=== PATIENT | female | born 1955 | race Caucasian/White ===

== ENCOUNTER 2017-02-23 11:57 | Day surgery (SDC) | payer MEDICARE, OTHER ==
[2017-02-23 12:09] VITALS: BP 132/65; PULSE 71; RESP 20; TEMP 98.2
[2017-02-23] MEDS ORDERED: ALPRAZolam 0.5 MG TAB PO STA (12:14)
--- NOTE | 2017-02-23 14:13 | US ---
ULTRASOUND GUIDED FNA THYROID BIOPSY: CLINICAL HISTORY: Isthmus nodule and left thyroid nodule FINDINGS: The procedure was explained to the patient. The risks, complications, benefits and alternatives were discussed and any questions were answered. Informed consent was obtained. Patient was placed supin e on the ultrasound table and prepped and draped in the usual sterile fashion. Utilizing a 25 gauge needle, five passes were made into the isthmus nodule. Left thyroid nodule was not seen with certain ty on today's exam. Patient was stable throughout the procedure. Pathology is pending. All elements of maximal barrier technique were utilized. IMPRESSION: 1. Successful ultrasound guided FNA thyroid biopsy isthmus nodule. Left thyroid nodule not seen with certainty on today's exam and therefore FNA could not be performed. Follow-up as clinically e d.
== END 2017-02-23 13:20 | disposition home or self-care (01) ==
LOC: RADPROMAIN 11:57
PROVIDERS: ATTEND Family Medicine
DX: E07.89 Other specified disorders of thyroid (principal); E04.1 Nontoxic single thyroid nodule
CPT/HCPCS: 10022; 76942; 88173; 88305

== ENCOUNTER 2017-03-25 06:33 | Day surgery (SDC) | payer MEDICARE ==
[2017-03-17 10:54] VITALS: BMI 26.6
[~2017-03-25 06:33] MED LIST: DEXAMETHASONE SOD PHOSPHATE 10 MG/ML 1 ML VIAL IV ONE; HEPARIN SODIUM,PORCINE 5,000 UNIT/ML 1 ML VIAL SQ ONE; LACTATED RINGERS 1,000 ML IV SCH; MIDAZOLAM 2 MG/2 ML VIAL IV PRN; ONDANSETRON 4 MG/2 ML VIAL IVP ONE; Pre Op ABX Message 1 EACH MISC MISCELLANE ONE; SCOPOLAMINE 1.5MG/72HR PATCH TRANSDERM ONE
--- NOTE | 2017-03-25 07:55 | P.GSHP ---
History of Present Illness H&P Date: 03/25/17 Chief Complaint: Thyroid cancer This is a 62-year-old female who had an enlarging left thyroid nodule. 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 She presents today for total thyroidectomy. Patient is aware the risks of surgery including vocal cord hoarseness, recurrent laryngeal nerve injury, parathyroid gland injury. - Constitutional Constitutional: Reports as per HPI Past Medical History Past Medical History: Coronary Artery Disease (CAD), Cancer, Chest Pain / Angina , Hyperlipidemia, Hypertension, Memory Impairment, Myocardial Infarction ([place]), Thyroid Disorder Additional Past Medical History / Comment(s): TIA yrs. ago, Isthmus nodule. hx. of Prinzmetal angina. new dx. thyroid cancer, current resolving cold symptoms Last Myocardial Infarction Date:: 05/2010 History of Any Multi-Drug Resistant Organisms: None Reported Past Surgical History: Cholecystectomy, Heart Catheterization, Hysterectomy, Tonsillectomy Additional Past Surgical History / Comment(s): CYST REMOVED ON NECK CHILD. Isthmus nodule biopsy. Right thumb injury repair Past Anesthesia/Blood Transfusion Reactions: Previous Problems w/ Anesthesia Additional Past Anesthesia/Blood Transfusion Reaction / Comment(s): trouble urinating after general anesthesia Smoking Status: Former smoker - Past Family History Mother Family Medical History: Unable to Obtain Medications and Allergies Home Medications Medication Instructions Recorded Confirmed Type Carvedilol [Coreg] 6.25 mg PO BID 03/21/14 03/17/17 History amLODIPine BESYLATE [Norvasc] 2.5 mg PO BID 03/21/14 03/25/17 History Atorvastatin [Lipitor] 80 mg PO HS 09/10/15 03/25/17 History hydrOXYzine HCL [Atarax] 25 mg PO QID PRN 09/10/15 03/25/17 History Levothyroxine Sodium [Synthroid] 100 mcg PO DAILY 02/07/16 03/17/17 History Allergies Allergy/AdvReac Type Severity Reaction Status Date / Time adhesive AdvReac Itching Verified 03/25/17 06:55 codeine AdvReac Nausea & Verified 03/25/17 06:55 Vomiting Surgical - Exam Vital Signs Temp Pulse Resp BP Pulse Ox 98.4 F 63 16 133/80 97 03/25/17 06:54 03/25/17 06:54 03/25/17 06:54 03/25/17 06:54 03/25/17 06:54 - General well developed, no distress - Eyes PERRL - ENT normal pinna - Neck Prominent thyroid gland no masses - Respiratory normal expansion - Cardiovascular Rhythm: regular - Abdomen Abdomen: soft, non tender Assessment and Plan Plan: Left thyroid follicular neoplasm. Patient will undergo total thyroidectomy. The risks and benefits. Discussed the patient.
[2017-03-25] MEDS ORDERED: PROPOFOL 10 MG/ML 20 ML VIAL IV ONE (08:00)
[2017-03-25] MEDS ORDERED: ePHEDrine SULFATE/0.9% NACL/PF 50 MG/5 ML SYRINGE IV ONE (08:00)
[2017-03-25] MEDS ORDERED: SUCCINYLCHOLINE CHLORIDE 100 MG/5 ML SYR IV ONE (08:00)
[2017-03-25] MEDS ORDERED: MIDAZOLAM 2 MG/2 ML VIAL ONE (08:00)
[2017-03-25] MEDS ORDERED: fentaNYL (PF) 50 MCG/ML 2 ML AMP ONE (08:00)
[2017-03-25] MEDS ORDERED: LIDOCAINE 1% INJ 10MG/ML (20 ML MDV) ONE (08:00)
[2017-03-25] MEDS ORDERED: SODIUM CHLORIDE 0.9% 0 ML with ceFAZolin 2,000 MG IV ONE ×2 (08:18)
[2017-03-25] MEDS ORDERED: LACTATED RINGERS 1,000 ML IV ONE ×2 (09:26→09:43)
[2017-03-25] MEDS ORDERED: LIDOCAINE 2%-EPI 1:100,000 20 ML VIAL SQ ONE (09:28)
[2017-03-25] MEDS ORDERED: NALOXONE 0.4 MG/ML 1 ML VIAL IV PRN (09:43)
[2017-03-25] MEDS ORDERED: ACETAMINOPHEN TAB 325 MG TAB PO PRN (09:43)
[2017-03-25] MEDS: HYDROmorphone 1 MG/ML 1 ML SYRINGE IVP PRN ×7 (09:55→22:13)
[2017-03-25] MEDS: traMADol 50 MG TAB PO PRN (16:31)
[2017-03-25] MEDS: DOCUSATE 100 MG CAP PO SCH (22:15)
[2017-03-26] MEDS: HYDROmorphone 1 MG/ML 1 ML SYRINGE IVP PRN (02:09)
[2017-03-26] MEDS: traMADol 50 MG TAB PO PRN (05:54)
[2017-03-26] MEDS ORDERED: hydrOXYzine HCL 25 MG TAB PO PRN (07:47)
[2017-03-26] MEDS ORDERED: LEVOTHYROXINE 100 MCG TAB PO SCH (08:00)
[2017-03-26] MEDS ORDERED: CARVEDILOL 6.25 MG TAB PO SCH (08:00)
[2017-03-26 08:52] VITALS: RESP 20
[2017-03-26] MEDS ORDERED: amLODIPine 2.5 MG TAB PO SCH (09:00)
[2017-03-26] MEDS: DOCUSATE 100 MG CAP PO SCH (09:08)
[2017-03-26] MEDS: HYDROcodone/APAP 5-325MG 1 EACH TAB PO PRN ×2 (10:15→15:41)
[2017-03-26 11:59] VITALS: BP 129/69; PULSE 74; TEMP 98.2
--- NOTE | 2017-03-26 13:57 | P.DS ---
Providers Date of admission: 03/25/2017 Expected date of discharge: 03/26/17 Attending physician: Trever Nolan Consults: 03/25/17 09:43 Consult Physician Routine Consulting Provider: Liborio Colon Consult Reason/Comments: Medical management Do you want consulting provider notified?: Yes Primary care physician: [facility] Course: This is a 62-year-old female who underwent total thyroidectomy for left thyroid cancer. Patient did well postoperatively. Her calcium levels are normal. Her voice was normal as well. Procedures: Total thyroidectomy Patient Condition at Discharge: Good Plan - Discharge Summary New Discharge Prescriptions: No Action amLODIPine BESYLATE [Norvasc] 2.5 mg PO BID Carvedilol [Coreg] 6.25 mg PO BID hydrOXYzine HCL [Atarax] 25 mg PO QID PRN PRN Reason: Nausea Atorvastatin [Lipitor] 80 mg PO HS Levothyroxine Sodium [Synthroid] 100 mcg PO DAILY Discharge Medication List Carvedilol [Coreg] 6.25 mg PO BID 03/21/14 [History] amLODIPine BESYLATE [Norvasc] 2.5 mg PO BID 03/21/14 [History] Atorvastatin [Lipitor] 80 mg PO HS 09/10/15 [History] hydrOXYzine HCL [Atarax] 25 mg PO QID PRN 09/10/15 [History] Levothyroxine Sodium [Synthroid] 100 mcg PO DAILY 02/07/16 [History] Follow up Appointment(s)/Referral(s): Trever Nolan MD [STAFF PHYSICIAN] - 1 Week Liborio Colon MD [Primary Care Provider] - 2 Weeks Discharge Disposition: HOME SELF-CARE
[2017-03-26] MEDS ORDERED: ATORVASTATIN 80 MG TAB PO SCH (21:00)
--- NOTE | 2017-03-27 09:31 | PN ---
PROGRESS NOTE SUBJECTIVE: 62-year-old, white female admitted with hypertension and hypothyroidism, dyslipidemia with a follicular thyroid cancer. Calcium was 9.2 to 8.5. She is feeling better. Follicular cancer has been removed. Temp 98, respiratory 17 to 20. Pulse is 67. Blood pressure 120 to 130s over 60s to 70s. O2 is 96% on room air. CARDIOVASCULAR: S1, S2. LUNGS: Transmitted upper sounds. GI: Soft. HEMATOLOGY: Negative Homans. ASSESSMENT: 1. Follicular cancer. 2. Dyslipidemia. 3. Hypertension. 4. Hypothyroidism. Calcium has been rechecked and possible discharge home once patient is able to swallow despite severe throat pain. MMODL / IJN: [id number] /
--- NOTE | 2017-03-27 09:58 | CONS ---
CONSULTATION CHIEF COMPLAINT: 62-year-old, white female, who has follicular cancer. HISTORY OF PRESENT ILLNESS: This is a 62-year-old, white female with a follicular carcinoma status post thyroidectomy, hypertension, dyslipidemia, and chronic pain syndrome. The thyroid has been removed. Calcium has been re-evaluated. HOME MEDICATIONS: As mentioned above. PHYSICAL EXAM: Temp 97 to 98, pulse 60s to 70s, respirations 18 to 20, blood pressure 120s to 130s over 70s. O2 is 95-98% on room air. CARDIOVASCULAR: S1, S2. LUNGS: Clear. GI: Soft. HEMATOLOGIC: Negative Homans. VASCULAR: Normal dorsalis pedis, posterior tibial pulses. ENDOCRINE: Lateral incision over the lower anterior neck is clean, dry and intact. ASSESSMENT: 1. Status post thyroidectomy for follicular thyroid cancer. 2. Hypertension. 3. Dyslipidemia. We will follow for calcium levels. Follow in the next 24 to 48 hours. For possible discharge home. MMODL / IJN: [id number] /
--- NOTE | 2017-04-06 07:28 | P.OP ---
Date of Procedure: 03/25/17 Preoperative Diagnosis: follicular neoplasm of isthmus Postoperative Diagnosis: defer to pathology Procedure(s) Performed: total thyroidectomy Anesthesia: PATRICIA Surgeon: Trever Nolan Estimated Blood Loss (ml): 10 Pathology: other (thyroid) Condition: stable Disposition: PACU Description of Procedure: the patient was placed on the operative table in the supine position. She received general anesthesia. She was then placed in the beach chair position with her neck extended. Her neck was prepped and draped usual fashion. A standard incision was made approximately 2 cm above the sternal notch. The strap platysma was divided. The strap muscles were divided in the midline. The patient had a midline thyroid nodule. The left thyroid gland was mobilized first. Using retractors the strap muscle retracted laterally. And then the inferior thyroid vessels were ligated using 3-0 silk suture. The gland was rotated medially and then using the Harmonic scissors several small vessels were divided. Next the superior thyroid vessels were ligated using 2-0 silk ties. And then they were divided using the Harmonic scissors. The gland was rotated medially. Meticulous dissection was performed and the middle thyroid vein was dissected and divided. It was ligated with 3-0 silk suture. Care was taken to identify preserve the recurrent laryngeal nerve. The gland was then dissected off the trachea using cautery. Parathyroid glands were noted superiorly and inferiorly and these were preserved. Next the right thyroid gland was removed in identical fashion. The neck was inspected for hemostasis. There is no bleeding seen. The strap muscles were then reapproximated using 3-0 Vicryl suture. The platysma was closed with interrupted 3-0 Vicryl suture. The skin was closed interrupted 3-0 Monocryl suture. This skin was then closed with Dermabond. The patient was sent to recovery in stable condition.
== END 2017-03-26 17:30 | disposition home or self-care (01) ==
LOC: OR 06:33 → 6PED 09:36 → OR 03-26 17:30
PROVIDERS: ATTEND Surgery
DX: C73 Malignant neoplasm of thyroid gland (principal); E03.9 Hypothyroidism, unspecified; I25.10 Atherosclerotic heart disease of native coronary artery without angina pectoris; E78.5 Hyperlipidemia, unspecified; I10 Essential (primary) hypertension; R41.3 Other amnesia; G89.4 Chronic pain syndrome; I25.2 Old myocardial infarction; Z86.73 Personal history of transient ischemic attack (TIA), and cerebral infarction without residual deficits; Z87.891 Personal history of nicotine dependence; Z79.899 Other long term (current) drug therapy
CPT/HCPCS: 82310 ×2; 88307; 60240; J2250; J1644; J1100; J2405; J2001; J3010; J1170 ×2; J0690; J0330; J2704

== ENCOUNTER → 2017-07-06 | Outpatient (CLI) | payer MEDICARE ==
--- NOTE | 2017-07-06 13:51 | MR ---
EXAMINATION TYPE: MR brain wo/w con DATE OF EXAM: 07/06/2017 COMPARISON: Prior outside MRI brain December 25, 2010. HISTORY: Abnormal brain scan, memory loss TECHNIQUE: Exam is noted suboptimal due to prominent patient motion. Multiplanar, multisequence images of the brain and brainstem is performed without and with IV contras t, utilizing 7.5 mL intravenous Gadavist . FINDINGS: Diffusion weighted images demonstrate no evidence of a recent infarct or other diffusion ab normality. There is no worrisome extra-axial fluid collection. The ventricular system and cisternal spaces are normal in size and appearance. The brain volume is age appropriate. There is redemonstration of innumerable T2 hyperintense lesions scattered throughout the brain parenc hyma bilaterally there are estimated approximately 100 focal and confluent lesions involving superfic ial, deep, and periventricular white matter. For reference 16 x 8 x 15 mm lesion left frontal deep wh ite matter on axial image 19 is not significantly changed from prior. Midline structures demonstrate normal morphology. The craniocervical junction appears within normal limits. Post contrast images demonstrate no abnormal enhancement. The dural venous sinuses appear pa tent. The visualized sinuses are clear and the globes are intact. IMPRESSION: Severe nonspecific white matter changes redemonstrated without significant change from pr ior study. No enhancing lesions are clearly appreciated.
== END | disposition home or self-care (01) ==
LOC: RADMRIMAIN 10:52
PROVIDERS: ATTEND Family Medicine
DX: R90.82 White matter disease, unspecified (principal)
CPT/HCPCS: 70553; A9581

== ENCOUNTER → 2017-10-13 | Outpatient (CLI) | payer MEDICARE ==
--- NOTE | 2017-10-14 08:10 | MM ---
Reason for exam: screening (asymptomatic). Last mammogram was performed 10 years ago. Physical Findings: A clinical breast exam by your physician is recommended on an annual basis and results should be correlated with mammographic findings. MG 3D Screening Mammo W/Cad Bilateral CC and MLO view(s) were taken. Prior study comparison: October 16, 2007, mammogram, performed at [facility]. There are scattered fibroglandular densities. There is no discrete abnormality. No significant changes when compared with prior studies. ASSESSMENT: Negative, BI-RAD 1 RECOMMENDATION: Routine screening mammogram of both breasts in 1 year.
== END | disposition home or self-care (01) ==
LOC: RADMAMWWP 14:49
PROVIDERS: ATTEND Family Medicine
DX: Z12.31 Encounter for screening mammogram for malignant neoplasm of breast (principal)
CPT/HCPCS: 77063; 77067

== ENCOUNTER → 2017-10-25 | Outpatient (CLI) | payer MEDICARE ==
--- NOTE | 2017-10-25 16:27 | CTL ---
EXAMINATION TYPE: CT Low Dose Lung DATE OF EXAM ORDERED: 10/25/2017 COMPARISON: None HISTORY: . Low Dose CT Lung Screening CT DLP: 64.[address] CTDI: 2.0 mGy IV CONTRAST USED: None. SCREENING VISIT: First visit COMPARISON: None. TECHNIQUE: Low dose computed tomography scan was performed through the chest at 1 millimeter thick se ctions and reconstructed images in the coronal plane at [address] DIAGNOSTIC QUALITY: Satisfactory FINDINGS: LUNG NODULES: Not presentLeft lung: no nodules identified.Right lung: no nodules identified. LUNGS: COPD: Severity: None Fibrosis: Severity:None Lymph nodes: None Other findings: None RIGHT PLEURAL SPACE: Effusion: None Calcification: None Thickening: None Pneumothorax: None LEFT PLEURAL SPACE: Effusion: None Calcification: None Thickening: None Pneumothorax: None HEART: Heart Size: Mildly enlarged Coronary calcification: Mild Pericardial effusion: None OTHER FINDINGS: Upper abdomen: No significant abnormality Bony thorax: Degenerative changes Supraclavicular region: No significant abnormalityOther: No significant abnormalityI IMPRESSION: No significant abnormality seen. FOLLOW UP CT CHEST RECOMMENDATION: Follow-up screening in one year CT LUNG RAD: Negative LUNG RAD CATEGORY 1
== END | disposition home or self-care (01) ==
LOC: RADCTMAIN 15:40
PROVIDERS: ATTEND Family Medicine
DX: Z12.2 Encounter for screening for malignant neoplasm of respiratory organs (principal); I25.10 Atherosclerotic heart disease of native coronary artery without angina pectoris; Z87.891 Personal history of nicotine dependence
CPT/HCPCS: 93880; G0297

== ENCOUNTER → 2017-10-25 | Outpatient (CLI) | payer MEDICARE ==
--- NOTE | 2017-10-25 15:52 | US ---
EXAMINATION TYPE: US carotid duplex BILAT DATE OF EXAM: 10/25/2017 COMPARISON: NONE CLINICAL HISTORY: Coronary Artery Disease I25.10. CAD EXAM MEASUREMENTS: RIGHT: Peak Systolic Velocity (PSV) cm/sec ----- Right CCA: 77.6 ----- Right ICA: 113.4 ----- Right ECA: 91.0 ICA/CCA ratio: 1.5 RIGHT: End Diastole cm/sec ----- Right CCA: 27.0 ----- Right ICA: 47.4 ----- Right ECA: 17.1 LEFT: Peak Systolic Velocity (PSV) cm/sec ----- Left CCA: 70.9 ----- Left ICA: 110.9 ----- Left ECA: 71.2 ICA/CCA ratio: 1.6 LEFT: End Diastole cm/sec ----- Left CCA: 24.7 ----- Left ICA: 46.6 ----- Left ECA: 17.5 VERTEBRALS (direction of flow): Right Vertebral: Antegrade Left Vertebral: Antegrade Rhythm: Normal IMPRESSION: No elevated velocities, no significant stenosis. Criteria for Assigning % of Stenosis / Diameter reduction (Estimation based on the indirect measurements of the internal carotid artery velocities (ICA PSV). 1. Normal (no stenosis)=ICA PSV < 125 cm/s: ratio < 2.0: ICA EDV<40 cm/s. 2. Less than 50% stenosis=ICA PSV < 125 cm/s: ratio < 2.0: ICA EDV<40 cm/s. 3. 50 to 69% stenosis=ICA PSV of 125 to 230 cm/s: ration 2.0 ? 4.0: ICA EDV 40-100 cm/s. 4. Greater than 70% stenosis to near occlusion= ICA PSV > 230 cm/s: ratio > 4.0: ICA EDV > 100 cm/s. 5. Near occlusion= ICA PSV velocities may be low or undetectable: variable ratio and ICA EDV. 6. Total occlusion=unable to detect flow.
== END | disposition home or self-care (01) ==
LOC: RADUSWWP 15:15
PROVIDERS: ATTEND Family Medicine
DX: I25.10 Atherosclerotic heart disease of native coronary artery without angina pectoris (principal)
CPT/HCPCS: 93880

== ENCOUNTER 2018-03-28 06:26 | Inpatient (IN) | payer MEDICARE ==
[2018-03-28] MEDS ORDERED: SODIUM CHLORIDE 0.9% 1,000 ML IV STA ×2 (06:40)
[2018-03-28] MEDS ORDERED: ONDANSETRON 4 MG/2 ML VIAL IVP STA (06:40)
[2018-03-28] MEDS ORDERED: PANTOPRAZOLE 40 MG/10 ML VIAL IVP STA (06:40)
[2018-03-28] MEDS ORDERED: MORPHINE SULFATE 4 MG/ML SYRINGE IVP STA (06:40)
[2018-03-28] MEDS ORDERED: MORPHINE SULFATE 4 MG/ML SYRINGE IM STA (06:59)
[2018-03-28] MEDS ORDERED: ONDANSETRON 4 MG/2 ML VIAL IM STA (07:00)
--- NOTE | 2018-03-28 07:20 | ED ---
General Adult HPI - General Chief complaint: Chest Pain Stated complaint: Abdominal Pain, vomiting Source: patient, EMS Mode of arrival: EMS Limitations: no limitations - History of Present Illness Initial comments: Dictation was produced using [employer] dictation software. please excuse any grammatical, word or spelling errors. Chief Complaint: 63-year-old female past medical history of coronary artery disease, cancer, hypertension, thyroid disease presents with 4 hours of abdominal and chest pain. History of Present Illness: States that upon waking about approximately 4 AM patient began having chest pain and abdominal pain. When questioned what is more severe she reports that it is her abdominal pain. She woke up with severe left lower quadrant abdominal pain, nausea and vomiting. Patient is a poor historian. Chart review shows that patient has multiple medical problems namely cardiac disease. Patient does report being at baseline last night. Patient has history of diverticulitis per she feels as though his diverticulitis is acting up. The ROS documented in this emergency department record has been reviewed and confirmed by me. Those systems with pertinent positive or negative responses have been documented in the HPI. All other systems are other negative and/or noncontributory. - Related Data Home Medications Medication Instructions Recorded Confirmed Atorvastatin [Lipitor] 80 mg PO HS 09/10/15 03/28/18 Levothyroxine Sodium [Synthroid] 100 mcg PO DAILY 02/07/16 03/28/18 Carvedilol [Coreg] 12.5 mg PO BID 03/28/18 03/28/18 Spironolactone [Aldactone] 25 mg PO DAILY 03/28/18 03/28/18 Allergies Allergy/AdvReac Type Severity Reaction Status Date / Time adhesive AdvReac Itching Verified 03/28/18 09:02 codeine AdvReac Nausea & Verified 03/28/18 09:02 Vomiting Review of Systems ROS Statement: Those systems with pertinent positive or pertinent negative responses have been documented in the HPI. ROS Other: All systems not noted in ROS Statement are negative. Past Medical History Past Medical History: Coronary Artery Disease (CAD), Cancer, Chest Pain / Angina , Hyperlipidemia, Hypertension, Memory Impairment, Myocardial Infarction ([place]), Thyroid Disorder Additional Past Medical History / Comment(s): TIA yrs. ago, Isthmus nodule. hx. of Prinzmetal angina. new dx. thyroid cancer, current resolving cold symptoms Last Myocardial Infarction Date:: 05/2010 History of Any Multi-Drug Resistant Organisms: None Reported Past Surgical History: Cholecystectomy, Heart Catheterization, Hysterectomy, Tonsillectomy Additional Past Surgical History / Comment(s): CYST REMOVED ON NECK CHILD. Isthmus nodule biopsy. Right thumb injury repair Past Anesthesia/Blood Transfusion Reactions: Previous Problems w/ Anesthesia Additional Past Anesthesia/Blood Transfusion Reaction / Comment(s): trouble urinating after general anesthesia Past Psychological History: Depression Smoking Status: Former smoker Past Alcohol Use History: None Reported Past Drug Use History: Marijuana - Past Family History Mother Family Medical History: Unable to Obtain General Exam - General Exam Comments Initial Comments: PHYSICAL EXAM: General Impression: Alert and oriented x3, acute distress secondary to pain HEENT: Normocephalic atraumatic, extra-ocular movements intact, pupils equal and reactive to light bilaterally, dry mucous membranes Cardiovascular: Heart regular rate and rhythm, S1&S2 audible, no murmurs, rubs or gallops Chest: Lungs clear to auscultation bilaterally, no rhonchi, no wheeze, no rales Abdomen: Diffuse abdominal tenderness, worse in the left lower quadrant Musculoskeletal: Pulses present and equal in all extremities, no peripheral edema Motor: Moves all extremities grossly Neurological: CN II-XII grossly intact, no focal motor or sensory deficits noted Skin: Intact with no visualized rashes Psych: Normal affect and mood Limitations: no limitations Course Vital Signs 03/28/18 03/28/18 06:27 09:32 Temperature 97.5 F L Pulse Rate 77 73 Respiratory 19 17 Rate Blood Pressure 167/117 193/84 O2 Sat by Pulse 99 95 Oximetry Medical Decision Making - Medical Decision Making ED course: 62-year-old female presents with chest pain and abdominal pain. Vital signs upon arrival shows blood pressure of 167/117, temperature 97.5, rest vital signs within normal limits. EKG does not show any signs of ischemia or infarction. Laboratory evaluation obtained. Patient is leukocytosis of 14.3. Coag panel unremarkable, d-dimer is negative. Metabolic panel shows glucose of 193. Patient has mild Acidosis. Computed tomography scan the abdomen and pelvis shows no acute processes. Chest x-ray shows no acute processes. Patient reevaluated and reports having persistent nausea and vomiting. Patient given multiple antiemetics. After intervention patient still reports having symptoms. Discussed patient case with Dr. Mullally her primary care physician who requested patient be admitted to observation for further care. EKG Interpretation: A 12 lead EKG was obtained. It was interpreted by myself and attending physician. There is a P wave before every QRS complex. Rate is 73. Rhythm is normal sinus rhythm, DC interval 166, QRS 90, QTc 458. QT is not prolonged. No ST segment depression or elevation. Overall, this EKG is unremarkable - Lab Data Result diagrams: 03/28/18 07:35 03/28/18 07:35 Lab Results 03/28/18 03/28/18 03/28/18 Range/Units 07:35 07:35 07:35 WBC 14.3 H (3.8-10.6) k/uL RBC 4.74 (3.80-5.40) m/uL Hgb 14.3 (11.4-16.0) gm/dL Hct 42.4 (34.0-46.0) % MCV 89.5 (80.0-100.0) fL MCH 30.2 (25.0-35.0) pg MCHC 33.7 (31.0-37.0) g/dL RDW 12.5 (11.5-15.5) % Plt Count 236 (150-450) k/uL Neutrophils % 68 % Lymphocytes % 24 % Monocytes % 5 % Eosinophils % 1 % Basophils % 0 % Neutrophils # 9.6 H (1.3-7.7) k/uL Lymphocytes # 3.5 (1.0-4.8) k/uL Monocytes # 0.8 (0-1.0) k/uL Eosinophils # 0.1 (0-0.7) k/uL Basophils # 0.0 (0-0.2) k/uL PT (9.0-12.0) sec INR (<1.2) APTT (22.0-30.0) sec D-Dimer (<0.60) mg/L FEU Sodium 142 (137-145) mmol/L Potassium 4.5 (3.5-5.1) mmol/L Chloride 107 (98-107) mmol/L Carbon Dioxide 21 L (22-30) mmol/L Anion Gap 14 mmol/L BUN 15 (7-17) mg/dL Creatinine 0.84 (0.52-1.04) mg/dL Est GFR (CKD-EPI)AfAm 86 (>60 ml/min/1.73 sqM) Est GFR (CKD-EPI)NonAf 74 (>60 ml/min/1.73 sqM) Glucose 193 H (74-99) mg/dL Calcium 9.9 (8.4-10.2) mg/dL Magnesium 1.9 (1.6-2.3) mg/dL Total Bilirubin 1.1 (0.2-1.3) mg/dL AST 30 (14-36) U/L ALT 41 (9-52) U/L Alkaline Phosphatase 168 H (38-126) U/L Total Creatine Kinase 74 (30-135) U/L CK-MB (CK-2) 0.5 (0.0-2.4) ng/mL CK-MB (CK-2) Rel Index 0.7 Troponin I <0.012 (0.000-0.034) ng/mL NT-Pro-B Natriuret Pep pg/mL Total Protein 7.6 (6.3-8.2) g/dL Albumin 4.8 (3.5-5.0) g/dL Lipase 235 (23-300) U/L 03/28/18 03/28/18 Range/Units 07:35 07:35 WBC (3.8-10.6) k/uL RBC (3.80-5.40) m/uL Hgb (11.4-16.0) gm/dL Hct (34.0-46.0) % MCV (80.0-100.0) fL MCH (25.0-35.0) pg MCHC (31.0-37.0) g/dL RDW (11.5-15.5) % Plt Count (150-450) k/uL Neutrophils % % Lymphocytes % % Monocytes % % Eosinophils % % Basophils % % Neutrophils # (1.3-7.7) k/uL Lymphocytes # (1.0-4.8) k/uL Monocytes # (0-1.0) k/uL Eosinophils # (0-0.7) k/uL Basophils # (0-0.2) k/uL PT 10.1 (9.0-12.0) sec INR 1.0 (<1.2) APTT 22.2 (22.0-30.0) sec D-Dimer 0.40 (<0.60) mg/L FEU Sodium (137-145) mmol/L Potassium (3.5-5.1) mmol/L Chloride (98-107) mmol/L Carbon Dioxide (22-30) mmol/L Anion Gap mmol/L BUN (7-17) mg/dL Creatinine (0.52-1.04) mg/dL Est GFR (CKD-EPI)AfAm (>60 ml/min/1.73 sqM) Est GFR (CKD-EPI)NonAf (>60 ml/min/1.73 sqM) Glucose (74-99) mg/dL Calcium (8.4-10.2) mg/dL Magnesium (1.6-2.3) mg/dL Total Bilirubin (0.2-1.3) mg/dL AST (14-36) U/L ALT (9-52) U/L Alkaline Phosphatase (38-126) U/L Total Creatine Kinase (30-135) U/L CK-MB (CK-2) (0.0-2.4) ng/mL CK-MB (CK-2) Rel Index Troponin I (0.000-0.034) ng/mL NT-Pro-B Natriuret Pep 129 pg/mL Total Protein (6.3-8.2) g/dL Albumin (3.5-5.0) g/dL Lipase (23-300) U/L Disposition Clinical Impression: Nausea & vomiting Disposition: ADMITTED IP TO THIS HOSP Referrals: Liborio Colon MD [Primary Care Provider] - 1-2 days Decision Time: 10:32
[2018-03-28 07:47] LABS: Basophils % (A) 0 %; Eosinophils # (A) 0.1 k/uL (0-0.7); Eosinophils % (A) 1 %; HCT 42.4 % (34.0-46.0); HGB 14.3 gm/dL (11.4-16.0); Lymphocytes # (A) 3.5 k/uL (1.0-4.8); Lymphocytes % (A) 24 %; MCH 30.2 pg (25.0-35.0); MCHC 33.7 g/dL (31.0-37.0); MCV 89.5 fL (80.0-100.0); Mean Platelet Volume 8.1; Monocytes # (A) 0.8 k/uL (0-1.0); Monocytes % (A) 5 %; Neutrophils # (A) 9.6 k/uL (1.3-7.7); Neutrophils % (A) 68 %; Platelet Count 236 k/uL (150-450); RBC 4.74 m/uL (3.80-5.40); RDW 12.5 % (11.5-15.5); WBC 14.3 k/uL (3.8-10.6)
[2018-03-28 08:03] LABS: Albumin 4.8 g/dL (3.5-5.0); Calcium 9.9 mg/dL (8.4-10.2); D-Dimer 0.4 mg/L FEU (<0.60); Magnesium 1.9 mg/dL (1.6-2.3); Partial Thromboplastin Time 22.2 sec (22.0-30.0); Potassium 4.5 mmol/L (3.5-5.1); Prothrombin Time 10.1 sec (9.0-12.0); Total Bilirubin 1.1 mg/dL (0.2-1.3); Total Protein 7.6 g/dL (6.3-8.2)
[2018-03-28 08:07] LABS: Creatine Kinase 74 U/L (30-135)
[2018-03-28 08:19] LABS: Creatine Kinase MB 0.5 ng/mL (0.0-2.4); Troponin I <0.012 ng/mL (0.000-0.034)
--- NOTE | 2018-03-28 08:23 | CT ---
EXAMINATION TYPE: CT abdomen pelvis w con DATE OF EXAM: 03/28/2018 HISTORY: Nausea and vomiting with epigastric pain, history of thyroid cancer CT DLP: 689.8mGycm Automated Exposure Control for Dose Reduction was Utilized. CONTRAST: CT scan of the abdomen and pelvis is performed without oral but with IV Contrast, patient injected wi th 100 mL of Isovue 300. COMPARISON: None FINDINGS: LUNG BASES: No significant abnormality is appreciated. LIVER/GB: Cholecystectomy clips are seen. PANCREAS: No significant abnormality is seen. SPLEEN: No significant abnormality is seen. ADRENALS: No significant abnormality is seen. KIDNEYS: No significant abnormality is seen. BOWEL: A small hiatal hernia is present. There are diverticula in the sigmoid colon. There is no conv incing CT evidence for acute diverticulitis. There is no suspicious small or large bowel dilatation. There is wondering cecum into the anterior mid abdomen just below umbilicus. Evaluation bowel is slig htly suboptimal due to lack of enteric contrast. UTERUS/ADNEXA: Uterus is surgically absent or markedly atrophic. Scattered pelvic phleboliths are see n. LYMPH NODES: No greater than 1cm abdominal or pelvic lymph nodes are appreciated. OSSEOUS STRUCTURES: No significant abnormality is seen. OTHER: There is mild to moderate calcified plaque of aorta extending into branch vessels. IMPRESSION: No bowel obstruction is seen. No significant acute finding is seen to account for patient 's clinical symptoms.
[2018-03-28] MEDS ORDERED: HALOPERIDOL LACTATE 5 MG/ML 1 ML VIAL IVP STA (08:34)
--- NOTE | 2018-03-28 09:16 | XR ---
EXAMINATION TYPE: XR chest 2V DATE OF EXAM: 03/28/2018 COMPARISON: Chest x-ray February 07, 2016. Low-dose lung screening CT report October 25, 2017 HISTORY: Chest pain. TECHNIQUE: Frontal and lateral views of the chest are obtained. FINDINGS: There is chronic parenchymal change without suspicious focal air space opacity, pleural ef fusion, or pneumothorax seen. The cardiac silhouette size is upper limits of normal. The osseous s tructures are intact. IMPRESSION: Chronic changes without acute pulmonary process.
[2018-03-28] MEDS ORDERED: METOCLOPRAMIDE 5 MG/ML 2 ML VIAL IVP STA (09:26)
[2018-03-28] MEDS ORDERED: NALOXONE 0.4 MG/ML 1 ML VIAL IV PRN (10:29)
--- NOTE | 2018-03-28 13:36 | HP ---
HISTORY AND PHYSICAL CHIEF COMPLAINT: A 63-year-old white female, history of coronary artery disease, cancer, hypertension, hypothyroidism, presents with over 4 hours of abdominal and chest pain. She woke up with severe left lower quadrant abdominal pain, nausea, vomiting, and some atypical chest pain. She has a history of diverticulitis. No cough, hemoptysis. Atypical chest pain, mostly abdominal pain, admitted. Will get surgical and cardiology consult. HOME MEDICINES: 1. Lipitor 80. 2. Synthroid 100. 3. Coreg 12.5 b.i.d. 4. Aldactone 25 daily. ALLERGIES: Allergies are to CODEINE. REVIEW OF SYSTEMS: Fourteen-point review of systems negative except for mentioned in HPI. PAST MEDICAL HISTORY: Coronary artery disease, angina, dyslipidemia, hypertension, memory impairment, myocardial infarction, hypothyroidism, thyroid cancer, cholecystectomy, heart catheterization, hysterectomy, tonsillectomy, isthmus nodule biopsy, right thumb injury repair and depression. SOCIAL HISTORY: Marijuana. Former smoker. No alcohol. history as mentioned above. PHYSICAL EXAMINATION: Temp 97.5, pulse is in the 70s, respiratory rate 16 to 18, blood pressure is 160s to 190s over 80s to 117, O2 of 95% to 99% on room air. HEENT: Normocephalic, atraumatic. CARDIOVASCULAR: S1, S2. LUNGS: Transmitted upper airway sounds. GI: Soft, HEMATOLOGY: Negative Homans. PSYCH: Fair mood and affect. GI: There is mild tenderness, worse in the left lower quadrant. ASSESSMENT: 1. Possible diverticulitis. 2. Hypertension acceleration. 3. Atypical chest pain. D-dimer is negative and chest x-ray negative for any pulmonary embolism. Will have Cardiology to see her as well as surgical consultation. White count elevation possibly due to diverticulitis, urine culture and possibly use some broad-spectrum antibiotics. Elevated glucose levels, check hemoglobin A1c and also check thyroid level on her. Initial cardiac workup is negative. Await consultations. MMODL / IJN: [id number] /
--- NOTE | 2018-03-28 13:37 | P.GSCN ---
History of Present Illness Consult date: 03/28/18 Reason for Consult: Left lower quadrant pain History of present illness: 63-year-old female who presented to the emergency room with a chief complaint of developing abdominal pain woke up with left lower quadrant pain with nausea and vomiting sensation with frequent loose stools patient states stools are semi -formed with no blood noted patient reportedly gives a history of diverticulitis. Patient states she feels that her diverticulitis is acting up. Patient has poor past medical history recall. computed tomography scan of the abdomen and pelvis obtained report reviewed in summary impression no bowel obstruction. No significant acute findings to account for patient's clinical symptoms. There are diverticuli in the sigmoid colon. No convincing evidence of acute diverticulitis Patient states she has chronic nausea but does not vomit and has not had any unintentional weight loss. Patient stated that she a similar episode several months ago abdominal pain. It resolved on its own. No blood noted in the stool is not certain when she had a colonoscopy last denies any reflux symptoms. Patient reportedly was given Haldol in the emergency room for nausea. Has a tendency to fall asleep during the interview. States is tired out" Patient does have a history of left thyroid cancer underwent a total thyroidectomy in March 2017 Past surgical history total thyroidectomy March 2017, hysterectomy, cholecystectomy, tonsillectomy Has a history of known coronary artery disease, hyperlipidemia, memory impairment, thyroid disorder, hypertension Review of Systems Essentially unremarkable except as mentioned in the present illness Past Medical History Past Medical History: Coronary Artery Disease (CAD), Cancer, Chest Pain / Angina , Hyperlipidemia, Hypertension, Myocardial Infarction (HI), Thyroid Disorder Additional Past Medical History / Comment(s): Thyroid cancer with thyroidectomy , isthmus nodule, TIA years ago, diverticular disease. Last Myocardial Infarction Date:: 05/2010 History of Any Multi-Drug Resistant Organisms: None Reported Past Surgical History: Cholecystectomy, Hysterectomy, Tonsillectomy Additional Past Surgical History / Comment(s): Pt denies any hx of cardiac cath but states another type of diagnostic test was done in 2009 and she has no cardiac blockages, thyroidectomy, isthmus bx, R thumb surgery, colonoscopy. Past Anesthesia/Blood Transfusion Reactions: Previous Problems w/ Anesthesia Additional Past Anesthesia/Blood Transfusion Reaction / Comm: trouble urinating after general anesthesia Smoking Status: Former smoker - Past Family History Mother Family Medical History: Unable to Obtain Additional Family Medical History / Comment(s): Mother is from alcoholism. Father Family Medical History: Hypertension Additional Family Medical History / Comment(s): Father is . Medications and Allergies Home Medications Medication Instructions Recorded Confirmed Type Atorvastatin [Lipitor] 80 mg PO HS 09/10/15 03/28/18 History Levothyroxine Sodium [Synthroid] 100 mcg PO DAILY 02/07/16 03/28/18 History Carvedilol [Coreg] 12.5 mg PO BID 03/28/18 03/28/18 History Spironolactone [Aldactone] 25 mg PO DAILY 03/28/18 03/28/18 History Allergies Allergy/AdvReac Type Severity Reaction Status Date / Time adhesive AdvReac Itching Verified 03/28/18 12:14 codeine AdvReac Nausea & Verified 03/28/18 12:14 Vomiting Surgical - Exam Vital Signs Temp Pulse Resp BP Pulse Ox 97.5 F L 77 19 167/117 99 03/28/18 06:27 03/28/18 06:27 03/28/18 06:27 03/28/18 06:27 03/28/18 06:27 GENERAL APPEARANCE: patient is alert, oriented 3, in no acute distress. Drowsy but arousable suspect due to the Haldol given in the emergency room for nausea VITAL SIGNS: Reviewed HEENT: Head is normocephalic and atraumatic. Pupils are equal and reactive. The nares are patent. Oropharynx is clear without lesions. NECK: Supple without lymphadenopathy. Traches midline. HEART: S1, S2. Regular rate and rhythm. No murmur LUNGS: No crackles or wheezes are heard. Adequate air movement ABDOMEN: Soft, diffuse tenderness left lower quadrant nondistended with good bowel sounds. No peritoneal signs. No palpable organomegaly or masses. Nursing reports the patient has had one watery stool no blood noted EXTREMITIES: Normal skin color and turgor. No cyanosis, rash, ulceration, clubbing or edema. Radial pedal pulses are 2/4 bilaterally. NEUROLOGICAL: No focal deficits. Strength and sensation are grossly intact. Results - Labs 03/28/18 07:35 03/28/18 07:35 Abnormal Lab Results - Last 24 Hours (Table) 03/28/18 03/28/18 Range/Units 07:35 07:35 WBC 14.3 H (3.8-10.6) k/uL Neutrophils # 9.6 H (1.3-7.7) k/uL Carbon Dioxide 21 L (22-30) mmol/L Glucose 193 H (74-99) mg/dL Alkaline Phosphatase 168 H (38-126) U/L Diabetes panel 03/28/18 Range/Units 07:35 Sodium 142 (137-145) mmol/L Potassium 4.5 (3.5-5.1) mmol/L Chloride 107 (98-107) mmol/L Carbon Dioxide 21 L (22-30) mmol/L BUN 15 (7-17) mg/dL Creatinine 0.84 (0.52-1.04) mg/dL Glucose 193 H (74-99) mg/dL Calcium 9.9 (8.4-10.2) mg/dL AST 30 (14-36) U/L ALT 41 (9-52) U/L Alkaline Phosphatase 168 H (38-126) U/L Total Protein 7.6 (6.3-8.2) g/dL Albumin 4.8 (3.5-5.0) g/dL Calcium panel 03/28/18 Range/Units 07:35 Calcium 9.9 (8.4-10.2) mg/dL Albumin 4.8 (3.5-5.0) g/dL Pituitary panel 03/28/18 Range/Units 07:35 Sodium 142 (137-145) mmol/L Potassium 4.5 (3.5-5.1) mmol/L Chloride 107 (98-107) mmol/L Carbon Dioxide 21 L (22-30) mmol/L BUN 15 (7-17) mg/dL Creatinine 0.84 (0.52-1.04) mg/dL Glucose 193 H (74-99) mg/dL Calcium 9.9 (8.4-10.2) mg/dL Adrenal panel 03/28/18 Range/Units 07:35 Sodium 142 (137-145) mmol/L Potassium 4.5 (3.5-5.1) mmol/L Chloride 107 (98-107) mmol/L Carbon Dioxide 21 L (22-30) mmol/L BUN 15 (7-17) mg/dL Creatinine 0.84 (0.52-1.04) mg/dL Glucose 193 H (74-99) mg/dL Calcium 9.9 (8.4-10.2) mg/dL Total Bilirubin 1.1 (0.2-1.3) mg/dL AST 30 (14-36) U/L ALT 41 (9-52) U/L Alkaline Phosphatase 168 H (38-126) U/L Total Protein 7.6 (6.3-8.2) g/dL Albumin 4.8 (3.5-5.0) g/dL Assessment and Plan Assessment: Impression Present on admission left lower quadrant pain with nausea vomiting diarrhea likely gastroenteritis Present on admission leukocytosis suspect reactive Computed tomography scan abdomen and pelvis with contrast obtained on admission report indicate diverticuli in the sigmoid colon no convincing evidence of acute diverticulitis no suspicion for small or large bowel dilatation History of thyroid cancer total thyroidectomy March 2017 Plan Stool studies follow up on results Abdominal x-ray in the morning IV fluid for hydration DVT and GI prophylaxis Repeat labs in the morning Further surgical recommendations pending clinical course Will follow with you Surgical consultation dictating for dr burrell The above impression and plan of care have been discussed and directed by signing physician. Cathryn Gonzales nurse practitioner acting as scribe for signing physician.
[2018-03-28] MEDS: ONDANSETRON 4 MG/2 ML VIAL IVP PRN (14:35)
[2018-03-28] MEDS ORDERED: ACETAMINOPHEN IV (For NPO) 1,000 MG in EMPTY BAG 1 BAG IVPB STA (15:21)
[2018-03-28 20:43] LABS: Hemoglobin A1C 5.9 % (4.0-6.0)
[2018-03-28] MEDS ORDERED: ATORVASTATIN 40 MG TAB PO SCH (21:00)
[2018-03-28] MEDS: ATORVASTATIN 80 MG TAB PO SCH (21:45)
[2018-03-28] MEDS: CARVEDILOL 12.5 MG TAB PO SCH (21:45)
[2018-03-29] MEDS: ONDANSETRON 4 MG/2 ML VIAL IVP PRN ×3 (01:52→13:43)
[2018-03-29] MEDS: PROMETHAZINE INJ 25 MG in SODIUM CHLORIDE 0.9% 50 ML IVPB PRN ×2 (04:21→10:17)
[2018-03-29] MEDS: LEVOTHYROXINE 100 MCG TAB PO SCH (06:08)
[2018-03-29 07:36] LABS: Basophils % (A) 0 %; Eosinophils % (A) 0 %; HCT 45.5 % (34.0-46.0); HGB 15.1 gm/dL (11.4-16.0); Lymphocytes # (A) 2.5 k/uL (1.0-4.8); Lymphocytes % (A) 16 %; MCH 30.1 pg (25.0-35.0); MCHC 33.1 g/dL (31.0-37.0); MCV 90.8 fL (80.0-100.0); Mean Platelet Volume 7.7; Monocytes # (A) 1.2 k/uL (0-1.0); Monocytes % (A) 8 %; Neutrophils # (A) 11.6 k/uL (1.3-7.7); Neutrophils % (A) 75 %; Platelet Count 227 k/uL (150-450); RBC 5.02 m/uL (3.80-5.40); RDW 12.6 % (11.5-15.5); WBC 15.5 k/uL (3.8-10.6)
[2018-03-29 08:20] LABS: ALT 37 U/L (9-52); AST 35 U/L (14-36); Albumin 4.8 g/dL (3.5-5.0); Alkaline Phosphatase 129 U/L (38-126); Anion Gap 13 mmol/L; Blood Urea Nitrogen 13 mg/dL (7-17); Calcium 8.8 mg/dL (8.4-10.2); Carbon Dioxide 25 mmol/L (22-30); Chloride 103 mmol/L (98-107); Glucose 125 mg/dL (74-99); Lipase 296 U/L (23-300); Potassium 3.7 mmol/L (3.5-5.1); Sodium 141 mmol/L (137-145); Total Bilirubin 1.9 mg/dL (0.2-1.3); Total Protein 7.9 g/dL (6.3-8.2)
[2018-03-29] MEDS: PANTOPRAZOLE 40 MG/10 ML VIAL IVP SCH (09:15)
[2018-03-29] MEDS: SPIRONOLACTONE 25 MG TAB PO SCH (09:23)
[2018-03-29] MEDS: CARVEDILOL 12.5 MG TAB PO SCH ×2 (09:23→20:34)
[2018-03-29] MEDS ORDERED: SODIUM CHLORIDE 0.9% 1,000 ML IV ONE ×2 (11:12→14:07)
[2018-03-29] MEDS ORDERED: DEXAMETHASONE SOD PHOSPHATE 10 MG/ML 1 ML VIAL IV STA (11:14)
--- NOTE | 2018-03-29 11:30 | P.PN ---
Subjective Progress Note Date: 03/29/18 63-year-old female seen at the bedside reportedly experiencing an nausea sensation. Patient reports patient did have a small emesis of bile. Patient states "whenever I try to drink comes back up" no stool Since admission white count 15.5 currently resting comfortably in bed the abdomen is soft not distended with active bowel tones. Objective - Vital Signs Vital signs: Vital Signs Temp 99.1 F 03/29/18 08:34 Pulse 79 03/29/18 08:34 Resp 16 03/29/18 08:34 BP 156/87 03/29/18 08:34 Pulse Ox 97 03/29/18 08:34 Intake & Output 03/28/18 03/29/18 03/29/18 18:59 06:59 18:59 Output Total 401 Balance -401 Output: Urine 400 Emesis 1 Other: # Voids 1 1 1 # Bowel Movements 1 # Emeses 1 - Exam Physical exam 62-year-old female resting in bed appears in no acute distress arousable to verbal stimuli Lungs adequate air movement bilaterally on room air Heart S1-S2 audible regular Abdomen soft not distended no facial grimacing with palpitation to the abdominal wall bowel tones reports a nausea sensation no emesis no stools nursing reports patient has small bile emesis this morning Extremities no edema - Labs CBC & Chem 7: 03/29/18 07:18 03/29/18 07:18 Labs: Abnormal Lab Results - Last 24 Hours (Table) 03/29/18 03/29/18 Range/Units 07:18 07:18 WBC 15.5 H (3.8-10.6) k/uL Neutrophils # 11.6 H (1.3-7.7) k/uL Monocytes # 1.2 H (0-1.0) k/uL Glucose 125 H (74-99) mg/dL Total Bilirubin 1.9 H (0.2-1.3) mg/dL Alkaline Phosphatase 129 H (38-126) U/L Assessment and Plan Assessment: Impression Present on admission left lower quadrant pain with nausea vomiting diarrhea likely gastroenteritis Present on admission leukocytosis suspect reactive Computed tomography scan abdomen and pelvis with contrast obtained on admission report indicate diverticuli in the sigmoid colon no convincing evidence of acute diverticulitis no suspicion for small or large bowel dilatation History of thyroid cancer total thyroidectomy March 2017 Persistent nausea unclear etiology Plan Stool studies follow up on results IV fluid bolus 1 now been decrease IV fluids 75 an hour decadron IV as ordered 1 Reglan 10mg every 6 hours IV fluid for hydration DVT and GI prophylaxis Repeat labs in the morning Further surgical recommendations pending clinical course Will follow with you Continue antiemetics as ordered The above impression and plan of care have been discussed and directed by signing physician. Cathryn Gonzales nurse practitioner acting as scribe for signing physician.
[2018-03-29] MEDS: SODIUM CHLORIDE 0.9% 1,000 ML IV SCH ×2 (12:25→18:18)
[2018-03-29] MEDS: METOCLOPRAMIDE 5 MG/ML 2 ML VIAL IVP SCH ×2 (12:37→18:04)
[2018-03-29] MEDS: ATORVASTATIN 80 MG TAB PO SCH (20:34)
[2018-03-30] MEDS: METOCLOPRAMIDE 5 MG/ML 2 ML VIAL IVP SCH ×2 (00:55→06:22)
[2018-03-30] MEDS: SODIUM CHLORIDE 0.9% 1,000 ML IV SCH (06:21)
[2018-03-30] MEDS: LEVOTHYROXINE 100 MCG TAB PO SCH (07:11)
[2018-03-30 07:48] LABS: Basophils % (A) 0 %; Eosinophils # (A) 0.1 k/uL (0-0.7); Eosinophils % (A) 1 %; HCT 43.2 % (34.0-46.0); HGB 14.1 gm/dL (11.4-16.0); Lymphocytes # (A) 2.2 k/uL (1.0-4.8); Lymphocytes % (A) 18 %; MCH 29.6 pg (25.0-35.0); MCHC 32.5 g/dL (31.0-37.0); Mean Platelet Volume 7.5; Monocytes % (A) 8 %; Neutrophils # (A) 8.9 k/uL (1.3-7.7); Neutrophils % (A) 71 %; Platelet Count 191 k/uL (150-450); RBC 4.74 m/uL (3.80-5.40); RDW 12.6 % (11.5-15.5); WBC 12.4 k/uL (3.8-10.6)
[2018-03-30] MEDS: PANTOPRAZOLE 40 MG/10 ML VIAL IVP SCH (07:51)
[2018-03-30 07:56] LABS: ALT 36 U/L (9-52); AST 25 U/L (14-36); Alkaline Phosphatase 101 U/L (38-126); Anion Gap 11 mmol/L; Blood Urea Nitrogen 17 mg/dL (7-17); Calcium 8.7 mg/dL (8.4-10.2); Carbon Dioxide 22 mmol/L (22-30); Chloride 109 mmol/L (98-107); Glucose 124 mg/dL (74-99); Potassium 3.2 mmol/L (3.5-5.1); Sodium 142 mmol/L (137-145); Total Bilirubin 1.6 mg/dL (0.2-1.3); Total Protein 6.6 g/dL (6.3-8.2)
[2018-03-30] MEDS: SPIRONOLACTONE 25 MG TAB PO SCH (09:00)
[2018-03-30] MEDS: CARVEDILOL 12.5 MG TAB PO SCH (09:00)
[2018-03-30] MEDS: POTASSIUM CHLORIDE ER 20 MEQ TAB.ER PO SCH ×2 (10:37→12:46)
--- NOTE | 2018-03-30 11:34 | P.PN ---
Subjective Progress Note Date: 03/30/18 63-year-old female seen sitting up in bed. Patient states "feels significantly improved no nausea no vomiting no abdominal pain. Had 1 small formed stools this morning. Patient's tolerating a regular diet. Patient states she's anxious to be discharged home. White count 12.4 this morning. Potassium 3.2 which has been replaced. Afebrile temp is 98.3 heart rate in the 70s Objective - Vital Signs Vital signs: Vital Signs Temp 98.3 F 03/30/18 08:08 Pulse 69 03/30/18 08:08 Resp 16 03/30/18 08:08 BP 109/73 03/30/18 08:08 Pulse Ox 97 03/30/18 08:08 Intake & Output 03/29/18 03/30/18 03/30/18 18:59 06:59 18:59 Intake Total 210 300 Output Total 1580 300 100 Balance -1580 -90 200 Intake: Oral 210 300 Output: Urine 1550 300 Stool 100 Emesis 30 Other: Voiding Method Toilet Toilet # Voids 1 1 # Bowel Movements 1 - Exam Physical exam 62-year-old female resting in bed up to bathroom no dizziness or lightheadedness no chest pain Lungs adequate air movement bilaterally on room air Heart S1-S2 audible regular Abdomen soft not distended nontender active bowel tones no nausea no vomiting tolerating a regular diet no diarrhea denies abdominal discomfort when questioning Extremities no edema - Labs CBC & Chem 7: 03/30/18 07:20 03/30/18 07:20 Labs: Abnormal Lab Results - Last 24 Hours (Table) 03/30/18 03/30/18 Range/Units 07:20 07:20 WBC 12.4 H (3.8-10.6) k/uL Neutrophils # 8.9 H (1.3-7.7) k/uL Potassium 3.2 L (3.5-5.1) mmol/L Chloride 109 H (98-107) mmol/L Glucose 124 H (74-99) mg/dL Total Bilirubin 1.6 H (0.2-1.3) mg/dL Assessment and Plan Assessment: Impression Present on admission left lower quadrant pain with nausea vomiting diarrhea likely gastroenteritis Present on admission leukocytosis suspect reactive Computed tomography scan abdomen and pelvis with contrast obtained on admission report indicate diverticuli in the sigmoid colon no convincing evidence of acute diverticulitis no suspicion for small or large bowel dilatation History of thyroid cancer total thyroidectomy March 2017 Persistent nausea resolved hypokalemia corrected resolved Plan From a surgical perspective is felt to be appropriate to be discharged home will follow-up in the office in one week in outpatient setting defer to the timing to the attending IV fluid for hydration DVT and GI prophylaxis No evidence of an acute surgical abdomen The above impression and plan of care have been discussed and directed by signing physician. Cathryn Gonzales nurse practitioner acting as scribe for signing physician.
[2018-03-30 13:51] VITALS: RESP 12
[2018-03-30 15:25] VITALS: BP 160/99; PULSE 69; TEMP 98.3
== END 2018-03-30 17:20 | disposition home or self-care (01) | DRG 392 ==
LOC: EC 06:26 → 6PED 10:30
PROVIDERS: ADMIT Family Medicine; ATTEND Family Medicine
DX: K52.9 Noninfective gastroenteritis and colitis, unspecified (principal); E87.2 Acidosis; E78.5 Hyperlipidemia, unspecified; E87.6 Hypokalemia; E89.0 Postprocedural hypothyroidism; I10 Essential (primary) hypertension; I25.10 Atherosclerotic heart disease of native coronary artery without angina pectoris; K57.30 Diverticulosis of large intestine without perforation or abscess without bleeding; I25.2 Old myocardial infarction; Z82.49 Family history of ischemic heart disease and other diseases of the circulatory system; Z85.850 Personal history of malignant neoplasm of thyroid; Z86.73 Personal history of transient ischemic attack (TIA), and cerebral infarction without residual deficits; Z87.891 Personal history of nicotine dependence; Z90.710 Acquired absence of both cervix and uterus; Z79.890 Hormone replacement therapy; Z79.899 Other long term (current) drug therapy; Z88.5 Allergy status to narcotic agent; Z88.8 Allergy status to other drugs, medicaments and biological substances
CPT/HCPCS: 36415; 71046; 74177; 80053; 82550; 82553; 83036; 83690; 83735; 83880; 84484; 85025; 85379; 85610; 85730; 87045; 87046; 87324; 87338; 93005; 96361; 96374; 96375; 99285

== ENCOUNTER 2018-07-24 15:10 | Inpatient (IN) | payer MEDICARE, OTHER ==
[2018-07-24 15:48] LABS: Basophils % (A) 0 %; Eosinophils # (A) 0.2 k/uL (0-0.7); Eosinophils % (A) 2 %; HGB 14.6 gm/dL (11.4-16.0); Lymphocytes # (A) 3.9 k/uL (1.0-4.8); Lymphocytes % (A) 42 %; MCH 30.3 pg (25.0-35.0); MCHC 33.9 g/dL (31.0-37.0); MCV 89.6 fL (80.0-100.0); Mean Platelet Volume 7.5; Monocytes # (A) 0.5 k/uL (0-1.0); Monocytes % (A) 5 %; Neutrophils # (A) 4.5 k/uL (1.3-7.7); Neutrophils % (A) 48 %; Platelet Count 235 k/uL (150-450); RBC 4.81 m/uL (3.80-5.40); RDW 12.6 % (11.5-15.5); WBC 9.3 k/uL (3.8-10.6)
[2018-07-24 16:01] LABS: ALT 35 U/L (9-52); AST 31 U/L (14-36); Albumin 5.2 g/dL (3.5-5.0); Alkaline Phosphatase 131 U/L (38-126); Anion Gap 15 mmol/L; Blood Urea Nitrogen 9 mg/dL (7-17); Calcium 10.3 mg/dL (8.4-10.2); Carbon Dioxide 20 mmol/L (22-30); Chloride 109 mmol/L (98-107); Glucose 109 mg/dL (74-99); Magnesium 2.1 mg/dL (1.6-2.3); Potassium 4.1 mmol/L (3.5-5.1); Sodium 144 mmol/L (137-145); Total Bilirubin 1.2 mg/dL (0.2-1.3); Total Protein 8.4 g/dL (6.3-8.2)
[2018-07-24 16:06] LABS: INR 0.9 (<1.2); Partial Thromboplastin Time 24.9 sec (22.0-30.0); Prothrombin Time 10.1 sec (9.0-12.0)
[2018-07-24 16:29] LABS: Creatine Kinase 95 U/L (30-135)
--- NOTE | 2018-07-24 16:40 | ED ---
General Adult HPI - General Chief complaint: Recheck/Abnormal Lab/Rx Stated complaint: Chest pain Time Seen by Provider: 07/24/18 16:01 Source: patient, RN notes reviewed, old records reviewed Mode of arrival: wheelchair Limitations: no limitations - History of Present Illness Initial comments: 63-year-old female presenting for evaluation of dyspnea and elevated blood pressure. Patient states her blood pressure has been elevated over the past 3 days, 150/100. Patient saw her primary care physician today for complaints of dyspnea and elevated blood pressure, she did have an EKG which was abnormal and patient was sent to the emergency department for further evaluation. Patient has history of previous ID [id number] which she denies any intervention for. History of heart failure. Patient denies any lower extremity pain or swelling. Denies chest pain. She does states she's had one to 2 days of mid back pain which is dull in nature. No upper extremity pain. No jaw pain. - Related Data Home Medications Medication Instructions Recorded Confirmed Carvedilol [Coreg] 12.5 mg PO BID 03/28/18 07/24/18 Spironolactone [Aldactone] 25 mg PO DAILY 03/28/18 07/24/18 Atorvastatin [Lipitor] 80 mg PO HS 07/24/18 07/24/18 Levothyroxine Sodium [Synthroid] 100 mcg PO DAILY 07/24/18 07/24/18 Allergies Allergy/AdvReac Type Severity Reaction Status Date / Time adhesive AdvReac Itching Verified 07/24/18 16:12 codeine AdvReac Nausea & Verified 07/24/18 16:12 Vomiting Review of Systems ROS Statement: Those systems with pertinent positive or pertinent negative responses have been documented in the HPI. ROS Other: All systems not noted in ROS Statement are negative. Past Medical History Past Medical History: Coronary Artery Disease (CAD), Cancer, Chest Pain / Angina , Hyperlipidemia, Hypertension, Myocardial Infarction (ID), Thyroid Disorder Additional Past Medical History / Comment(s): Thyroid cancer with thyroidectomy , isthmus nodule, TIA years ago, diverticular disease. Last Myocardial Infarction Date:: 05/2010 History of Any Multi-Drug Resistant Organisms: None Reported Past Surgical History: Cholecystectomy, Hysterectomy, Tonsillectomy Additional Past Surgical History / Comment(s): Pt denies any hx of cardiac cath but states another type of diagnostic test was done in 2009 and she has no cardiac blockages, thyroidectomy, isthmus bx, R thumb surgery, colonoscopy. Past Anesthesia/Blood Transfusion Reactions: Previous Problems w/ Anesthesia Additional Past Anesthesia/Blood Transfusion Reaction / Comment(s): trouble urinating after general anesthesia Past Psychological History: Depression Smoking Status: Former smoker Past Alcohol Use History: None Reported Past Drug Use History: None Reported - Past Family History Mother Family Medical History: Unable to Obtain Additional Family Medical History / Comment(s): Mother is from alcoholism. Father Family Medical History: Hypertension Additional Family Medical History / Comment(s): Father is . General Exam Limitations: no limitations General appearance: alert, in no apparent distress Head exam: Present: atraumatic, normocephalic Eye exam: Present: normal appearance, PERRL ENT exam: Present: normal exam Neck exam: Present: normal inspection. Absent: tenderness, meningismus Respiratory exam: Present: other (Mild tachypnea). Absent: respiratory distress , wheezes, rales Cardiovascular Exam: Present: regular rate, normal rhythm GI/Abdominal exam: Present: soft. Absent: distended, tenderness, guarding Extremities exam: Present: normal inspection, normal capillary refill. Absent: pedal edema, calf tenderness Neurological exam: Present: alert, oriented X3, CN II-XII intact. Absent: motor sensory deficit Psychiatric exam: Present: normal affect, normal mood Skin exam: Present: warm, dry, intact. Absent: cyanosis, diaphoretic Course Vital Signs 07/24/18 07/24/18 07/24/18 15:14 16:30 17:00 Temperature 98.2 F Pulse Rate 75 61 67 Respiratory 20 18 18 Rate Blood Pressure 176/96 139/82 159/79 O2 Sat by Pulse 100 100 99 Oximetry 07/24/18 07/24/18 17:30 18:00 Temperature Pulse Rate 71 64 Respiratory 18 18 Rate Blood Pressure 133/93 123/90 O2 Sat by Pulse 98 99 Oximetry EKG Findings - EKG Comments: EKG Findings:: EKG: Normal sinus rhythm, LVH, poor baseline in the inferior leads secondary artifact, no ST segment elevation, rate of 68, SC interval 122, QRS duration 90, QTC 433 Medical Decision Making - Medical Decision Making 63-year-old female, sent from primary care office with concern for abnormal EKG , no chest pain, however patient does have mid back pain. She is also concerned about elevated blood pressure. Workup in the emergency department reveals EKG with no definitive signs of acute ischemia, chest x-ray negative for any acute cardio primary disease, normal CBC, CMP reveals CO2 20 mild acidosis with lactic acid 2.5, troponin and BNP are negative this is reassuring his symptoms have been present for the past several days. There is concern for aortic pathology, CT angiography is obtained is negative for aneurysm or dissection. Given the patient's past history, she will be kept for serial enzymes, echo, cardiology consultation. This is discussed with Dr. Colon who will admit. - Lab Data Result diagrams: 07/24/18 15:35 07/24/18 15:35 Lab Results 07/24/18 07/24/18 07/24/18 Range/Units 15:35 15:35 15:35 WBC 9.3 (3.8-10.6) k/uL RBC 4.81 (3.80-5.40) m/uL Hgb 14.6 (11.4-16.0) gm/dL Hct 43.0 (34.0-46.0) % MCV 89.6 (80.0-100.0) fL MCH 30.3 (25.0-35.0) pg MCHC 33.9 (31.0-37.0) g/dL RDW 12.6 (11.5-15.5) % Plt Count 235 (150-450) k/uL Neutrophils % 48 % Lymphocytes % 42 % Monocytes % 5 % Eosinophils % 2 % Basophils % 0 % Neutrophils # 4.5 (1.3-7.7) k/uL Lymphocytes # 3.9 (1.0-4.8) k/uL Monocytes # 0.5 (0-1.0) k/uL Eosinophils # 0.2 (0-0.7) k/uL Basophils # 0.0 (0-0.2) k/uL PT (9.0-12.0) sec INR (<1.2) APTT (22.0-30.0) sec Sodium 144 (137-145) mmol/L Potassium 4.1 (3.5-5.1) mmol/L Chloride 109 H (98-107) mmol/L Carbon Dioxide 20 L (22-30) mmol/L Anion Gap 15 mmol/L BUN 9 (7-17) mg/dL Creatinine 0.68 (0.52-1.04) mg/dL Est GFR (CKD-EPI)AfAm >90 (>60 ml/min/1.73 sqM) Est GFR (CKD-EPI)NonAf >90 (>60 ml/min/1.73 sqM) Glucose 109 H (74-99) mg/dL Plasma Lactic Acid Enoch (0.7-2.0) mmol/L Calcium 10.3 H (8.4-10.2) mg/dL Magnesium 2.1 (1.6-2.3) mg/dL Total Bilirubin 1.2 (0.2-1.3) mg/dL AST 31 (14-36) U/L ALT 35 (9-52) U/L Alkaline Phosphatase 131 H (38-126) U/L Total Creatine Kinase 95 (30-135) U/L CK-MB (CK-2) 0.8 (0.0-2.4) ng/mL CK-MB (CK-2) Rel Index 0.8 Troponin I <0.012 (0.000-0.034) ng/mL NT-Pro-B Natriuret Pep pg/mL Total Protein 8.4 H (6.3-8.2) g/dL Albumin 5.2 H (3.5-5.0) g/dL 07/24/18 07/24/18 07/24/18 Range/Units 15:35 15:35 17:05 WBC (3.8-10.6) k/uL RBC (3.80-5.40) m/uL Hgb (11.4-16.0) gm/dL Hct (34.0-46.0) % MCV (80.0-100.0) fL MCH (25.0-35.0) pg MCHC (31.0-37.0) g/dL RDW (11.5-15.5) % Plt Count (150-450) k/uL Neutrophils % % Lymphocytes % % Monocytes % % Eosinophils % % Basophils % % Neutrophils # (1.3-7.7) k/uL Lymphocytes # (1.0-4.8) k/uL Monocytes # (0-1.0) k/uL Eosinophils # (0-0.7) k/uL Basophils # (0-0.2) k/uL PT 10.1 (9.0-12.0) sec INR 0.9 (<1.2) APTT 24.9 (22.0-30.0) sec Sodium (137-145) mmol/L Potassium (3.5-5.1) mmol/L Chloride (98-107) mmol/L Carbon Dioxide (22-30) mmol/L Anion Gap mmol/L BUN (7-17) mg/dL Creatinine (0.52-1.04) mg/dL Est GFR (CKD-EPI)AfAm (>60 ml/min/1.73 sqM) Est GFR (CKD-EPI)NonAf (>60 ml/min/1.73 sqM) Glucose (74-99) mg/dL Plasma Lactic Acid Enoch 2.5 H* (0.7-2.0) mmol/L Calcium (8.4-10.2) mg/dL Magnesium (1.6-2.3) mg/dL Total Bilirubin (0.2-1.3) mg/dL AST (14-36) U/L ALT (9-52) U/L Alkaline Phosphatase (38-126) U/L Total Creatine Kinase (30-135) U/L CK-MB (CK-2) (0.0-2.4) ng/mL CK-MB (CK-2) Rel Index Troponin I (0.000-0.034) ng/mL NT-Pro-B Natriuret Pep 96 pg/mL Total Protein (6.3-8.2) g/dL Albumin (3.5-5.0) g/dL Disposition Clinical Impression: Dyspnea, Chest pain Disposition: ADMITTED IP TO THIS HOSP Condition: Stable Is patient prescribed a controlled substance at d/c from ED?: No Referrals: Liborio Colon MD [Primary Care Provider] - 1-2 days Decision to Admit Reason: Admit from EC Decision Date: 07/24/18 Decision Time: 19:59
--- NOTE | 2018-07-24 16:42 | XR ---
EXAMINATION TYPE: XR chest 2V DATE OF EXAM: 07/24/2018 COMPARISON: Chest x-ray March 28, 2018. HISTORY: Chest pain. Abnormal EKG. TECHNIQUE: Frontal and lateral views of the chest are obtained. FINDINGS: There is chronic parenchymal change without suspicious focal air space opacity, pleural ef fusion, or pneumothorax seen. The cardiac silhouette size is stable and within normal limits. The osseous structures are demineralized. IMPRESSION: Chronic changes without acute pulmonary process. No significant change from prior.
[2018-07-24 16:43] LABS: Creatine Kinase MB 0.8 ng/mL (0.0-2.4); Troponin I <0.012 ng/mL (0.000-0.034)
[2018-07-24] MEDS ORDERED: MORPHINE SULFATE 4 MG/ML SYRINGE IVP STA (16:56)
[2018-07-24] MEDS ORDERED: SODIUM CHLORIDE 0.9% 1,000 ML IV ONE (17:52)
[2018-07-24] MEDS ORDERED: LORazepam 2 MG/ML INJ IV STA (18:13)
--- NOTE | 2018-07-24 19:29 | CT ---
EXAMINATION TYPE: CT angio thor/abd pel aorta DATE OF EXAM: 07/24/2018 COMPARISON: CT abdomen pelvis March 28, 2018. HISTORY: pain, hx heart disease, HTN CT DLP: 1368.7 mGycm. Automated Exposure Control for Dose Reduction was Utilized. CONTRAST: CTA scan of the thorax, abdomen and pelvis is performed without and with IV Contrast, patient injecte d with 100 mL of Isovue 370. Three-D reconstructed images are created on independent workstation and reviewed. FINDINGS: VASCULAR: There is normal three-vessel origin from the aortic arch. There is mild peripheral mixed pl aque in aortic arch. Ascending aorta measures up to 3.0 cm in diameter axial image 40. Main pulmonary artery measures 2.7 cm diameter on same image. No suspicious Central filling defect is seen. No sign ificant plaque or stenosis in descending thoracic aorta. No aneurysm is evident. There is patent sandy ac axis, SMA, bilateral single renal arteries left side which shows moderate calcified plaque at orig in and DANNY identified. There is moderate calcified plaque infrarenal abdominal aorta extending into c ommon iliac branch vessels. No linear hypodensity to suggest dissection is seen. There are patent int ernal/external iliac arteries with mild to moderate calcified plaque extending into internal iliac ar teries. There is mild to moderate mixed plaque at bilateral groin level as common femoral arteries br anch into superficial and deep femoral arteries. No significant stenosis is seen. No linear hypodensi ty to suggest dissection is noted. LUNGS: Mild to moderate emphysematous change most prominent lung apices with pleural/parenchymal scar ring and scattered bleb formation. No suspicious consolidation or groundglass opacity is seen. No ple ural effusion or pneumothorax is noted. MEDIASTINUM: There are no greater than 1 cm hilar or mediastinal lymph nodes. No cardiomegaly or pe ricardial effusion is seen. OTHER: No additional significant abnormality is seen. LIVER/GB: Cholecystectomy clips are redemonstrated. PANCREAS: No significant abnormality is seen. SPLEEN: No significant abnormality is seen. ADRENALS: No significant abnormality is seen. KIDNEYS: No significant abnormality is seen. BOWEL: Stable small size hiatal hernia. Diverticula in left and sigmoid colon are redemonstrated. No CT evidence for acute diverticulitis. No suspicious small or large bowel dilatation. GENITAL ORGANS: Uterus is surgically absent or markedly atrophic. Scattered pelvic phleboliths are se en. LYMPH NODES: No greater than 1cm abdominal or pelvic lymph nodes are appreciated. OSSEOUS STRUCTURES: No significant abnormality is seen. OTHER: No significant additional abnormality is seen. IMPRESSION: No aortic aneurysm or dissection. No new or acute finding seen to account for patient's symptoms.
[2018-07-24] MEDS ORDERED: ASPIRIN 325 MG TAB PO STA (19:34)
[2018-07-24] MEDS ORDERED: NALOXONE 0.4 MG/ML 1 ML VIAL IV PRN (19:54)
[2018-07-24 22:12] LABS: Creatine Kinase 83 U/L (30-135)
[2018-07-24 22:25] LABS: Creatine Kinase MB 0.8 ng/mL (0.0-2.4); Troponin I <0.012 ng/mL (0.000-0.034)
[2018-07-25] MEDS: ATORVASTATIN 80 MG TAB PO SCH ×2 (00:09→21:23)
[2018-07-25] MEDS: CARVEDILOL 12.5 MG TAB PO SCH ×3 (00:09→21:23)
[2018-07-25 03:43] LABS: Creatine Kinase 76 U/L (30-135)
[2018-07-25 03:54] LABS: Creatine Kinase MB 0.7 ng/mL (0.0-2.4)
[2018-07-25 03:56] LABS: Troponin I <0.012 ng/mL (0.000-0.034)
[2018-07-25] MEDS ORDERED: ENALAPRILAT 1.25 MG/ML 1 ML VIAL IVP PRN (08:36)
[2018-07-25] MEDS: ACETAMINOPHEN TAB 325 MG TAB PO PRN (08:46)
[2018-07-25] MEDS: LEVOTHYROXINE 100 MCG TAB PO SCH (08:47)
[2018-07-25] MEDS: SPIRONOLACTONE 25 MG TAB PO SCH (11:26)
--- NOTE | 2018-07-25 13:48 | P.CRDCN ---
History of Present Illness History of present illness: This is a pleasant 63-year-old female past medical history significant for myocardial infarction 8-10 years ago at [facility] then transferred to [place] per the patient, those records are currently unavailable to me. She also has dyslipidemia, hypothyroidism and hypertension. She states she has not followed with a marketing officer in many years. She states that the time of her myocardial infarction her heart function was only 40%. We have been asked to see her in consultation for symptoms of chest pain. She states for the previous 3 days she has been checking her blood pressure at home and has been elevated 150/100. She has been taking her medication as prescribed but feels she has been under significant amount of stress recently secondary to one of her sons being deployed to a scan is [place] and the other son at being involved in a car accident.2 days ago she started feeling a discomfort in between her shoulder blades with no radiation to the chest, arm, neck or jaw. The pain is worse with deep inspiration and on palpitation. 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 She went and saw her primary care physician and was sent to the hospital for further evaluation. Blood pressure on arrival 176/96. She was given IV enalapril and IV morphine for her back pain. Blood pressure this AM 107/66 with heart rate 61. EKG reveals sinus mechanism with left ventricular hypertrophy and nonspecific ST abnormalities noted. No acute ST or T-wave abnormalities. Chest x-ray reveals chronic changes with no acute cardiopulmonary process. CT of the thoracic chest reveals no aortic aneurysm or dissection with mild peripheral mixed plaque in the aortic arch. Laboratory data reviewed, WBC 9.3, hemoglobin 14.6, sodium 144, potassium 4.1, magnesium 1.2, creatinine 0.68, NT proBNP 96 and cardiac enzymes negative 3. Current cardiac medications include atorvastatin 80 mg daily, carvedilol 12.5 mg BID and aldactone 25 mg daily. There are no old cardiac records to review. At the time of my exam: CONSTITUTIONAL: Denies fever. Denies chills. EYES: Denies blurred vision. Denies vision changes. Denies eye pain. EARS, NOSE, MOUTH & THROAT: Denies headache. Denies sore throat. Denies ear pain. CARDIOVASCULAR: Denies chest pain. Denies shortness of breath. Denies orthopnea. Denies PND. Denies palpitations. RESPIRATORY: Denies cough. GASTROINTESTINAL: Denies abdominal pain. Denies diarrhea. Denies constipation. Denies nausea. Denies vomiting. MUSCULOSKELETAL: Complains of reproducible pain between shoulder blades. INTEGUMENTARY: Denies pruitis. Denies rash. NEUROLOGIC: Denies numbness. Denies tingling. Denies weakness. PSYCHIATRIC: Denies anxiety. Denies depression. ENDOCRINE: Denies fatigue. Denies weight change. Denies polydipsia. Denies polyurina. GENITOURINARY: Denies burning, hematuria or urgency with micturation. HEMATOLOGIC: Denies history of anemia. Denies bleeding. Blood pressure 107/66 heart rate 61 afebrile maintaining oxygen saturation on room air GENERAL: This is a 63-year-old female in no apparent distress at the time of my examination. HEENT: Head is atraumatic, normocephalic. Pupils are equal, round. Sclerae anicteric. Conjunctivae are clear. Mucous membranes of the mouth are moist. Neck is supple. There is no jugular venous distention. No carotid bruit is heard. LUNGS: Clear to auscultation no wheezes, rales or rhonchi. Upper back wall tenderness is noted on palpation and with deep breathing. HEART: Regular rate and rhythm without murmurs, rubs or gallops. S1 and S2 heard. ABDOMEN: Soft, nontender. Bowel sounds are heard. No organomegaly noted. EXTREMITIES: No evidence of peripheral edema and no calf tenderness noted. VASCULAR: Radial and dorsalis pedis pulses palpated, no evidence of clubbing. NEUROLOGIC: Patient is awake, alert and oriented x3. ASSESSMENT Pleuritic pain, an acute coronary event has been ruled out. Lactic acidosis, resolved with fluid bolus of 1-liter History of coronary artery disease, detail unavailable History of systolic heart failure, per the patient. Currently euvolemic Hypertension Dyslipidemia PLAN Obtain 2D echocardiogram and doppler study to assess cardiac structure and function. Feed the patient today, NPO after midnight tonight. Perform lexiscan stress test in the morning. Check lipid panel in the morning. Further recommendations to follow. Thank you kindly for this consultation. Nurse Practitioner note has been reviewed, I agree with a documented findings and plan of care. Patient was seen and examined. Past Medical History Past Medical History: Coronary Artery Disease (CAD), Cancer, Chest Pain / Angina , Hyperlipidemia, Hypertension, Myocardial Infarction ([place]), Thyroid Disorder Additional Past Medical History / Comment(s): Thyroid cancer with thyroidectomy , isthmus nodule, TIA years ago, diverticular disease. Last Myocardial Infarction Date:: 05/2010 History of Any Multi-Drug Resistant Organisms: None Reported Past Surgical History: Cholecystectomy, Hysterectomy, Tonsillectomy Additional Past Surgical History / Comment(s): Pt denies any hx of cardiac cath but states another type of diagnostic test was done in 2009 and she has no cardiac blockages, thyroidectomy, isthmus bx, R thumb surgery, colonoscopy. Past Anesthesia/Blood Transfusion Reactions: Previous Problems w/ Anesthesia Additional Past Anesthesia/Blood Transfusion Reaction / Comment(s): trouble urinating after general anesthesia Past Psychological History: Depression Smoking Status: Former smoker Past Alcohol Use History: None Reported Past Drug Use History: None Reported - Past Family History Mother Family Medical History: Unable to Obtain Additional Family Medical History / Comment(s): Mother is from alcoholism. Father Family Medical History: Hypertension Additional Family Medical History / Comment(s): Father is . Medications and Allergies Home Medications Medication Instructions Recorded Confirmed Type Carvedilol [Coreg] 12.5 mg PO BID 03/28/18 07/24/18 History Spironolactone [Aldactone] 25 mg PO DAILY 03/28/18 07/24/18 History Atorvastatin [Lipitor] 80 mg PO HS 07/24/18 07/24/18 History Levothyroxine Sodium [Synthroid] 100 mcg PO DAILY 07/24/18 07/24/18 History Allergies Allergy/AdvReac Type Severity Reaction Status Date / Time adhesive AdvReac Itching Verified 07/24/18 16:12 codeine AdvReac Nausea & Verified 07/24/18 16:12 Vomiting Physical Exam Vitals: Vital Signs Temp Pulse Resp BP Pulse Ox 07/25/18 03:00 61 87/56 07/24/18 23:50 63 112/60 07/24/18 23:00 66 110/58 07/24/18 22:00 58 L 114/64 07/24/18 21:00 141/81 07/24/18 18:00 64 18 123/90 99 07/24/18 17:30 71 18 133/93 98 07/24/18 17:00 67 18 159/79 99 07/24/18 16:30 61 18 139/82 100 07/24/18 15:14 98.2 F 75 20 176/96 100 Intake and Output 07/24/18 07/25/18 07/25/18 22:59 06:59 14:59 Other: Weight 74.843 kg Results 07/24/18 15:35 07/24/18 15:35 Cardiac Enzymes 07/24/18 07/24/18 07/24/18 Range/Units 15:35 15:35 21:36 AST 31 (14-36) U/L CK-MB (CK-2) 0.8 0.8 (0.0-2.4) ng/mL Troponin I <0.012 <0.012 (0.000-0.034) ng/mL 07/25/18 Range/Units 03:00 AST (14-36) U/L CK-MB (CK-2) 0.7 (0.0-2.4) ng/mL Troponin I <0.012 (0.000-0.034) ng/mL Coagulation 07/24/18 Range/Units 15:35 PT 10.1 (9.0-12.0) sec APTT 24.9 (22.0-30.0) sec CBC 07/24/18 Range/Units 15:35 WBC 9.3 (3.8-10.6) k/uL RBC 4.81 (3.80-5.40) m/uL Hgb 14.6 (11.4-16.0) gm/dL Hct 43.0 (34.0-46.0) % Plt Count 235 (150-450) k/uL Comprehensive Metabolic Panel 07/24/18 Range/Units 15:35 Sodium 144 (137-145) mmol/L Potassium 4.1 (3.5-5.1) mmol/L Chloride 109 H (98-107) mmol/L Carbon Dioxide 20 L (22-30) mmol/L BUN 9 (7-17) mg/dL Creatinine 0.68 (0.52-1.04) mg/dL Glucose 109 H (74-99) mg/dL Calcium 10.3 H (8.4-10.2) mg/dL AST 31 (14-36) U/L ALT 35 (9-52) U/L Alkaline Phosphatase 131 H (38-126) U/L Total Protein 8.4 H (6.3-8.2) g/dL Albumin 5.2 H (3.5-5.0) g/dL Current Medications Generic Name Dose Route Start Last Admin Trade Name Freq PRN Reason Stop Dose Admin Acetaminophen 650 mg 07/25/18 08:36 07/25/18 08:46 Tylenol Tab PO 650 mg Q6HR PRN Administration Fever and/ or Mild Pain Atorvastatin Calcium 80 mg 07/24/18 21:00 07/25/18 00:09 Lipitor PO 80 mg HS TRENT Administration Carvedilol 12.5 mg 07/24/18 21:00 07/25/18 00:09 Coreg PO 12.5 mg BID TRENT Administration Levothyroxine Sodium 100 mcg 07/25/18 06:30 07/25/18 08:47 Synthroid PO 100 mcg DAILY@0630 TRENT Administration Naloxone HCl 0.2 mg 07/24/18 19:54 Narcan IV Q2M PRN Opioid Reversal Spironolactone 25 mg 07/25/18 09:00 Aldactone PO DAILY TRENT Intake and Output 07/24/18 07/25/18 07/25/18 22:59 06:59 14:59 Other: Weight 74.843 kg 07/24/18 15:35 07/24/18 15:35
--- NOTE | 2018-07-25 18:02 | ECHOF ---
Referral Reason:irene MEASUREMENTS -------- HEIGHT: 170.2 cm WEIGHT: 74.8 kg BP: 129/100 IVSd: 1.1 cm (0.6 - 1.1) LVIDd: 4.2 cm (3.9 - 5.3) LVPWd: 1.2 cm (0.6 - 1.1) IVSs: 1.3 cm LVIDs: 3.5 cm LVPWs: 1.2 cm LA Diam: 3.1 cm (2.7 - 3.8) LAESV Index (A-L): 27.69 ml/m Ao Diam: 2.6 cm (2.0 - 3.7) AV Cusp: 1.4 cm (1.5 - 2.6) LA Diam: 4.0 cm (2.7 - 3.8) MV EXCURSION: 13.883 mm (> 18.000) MV EF SLOPE: 88 mm/s (70 - 150) EPSS: 0.3 cm MV E Sen: 0.75 m/s MV DecT: 215 ms MV A Sen: 0.76 m/s MV E/A Ratio: 0.99 RAP: 5.00 mmHg RVSP: 20.42 mmHg FINDINGS -------- Sinus rhythm. This was a technically adequate study. The left ventricular size is normal. There is mild concentric left ventricular hypertrophy. Overa ll left ventricular systolic function is normal with, an EF between 55 - 60 %. The right ventricle is normal in size. The left atrial size is normal. Normal LA size by volume 22+/-6 ml/m2. The right atrial size is normal. The aortic valve is trileaflet, and appears structurally normal. No aortic stenosis or regurgitation. Mild mitral annular calcification present. Mild mitral regurgitation is present. Mild tricuspid regurgitation present. There is no evidence of pulmonary hypertension. The right v entricular systolic pressure, as measured by Doppler, is 20.42mmHg. Trace/mild (physiologic) pulmonic regurgitation. The aortic root size is normal. There is no pericardial effusion. CONCLUSIONS -------- 1. The left ventricular size is normal. 2. There is mild concentric left ventricular hypertrophy. 3. Overall left ventricular systolic function is normal with, an EF between 55 - 60 %. 4. The right ventricle is normal in size. 5. The left atrial size is normal. 6. Normal LA size by volume 22+/-6 ml/m2. 7. The right atrial size is normal. 8. The aortic valve is trileaflet, and appears structurally normal. No aortic stenosis or regurgitati on. 9. Mild mitral annular calcification present. 10. Mild mitral regurgitation is present. 11. Mild tricuspid regurgitation present. 12. There is no evidence of pulmonary hypertension. 13. The right ventricular systolic pressure, as measured by Doppler, is 20.42mmHg. 14. Trace/mild (physiologic) pulmonic regurgitation. 15. The aortic root size is normal. 16. There is no pericardial effusion. DEPUTY DIRECTOR OF FINANCE: Kiersten Fortune RDCS
[2018-07-25] MEDS ORDERED: ONDANSETRON 4 MG TAB PO PRN (18:10)
[2018-07-25] MEDS: ONDANSETRON 4 MG/2 ML VIAL IVP PRN (18:33)
[2018-07-26] MEDS: LEVOTHYROXINE 100 MCG TAB PO SCH (05:38)
[2018-07-26] MEDS ORDERED: CAFFEINE CITRATE 60 MG/3 ML VIAL IV PRN (06:00)
[2018-07-26] MEDS ORDERED: REGADENOSON 0.4 MG/5 ML SYRINGE IV ONE (07:00)
[2018-07-26] MEDS: CARVEDILOL 12.5 MG TAB PO SCH ×2 (07:59→18:50)
--- NOTE | 2018-07-26 08:19 | PN ---
PROGRESS NOTE Mrs. Olivera was admitted to the hospital. She has a history of hypertension, hyperlipidemia, and her pain is very atypical. She is resting comfortably without symptoms. Blood pressure was slightly low. I am recommending that we cut back the atorvastatin to 40 mg daily, hold Coreg, place her on aspirin 81 mg daily and start IV fluids at 0.9 saline at 100 mL/hour and perform a Lexiscan stress test today. Echocardiogram revealed normal systolic function. The patient's pain is atypical. Blood pressure is under decent control. In fact, it is a bit low and therefore we will hold Coreg prior to the stress test as well. Increase fluids and see how she does. Vital signs are stable. S1, S2 heard normally, short systolic murmur noted. Lungs are clear. Abdomen and lower extremity exam unchanged. MMODL / IJN: [id number] /
[2018-07-26] MEDS: SPIRONOLACTONE 25 MG TAB PO SCH (13:01)
[2018-07-26] MEDS: ASPIRIN 81 MG PO SCH (13:37)
[2018-07-26 13:40] VITALS: BMI 25.2
--- NOTE | 2018-07-26 15:28 | PN ---
PROGRESS NOTE This is a white female who is admitted to the hospital with atypical chest pain, shortness of breath, hypertension, dyslipidemia. Chest pain was atypical per Cardiology. Cardiology cut back on her atorvastatin, they held her Coreg. Continued the aspirin. She is going to get a Lexiscan stress test today and echo prior to being discharged. CARDIOVASCULAR: S1, S2. LUNGS: Clear. GI: Soft. HEMATOLOGY: Negative Homans. ASSESSMENT: 1. Atypical chest pain. 2. Hypertension. 3. Dyslipidemia. Await for stress cardiac test prior to Cardiology clearance prior to discharge. MMODL / IJN: [id number] /
[2018-07-26] MEDS: SODIUM CHLORIDE 0.9% 1,000 ML IV SCH ×2 (18:50→18:51)
[2018-07-26] MEDS ORDERED: ATORVASTATIN 40 MG TAB PO SCH (21:00)
[2018-07-27] MEDS: SODIUM CHLORIDE 0.9% 1,000 ML IV SCH (04:40)
[2018-07-27] MEDS: ACETAMINOPHEN TAB 325 MG TAB PO PRN ×2 (04:55→11:24)
[2018-07-27] MEDS: LEVOTHYROXINE 100 MCG TAB PO SCH (04:55)
[2018-07-27] MEDS ORDERED: REGADENOSON 0.4 MG/5 ML SYRINGE IV ONE (07:30)
[2018-07-27 08:40] VITALS: RESP 18
[2018-07-27] MEDS ORDERED: ONDANSETRON 4 MG/2 ML VIAL ONE (10:16)
--- NOTE | 2018-07-27 10:39 | P.PN ---
Subjective This is a pleasant 63-year-old female past medical history significant for myocardial infarction 8-10 years ago at [facility] then transferred to [place] per the patient, those records are currently unavailable to me. She also has dyslipidemia, hypothyroidism and hypertension. She states she has not followed with a weekend caregiver in many years. She states that the time of her myocardial infarction her heart function was only 40%. We have been asked to see her in consultation for symptoms of chest pain. Stress test was attempted yesterday, however there was no IV access. Ultimately yesterday evening IV access was obtained per anesthesia. She denies any further symptoms of chest pain overnight. Blood pressure 114/73 hert rate 58. Lipid profile reviewed, LD 62, HDL 37 and TSH 1.34. Echo revealed preserved LV systolic function with EF 55-60%. GENERAL: This is a 63-year-old female in no apparent distress at the time of my examination. HEENT: Head is atraumatic, normocephalic. Pupils are equal, round. Sclerae anicteric. Conjunctivae are clear. Mucous membranes of the mouth are moist. Neck is supple. There is no jugular venous distention. No carotid bruit is heard. LUNGS: Clear to auscultation no wheezes, rales or rhonchi. Upper back wall tenderness is noted on palpation and with deep breathing. HEART: Regular rate and rhythm without murmurs, rubs or gallops. S1 and S2 heard. EXTREMITIES: No evidence of peripheral edema and no calf tenderness noted. ASSESSMENT Pleuritic pain, an acute coronary event has been ruled out. Lactic acidosis, resolved with fluid bolus of 1-liter History of coronary artery disease, detail unavailable History of systolic heart failure, per the patient. Currently euvolemic Hypertension Dyslipidemia PLAN Proceed with Lexiscan stress test as ordered. If normal she may be discharged home, if abnormal we will consider coronary angiography to further assess coronary arteries. Follow up with Dr. Castorena upon discharge. Nurse Practitioner note has been reviewed, I agree with a documented findings and plan of care. Patient was seen and examined. Objective - Vital Signs Vital signs: Vital Signs Temp 98.2 F 07/27/18 08:00 Pulse 58 L 07/27/18 08:00 Resp 18 07/27/18 08:00 BP 114/73 07/27/18 08:00 Pulse Ox 97 07/27/18 08:00 Intake & Output 07/26/18 07/27/18 07/27/18 18:59 06:59 18:59 Intake Total 460 Balance 460 Weight 72.9 kg 74.843 kg Intake: Oral 360 Other 100 Other: Voiding Method Toilet Toilet # Voids 1 - Labs CBC & Chem 7: 07/24/18 15:35 07/24/18 15:35
[2018-07-27] MEDS: ONDANSETRON 4 MG/2 ML VIAL IVP PRN (11:34)
--- NOTE | 2018-07-27 11:37 | NM ---
EXAMINATION TYPE: NM stress lexiscan cardiolite DATE OF EXAM: 07/27/2018 COMPARISON: NONE HISTORY: 63-year-old female with chest pain TECHNIQUE: After the intravenous administration of 9.8 mCi Tc 99m Sestamibi - Cardiolite resting SPE CT images acquired 45 minutes post injection. The patient received 0.4mg Lexiscan, 25.3 mCi Tc 99m Sestamibi - Stress images obtained [address] injection FINDINGS: Review of stress and rest SPECT images demonstrates no distinct perfusion abnormality. Gated analysi s shows normal wall motion with an estimated left ventricular ejection fraction of 61 %. TID calcula craig at 1.0, within normal limits. IMPRESSION: No scintigraphic evidence for reversible ischemia.
[2018-07-27 11:58] VITALS: BP 134/83; PULSE 67; TEMP 98.8
[2018-07-27] MEDS: SPIRONOLACTONE 25 MG TAB PO SCH (12:27)
[2018-07-27] MEDS: ASPIRIN 81 MG PO SCH (12:27)
[2018-07-27] MEDS: CARVEDILOL 12.5 MG TAB PO SCH (12:27)
[2018-07-27] MEDS ORDERED: DIPHENOX-ATROP 2.5-0.025 MG 1 EACH TAB PO STA (13:06)
--- NOTE | 2018-07-28 07:35 | EST ---
EXERCISE STRESS DATE OF SERVICE: 07/27/2018 AGE: 63 SEX: Female HT: 67" WT: 165 pounds PROTOCOL: Lexiscan Cardiolite STAGE: DURATION OF EXERCISE: HEART RATE REST: 63 BLOOD PRESSURE REST: 101/69 MAXIMUM HEART RATE ACHIEVED: 92 MAXIMUM BLOOD PRESSURE: 177/99 85% MPHR: 133 100% MPHR: 157 METS: INDICATIONS: Chest pain, abnormal EKG. CLINICAL INFORMATION: Baseline EKG revealed sinus rhythm without significant ST-T changes. There was some baseline artifact noted. With Lexiscan administration, patient's heart rate changed from 63 to 92 beats per minute and blood pressure changed from 101/69 to 177/99. She became nauseated and required some Zofran. EKG did not reveal any ST-segment changes to suggest ischemia. By EKG criteria this is an unremarkable Lexiscan stress test with minor EKG changes without any symptoms of angina, but patient had unpleasant reaction with emesis requiring Zofran. The nuclear scan results which are more pertinent, will be reported by the radiologist. MMJACLYN / HOWIEN: [id number] /
== END 2018-07-27 14:07 | disposition home or self-care (01) | DRG 204 ==
LOC: EC 15:10 → 1SOBS 19:54 → OBSVTOIN 07-26 21:16
PROVIDERS: ADMIT Family Medicine; ATTEND Family Medicine
DX: R07.81 Pleurodynia (principal); E87.2 Acidosis; I50.22 Chronic systolic (congestive) heart failure; E78.5 Hyperlipidemia, unspecified; E89.0 Postprocedural hypothyroidism; I11.0 Hypertensive heart disease with heart failure; I25.10 Atherosclerotic heart disease of native coronary artery without angina pectoris; I25.2 Old myocardial infarction; Z79.82 Long term (current) use of aspirin; Z79.890 Hormone replacement therapy; Z79.899 Other long term (current) drug therapy; Z82.49 Family history of ischemic heart disease and other diseases of the circulatory system; Z85.850 Personal history of malignant neoplasm of thyroid; Z86.73 Personal history of transient ischemic attack (TIA), and cerebral infarction without residual deficits; Z87.891 Personal history of nicotine dependence; Z90.710 Acquired absence of both cervix and uterus; Z88.5 Allergy status to narcotic agent; Z88.8 Allergy status to other drugs, medicaments and biological substances; Z90.49 Acquired absence of other specified parts of digestive tract
CPT/HCPCS: 36415; 71046; 71275; 74174; 78452; 80053; 80061; 82550; 82553; 83605; 83735; 83880; 84443; 84484; 85025; 85610; 85730; 93005; 93017; 93306; 96361; 96374; 96375; 99285

== ENCOUNTER 2018-09-03 07:37 | Inpatient (IN) | payer MEDICARE ==
[2018-09-03] MEDS ORDERED: SODIUM CHLORIDE 0.9% 1,000 ML IV STA ×2 (07:43)
[2018-09-03] MEDS ORDERED: METOCLOPRAMIDE 5 MG/ML 2 ML VIAL IVP STA (07:44)
--- NOTE | 2018-09-03 07:48 | ED ---
Abdominal Pain HPI - General Stated Complaint: abd pain Time Seen by Provider: 09/03/18 07:37 Source: patient, EMS, RN notes reviewed, old records reviewed Mode of arrival: EMS - History of Present Illness Initial Comments: This is a 63-year-old female history of thyroid disease prior history of pancreatitis per old reports quitting onset of being woken up at 4:00 this morning with abdominal pain left lower quadrant very severe sharp and radiates to her back and shoulders also with nausea vomiting and diarrhea. He's had intractable vomiting since that time. He did come in by EMS they were unable to get an IV he did try sublingual Zofran without any relief. She denies any fevers chills or sweats she felt well yesterday. No other modifying factors at this time MD Complaint: abdominal pain - Related Data Home Medications Medication Instructions Recorded Confirmed Spironolactone [Aldactone] 25 mg PO DAILY 03/28/18 09/03/18 Atorvastatin [Lipitor] 80 mg PO HS 07/24/18 09/03/18 Levothyroxine Sodium [Synthroid] 100 mcg PO DAILY 07/24/18 09/03/18 Carvedilol [Coreg] 25 mg PO BID 09/03/18 09/03/18 Allergies Allergy/AdvReac Type Severity Reaction Status Date / Time adhesive AdvReac Itching Verified 09/03/18 10:18 codeine AdvReac Nausea & Verified 09/03/18 10:18 Vomiting Penicillins AdvReac Unknown Verified 09/03/18 10:18 Review of Systems ROS Statement: Those systems with pertinent positive or pertinent negative responses have been documented in the HPI. ROS Other: All systems not noted in ROS Statement are negative. Past Medical History Past Medical History: Coronary Artery Disease (CAD), Cancer, Chest Pain / Angina , CVA/TIA, Hyperlipidemia, Hypertension, Myocardial Infarction (NM), Thyroid Disorder Additional Past Medical History / Comment(s): Thyroid cancer with thyroidectomy , TIA years ago, acute pancreatitis, diverticular disease. Last Myocardial Infarction Date:: 05/2010 History of Any Multi-Drug Resistant Organisms: None Reported Past Surgical History: Cholecystectomy, Hysterectomy, Orthopedic Surgery, Tonsillectomy Additional Past Surgical History / Comment(s): Pt denies any hx of cardiac cath but states another type of diagnostic test was done in 2009 at a hospital in [place] and she has no cardiac blockages, thyroidectomy, R thumb fracture with surgery, colonoscopy. Past Anesthesia/Blood Transfusion Reactions: Previous Problems w/ Anesthesia Additional Past Anesthesia/Blood Transfusion Reaction / Comment(s): trouble urinating after general anesthesia Smoking Status: Former smoker - Past Family History Mother Family Medical History: Unable to Obtain Additional Family Medical History / Comment(s): Mother is from esophageal varices d/t alcoholism at the age of 69yrs. Father Family Medical History: CVA/TIA, Hyperlipidemia, Hypertension, Musculoskeletal Disorder Additional Family Medical History / Comment(s): Father had a CVA in his 50s. Father is from parkinsons at age 69yrs. General Exam - General Exam Comments Initial Comments: This is a well-developed well-nourished awake alert oriented history female she is actively vomiting during the exam General appearance: alert, anxious, in distress Head exam: Present: atraumatic, normocephalic, normal inspection Eye exam: Present: normal appearance, PERRL, EOMI. Absent: scleral icterus, conjunctival injection, periorbital swelling ENT exam: Present: normal exam, mucous membranes moist Neck exam: Present: normal inspection. Absent: tenderness, meningismus, lymphadenopathy Respiratory exam: Present: normal lung sounds bilaterally. Absent: respiratory distress, wheezes, rales, rhonchi, stridor Cardiovascular Exam: Present: normal rhythm, tachycardia, normal heart sounds. Absent: systolic murmur, diastolic murmur, rubs, gallop, clicks GI/Abdominal exam: Present: soft, tenderness (Left lower quadrant and flank tenderness palpation no definite guarding or rebound), normal bowel sounds. Absent: distended, guarding, rebound, rigid, bruit, pulsatile mass Rectal exam: Present: deferred Extremities exam: Present: normal inspection, full ROM, normal capillary refill. Absent: tenderness, pedal edema, joint swelling, calf tenderness Back exam: Present: normal inspection Neurological exam: Present: alert, oriented X3, CN II-XII intact Psychiatric exam: Present: normal affect, normal mood Skin exam: Present: warm, dry, intact, normal color. Absent: rash Course Vital Signs 09/03/18 09/03/18 09/03/18 07:39 07:44 08:00 Temperature 97.5 F L Pulse Rate 67 Respiratory 22 Rate Blood Pressure 189/84 189/84 O2 Sat by Pulse 100 100 Oximetry 09/03/18 09/03/18 09/03/18 11:00 11:30 12:00 Temperature Pulse Rate Respiratory 20 22 20 Rate Blood Pressure 197/105 142/90 158/74 O2 Sat by Pulse 100 96 100 Oximetry 09/03/18 09/03/18 09/03/18 12:30 13:30 14:00 Temperature Pulse Rate Respiratory Rate Blood Pressure 148/72 156/86 153/99 O2 Sat by Pulse 97 96 96 Oximetry 09/03/18 14:30 Temperature Pulse Rate Respiratory Rate Blood Pressure 143/97 O2 Sat by Pulse 95 Oximetry - Reevaluation(s) Reevaluation #1: 09/03/18 15:56 Did review the outpatient multiple occasions she is slowly improving but still feels nauseated and having abdominal pain. Medical Decision Making - Medical Decision Making I did discuss the findings with the patient as well as with Dr. Elias patient be admitted for continued IV fluids she did have heme positive gastric cult. She demonstrates acute gastritis. Surgery will be consulted. - Lab Data Result diagrams: 09/03/18 09:56 09/03/18 09:56 Lab Results 09/03/18 09/03/18 09/03/18 Range/Units 09:56 09:56 09:56 WBC 12.6 H (3.8-10.6) k/uL RBC 4.27 (3.80-5.40) m/uL Hgb 12.3 (11.4-16.0) gm/dL Hct 39.5 (34.0-46.0) % MCV 92.4 (80.0-100.0) fL MCH 28.9 (25.0-35.0) pg MCHC 31.3 (31.0-37.0) g/dL RDW 13.1 (11.5-15.5) % Plt Count 193 (150-450) k/uL Neutrophils % 86 % Lymphocytes % 9 % Monocytes % 5 % Eosinophils % 0 % Basophils % 0 % Neutrophils # 10.8 H (1.3-7.7) k/uL Lymphocytes # 1.1 (1.0-4.8) k/uL Monocytes # 0.6 (0-1.0) k/uL Eosinophils # 0.1 (0-0.7) k/uL Basophils # 0.0 (0-0.2) k/uL Manual Slide Review Performed Poikilocytosis (manual Present PT (9.0-12.0) sec INR (<1.2) APTT (22.0-30.0) sec Sodium 144 (137-145) mmol/L Potassium 4.1 (3.5-5.1) mmol/L Chloride 111 H (98-107) mmol/L Carbon Dioxide 18 L (22-30) mmol/L Anion Gap 15 mmol/L BUN 21 H (7-17) mg/dL Creatinine 0.72 (0.52-1.04) mg/dL Est GFR (CKD-EPI)AfAm >90 (>60 ml/min/1.73 sqM) Est GFR (CKD-EPI)NonAf >90 (>60 ml/min/1.73 sqM) Glucose 191 H (74-99) mg/dL Lactic Ac Sepsis Rflx Plasma Lactic Acid Enoch 2.7 H* (0.7-2.0) mmol/L Calcium 10.4 H (8.4-10.2) mg/dL Magnesium 1.7 (1.6-2.3) mg/dL Total Bilirubin 1.9 H (0.2-1.3) mg/dL AST 31 (14-36) U/L ALT 45 (9-52) U/L Alkaline Phosphatase 179 H (38-126) U/L Total Creatine Kinase (30-135) U/L CK-MB (CK-2) (0.0-2.4) ng/mL CK-MB (CK-2) Rel Index Troponin I (0.000-0.034) ng/mL Total Protein 8.4 H (6.3-8.2) g/dL Albumin 5.2 H (3.5-5.0) g/dL Amylase 51 (30-110) U/L Lipase 97 (23-300) U/L Urine Color Urine Appearance (Clear) Urine pH (5.0-8.0) Ur Specific Bromide (1.001-1.035) Urine Protein (Negative) Urine Glucose (UA) (Negative) Urine Ketones (Negative) Urine Blood (Negative) Urine Nitrite (Negative) Urine Bilirubin (Negative) Urine Urobilinogen (<2.0) mg/dL Ur Leukocyte Esterase (Negative) Urine RBC (0-5) /hpf Urine WBC (0-5) /hpf Urine Bacteria (None) /hpf Urine Mucus (None) /hpf Gastric Occult Blood (Negative) 09/03/18 09/03/18 09/03/18 Range/Units 09:56 09:56 10:29 WBC (3.8-10.6) k/uL RBC (3.80-5.40) m/uL Hgb (11.4-16.0) gm/dL Hct (34.0-46.0) % MCV (80.0-100.0) fL MCH (25.0-35.0) pg MCHC (31.0-37.0) g/dL RDW (11.5-15.5) % Plt Count (150-450) k/uL Neutrophils % % Lymphocytes % % Monocytes % % Eosinophils % % Basophils % % Neutrophils # (1.3-7.7) k/uL Lymphocytes # (1.0-4.8) k/uL Monocytes # (0-1.0) k/uL Eosinophils # (0-0.7) k/uL Basophils # (0-0.2) k/uL Manual Slide Review Poikilocytosis (manual PT 10.2 (9.0-12.0) sec INR 0.9 (<1.2) APTT 17.9 L (22.0-30.0) sec Sodium (137-145) mmol/L Potassium (3.5-5.1) mmol/L Chloride (98-107) mmol/L Carbon Dioxide (22-30) mmol/L Anion Gap mmol/L BUN (7-17) mg/dL Creatinine (0.52-1.04) mg/dL Est GFR (CKD-EPI)AfAm (>60 ml/min/1.73 sqM) Est GFR (CKD-EPI)NonAf (>60 ml/min/1.73 sqM) Glucose (74-99) mg/dL Lactic Ac Sepsis Rflx Y Plasma Lactic Acid Enoch (0.7-2.0) mmol/L Calcium (8.4-10.2) mg/dL Magnesium (1.6-2.3) mg/dL Total Bilirubin (0.2-1.3) mg/dL AST (14-36) U/L ALT (9-52) U/L Alkaline Phosphatase (38-126) U/L Total Creatine Kinase 76 (30-135) U/L CK-MB (CK-2) 0.4 (0.0-2.4) ng/mL CK-MB (CK-2) Rel Index 0.5 Troponin I <0.012 (0.000-0.034) ng/mL Total Protein (6.3-8.2) g/dL Albumin (3.5-5.0) g/dL Amylase (30-110) U/L Lipase (23-300) U/L Urine Color Urine Appearance (Clear) Urine pH (5.0-8.0) Ur Specific Bromide (1.001-1.035) Urine Protein (Negative) Urine Glucose (UA) (Negative) Urine Ketones (Negative) Urine Blood (Negative) Urine Nitrite (Negative) Urine Bilirubin (Negative) Urine Urobilinogen (<2.0) mg/dL Ur Leukocyte Esterase (Negative) Urine RBC (0-5) /hpf Urine WBC (0-5) /hpf Urine Bacteria (None) /hpf Urine Mucus (None) /hpf Gastric Occult Blood (Negative) 09/03/18 09/03/18 09/03/18 Range/Units 12:03 12:03 14:28 WBC (3.8-10.6) k/uL RBC (3.80-5.40) m/uL Hgb (11.4-16.0) gm/dL Hct (34.0-46.0) % MCV (80.0-100.0) fL MCH (25.0-35.0) pg MCHC (31.0-37.0) g/dL RDW (11.5-15.5) % Plt Count (150-450) k/uL Neutrophils % % Lymphocytes % % Monocytes % % Eosinophils % % Basophils % % Neutrophils # (1.3-7.7) k/uL Lymphocytes # (1.0-4.8) k/uL Monocytes # (0-1.0) k/uL Eosinophils # (0-0.7) k/uL Basophils # (0-0.2) k/uL Manual Slide Review Poikilocytosis (manual PT (9.0-12.0) sec INR (<1.2) APTT (22.0-30.0) sec Sodium (137-145) mmol/L Potassium (3.5-5.1) mmol/L Chloride (98-107) mmol/L Carbon Dioxide (22-30) mmol/L Anion Gap mmol/L BUN (7-17) mg/dL Creatinine (0.52-1.04) mg/dL Est GFR (CKD-EPI)AfAm (>60 ml/min/1.73 sqM) Est GFR (CKD-EPI)NonAf (>60 ml/min/1.73 sqM) Glucose (74-99) mg/dL Lactic Ac Sepsis Rflx Plasma Lactic Acid Enoch 1.4 (0.7-2.0) mmol/L Calcium (8.4-10.2) mg/dL Magnesium (1.6-2.3) mg/dL Total Bilirubin (0.2-1.3) mg/dL AST (14-36) U/L ALT (9-52) U/L Alkaline Phosphatase (38-126) U/L Total Creatine Kinase (30-135) U/L CK-MB (CK-2) (0.0-2.4) ng/mL CK-MB (CK-2) Rel Index Troponin I (0.000-0.034) ng/mL Total Protein (6.3-8.2) g/dL Albumin (3.5-5.0) g/dL Amylase (30-110) U/L Lipase (23-300) U/L Urine Color Yellow Urine Appearance Cloudy H (Clear) Urine pH 7.5 (5.0-8.0) Ur Specific Bromide 1.015 (1.001-1.035) Urine Protein Trace H (Negative) Urine Glucose (UA) Trace H (Negative) Urine Ketones 3+ H (Negative) Urine Blood Trace H (Negative) Urine Nitrite Negative (Negative) Urine Bilirubin Negative (Negative) Urine Urobilinogen <2.0 (<2.0) mg/dL Ur Leukocyte Esterase Negative (Negative) Urine RBC 6 H (0-5) /hpf Urine WBC 3 (0-5) /hpf Urine Bacteria Occasional H (None) /hpf Urine Mucus Rare H (None) /hpf Gastric Occult Blood Positive (Negative) - Radiology Data Radiology results: report reviewed (I did review the imaging and reports no definite acute findings there is evidence of extensive sigmoid diverticulosis with mild wall thickening but no surrounding inflammatory response suggestive of chronic diverticulitis also possible nonspecific borderline enlargement of the right-sided iliac chain lymph nodes. Moderate-sized hiatal hernia no acute inflammatory process seen.), image reviewed Disposition Clinical Impression: Abdominal pain, Intractable vomiting, Gastritis, Dehydration Disposition: ADMITTED IP TO THIS HOSP Condition: Serious Referrals: Liborio Colon MD [Primary Care Provider] - 1-2 days
[2018-09-03] MEDS ORDERED: HYDROmorphone 1 MG/ML 1 ML SYRINGE IM STA (08:22)
[2018-09-03] MEDS ORDERED: METOCLOPRAMIDE 5 MG/ML 2 ML VIAL IM STA (08:25)
--- NOTE | 2018-09-03 09:18 | XR ---
EXAMINATION TYPE: XR chest 2V DATE OF EXAM: 09/03/2018 COMPARISON: 07/24/2018 HISTORY: 63-year-old female with cough TECHNIQUE: AP and lateral views FINDINGS: The heart is upper limits of normal in size. Mild interstitial prominence and hyperinflation. No cons olidation or pleural effusion. IMPRESSION: Correlated for possible underlying COPD. No acute process otherwise seen.
--- NOTE | 2018-09-03 09:19 | XR ---
EXAMINATION TYPE: XR KUB DATE OF EXAM: 09/03/2018 CLINICAL DATA: 63-year-old female with abdominal pain, PHH COMPARISON: None FINDINGS: Supine imaging limited for assessment of free intraperitoneal air. No dilated bowel loops are seen. No significant stool burden. Small amount of bowel air in the pelvis . Some pelvic phleboliths. Cholecystectomy clips. IMPRESSION: Nonspecific, nonobstructive bowel gas pattern. No significant stool burden.
[2018-09-03 10:17] LABS: Basophils % (A) 0 %; Eosinophils # (A) 0.1 k/uL (0-0.7); Eosinophils % (A) 0 %; HCT 39.5 % (34.0-46.0); HGB 12.3 gm/dL (11.4-16.0); Lymphocytes # (A) 1.1 k/uL (1.0-4.8); Lymphocytes % (A) 9 %; MCH 28.9 pg (25.0-35.0); MCHC 31.3 g/dL (31.0-37.0); MCV 92.4 fL (80.0-100.0); Monocytes # (A) 0.6 k/uL (0-1.0); Monocytes % (A) 5 %; Neutrophils # (A) 10.8 k/uL (1.3-7.7); Neutrophils % (A) 86 %; Platelet Count 193 k/uL (150-450); RBC 4.27 m/uL (3.80-5.40); RDW 13.1 % (11.5-15.5); WBC 12.6 k/uL (3.8-10.6)
[2018-09-03 10:23] LABS: ALT 45 U/L (9-52); AST 31 U/L (14-36); Albumin 5.2 g/dL (3.5-5.0); Alkaline Phosphatase 179 U/L (38-126); Amylase 51 U/L (30-110); Anion Gap 15 mmol/L; Blood Urea Nitrogen 21 mg/dL (7-17); Calcium 10.4 mg/dL (8.4-10.2); Carbon Dioxide 18 mmol/L (22-30); Chloride 111 mmol/L (98-107); Glucose 191 mg/dL (74-99); Lipase 97 U/L (23-300); Magnesium 1.7 mg/dL (1.6-2.3); Potassium 4.1 mmol/L (3.5-5.1); Sodium 144 mmol/L (137-145); Total Bilirubin 1.9 mg/dL (0.2-1.3); Total Protein 8.4 g/dL (6.3-8.2)
[2018-09-03 10:28] LABS: Poikilocytosis (M) Present
[2018-09-03 10:32] LABS: INR 0.9 (<1.2); Prothrombin Time 10.2 sec (9.0-12.0)
[2018-09-03 10:36] LABS: Partial Thromboplastin Time 17.9 sec (22.0-30.0)
[2018-09-03 10:37] LABS: Creatine Kinase 76 U/L (30-135)
[2018-09-03 10:50] LABS: Creatine Kinase MB 0.4 ng/mL (0.0-2.4); Troponin I <0.012 ng/mL (0.000-0.034)
[2018-09-03] MEDS ORDERED: ONDANSETRON 4 MG/2 ML VIAL IVP STA (11:04)
[2018-09-03] MEDS ORDERED: PROMETHAZINE INJ 25 MG in SODIUM CHLORIDE 0.9% 50 ML IVPB STA (11:45)
[2018-09-03 12:28] LABS: Appearance,Urine Cloudy (Clear); Bacteria,Urine Occasional /hpf; Bilirubin,Urine Negative (Negative); Blood,Urine Trace (Negative); Color,Urine Yellow; Glucose,Urine (UA) Trace (Negative); Ketones,Urine 3+ (Negative); Leukocyte Esterase,Urine Negative (Negative); Mucus,Urine Rare /hpf; Nitrite,Urine Negative (Negative); PH, Urine 7.5 (5.0-8.0); Protein,Urine Trace (Negative); RBC,Urine 6 /hpf (0-5); Specific Gravity,Urine 1.015 (1.001-1.035); Urobilinogen,Urine <2.0 mg/dL (<2.0)
--- NOTE | 2018-09-03 13:26 | CT ---
EXAMINATION TYPE: CT abdomen pelvis w con DATE OF EXAM: 09/03/2018 COMPARISON: 07/24/2018 HISTORY: 63-year-old female with generalized pain and uncontrolled vomiting. TECHNIQUE: Contiguous axial scanning of the abdomen and pelvis following administration of 100 ml Iso viola 300 IV contrast. Delayed images through the kidneys and coronal/sagittal reconstructions perform ed. CT DLP: 646.5 mGycm Automated exposure control for dose reduction was used. FINDINGS: Heart normal size without pericardial effusion. Moderate-sized hiatal hernia. Prominent dependent ate lectasis lower lungs without pleural effusion. No focal liver lesion or biliary ductal dilatation. Cholecystectomy clips are present. The venous sys tem is patent. Adrenal glands, kidneys, spleen, and pancreas appear within normal limits. Mild to moderate atherosclerotic calcifications infrarenal abdominal aorta and iliac arteries without aneurysm. No dilated small bowel, free fluid, or free air. No mesenteric or retroperitoneal lymphadenopathy. Wh ile the appendix is not discretely visualized, no secondary findings of acute appendicitis is seen. U nable to exclude a prominent right iliac chain lymph node at 9 mm, axial image 59 and coronal image 4 6. No significant stool burden. Extensive sigmoid diverticulosis with associated wall thickening but no surrounding inflammation. Bladder urine distended. Pelvic phleboliths. Uterus surgically absent. No abnormal fluid collection p isacc. Bones: No osseous destructive process. IMPRESSION: 1. EXTENSIVE SIGMOID DIVERTICULOSIS WITH MILD WALL THICKENING BUT NO SURROUNDING INFLAMMATION. FINDIN GS SUGGEST CHRONIC DIVERTICULITIS. 2. POSSIBLE NONSPECIFIC BORDERLINE ENLARGED RIGHT-SIDED ILIAC CHAIN LYMPH NODE IN THE UPPER PELVIS 9 MM. THIS MAY BE REACTIVE/POST INFLAMMATORY. CONSIDER 3 MONTH FOLLOW-UP CT TO TO ENSURE STABILITY. 3. MODERATE-SIZED HIATAL HERNIA. 4. NO ACUTE INFLAMMATORY PROCESS IDENTIFIED TO EXPLAIN THE PATIENT'S SYMPTOMS.
[2018-09-03] MEDS ORDERED: MAGNESIUM SULFATE-D5W PMX 1 GM in DEXTROSE/WATER 1 100ML.BAG IVPB ONE (15:08)
[2018-09-03] MEDS ORDERED: NALOXONE 0.4 MG/ML 1 ML VIAL IV PRN (15:59)
[2018-09-03] MEDS: ONDANSETRON 4 MG/2 ML VIAL IVP PRN (16:44)
--- NOTE | 2018-09-03 18:29 | HP ---
HISTORY AND PHYSICAL CHIEF COMPLAINT: 63-year-old white female with history of pancreatitis, woke up 4:00 a.m. with abdominal pain left lower quadrant, very sharp, severe to her back and shoulders with nausea, vomiting, and diarrhea. Irretractable vomiting with some blood, large amount of blood this morning at which time she was brought to the hospital. Abdominal x-ray, chest x- ray, CT scan of the abdomen and pelvis have been ordered. HOME MEDS: 1. Aldactone 25 daily. 2. Lipitor 80 q.h.s. 3. Synthroid 100 mcg daily. 4. Coreg 25 b.i.d. ALLERGIES: To ADHESIVE, CODEINE, PENICILLIN. REVIEW OF SYSTEMS: Fourteen point review of systems negative except for mentioned in HPI. PAST MEDICAL HISTORY: Coronary artery disease, cancer, chest pain, angina, CVA, TIA, dyslipidemia, hypertension, myocardial infarction, hypothyroidism, pancreatitis, diverticulosis, thyroid cancer, thyroidectomy. PAST SURGICAL HISTORY: Tonsillectomy, cholecystectomy, hysterectomy, orthopedic surgery. FAMILY HISTORY: Mother with esophageal varices, alcoholism. Father with CVA, TIA, hypertension, dyslipidemia, Parkinson disease. PHYSICAL EXAM: Vital signs stable. Afebrile. CARDIOVASCULAR: S1, S2. LUNGS: Transmitted upper sounds. HEMATOLOGY: Negative Homans. PSYCH: Fair mood and affect. GI: Increased bowel sounds x4. Diffuse tenderness to palpation of left lower quadrant. No guarding or rebound. VASCULAR: Normal dorsalis pedis and posterior tibial pulse. OPHTHALMOLOGIC: Pupils equal, round, reactive to light and accommodation. NEUROLOGIC: Alert and orient x3. PSYCH: Fair mood and affect. Temperature 97.5, pulse 67, respiratory rate 20-22, blood pressure 180s over 80s, O2 100% on room air. ASSESSMENT: 1. Hypertension acceleration. 2. Acute diverticulitis. 3. Acute chronic sigmoid diverticulosis, possible gastroenteritis hematemesis. Surgical consult is pending. Blood pressure control will be needed. Leukocytosis of unclear etiology, possibly due to nausea, vomiting, gastroenteritis, lactic acidosis secondary to possible gastroenteritis. Please await for surgical recommendations. Admit the patient. Rehydration 25 mL an hour normal saline. Please see further orders. MMODL / IJN: [id number] /
[2018-09-03] MEDS: ACETAMINOPHEN IV (For NPO) 1,000 MG in EMPTY BAG 1 BAG IVPB PRN (20:42)
[2018-09-03] MEDS: PROCHLORPERAZINE 5 MG TAB PO PRN (21:49)
[2018-09-03] MEDS: CARVEDILOL 12.5 MG TAB PO SCH (23:33)
[2018-09-03] MEDS: ATORVASTATIN 80 MG TAB PO SCH (23:33)
[2018-09-04] MEDS: ONDANSETRON 4 MG/2 ML VIAL IVP PRN ×4 (03:05→22:12)
[2018-09-04] MEDS: LEVOTHYROXINE 100 MCG TAB PO SCH (04:51)
[2018-09-04] MEDS: PROCHLORPERAZINE 5 MG TAB PO PRN ×2 (06:18→16:23)
[2018-09-04 07:51] LABS: Basophils % (A) 0 %; Eosinophils # (A) 0.1 k/uL (0-0.7); Eosinophils % (A) 1 %; HCT 43.4 % (34.0-46.0); HGB 14.7 gm/dL (11.4-16.0); Lymphocytes # (A) 2.1 k/uL (1.0-4.8); Lymphocytes % (A) 14 %; MCH 30.4 pg (25.0-35.0); MCHC 33.8 g/dL (31.0-37.0); MCV 89.9 fL (80.0-100.0); Mean Platelet Volume 6.8; Monocytes % (A) 7 %; Neutrophils # (A) 11.4 k/uL (1.3-7.7); Neutrophils % (A) 77 %; Platelet Count 265 k/uL (150-450); RBC 4.83 m/uL (3.80-5.40); RDW 12.7 % (11.5-15.5); WBC 14.8 k/uL (3.8-10.6)
[2018-09-04 07:53] LABS: ALT 37 U/L (9-52); AST 32 U/L (14-36); Albumin 4.8 g/dL (3.5-5.0); Alkaline Phosphatase 129 U/L (38-126); Anion Gap 11 mmol/L; Blood Urea Nitrogen 15 mg/dL (7-17); Calcium 8.9 mg/dL (8.4-10.2); Carbon Dioxide 24 mmol/L (22-30); Chloride 105 mmol/L (98-107); Glucose 127 mg/dL (74-99); Potassium 3.3 mmol/L (3.5-5.1); Sodium 140 mmol/L (137-145); Total Protein 7.7 g/dL (6.3-8.2)
[2018-09-04] MEDS: SPIRONOLACTONE 25 MG TAB PO SCH (09:53)
[2018-09-04] MEDS: CARVEDILOL 12.5 MG TAB PO SCH ×2 (09:53→17:35)
[2018-09-04] MEDS ORDERED: TRIMETHOBENZAMIDE 100 MG/ML 2 ML VIAL IM PRN (10:07)
[2018-09-04] MEDS: hydrALAZINE HCL 20 MG/ML 1 ML VIAL IVP PRN ×2 (10:46→15:16)
--- NOTE | 2018-09-04 12:03 | P.PN ---
Subjective Progress Note Date: 09/04/18 This is a 63-year-old female who presented with a chief complaint of intractable nausea vomiting. She's had multiple episodes of this in the past. She states that she's never been able to find out what was causing this. She has a history of pancreatitis and diverticulitis. She's also had a cholecystectomy before in the past. She states that she first experienced nausea vomiting that started 2 days ago and she is since had some abdominal pain that she associates with the heaving. She denies any fevers or chills. She had a normal bowel movement yesterday no diarrhea. She has no sick contacts she's had no recent travel. She's had an EGD in the past which did not reveal any abnormality. There is a report of hematemesis that she experienced once yesterday. She's been vomiting bile since then. Objective - Vital Signs Vital signs: Vital Signs Temp 99 F 09/04/18 07:00 Pulse 73 09/04/18 07:00 Resp 12 09/04/18 07:00 BP 175/82 09/04/18 09:38 Pulse Ox 99 09/04/18 07:00 Intake & Output 09/03/18 09/04/18 09/04/18 18:59 06:59 18:59 Output Total 150 Balance -150 Weight 72.575 kg Output: Emesis 150 Other: # Voids 1 - Constitutional General appearance: Present: cooperative - Respiratory Details: Nonlabored - Cardiovascular Rhythm: regular - Gastrointestinal Gastrointestinal Comment(s): Soft mild distention mild tenderness palpation midepigastric no rebound no rigidity no guarding - Psychiatric Psychiatric: Present: A&O x's 3 - Labs CBC & Chem 7: 09/04/18 07:24 09/04/18 07:16 Labs: Abnormal Lab Results - Last 24 Hours (Table) 09/03/18 09/04/18 09/04/18 Range/Units 12:03 07:16 07:24 WBC 14.8 H (3.8-10.6) k/uL Neutrophils # 11.4 H (1.3-7.7) k/uL Potassium 3.3 L (3.5-5.1) mmol/L Glucose 127 H (74-99) mg/dL Total Bilirubin 2.0 H (0.2-1.3) mg/dL Alkaline Phosphatase 129 H (38-126) U/L Urine Appearance Cloudy H (Clear) Urine Protein Trace H (Negative) Urine Glucose (UA) Trace H (Negative) Urine Ketones 3+ H (Negative) Urine Blood Trace H (Negative) Urine RBC 6 H (0-5) /hpf Urine Bacteria Occasional H (None) /hpf Urine Mucus Rare H (None) /hpf Assessment and Plan Assessment: Intractable nausea and vomiting, hyperbilirubinemia Plan: Patient has intractable nausea and vomiting source unknown at this time. She also has hyperbilirubinemia with total bilirubin at 2 along with mildly elevated alkaline phosphatase. Patient does have a history of cholecystectomy. At this time I do not see an indication for acute surgical intervention. I appreciate GI recommendations. Continue with IV fluids and antiemetics
[2018-09-04] MEDS: ACETAMINOPHEN IV (For NPO) 1,000 MG in EMPTY BAG 1 BAG IVPB PRN (13:50)
[2018-09-04] MEDS: ATORVASTATIN 80 MG TAB PO SCH (22:12)
--- NOTE | 2018-09-04 23:54 | PN ---
PROGRESS NOTE SUBJECTIVE: This is a 63-year-old white female with retractable nausea and vomiting despite multiple antinausea medications. Await for GI recommendations. Surgery signed off. OBJECTIVE: Cardiovascular S1, S2. Lungs clear. GI, tenderness to palpation. Extremities . ASSESSMENT: 1. Elevated liver enzymes. 2. Progressive nausea and vomiting. PLAN: Await GI recommendations. Please see further orders. MMODL / IJN: [id number] /
[2018-09-05] MEDS: ONDANSETRON 4 MG/2 ML VIAL IVP PRN ×3 (02:50→14:19)
[2018-09-05] MEDS: HYDROmorphone 2 MG TAB PO PRN ×2 (04:23→08:04)
[2018-09-05] MEDS: LEVOTHYROXINE 100 MCG TAB PO SCH (05:23)
[2018-09-05] MEDS: CARVEDILOL 12.5 MG TAB PO SCH ×2 (08:04→18:01)
[2018-09-05] MEDS: hydrALAZINE HCL 20 MG/ML 1 ML VIAL IVP PRN (08:04)
[2018-09-05] MEDS: SPIRONOLACTONE 25 MG TAB PO SCH (08:05)
--- NOTE | 2018-09-05 10:30 | CDI ---
Documentation Clarification Form Date: 09/05/2018 10:14:40 AM From: Susan KapadiaHandALEX, CCDS Admit Date: 09/03/2018 4:02:00 PM Patient Name: Milka Olivera Visit Number: [id number] Discharge Date: ATTENTION: The Clinical Documentation Specialists (CDI) and [facility] Coding Staff appreciate your assistance in clarifying documentation. Please respond to the clarification below the line at the bottom and electronically sign. The CDI & [facility] Coding staff will review the response and follow-up if needed. Please note: Queries are made part of the Legal Health Record. If you have any questions, please contact the author of this message via ITS. Dr. Liborio Colon: Per the History & Physical assessment: Hypertension acceleration is documented. History/Risk Factors: Hypertension, Hyperlipidemia, CAD, IL, Pancreatitis, Diverticular disease. Clinical Indicators: Patient presented with intractable nausea, vomiting & diarrhea, diagnosed with possible acute gastritis, acute diverticulitis and leukocytosis of unclear etiology. Lab findings: WBC 12.6, Neut 10.8, BUN 21^, Gluc 191^, Lactic Acid 2.7^. Radiology findings: KUB: wnl. CXR: possible COPD. CT Abdomen/Pelvis: Sigmoid diverticulosis, suggest chronic diverticulitis. Vital Signs: BP 189/84 - 197/105 - 148/72 - 143/97 Treatment: IV fl bolus, IV fl 150, IV Reglan, IM Dilaudid, IM Reglan, IV Zofran , IV promethazine/NaCl, IV MagSulf, IV Tylenol, IV Apresoline. In your professional opinion, can you please clarify the patient's accelerated hypertension: Hypertensive Crisis: o With Hypertensive Emergency o With Hypertensive Urgency Other, please specify Undetermined (Last Revision: October 2017) MTDD
--- NOTE | 2018-09-05 16:26 | P.CONS ---
History of Present Illness - Reason for Consult Consult date: 09/05/18 nausea vomiting Requesting physician: Liborio Colon - Chief Complaint abdominal pain nausea vomiting - History of Present Illness 63-year-old female with a history of pancreatitis, CAD, CVA, hypertension, [place], hypothyroidism,thyroid cancer admitted with acute abdominal pain nausea vomiting. CT abdomen sigmoid diverticulosis without inflammatory changes. Moderate size hiatal hernia. No acute infiltrate process identified to explain her symptoms. white count 12.6 presently 14.8. total bilirubin 1.9. AST 31. ALT 45. AP 179. Lipase 97. Today total bili of 2.0. AST ALT normal. AP 129. gastric occult blood positive. T-max 99.7. Denies hematemesis hematochezia melena. No history of peptic ulcer disease. Last EGD 10 years ago. No alcohol excessive usage of NSAIDs or aspirin. Review of Systems Constitutional: Denies fever, chills, sweats, weight gain, or loss. HEENT: Negative for migraines, blurred vision or loss, earaches, drainage, tinnitus, oral mucosal lesions, dysphagia, or odynophagia. CARDIAC: Negative for chest pain, arrhythmias, or palpitation. RESPIRATORY: Negative for shortness of breath, hemoptysis, cough, or sputum production. GI: See HPI for pertinent findings. : Negative for hematuria, urgency, frequency, polyuria, or dysuria. GYNc: Denies possibility of . Negative vaginal discharge. MUSCULOSKELETAL: Negative for muscle aches, swelling, arthritis, and arthralgias. NEUROLOGIC: Negative for stroke or TIA. ENDOCRINE: Negative for thyroid problems. SKIN: Negative for rash or itching. PSYCHIATRIC: Negative history for depression and anxiety Past Medical History Past Medical History: Coronary Artery Disease (CAD), Cancer, Chest Pain / Angina , CVA/TIA, Hyperlipidemia, Hypertension, Myocardial Infarction ([place]), Thyroid Disorder Additional Past Medical History / Comment(s): Thyroid cancer with thyroidectomy , TIA years ago, acute pancreatitis, diverticular disease. Last Myocardial Infarction Date:: 05/2010 History of Any Multi-Drug Resistant Organisms: None Reported Past Surgical History: Cholecystectomy, Hysterectomy, Orthopedic Surgery, Tonsillectomy Additional Past Surgical History / Comment(s): Pt denies any hx of cardiac cath but states another type of diagnostic test was done in 2009 at a hospital in [place] and she has no cardiac blockages, thyroidectomy, R thumb fracture with surgery, colonoscopy. Past Anesthesia/Blood Transfusion Reactions: Previous Problems w/ Anesthesia Additional Past Anesthesia/Blood Transfusion Reaction / Comm: trouble urinating after general anesthesia Past Psychological History: Depression Additional Psychological History / Comment(s): Pt has an adult son who resides with her-he has an apartment upstairs. She does not drive, her son takes her to appointments. She is otherwise independent. Smoking Status: Former smoker Past Alcohol Use History: None Reported Additional Past Alcohol Use History / Comment(s): Pt started smoking in 1970 and quit in 2009. Past Drug Use History: Marijuana Additional Drug Use History / Comment(s): occasional use - Past Family History Mother Family Medical History: Unable to Obtain Additional Family Medical History / Comment(s): Mother is from esophageal varices d/t alcoholism at the age of 69yrs. Father Family Medical History: CVA/TIA, Hyperlipidemia, Hypertension, Musculoskeletal Disorder Additional Family Medical History / Comment(s): Father had a CVA in his 50s. Father is from parkinsons at age 69yrs. Medications and Allergies Home Medications Medication Instructions Recorded Confirmed Type Spironolactone [Aldactone] 25 mg PO DAILY 03/28/18 09/03/18 History Atorvastatin [Lipitor] 80 mg PO HS 07/24/18 09/03/18 History Levothyroxine Sodium [Synthroid] 100 mcg PO DAILY 07/24/18 09/03/18 History Carvedilol [Coreg] 25 mg PO BID 09/03/18 09/03/18 History Allergies Allergy/AdvReac Type Severity Reaction Status Date / Time adhesive AdvReac Itching Verified 09/03/18 10:18 codeine AdvReac Nausea & Verified 09/03/18 10:18 Vomiting Penicillins AdvReac Unknown Verified 09/03/18 10:18 Physical Exam Vitals: Vital Signs Temp Pulse Resp BP Pulse Ox 09/05/18 14:35 99.3 F 70 14 151/71 95 09/05/18 07:00 98.8 F 76 16 174/93 96 09/05/18 00:59 16 09/04/18 23:56 98.6 F 86 16 162/83 95 09/04/18 19:33 99.1 F 82 16 147/83 96 09/04/18 16:29 146/87 Intake and Output 09/05/18 09/05/18 09/05/18 06:59 14:59 22:59 Intake Total 25 Balance 25 Intake: Oral 25 Other: # Voids 2 2 General appearance: The patient is alert, oriented, in no acute distress. HET: Head is normocephalic and atraumatic. Pupils are equal and reactive. Oropharynx is clear without lesions. Neck: Supple without lymphadenopathy. Trachea midline. Heart: S1 S2. Regular rate and rhythm. Lungs: No crackles or wheezes are heard. Abdomen: Soft, mild generalized tenderness across the midabdomen and left flank , nondistended with bowel sounds. No peritoneal signs. No palpable organomegaly or masses. Extremities: Normal skin color and turgor. No cyanosis, rash, ulceration, clubbing, or edema. Radial and pedal pulses are 2/4 bilaterally. Neurological: No focal deficits. Strength and sensation are grossly intact. Results CBC & Chem 7: 09/04/18 07:24 09/04/18 07:16 CT scan - abdomen: report reviewed (Dr. Merritt) Assessment and Plan (1) Abdominal pain Narrative/Plan: 63-year-old female admitted with intractable abdominal pain nausea vomiting with history of pancreatitis mild hyperbilirubinemia cannot rule out underlying peptic ulcer disease possible gastroenteritis possible subacute pancreatitis. Current Visit: Yes Status: Acute Code(s): R10.9 - UNSPECIFIED ABDOMINAL PAIN SNOMED Code(s): 07191089 (2) Intractable vomiting Current Visit: Yes Status: Acute Code(s): R11.10 - VOMITING, UNSPECIFIED SNOMED Code(s): 157708670 (3) Hyperbilirubinemia Current Visit: Yes Status: Acute Code(s): E80.6 - OTHER DISORDERS OF BILIRUBIN METABOLISM SNOMED Code(s): 48844093 Plan: 1. EGD in am. 2. Nothing by mouth after midnight. 3. Bilirubin fractions. 4. GI prophylaxis. 5. Daily CBC CMP. The crimp setter has discussed the risks, benefits and alternative therapies for the above-mentioned procedure and for both sedation/analgesia as well as necessary blood product administration, if indicated, as they pertain to this patient. The patient has indicated understanding and acceptance of the risks and procedures discussed. Thank you for this kind referral and the opportunity to participate in the care of your patient. This consultation was discussed with [Dr. Merritt The impression and plan of care have been directed as dictated.
--- NOTE | 2018-09-05 17:18 | P.PN ---
Subjective Progress Note Date: 09/05/18 Patient still with N/V. States she feels no better. afebrile. Denies significant abdominal pain, she does complain of some back pain. Objective - Vital Signs Vital signs: Vital Signs Temp 99.3 F 09/05/18 14:35 Pulse 70 09/05/18 14:35 Resp 14 09/05/18 14:35 BP 151/71 09/05/18 14:35 Pulse Ox 95 09/05/18 14:35 Intake & Output 09/04/18 09/05/18 09/05/18 18:59 06:59 18:59 Intake Total 25 Balance 25 Intake: Oral 25 Other: # Voids 4 2 2 - Constitutional General appearance: Present: cooperative - Respiratory Details: nonlabored - Cardiovascular Rhythm: regular - Gastrointestinal Gastrointestinal Comment(s): S/ND/NTTP - Psychiatric Psychiatric: Present: A&O x's 3 - Labs CBC & Chem 7: 09/04/18 07:24 09/04/18 07:16 Assessment and Plan Assessment: Intractable nausea and vomiting, hyperbilirubinemia Plan: Continue with IVF and antiemetics. Appreciate GI recs. No plans for acute surgical intervention at this time
[2018-09-05] MEDS: PANTOPRAZOLE 40 MG TABLET PO SCH (18:01)
[2018-09-05] MEDS: ONDANSETRON 4 MG/2 ML VIAL IVP SCH (18:01)
[2018-09-05] MEDS: ATORVASTATIN 80 MG TAB PO SCH (20:11)
[2018-09-06] MEDS: ONDANSETRON 4 MG/2 ML VIAL IVP SCH ×4 (00:09→18:07)
--- NOTE | 2018-09-06 04:01 | PN ---
PROGRESS NOTE White female admitted with severe abdominal pain, nausea, vomiting, not getting better. She is scheduled for EGD in the morning by Dr. Angeles. CARDIOVASCULAR: S1, S2. LUNGS: Clear. GI: Tenderness to palpation, right epigastric and right upper quadrant. HEMATOLOGY: Negative Homans. ASSESSMENT: 1. Leukocytosis. 2. Hypokalemia. 3. Severe abdominal pain. 4. Hyperbilirubinemia. 5. Progressive nausea, vomiting. Rule out gastroesophageal reflux disease versus ulcer versus common bile duct obstruction. Please see further orders. MMODL / IJN: [id number] /
[2018-09-06] MEDS: LEVOTHYROXINE 100 MCG TAB PO SCH (05:37)
[2018-09-06 08:53] VITALS: PULSE 61
[2018-09-06] MEDS: PANTOPRAZOLE 40 MG TABLET PO SCH ×2 (10:45→18:07)
[2018-09-06] MEDS: CARVEDILOL 12.5 MG TAB PO SCH ×2 (10:45→18:07)
[2018-09-06] MEDS: SPIRONOLACTONE 25 MG TAB PO SCH (10:46)
[2018-09-06 11:43] LABS: ALT 37 U/L (9-52); AST 34 U/L (14-36); Albumin 3.6 g/dL (3.5-5.0); Alkaline Phosphatase 81 U/L (38-126); Anion Gap 7 mmol/L; Blood Urea Nitrogen 17 mg/dL (7-17); Calcium 8.3 mg/dL (8.4-10.2); Carbon Dioxide 22 mmol/L (22-30); Chloride 111 mmol/L (98-107); Glucose 90 mg/dL (74-99); Potassium 3.2 mmol/L (3.5-5.1); Sodium 140 mmol/L (137-145); Total Bilirubin 2.6 mg/dL (0.2-1.3)
[2018-09-06] MEDS ORDERED: MIDAZOLAM 2 MG/2 ML VIAL ONE (13:25)
[2018-09-06] MEDS ORDERED: LIDOCAINE 1% INJ 10MG/ML (20 ML MDV) ONE (13:25)
[2018-09-06] MEDS ORDERED: PROPOFOL 10 MG/ML 20 ML VIAL IV ONE (13:25)
[2018-09-06] MEDS ORDERED: IV FLUID CONTINUATION 1,000 ML IV ONE (13:30)
--- NOTE | 2018-09-06 14:05 | P.PCN ---
Date of Procedure: 09/06/18 Description of Procedure: BRIEF HISTORY: 63-year-old female with a history of pancreatitis, CAD, CVA, hypertension, [place], hypothyroidism, thyroid cancer admitted with acute abdominal pain nausea vomiting. CT abdomen sigmoid diverticulosis without inflammatory changes. Moderate size hiatal hernia. No acute infiltrate process identified to explain her symptoms. white count 12.6 presently 14.8. total bilirubin 1.9. AST 31. ALT 45. AP 179. Lipase 97. Today total bili of 2.0. AST ALT normal. AP 129. gastric occult blood positive. Denies hematemesis hematochezia melena. No history of peptic ulcer disease. Last EGD 10 years ago. No alcohol excessive usage of NSAIDs or aspirin. . PROCEDURE PERFORMED: Esophagogastroduodenoscopy with biopsy. PREOPERATIVE DIAGNOSIS: Abdominal pain, nausea and vomiting. ESTIMATED BLOOD LOSS: Minimal. IV sedation per anesthesia. PROCEDURE: After informed consent was obtained, the patient was brought into the endoscopy unit. IV sedation was administered by Anesthesia under continuous monitoring. Initially the Olympus GIF-190 video endoscope was inserted into the mouth. Esophagus intubated without any difficulty. It was gradually advanced into the stomach and duodenum and carefully examined. The duodenal bulb was significant for scattered erythema suggestive of duodenitis with biopsies taken and the second part of the duodenum appeared normal. The scope at this time was withdrawn to the stomach, adequately insufflated with air, and upon careful examination, mucosa of the antrum, body, cardia and the fundus appeared grossly normal, with findings of mild scattered erythema with superficial erosions in the antrum and body suggestive of mild gastritis with biopsies taken. The scope was then withdrawn into the esophagus. A small hiatal hernia was seen. The GE junction was located at 36 cm from the incisors. The esophagus appeared essentially normal with a widely patent Schatzki's ring in the distal esophagus. There were no erosions or ulcerations seen and the patient tolerated the procedure well. IMPRESSION: 1. Gastritis of the antrum and body, biopsied. 2. Duodenitis of the duodenal bulb biopsied. 3. Widely patent distal esophageal Schatzki's ring. 4. Small hiatal hernia. RECOMMENDATIONS: The findings of this examination were discussed with the patient. Okay to resume diet. Continue antiemetics as needed. Continue Protonix twice daily.
--- NOTE | 2018-09-06 14:36 | P.PN ---
Subjective Progress Note Date: 09/06/18 Patient states NV and pain all resolved Objective - Vital Signs Vital signs: Vital Signs Temp 98.9 F 09/06/18 07:00 Pulse 61 09/06/18 07:00 Resp 16 09/06/18 07:00 BP 100/56 09/06/18 07:00 Pulse Ox 96 09/06/18 07:00 Intake & Output 09/05/18 09/06/18 09/06/18 18:59 06:59 18:59 Intake Total 100 Balance 100 Intake: IV 100 Other: # Voids 2 - Constitutional General appearance: Present: average body habitus, cooperative - Cardiovascular Rhythm: regular - Gastrointestinal Gastrointestinal Comment(s): S/NT/ND - Labs CBC & Chem 7: 09/04/18 07:24 09/06/18 11:08 Labs: Abnormal Lab Results - Last 24 Hours (Table) 09/06/18 Range/Units 11:08 Potassium 3.2 L (3.5-5.1) mmol/L Chloride 111 H (98-107) mmol/L Calcium 8.3 L (8.4-10.2) mg/dL Total Bilirubin 2.6 H (0.2-1.3) mg/dL Total Protein 6.0 L (6.3-8.2) g/dL Assessment and Plan Assessment: Intractable nausea and vomiting, hyperbilirubinemia Plan: No plans for surgical intervention, follow up with GI and primary regarding hyperbilirubinemia and EGD results
[2018-09-06 15:30] LABS: Bilirubin, Delta 0.5 mg/dL (0.0-0.2); Bilirubin,Unconjugated 1.8 mg/dL (0.0-1.1); Total Bilirubin 2.3 mg/dL (0.2-1.3)
[2018-09-06 17:21] LABS: Glucose,Whole Blood 135 mg/dL (75-99)
[2018-09-06 17:32] VITALS: BP 105/65; RESP 14; TEMP 97.7
--- NOTE | 2018-09-07 14:54 | DS ---
DISCHARGE SUMMARY ADDENDUM: Please add to the discharge summary: Hypertension urgency. MMODL / IJN: [id number] /
--- NOTE | 2018-09-08 14:21 | CDI ---
Documentation Clarification Form Date: 09/08/18 From: Jessika Gudino Phone: If you have a question regarding this query, please contact Audelia Oden at [phone] between 8am and 5pm. Admit Date: 09/03/2018 4:02:00 PM Patient Name: Milka Olivera Visit Number: [id number] Discharge Date: 09/06/2018 7:43:00 PM ATTENTION: The Clinical Documentation Specialists (CDI) and [facility] Coding Staff appreciate your assistance in clarifying documentation. Please respond to the clarification below the line at the bottom and electronically sign. The CDI & [facility] Coding staff will review the response and follow-up if needed. Please note: Queries are made part of the Legal Health Record. If you have any questions, please contact the author of this message via ITS. Dr. Liborio Colon Patient was admitted due to left lower quadrant abdominal pain, intractable vomiting with some blood. Patient history/risk factors: Patient has a history of pancreatitis and history of cholecystectomy. Clinical Indicators: Intractable nausea and vomiting, hyperbilirubinemia, elevated alkaline phosphatase. KUB: Nonspecific, nonobstructive bowel gas pattern. No significant stool burden. CT Abd/Pelv w/contrast: 1. Extensive sigmoid diverticulosis with mild wall thickening but no surrounding inflammation. Findings suggest chronic diverticulitis. 2. Possible nonspecific borderline enlarged right sided iliac chain lymph node in upper pelvis 9mm. This may be reactive/post inflammatory. 3. Moderate sized hiatal hernia. 4. No acute inflammatory process identified to explain the patient's symptoms. Labs: WBC 12.6, Total bilirubin 1.9. Alk phos 179 EGD with biopsy: 1. Gastritis. 2. Duodenitis of the duodenal bulb. 3. Widely patent distal esophagus Schatzki's ring. 4. Small hiatal hernia. Vital Signs: T. 97.5, P. 67, R 22, BP 189/84 Medication: IV Zofran Consults: Abdominal pain, cannot rule out underlying peptic ulcer disease, possible gastroenteritis and possible subacute pancreatitis. In your professional opinion, can you please further clarify the cause of the abdominal pain, if known? Acute diverticulitis Peptic Ulcer Disease Acute gastroenteritis Acute gastritis Acute pancreatitis Other, please specify Unable to determine MTDD
--- NOTE | 2018-09-12 05:55 | DS ---
DISCHARGE SUMMARY ADDENDUM: Please add: 1. Moderate-size hiatal hernia. 2. Extensive sigmoid diverticulosis. 3. Acute on chronic diverticulitis. 4. Peptic ulcer disease. 5. Gastroenteritis. MMODL / IJN: [id number] /
--- NOTE | 2018-09-12 06:00 | DS ---
DISCHARGE SUMMARY ADDITION TO THE DISCHARGE SUMMARY: Please add: Hypertensive urgency. MMODL / IJN: [id number] /
--- NOTE | 2018-09-14 08:49 | DS ---
DISCHARGE SUMMARY DATE OF ADMISSION: 09/03/2018 DATE OF DISCHARGE: 09/06/2018 DISCHARGE MEDICATIONS: 1. Aldactone 25 mg daily. 2. Synthroid 100 mcg daily. 3. Lipitor 80 mg daily. 4. Coreg 25 b.i.d. CONDITION: Stable. PROGNOSIS: Guarded. Ambulate as tolerated. HOSPITAL COURSE OF EVENTS: This is a white female who came into the hospital with abdominal pain, nausea, and vomiting. Surgery saw her for retractable nausea, vomiting, and hyperbilirubinemia. She will follow up as an outpatient. An EGD was done which showed no significant findings at which time patient was rehydrated and sent home in stable condition to follow up as an outpatient. DISCHARGE DIAGNOSES: 1. Moderate-sized hiatal hernia. 2. Sigmoid diverticulosis, acute on chronic diverticulitis. 3. Peptic ulcer disease, gastroenteritis. Cleared by GI prior to discharge. MMODL / IJN: [id number] /
== END 2018-09-06 19:43 | disposition home or self-care (01) | DRG 384 ==
LOC: EC 07:37 → 4SSUR 16:02
PROVIDERS: ADMIT Family Medicine; ATTEND Family Medicine
PROC: 0DB78ZX Excision of Stomach, Pylorus, Via Natural or Artificial Opening Endoscopic, Diagnostic (ICD-10-PCS; 2018-09-06)
PROC: 0DB68ZX Excision of Stomach, Via Natural or Artificial Opening Endoscopic, Diagnostic (ICD-10-PCS; principal; 2018-09-06 08:45)
DX: K27.9 Peptic ulcer, site unspecified, unspecified as acute or chronic, without hemorrhage or perforation (principal); R17 Unspecified jaundice; K57.32 Diverticulitis of large intestine without perforation or abscess without bleeding; K29.00 Acute gastritis without bleeding; K92.0 Hematemesis; K22.2 Esophageal obstruction; K52.9 Noninfective gastroenteritis and colitis, unspecified; K44.9 Diaphragmatic hernia without obstruction or gangrene; D72.829 Elevated white blood cell count, unspecified; E78.5 Hyperlipidemia, unspecified; E86.0 Dehydration; E87.6 Hypokalemia; E89.0 Postprocedural hypothyroidism; I16.0 Hypertensive urgency; I10 Essential (primary) hypertension; I25.10 Atherosclerotic heart disease of native coronary artery without angina pectoris; I25.2 Old myocardial infarction; K29.80 Duodenitis without bleeding; F32.9 Major depressive disorder, single episode, unspecified; R74.8 Abnormal levels of other serum enzymes; Z79.890 Hormone replacement therapy; Z79.899 Other long term (current) drug therapy; Z90.710 Acquired absence of both cervix and uterus; Z87.891 Personal history of nicotine dependence; Z86.73 Personal history of transient ischemic attack (TIA), and cerebral infarction without residual deficits; Z85.850 Personal history of malignant neoplasm of thyroid; Z90.49 Acquired absence of other specified parts of digestive tract; Z88.5 Allergy status to narcotic agent; Z88.0 Allergy status to penicillin; Z91.048 Other nonmedicinal substance allergy status; Z82.0 Family history of epilepsy and other diseases of the nervous system; Z82.3 Family history of stroke; Z82.49 Family history of ischemic heart disease and other diseases of the circulatory system; Z81.1 Family history of alcohol abuse and dependence
CPT/HCPCS: 36415; 43239; 71046; 74018; 74177; 80053; 81001; 82150; 82248; 82271; 82550; 82553; 83605; 83690; 83735; 84484; 85025; 85610; 85730; 88305; 96361; 96365; 96372; 96375; 99285

== ENCOUNTER → 2018-12-12 | Outpatient (CLI) | payer MEDICARE, OTHER ==
--- NOTE | 2018-12-12 09:20 | BD ---
EXAMINATION TYPE: Axial Bone Density DATE OF EXAM: 12/12/2018 COMPARISON: 10/11/2003 CLINICAL HISTORY: Postmenopausal female. Osteoporosis screening. Height: 66 Weight: 161.7 FRAX RISK QUESTIONS: Alcohol (3 or more units per day): no Family History (Parent hip fracture): no Glucocorticoids (More than 3mos): no (Ex: prednisone, prednisolone, methylprednisolone, dexamethasone, and hydrocortisone). History of Fracture in Adulthood: yes Secondary Osteoporosis: 1. Type 1 Diabetes: no 2. Hyperthyroidism: no 3. Menopause before 45: no 4. Malnutrition: no 5. Chronic liver disease: no Rheumatoid Arthritis: no Current Tobacco Use: no RISK FACTORS HISTORY OF: History of Wrist Fracture: bilateral wrist When: as a child Family History of Osteoporosis: no Active: yes Diet low in dairy products/other sources of calcium: yes Postmenopausal woman: age 50 Lost more than 2 inches in height since high school: yes MEDICATIONS: lipitor, blood pressure med Thyroid Medications: synthroid How Lon years Additional History: EXAM MEASUREMENTS: Bone mineral densitometry was performed using the [employer] System. Bone mineral density as measured about the Lumbar spine is: ----- L1-L4(G/cm2): 1.057 T Score Values are as follows: ----- L2: -1.0 ----- L3: -0.9 ----- L4: -1.4 ----- L1-L4: -1.0 Bone mineral density has: decreased -14.0 % since study of: 10-11-2003 Bone mineral density about the R hip (g/cm2): 0.784 Bone mineral density about the L hip (g/cm2): 0.783 T Score values are as follows: -----R Neck: -1.8 -----L Neck: 1.8 -----R Total: -1.3 -----L Total: -1.5 Bone mineral density has: decreased -11.6 % since study of: 10.11.2003 IMPRESSION: Osteopenia (T Score between -2.5 and -1). There is slightly increased risk of fracture and the patient may be considered for treatment. Re-Screen 2-5 years. NOTE: T-SCORE=SD OF THE YOUNG ADULT MEAN.
--- NOTE | 2018-12-14 10:22 | MM ---
Reason for exam: screening (asymptomatic). Last mammogram was performed 1 year and 2 months ago. History: Patient is postmenopausal and history of other cancer. Took hormonal contraceptives for 30 years. Physical Findings: A clinical breast exam by your physician is recommended on an annual basis and results should be correlated with mammographic findings. MG 3D Screening Mammo W/Cad Bilateral CC and MLO view(s) were taken. Prior study comparison: October 13, 2017, bilateral MG 3d screening mammo w/cad. October 16, 2007, mammogram, performed at [facility]. The breast tissue is heterogeneously dense. This may lower the sensitivity of mammography. No significant changes when compared with prior studies. ASSESSMENT: Benign, BI-RAD 2 RECOMMENDATION: Routine screening mammogram of both breasts in 1 year.
== END | disposition home or self-care (01) ==
LOC: RADMAMWWP 07:36
PROVIDERS: ATTEND Obstetrics & Gynecology
DX: Z12.31 Encounter for screening mammogram for malignant neoplasm of breast (principal); Z13.820 Encounter for screening for osteoporosis; M85.80 Other specified disorders of bone density and structure, unspecified site; Z78.0 Asymptomatic menopausal state; Z90.710 Acquired absence of both cervix and uterus
CPT/HCPCS: 77063; 77067; 77080

== ENCOUNTER 2019-07-31 06:20 | Observation (INO) | payer MEDICARE, OTHER ==
--- NOTE | 2019-07-31 06:26 | ED ---
Abdominal Pain HPI - General Stated Complaint: Abd pain/vomiting Time Seen by Provider: 07/31/19 06:23 - History of Present Illness Initial Comments: 64-year-old female history of intractable nausea vomiting, pancreatitis, marijuana abuse, diverticular disease, CVA, [place] presenting for cc of nausea, vomiting, RUQ abdominal pain since 4AM. Patient states this feels similar to her previous episodes of nausea, vomiting. Patient states that compazine and vis taril seem to be the only medications that seem to help. Patient denies diarrhea, lower abdominal pain, headache, neck stiffness, fevers, chest pain, SOB. Patient called EMS for transportation to the hospital and was given 4mg of IM zofran enroute to the hospital. On arrival patient is vomiting. BP elevated. - Related Data Home Medications Medication Instructions Recorded Confirmed Spironolactone [Aldactone] 25 mg PO DAILY 03/28/18 09/03/18 Atorvastatin [Lipitor] 80 mg PO HS 07/24/18 09/03/18 Levothyroxine Sodium [Synthroid] 100 mcg PO DAILY 07/24/18 09/03/18 Carvedilol [Coreg] 25 mg PO BID 09/03/18 09/03/18 Allergies Allergy/AdvReac Type Severity Reaction Status Date / Time adhesive AdvReac Itching Verified 09/03/18 10:18 codeine AdvReac Nausea & Verified 09/03/18 10:18 Vomiting Penicillins AdvReac Unknown Verified 09/03/18 10:18 Review of Systems ROS Statement: Those systems with pertinent positive or pertinent negative responses have been documented in the HPI. ROS Other: All systems not noted in ROS Statement are negative. Past Medical History Past Medical History: Coronary Artery Disease (CAD), Cancer, Chest Pain / Angina, CVA/TIA, Hyperlipidemia, Hypertension, Myocardial Infarction ([place]), Thyroid Disorder Additional Past Medical History / Comment(s): Thyroid cancer with thyroidectomy, TIA years ago, acute pancreatitis, diverticular disease. Last Myocardial Infarction Date:: 05/2010 History of Any Multi-Drug Resistant Organisms: None Reported Past Surgical History: Cholecystectomy, Hysterectomy, Orthopedic Surgery, Tonsillectomy Additional Past Surgical History / Comment(s): Pt denies any hx of cardiac cath but states another type of diagnostic test was done in 2009 at a hospital in [place] and she has no cardiac blockages, thyroidectomy, R thumb fracture with surgery, colonoscopy. Past Anesthesia/Blood Transfusion Reactions: Previous Problems w/ Anesthesia Additional Past Anesthesia/Blood Transfusion Reaction / Comment(s): trouble urinating after general anesthesia Past Psychological History: Depression Additional Psychological History / Comment(s): Pt has an adult son who resides with her-he has an apartment upstairs. She does not drive, her son takes her to appointments. She is otherwise independent. Smoking Status: Former smoker Past Alcohol Use History: None Reported Additional Past Alcohol Use History / Comment(s): Pt started smoking in 1970 and quit in 2009. Past Drug Use History: Marijuana Additional Drug Use History / Comment(s): occasional use - Past Family History Mother Family Medical History: Unable to Obtain Additional Family Medical History / Comment(s): Mother is from esophageal varices d/t alcoholism at the age of 69yrs. Father Family Medical History: CVA/TIA, Hyperlipidemia, Hypertension, Musculoskeletal Disorder Additional Family Medical History / Comment(s): Father had a CVA in his 50s. Father is from parkinsons at age 69yrs. General Exam - General Exam Comments Initial Comments: General: The patient is awake and alert, vomiting in room (yellow,clear) Eye: +3mm pupils are equal, round and reactive to light, extra-ocular movements are intact. No nystagmus. There is normal conjunctiva bilaterally. No signs of icterus. Ears, nose, mouth and throat: There are moist mucous membranes and no oral lesions. Neck: The neck is supple, there is no tenderness or JVD. Cardiovascular: There is a regular rate and rhythm. No murmur, rub or gallop is appreciated. Respiratory: Lungs are clear to auscultation, respirations are non-labored, breath sounds are equal. No wheezes, stridor, rales, or rhonchi. Gastrointestinal: Soft, non-distended, diffuse tenderness to palpation of the upper abdomen, specifically the epigastric region, the remaining abdomen is nontender and without masses or organomegaly noted. There is no rebound or guarding present. Musculoskeletal: Normal ROM, no tenderness. Strength 5/5. Sensation intact. Pulses equal bilaterally 2+. Neurological: A&O x 3. CN II-XII intact, There are no obvious motor or sensory deficits. Coordination appears grossly intact. Speech is normal. Skin: Skin is warm and dry and no rashes or lesions are noted. No LE edema. Psychiatric: Cooperative, appropriate mood & affect, normal judgment. Course Vital Signs 07/31/19 07/31/19 07/31/19 06:24 08:09 08:56 Temperature 97.8 F Pulse Rate 74 65 68 Respiratory 18 28 H 18 Rate Blood Pressure 171/109 189/98 190/106 O2 Sat by Pulse 99 100 Oximetry 07/31/19 10:12 Temperature Pulse Rate 68 Respiratory 28 H Rate Blood Pressure 202/118 O2 Sat by Pulse 100 Oximetry - Reevaluation(s) Reevaluation #1: Initially vomit was clear,yellow--no coffee ground emesis. No bright red blood. Gastric Occult +. 07/31/19 Medical Decision Making - Medical Decision Making 64-year-old female presenting for intractable vomiting since 4 AM. Hx of marijuana abuse, pancreatitis. Patient has history of intractable vomiting as well abdominal pain of the epigastric region/RUQ. Hx of cholecystectomy. Patient has no history of peptic ulcer, however developed hematemesis during visit. No history of varices or liver disease. Patient given protonix 80mg loading dose, over an hour later given 8mg maintenance. Patient Vomiting decreased slightly with compazine and h2 vistril. Patient BP remains elevated. HgB stable. Patient given antiemetics and pain medications in the ER. Patient CT (-), no obstruction no obvious acute process acute dental series reveals no pneumoperitoneum. Patient will be admitted for upper GI bleed. Discussed case with Dr. Hart who is agreeable with care and admission at this time for endoscopy and further evaluation. - Lab Data Result diagrams: 07/31/19 07:32 07/31/19 07:40 Lab Results 07/31/19 07/31/19 07/31/19 Range/Units 07:32 07:32 07:32 WBC 13.0 H (3.8-10.6) k/uL RBC 4.60 (3.80-5.40) m/uL Hgb 14.6 (11.4-16.0) gm/dL Hct 41.3 (34.0-46.0) % MCV 89.9 (80.0-100.0) fL MCH 31.7 (25.0-35.0) pg MCHC 35.2 (31.0-37.0) g/dL RDW 12.0 (11.5-15.5) % Plt Count 238 (150-450) k/uL Neutrophils % 72 % Lymphocytes % 21 % Monocytes % 5 % Eosinophils % 1 % Basophils % 0 % Neutrophils # 9.3 H (1.3-7.7) k/uL Lymphocytes # 2.7 (1.0-4.8) k/uL Monocytes # 0.7 (0-1.0) k/uL Eosinophils # 0.1 (0-0.7) k/uL Basophils # 0.0 (0-0.2) k/uL Sodium (137-145) mmol/L Potassium (3.5-5.1) mmol/L Chloride (98-107) mmol/L Carbon Dioxide (22-30) mmol/L Anion Gap mmol/L BUN (7-17) mg/dL Creatinine (0.52-1.04) mg/dL Est GFR (CKD-EPI)AfAm (>60 ml/min/1.73 sqM) Est GFR (CKD-EPI)NonAf (>60 ml/min/1.73 sqM) Glucose (74-99) mg/dL POC Glucose (mg/dL) (75-99) mg/dL POC Glu [employer] ID Plasma Lactic Acid Enoch 2.9 H* (0.7-2.0) mmol/L Calcium (8.4-10.2) mg/dL Total Bilirubin (0.2-1.3) mg/dL AST (14-36) U/L ALT (4-34) U/L Alkaline Phosphatase (38-126) U/L Total Protein (6.3-8.2) g/dL Albumin (3.5-5.0) g/dL Amylase (30-110) U/L Lipase (23-300) U/L Gastric Occult Blood (Negative) Blood Type Blood Type Confirm O Negative Blood Type Recheck Bld Type Recheck Status Antibody Screen Spec Expiration Date 07/31/19 07/31/19 07/31/19 Range/Units 07:40 07:56 08:05 WBC (3.8-10.6) k/uL RBC (3.80-5.40) m/uL Hgb (11.4-16.0) gm/dL Hct (34.0-46.0) % MCV (80.0-100.0) fL MCH (25.0-35.0) pg MCHC (31.0-37.0) g/dL RDW (11.5-15.5) % Plt Count (150-450) k/uL Neutrophils % % Lymphocytes % % Monocytes % % Eosinophils % % Basophils % % Neutrophils # (1.3-7.7) k/uL Lymphocytes # (1.0-4.8) k/uL Monocytes # (0-1.0) k/uL Eosinophils # (0-0.7) k/uL Basophils # (0-0.2) k/uL Sodium 144 (137-145) mmol/L Potassium 4.1 (3.5-5.1) mmol/L Chloride 111 H (98-107) mmol/L Carbon Dioxide 19 L (22-30) mmol/L Anion Gap 14 mmol/L BUN 19 H (7-17) mg/dL Creatinine 0.81 (0.52-1.04) mg/dL Est GFR (CKD-EPI)AfAm 89 (>60 ml/min/1.73 sqM) Est GFR (CKD-EPI)NonAf 78 (>60 ml/min/1.73 sqM) Glucose 196 H (74-99) mg/dL POC Glucose (mg/dL) (75-99) mg/dL POC Glu [employer] ID Plasma Lactic Acid Enoch (0.7-2.0) mmol/L Calcium 10.1 (8.4-10.2) mg/dL Total Bilirubin 1.4 H (0.2-1.3) mg/dL AST 33 (14-36) U/L ALT 24 (4-34) U/L Alkaline Phosphatase 176 H (38-126) U/L Total Protein 8.2 (6.3-8.2) g/dL Albumin 4.9 (3.5-5.0) g/dL Amylase 98 (30-110) U/L Lipase 169 (23-300) U/L Gastric Occult Blood Positive (Negative) Blood Type O Negative Blood Type Confirm Blood Type Recheck No Previous Record Bld Type Recheck Status CABO Indicated Antibody Screen NEGATIVE Spec Expiration Date 08/03/2019 - 235507/31/19 Range/Units 09:04 WBC (3.8-10.6) k/uL RBC (3.80-5.40) m/uL Hgb (11.4-16.0) gm/dL Hct (34.0-46.0) % MCV (80.0-100.0) fL MCH (25.0-35.0) pg MCHC (31.0-37.0) g/dL RDW (11.5-15.5) % Plt Count (150-450) k/uL Neutrophils % % Lymphocytes % % Monocytes % % Eosinophils % % Basophils % % Neutrophils # (1.3-7.7) k/uL Lymphocytes # (1.0-4.8) k/uL Monocytes # (0-1.0) k/uL Eosinophils # (0-0.7) k/uL Basophils # (0-0.2) k/uL Sodium (137-145) mmol/L Potassium (3.5-5.1) mmol/L Chloride (98-107) mmol/L Carbon Dioxide (22-30) mmol/L Anion Gap mmol/L BUN (7-17) mg/dL Creatinine (0.52-1.04) mg/dL Est GFR (CKD-EPI)AfAm (>60 ml/min/1.73 sqM) Est GFR (CKD-EPI)NonAf (>60 ml/min/1.73 sqM) Glucose (74-99) mg/dL POC Glucose (mg/dL) 199 H (75-99) mg/dL POC Glu [employer] ID Jada Boykin Plasma Lactic Acid Enoch (0.7-2.0) mmol/L Calcium (8.4-10.2) mg/dL Total Bilirubin (0.2-1.3) mg/dL AST (14-36) U/L ALT (4-34) U/L Alkaline Phosphatase (38-126) U/L Total Protein (6.3-8.2) g/dL Albumin (3.5-5.0) g/dL Amylase (30-110) U/L Lipase (23-300) U/L Gastric Occult Blood (Negative) Blood Type Blood Type Confirm Blood Type Recheck Bld Type Recheck Status Antibody Screen Spec Expiration Date Disposition Clinical Impression: Upper GI bleed, Hematemesis, Elevated blood pressure reading, Intractable vomiting Disposition: ADMITTED IP TO THIS [facility] Condition: Serious Is patient prescribed a controlled substance at d/c from ED?: No Referrals: Liborio Colon MD [Primary Care Provider] - 1-2 days Time of Disposition: 10:26 Decision to Admit Reason: Admit from EC Decision Date: 07/31/19 Decision Time: 10:26
[2019-07-31] MEDS ORDERED: PROCHLORPERAZINE 5 MG TAB PO STA (06:34)
[2019-07-31] MEDS ORDERED: hydrOXYzine HCL 50 MG/ML 1 ML VIAL IM STA (06:36)
[2019-07-31] MEDS ORDERED: PROCHLORPERAZINE SUPPOSITORY 25 MG SUPP RECTAL STA (07:12)
[2019-07-31] MEDS ORDERED: PANTOPRAZOLE 40 MG/10 ML VIAL IVP ONE (07:31)
[2019-07-31] MEDS ORDERED: SODIUM CHLORIDE 0.9% 500 ML 500 ML IV ONE (07:32)
[2019-07-31 08:27] LABS: Basophils % (A) 0 %; Eosinophils # (A) 0.1 k/uL (0-0.7); Eosinophils % (A) 1 %; HCT 41.3 % (34.0-46.0); HGB 14.6 gm/dL (11.4-16.0); Lymphocytes # (A) 2.7 k/uL (1.0-4.8); Lymphocytes % (A) 21 %; MCH 31.7 pg (25.0-35.0); MCHC 35.2 g/dL (31.0-37.0); MCV 89.9 fL (80.0-100.0); Mean Platelet Volume 8.9; Monocytes # (A) 0.7 k/uL (0-1.0); Monocytes % (A) 5 %; Neutrophils # (A) 9.3 k/uL (1.3-7.7); Neutrophils % (A) 72 %; Platelet Count 238 k/uL (150-450)
--- NOTE | 2019-07-31 08:28 | XR ---
EXAMINATION TYPE: XR abdomen acute w cxr DATE OF EXAM: 07/31/2019 COMPARISON: NONE HISTORY: Pain TECHNIQUE: Single view of the chest and 2 views of the abdomen are submitted. FINDINGS: Single view of the chest fails demonstrate evidence for acute pulmonary disease. There is no evidence for pneumoperitoneum. The bowel gas pattern is unremarkable as there is air throughout nondilated small and large bowel. No sizeable air fluid levels.No mass effects are seen. No unusual calcifications. IMPRESSION: 1. Unremarkable study.
[2019-07-31 09:06] LABS: Glucose,Whole Blood 199 mg/dL (75-99)
[2019-07-31 09:07] LABS: Albumin 4.9 g/dL (3.5-5.0); Calcium 10.1 mg/dL (8.4-10.2); Potassium 4.1 mmol/L (3.5-5.1); Total Bilirubin 1.4 mg/dL (0.2-1.3); Total Protein 8.2 g/dL (6.3-8.2)
[2019-07-31] MEDS ORDERED: MORPHINE SULFATE 4 MG/ML SYRINGE IVP STA (09:39)
[2019-07-31] MEDS ORDERED: LORazepam 2 MG/ML INJ IV STA (09:45)
[2019-07-31] MEDS ORDERED: PANTOPRAZOLE 40 MG/10 ML VIAL IVP STA (09:46)
--- NOTE | 2019-07-31 10:10 | CT ---
EXAMINATION TYPE: CT abdomen pelvis w con DATE OF EXAM: 07/31/2019 COMPARISON: September 03, 2018 HISTORY: Abdominal pain and vomitting CT DLP: 880.5 mGycm CONTRAST: CT scan of the abdomen and pelvis is performed without Oral Contrast and with IV Contrast, patient in jected with 100 ml mL of Isovue 300. FINDINGS: LUNG BASES-: No visible nodule. No infiltrate. Small hiatal hernia noted. LIVER/GB: The gallbladder surgically absent. No space occupying hepatic lesion. Biliary tree is of normal caliber. PANCREAS: No inflammation. No distinct mass. SPLEEN: No splenic enlargement. No lesion seen. ADRENALS: No nodule. No thickening. KIDNEYS/BLADDER: No hydronephrosis. No nephrolithiasis. No distinct renal mass. Urinary bladder g rossly unremarkable. BOWEL: Normal appendix. Normal bowel caliber. No inflammation. Sigmoid diverticulosis without diver ticulitis. GENITAL ORGANS: No gross abnormality. LYMPH NODES: No greater than 1cm abdominal or pelvic lymph nodes are appreciated. AORTA: No significant abnormality. OSSEOUS STRUCTURES: No significant abnormality is seen. OTHER: No significant additional abnormality is seen. IMPRESSION: 1. No acute process identified to account for the patient's symptoms.
[2019-07-31] MEDS ORDERED: hydrALAZINE HCL 20 MG/ML 1 ML VIAL IVP STA ×3 (10:23→11:34)
[2019-07-31] MEDS ORDERED: NALOXONE 0.4 MG/ML 1 ML VIAL IV PRN (10:27)
--- NOTE | 2019-07-31 14:52 | P.GSCN ---
History of Present Illness Consult date: 07/31/19 Reason for Consult: GI hemorrhage Requesting physician: Good Hart History of present illness: CHIEF COMPLAINT: GIB HISTORY OF PRESENT ILLNESS: 64-year-old female who presented to emergency room due to vomiting. Apparently the patient had an episode of hematemesis in the e mergency room. General surgery was consulted for further evaluation. Dr. Nolan evaluated patient in the ER. Patient denies abdominal pain during examination. She has a basin at the bedside with some yellow bilious emesis noted. No evidence of hematemesis at the time of examination. PAST MEDICAL HISTORY: See list. PAST SURGICAL HISTORY: See list. SOCIAL HISTORY: No illicit drug use. REVIEW OF SYSTEMS: CONSTITUTIONAL: Denies fever or chills. HEENT: Denies blurred vision, vision changes, or eye pain. Denies hemoptysis CARDIOVASCULAR: Denies chest pain or pressure. RESPIRATORY: No shortness of breath. GASTROINTESTINAL: Refer to HPI for pertinent findings HEMATOLOGIC: Denies bleeding disorders. GENITOURINARY: Denies any blood in urine. SKIN: Denies pruitis. Denies rash. PHYSICAL EXAM: VITAL SIGNS: Reviewed. GENERAL: Well-developed in no acute distress. HEENT: No sclera icterus. Extraocular movements grossly intact. Moist buccal mucosa. Head is atraumatic, normocephalic. ABDOMEN: Soft. Nondistended. Nontender. NEUROLOGIC: Alert and oriented. Cranial nerves II through XII grossly intact. LABORATORY DATA: WBC 13.0. Hemoglobin 14.6. Platelet count 238. ASSESSMENT: 1. Nausea and vomiting 2. Questionable hematemesis PLAN: NPO. Continue IV fluids. Continue antiemetics. Monitor hemoglobin. No plans for EGD at this time from a surgical standpoint. GI is also on consult. Will defer any endoscopic studies to their service. Thank you for this consult. We will continue to follow with you. Nurse practitioner note has been reviewed by physician. Signing provider agrees with the documented findings, assessment, and plan of care. Past Medical History Past Medical History: Coronary Artery Disease (CAD), Cancer, Chest Pain / Angina, COPD, CVA/TIA, Hyperlipidemia, Hypertension, Myocardial Infarction ([place]), Renal Disease, Thyroid Disorder Additional Past Medical History / Comment(s): Thyroid cancer with thyroidectomy, TIA years ago, acute pancreatitis, hiatal hernia, PUD, diverticular disease, CKD stage III, bronchitis. Last Myocardial Infarction Date:: 05/2010 History of Any Multi-Drug Resistant Organisms: None Reported Past Surgical History: Cholecystectomy, Heart Catheterization, Hysterectomy, Orthopedic Surgery, Tonsillectomy Additional Past Surgical History / Comment(s): Cardiac cath Aden Astorga-pt states she was told no blockages, thyroidectomy, R thumb fracture with surgery, colonoscopy. Past Anesthesia/Blood Transfusion Reactions: Previous Problems w/ Anesthesia Additional Past Anesthesia/Blood Transfusion Reaction / Comm: trouble urinating after general anesthesia Smoking Status: Former smoker - Past Family History Mother Family Medical History: Vascular Disorder Additional Family Medical History / Comment(s): Mother is from esophageal varices d/t alcoholism at the age of 69yrs. Father Family Medical History: CVA/TIA, Hyperlipidemia, Hypertension, Musculoskeletal Disorder, Neurologic Disorder Additional Family Medical History / Comment(s): Father had a CVA in his 50s. Father is from parkinsons at age 69yrs. Medications and Allergies Home Medications Medication Instructions Recorded Confirmed Type Spironolactone [Aldactone] 25 mg PO DAILY 03/28/18 07/31/19 History Atorvastatin [Lipitor] 80 mg PO HS 07/24/18 07/31/19 History Levothyroxine Sodium [Synthroid] 100 mcg PO DAILY 07/24/18 07/31/19 History Carvedilol [Coreg] 25 mg PO BID 09/03/18 07/31/19 History Allergies Allergy/AdvReac Type Severity Reaction Status Date / Time Penicillins Allergy Unknown Verified 07/31/19 10:54 adhesive AdvReac Itching Verified 07/31/19 10:54 codeine AdvReac Nausea & Verified 07/31/19 10:54 Vomiting Surgical - Exam Vital Signs Temp Pulse Resp BP Pulse Ox 97.8 F 74 18 171/109 99 07/31/19 06:24 07/31/19 06:24 07/31/19 06:24 07/31/19 06:24 07/31/19 06:24 Results - Labs 07/31/19 07:32 07/31/19 07:40 Abnormal Lab Results - Last 24 Hours (Table) 07/31/19 07/31/19 07/31/19 Range/Units 07:32 07:32 07:40 WBC 13.0 H (3.8-10.6) k/uL Neutrophils # 9.3 H (1.3-7.7) k/uL Chloride 111 H (98-107) mmol/L Carbon Dioxide 19 L (22-30) mmol/L BUN 19 H (7-17) mg/dL Glucose 196 H (74-99) mg/dL POC Glucose (mg/dL) (75-99) mg/dL Plasma Lactic Acid Enoch 2.9 H* (0.7-2.0) mmol/L Total Bilirubin 1.4 H (0.2-1.3) mg/dL Alkaline Phosphatase 176 H (38-126) U/L 07/31/19 Range/Units 09:04 WBC (3.8-10.6) k/uL Neutrophils # (1.3-7.7) k/uL Chloride (98-107) mmol/L Carbon Dioxide (22-30) mmol/L BUN (7-17) mg/dL Glucose (74-99) mg/dL POC Glucose (mg/dL) 199 H (75-99) mg/dL Plasma Lactic Acid Enoch (0.7-2.0) mmol/L Total Bilirubin (0.2-1.3) mg/dL Alkaline Phosphatase (38-126) U/L Diabetes panel 07/31/19 Range/Units 07:40 Sodium 144 (137-145) mmol/L Potassium 4.1 (3.5-5.1) mmol/L Chloride 111 H (98-107) mmol/L Carbon Dioxide 19 L (22-30) mmol/L BUN 19 H (7-17) mg/dL Creatinine 0.81 (0.52-1.04) mg/dL Glucose 196 H (74-99) mg/dL Calcium 10.1 (8.4-10.2) mg/dL AST 33 (14-36) U/L ALT 24 (4-34) U/L Alkaline Phosphatase 176 H (38-126) U/L Total Protein 8.2 (6.3-8.2) g/dL Albumin 4.9 (3.5-5.0) g/dL Calcium panel 07/31/19 Range/Units 07:40 Calcium 10.1 (8.4-10.2) mg/dL Albumin 4.9 (3.5-5.0) g/dL Pituitary panel 07/31/19 Range/Units 07:40 Sodium 144 (137-145) mmol/L Potassium 4.1 (3.5-5.1) mmol/L Chloride 111 H (98-107) mmol/L Carbon Dioxide 19 L (22-30) mmol/L BUN 19 H (7-17) mg/dL Creatinine 0.81 (0.52-1.04) mg/dL Glucose 196 H (74-99) mg/dL Calcium 10.1 (8.4-10.2) mg/dL Adrenal panel 07/31/19 Range/Units 07:40 Sodium 144 (137-145) mmol/L Potassium 4.1 (3.5-5.1) mmol/L Chloride 111 H (98-107) mmol/L Carbon Dioxide 19 L (22-30) mmol/L BUN 19 H (7-17) mg/dL Creatinine 0.81 (0.52-1.04) mg/dL Glucose 196 H (74-99) mg/dL Calcium 10.1 (8.4-10.2) mg/dL Total Bilirubin 1.4 H (0.2-1.3) mg/dL AST 33 (14-36) U/L ALT 24 (4-34) U/L Alkaline Phosphatase 176 H (38-126) U/L Total Protein 8.2 (6.3-8.2) g/dL Albumin 4.9 (3.5-5.0) g/dL
--- NOTE | 2019-07-31 15:18 | ED ---
Medical Decision Making - Medical Decision Making Central line placed secondary to no IV access despite multiple nurses attempts. - Lab Data Result diagrams: 07/31/19 07:32 07/31/19 07:40 Lab Results 07/31/19 07/31/19 07/31/19 Range/Units 07:32 07:32 07:32 WBC 13.0 H (3.8-10.6) k/uL RBC 4.60 (3.80-5.40) m/uL Hgb 14.6 (11.4-16.0) gm/dL Hct 41.3 (34.0-46.0) % MCV 89.9 (80.0-100.0) fL MCH 31.7 (25.0-35.0) pg MCHC 35.2 (31.0-37.0) g/dL RDW 12.0 (11.5-15.5) % Plt Count 238 (150-450) k/uL Neutrophils % 72 % Lymphocytes % 21 % Monocytes % 5 % Eosinophils % 1 % Basophils % 0 % Neutrophils # 9.3 H (1.3-7.7) k/uL Lymphocytes # 2.7 (1.0-4.8) k/uL Monocytes # 0.7 (0-1.0) k/uL Eosinophils # 0.1 (0-0.7) k/uL Basophils # 0.0 (0-0.2) k/uL Sodium (137-145) mmol/L Potassium (3.5-5.1) mmol/L Chloride (98-107) mmol/L Carbon Dioxide (22-30) mmol/L Anion Gap mmol/L BUN (7-17) mg/dL Creatinine (0.52-1.04) mg/dL Est GFR (CKD-EPI)AfAm (>60 ml/min/1.73 sqM) Est GFR (CKD-EPI)NonAf (>60 ml/min/1.73 sqM) Glucose (74-99) mg/dL POC Glucose (mg/dL) (75-99) mg/dL POC Glu Site Monitor ID Lactic Ac Sepsis Rflx Plasma Lactic Acid Enoch 2.9 H* (0.7-2.0) mmol/L Calcium (8.4-10.2) mg/dL Total Bilirubin (0.2-1.3) mg/dL AST (14-36) U/L ALT (4-34) U/L Alkaline Phosphatase (38-126) U/L Total Protein (6.3-8.2) g/dL Albumin (3.5-5.0) g/dL Amylase (30-110) U/L Lipase (23-300) U/L Gastric Occult Blood (Negative) Blood Type Blood Type Confirm O Negative Blood Type Recheck Bld Type Recheck Status Antibody Screen Spec Expiration Date 07/31/19 07/31/19 07/31/19 Range/Units 07:40 07:56 08:05 WBC (3.8-10.6) k/uL RBC (3.80-5.40) m/uL Hgb (11.4-16.0) gm/dL Hct (34.0-46.0) % MCV (80.0-100.0) fL MCH (25.0-35.0) pg MCHC (31.0-37.0) g/dL RDW (11.5-15.5) % Plt Count (150-450) k/uL Neutrophils % % Lymphocytes % % Monocytes % % Eosinophils % % Basophils % % Neutrophils # (1.3-7.7) k/uL Lymphocytes # (1.0-4.8) k/uL Monocytes # (0-1.0) k/uL Eosinophils # (0-0.7) k/uL Basophils # (0-0.2) k/uL Sodium 144 (137-145) mmol/L Potassium 4.1 (3.5-5.1) mmol/L Chloride 111 H (98-107) mmol/L Carbon Dioxide 19 L (22-30) mmol/L Anion Gap 14 mmol/L BUN 19 H (7-17) mg/dL Creatinine 0.81 (0.52-1.04) mg/dL Est GFR (CKD-EPI)AfAm 89 (>60 ml/min/1.73 sqM) Est GFR (CKD-EPI)NonAf 78 (>60 ml/min/1.73 sqM) Glucose 196 H (74-99) mg/dL POC Glucose (mg/dL) (75-99) mg/dL POC Glu Site Monitor ID Lactic Ac Sepsis Rflx Plasma Lactic Acid Enoch (0.7-2.0) mmol/L Calcium 10.1 (8.4-10.2) mg/dL Total Bilirubin 1.4 H (0.2-1.3) mg/dL AST 33 (14-36) U/L ALT 24 (4-34) U/L Alkaline Phosphatase 176 H (38-126) U/L Total Protein 8.2 (6.3-8.2) g/dL Albumin 4.9 (3.5-5.0) g/dL Amylase 98 (30-110) U/L Lipase 169 (23-300) U/L Gastric Occult Blood Positive (Negative) Blood Type O Negative Blood Type Confirm Blood Type Recheck No Previous Record Bld Type Recheck Status CABO Indicated Antibody Screen NEGATIVE Spec Expiration Date 08/03/2019 - 235507/31/19 07/31/19 Range/Units 09:03 09:04 WBC (3.8-10.6) k/uL RBC (3.80-5.40) m/uL Hgb (11.4-16.0) gm/dL Hct (34.0-46.0) % MCV (80.0-100.0) fL MCH (25.0-35.0) pg MCHC (31.0-37.0) g/dL RDW (11.5-15.5) % Plt Count (150-450) k/uL Neutrophils % % Lymphocytes % % Monocytes % % Eosinophils % % Basophils % % Neutrophils # (1.3-7.7) k/uL Lymphocytes # (1.0-4.8) k/uL Monocytes # (0-1.0) k/uL Eosinophils # (0-0.7) k/uL Basophils # (0-0.2) k/uL Sodium (137-145) mmol/L Potassium (3.5-5.1) mmol/L Chloride (98-107) mmol/L Carbon Dioxide (22-30) mmol/L Anion Gap mmol/L BUN (7-17) mg/dL Creatinine (0.52-1.04) mg/dL Est GFR (CKD-EPI)AfAm (>60 ml/min/1.73 sqM) Est GFR (CKD-EPI)NonAf (>60 ml/min/1.73 sqM) Glucose (74-99) mg/dL POC Glucose (mg/dL) 199 H (75-99) mg/dL POC Glu Site Monitor ID Jada Boykin Lactic Ac Sepsis Rflx Y Plasma Lactic Acid Enoch (0.7-2.0) mmol/L Calcium (8.4-10.2) mg/dL Total Bilirubin (0.2-1.3) mg/dL AST (14-36) U/L ALT (4-34) U/L Alkaline Phosphatase (38-126) U/L Total Protein (6.3-8.2) g/dL Albumin (3.5-5.0) g/dL Amylase (30-110) U/L Lipase (23-300) U/L Gastric Occult Blood (Negative) Blood Type Blood Type Confirm Blood Type Recheck Bld Type Recheck Status Antibody Screen Spec Expiration Date Disposition Clinical Impression: Upper GI bleed, Hematemesis, Elevated blood pressure reading, Intractable vomiting Disposition: ADMITTED IP TO THIS [facility] Condition: Serious Procedures - Central Line Placement Right SC Consent Obtained: verbal consent, written consent Patient Placed on Monitor/Pulse Ox: Yes MD Prep: mask, gown, gloves Central Line Prep: Povidone-Iodine 1% Local Anesthesia Used: Lidocaine 1% Central Line Lumen Inserted: triple Central Line Position: good blood return, all ports aspirated, flushed, capped, sutured in place with 3-0 nylon Dressing Applied: Tegaderm Post Procedure X-Ray: tip of catheter in good position Patient Tolerated Procedure: well, no complications Complications: none
--- NOTE | 2019-07-31 15:35 | XR ---
EXAMINATION TYPE: XR chest 1V portable DATE OF EXAM: 07/31/2019 HISTORY: Shortness of breath. COMPARISON: 09/03/2018 TECHNIQUE: Single view of the chest is submitted. FINDINGS: Demonstrated are scattered senescent parenchymal change. Right-sided subclavian central venous line demonstrates its distal tip overlying the SVC. No evidence for pneumothorax There is no evidence for focal infiltrate. The heart is stable. Hilar and mediastinal structures are within normal limits. Degenerative changes are seen of the dorsal spine. IMPRESSION: 1. Chronic changes without evidence for acute pulmonary disease.
[2019-07-31] MEDS: SODIUM CHLORIDE 0.9% 1,000 ML IV SCH ×2 (16:18→18:09)
[2019-07-31] MEDS: ONDANSETRON 4 MG/2 ML VIAL IVP PRN ×2 (16:18→21:28)
[2019-07-31 17:34] LABS: Basophils % (A) 0 %; Eosinophils % (A) 0 %; HCT 41.3 % (34.0-46.0); HGB 14.3 gm/dL (11.4-16.0); Lymphocytes # (A) 1.1 k/uL (1.0-4.8); Lymphocytes % (A) 9 %; MCH 31.1 pg (25.0-35.0); MCHC 34.6 g/dL (31.0-37.0); MCV 90.1 fL (80.0-100.0); Mean Platelet Volume 8.2; Monocytes # (A) 0.4 k/uL (0-1.0); Monocytes % (A) 3 %; Neutrophils # (A) 10.3 k/uL (1.3-7.7); Neutrophils % (A) 87 %; Platelet Count 238 k/uL (150-450); RBC 4.59 m/uL (3.80-5.40); RDW 12.1 % (11.5-15.5); WBC 11.8 k/uL (3.8-10.6)
[2019-07-31 21:40] LABS: Appearance,Urine Clear (Clear); Bilirubin,Urine Negative (Negative); Blood,Urine Small (Negative); Color,Urine Light Yellow; Glucose,Urine (UA) Negative (Negative); Ketones,Urine 2+ (Negative); Leukocyte Esterase,Urine Moderate (Negative); Nitrite,Urine Negative (Negative); PH, Urine 6.5 (5.0-8.0); Protein,Urine 1+ (Negative); RBC,Urine 14 /hpf (0-5); Specific Gravity,Urine 1.031 (1.001-1.035); Squamous Epithelial Cell,Urine <1 /hpf (0-4); Urobilinogen,Urine <2.0 mg/dL (<2.0); WBC,Urine 23 /hpf (0-5)
--- NOTE | 2019-07-31 22:11 | HP ---
HISTORY AND PHYSICAL CHIEF COMPLAINT: 64-year-old white female with abdominal pain, vomiting and gastric positive emesis. 64-year-old white female admitted with nausea, vomiting, pancreatitis, marijuana, diverticular disease, CVA, admitted with nausea, vomiting, right upper quadrant pain. Patient states she has similar to previous episodes, nausea, vomiting, Compazine and Vistaril does seem to help. She had possible gastric occult blood. She had consult with Gastroenterology and surgery. She is admitted for GI bleed and progressive emesis. HOME MEDICINES: Aldactone 25 mg daily. Lipitor 80 mg daily. Synthroid 100 mcg daily. Coreg 25 b.i.d. ALLERGIES: ADHESIVES, CODEINE, PENICILLIN. REVIEW OF SYSTEMS: Fourteen-point review of systems negative except for mentioned in HPI. PAST MEDICAL HISTORY: Coronary artery disease, cancer, chest pain, angina, CVA, TIA, dyslipidemia, hypertension, myocardial infarction, hypothyroidism, pancreatitis, diverticular disease, thyroid cancer, thyroidectomy. PAST SURGICAL HISTORY: Cholecystectomy, hysterectomy, orthopedic surgery, tonsillectomy. FAMILY HISTORY: Mother from esophageal varices, alcoholism. Father with CVA, TIA and dyslipidemia, hypertension and musculoskeletal disorder. PHYSICAL EXAMINATION: Vital signs stable. She is awake, alert, orient x3. PSYCH: Fair mood and affect. NEUROLOGIC: Cranial nerves are intact. CARDIOVASCULAR: S1, S2. LUNGS clear. GI is increased bowel sounds. Tenderness to palpation epigastric area. No mass. No rebound tenderness. HEMATOLOGY: Negative Homans. Pulse 65 to 74, respiratory 18 to 280 , blood pressure 171 to 190 over 98 to 109, oxygen saturation 99% on room air. Blood pressure 202/118. IMPRESSION: 1. Irretractable nausea, vomiting. 2. Hemoccult-positive emesis. 3. Marijuana abuse. 4. Pancreatitis. 5. History of cholecystectomy. 6. No history of peptic ulcer disease. 7. Family history of varices, liver disease. We will get Gastroenterology physician to see as well as surgeon. EGD. Possibly await for surgery. CT scan was negative, showed no obstruction. No pneumoperitoneum. Showed EGD due to upper GI bleed. Home medicines will be continued. MMODL / IJN: [id number] /
[2019-07-31] MEDS ORDERED: PROMETHAZINE INJ 6.25 MG in SODIUM CHLORIDE 0.9% 50 ML IVPB PRN (22:17)
--- NOTE | 2019-07-31 23:28 | P.CONS ---
History of Present Illness - Reason for Consult Consult date: 07/31/19 Nausea and vomiting Requesting physician: Liborio Colon - Chief Complaint Nausea and vomiting - History of Present Illness 64-year-old female with multiple medical comorbidities including pancreatitis, marijuana abuse, diverticular disease, coronary artery disease, chronic kidney and prior hospitalizations for intractable nausea and vomiting who presented to the hospital with complaints of nausea, vomiting and right upper quadrant abdominal pain. She states that last year she required 2 hospitalizations for similar complaints. She was seen in 08/2018 at which time gastric cold did test positive for blood as on current admission. She was also having intractable nausea and vomiting and was taken for EGD on that admission in 08/2018 with findings of duodenitis, gastritis and a hiatal hernia. There were patient reports on current episode she continued to have progressive nausea and vomiting and presented to the hospital for evaluation and treatment. The patient continues to use marijuana daily at home in spite of being told of possible marijuana hyperemesis syndrome on prior admissions. Currently she is seen in the emergency department denying any change in bowel habits, lower abdominal pain, gross GI bleeding, she did have some dark emesis and had gastric occult testing which was positive, as stated above this was also found to be positive on prior admission and area of last year at which time she was taken for EGD. Laboratory evaluation on current presentation significant for WBC 13, hemoglobin 14.3, platelet count 238,000, total bilirubin 1.4, alkaline phosphatase 176, AST 33, ALT 24, amylase 98, lipase [address] of the abdomen essentially negative. Review of Systems REVIEW OF SYSTEMS: CONSTITUTIONAL: Denies any fevers, chills, weight change or fatigue. CARDIOVASCULAR: Denies any chest pain, palpitations high or low blood pressures RESPIRATORY: Denies any shortness of breath, hemoptysis or cough. GENITOURINARY: No dysuria or hematuria. MUSCULOSKELETAL: No weakness reported. SKIN: Denies any new rashes or lesions, jaundice or pallor. PSYCHIATRIC: Denies any depression or anxiety. NEUROLOGY: Denies headache, denies any new focal deficits. EARS/NOSE/THROAT: No recent hearing change, congestion, nasal discharge or sore throat. EYES: No pain in eyes, discharge or change in vision. GASTROINTESTINAL: As per HPI. Past Medical History Past Medical History: Coronary Artery Disease (CAD), Cancer, Chest Pain / Angina, COPD, CVA/TIA, Hyperlipidemia, Hypertension, Myocardial Infarction ([place]), Renal Disease, Thyroid Disorder Additional Past Medical History / Comment(s): Thyroid cancer with thyroidectomy, TIA years ago, acute pancreatitis, hiatal hernia, PUD, diverticular disease, CKD stage III, bronchitis. Last Myocardial Infarction Date:: 05/2010 History of Any Multi-Drug Resistant Organisms: None Reported Past Surgical History: Cholecystectomy, Heart Catheterization, Hysterectomy, Orthopedic Surgery, Tonsillectomy Additional Past Surgical History / Comment(s): Cardiac cath [facility]-pt states she was told no blockages, thyroidectomy, R thumb fracture with surgery, colonoscopy. Past Anesthesia/Blood Transfusion Reactions: Previous Problems w/ Anesthesia Additional Past Anesthesia/Blood Transfusion Reaction / Comm: trouble urinating after general anesthesia Smoking Status: Former smoker - Past Family History Mother Family Medical History: Vascular Disorder Additional Family Medical History / Comment(s): Mother is from esophageal varices d/t alcoholism at the age of 69yrs. Father Family Medical History: CVA/TIA, Hyperlipidemia, Hypertension, Musculoskeletal Disorder, Neurologic Disorder Additional Family Medical History / Comment(s): Father had a CVA in his 50s. Father is from parkinsons at age 69yrs. Medications and Allergies Home Medications Medication Instructions Recorded Confirmed Type Spironolactone [Aldactone] 25 mg PO DAILY 03/28/18 07/31/19 History Atorvastatin [Lipitor] 80 mg PO HS 07/24/18 07/31/19 History Levothyroxine Sodium [Synthroid] 100 mcg PO DAILY 07/24/18 07/31/19 History Carvedilol [Coreg] 25 mg PO BID 09/03/18 07/31/19 History Allergies Allergy/AdvReac Type Severity Reaction Status Date / Time Penicillins Allergy Unknown Verified 07/31/19 10:54 adhesive AdvReac Itching Verified 07/31/19 10:54 codeine AdvReac Nausea & Verified 07/31/19 10:54 Vomiting Physical Exam Vitals: Vital Signs Temp Pulse Resp BP Pulse Ox 07/31/19 13:18 91 18 153/70 94 L 07/31/19 11:55 79 20 188/96 94 L 07/31/19 11:29 72 18 199/107 94 L 07/31/19 10:12 68 28 H 202/118 100 01/14/20 08:56 68 18 190/106 100 07/31/19 08:09 65 28 H 189/98 07/31/19 06:24 97.8 F 74 18 171/109 99 Intake and Output 07/30/19 07/31/19 07/31/19 22:59 06:59 14:59 Other: Weight 72.575 kg 72.575 kg On physical examination, patient appears comfortable in no apparent distress. HEAD: Normocephalic, atraumatic. EYES: No scleral icterus. No conjunctival injection. MOUTH: No lesions, tongue midline. NECK: Trachea midline, no gross abnormalities. CHEST: Clear to auscultation with no wheezing or rhonchi appreciated. HEART: Regular rate and rhythm. ABDOMEN: Soft, obese. Bowel sounds are positive. No organomegaly. No guarding or rigidity. EXTREMITIES: No pedal edema. SKIN: No rashes, no jaundice. NEUROLOGIC: Alert and oriented x3. No focal deficits. Results CBC & Chem 7: 07/31/19 17:05 07/31/19 07:40 Labs: Abnormal Lab Results - Last 24 Hours (Table) 07/31/19 07/31/19 07/31/19 Range/Units 07:32 07:32 07:40 WBC 13.0 H (3.8-10.6) k/uL Neutrophils # 9.3 H (1.3-7.7) k/uL Chloride 111 H (98-107) mmol/L Carbon Dioxide 19 L (22-30) mmol/L BUN 19 H (7-17) mg/dL Glucose 196 H (74-99) mg/dL POC Glucose (mg/dL) (75-99) mg/dL Plasma Lactic Acid Enoch 2.9 H* (0.7-2.0) mmol/L Total Bilirubin 1.4 H (0.2-1.3) mg/dL Alkaline Phosphatase 176 H (38-126) U/L 07/31/19 Range/Units 09:04 WBC (3.8-10.6) k/uL Neutrophils # (1.3-7.7) k/uL Chloride (98-107) mmol/L Carbon Dioxide (22-30) mmol/L BUN (7-17) mg/dL Glucose (74-99) mg/dL POC Glucose (mg/dL) 199 H (75-99) mg/dL Plasma Lactic Acid Enoch (0.7-2.0) mmol/L Total Bilirubin (0.2-1.3) mg/dL Alkaline Phosphatase (38-126) U/L CT scan - abdomen: report reviewed (No abnormal findings on computed tomography scan of the abdomen to explain symptoms.) Assessment and Plan (1) Intractable vomiting Narrative/Plan: 64-year-old female with multiple medical comorbidities including multiple hospitalizations in the past for intractable nausea and vomiting. Previously seen on admission in 08/2018 with the patient reporting 2 to admissions in 2018. At that time in August of last year the patient had gastric output testing for occult blood which was positive. Again on current admission testing was positive for occult blood. She was taken for EGD on prior admission with findings of gastritis, duodenitis and a hiatal hernia. At this time she is done denying any gross bleeding. She reports multiple episodes of nausea and vomiting similar to prior presentations medications. Computed tomography scan of the abdomen was essentially negative with no findings to explain symptoms. Liver enzymes and hemoglobin have remained normal. The patient continues to use marijuana daily despite of previous conversations at which time she was informed that in some people marijuana use can be related to a cannabinoid hyperemesis syndrome. Unclear etiology of current symptoms with differential including cyclical nausea and vomiting, cannabinoid hyperemesis syndrome, gastroenteritis or other etiology. Current Visit: Yes Status: Acute Code(s): R11.10 - VOMITING, UNSPECIFIED SNOMED Code(s): 175861043 (2) Abdominal pain Current Visit: No Status: Acute Code(s): R10.9 - UNSPECIFIED ABDOMINAL PAIN SNOMED Code(s): 71173187 (3) Gastritis Current Visit: No Status: Acute Code(s): K29.70 - GASTRITIS, UNSPECIFIED, WITHOUT BLEEDING SNOMED Code(s): 1326432 Plan: Supportive care Okay for liquid diet, advance as tolerated Continue to monitor hemoglobin and hematocrit and transfuse as needed Protonix 40 mg IV twice daily added Zofran changed to [id number] Continue other antiemetics as needed for breakthrough nausea Continue to monitor symptoms No plans for endoscopic evaluation at this time, we'll reevaluate based on clinical course Marijuana abstinence discussed at length with the patient given her recurrent admissions for intractable nausea and vomiting Thank you for allowing us to participate in the care of this patient we will continue to follow
[2019-07-31] MEDS ORDERED: ONDANSETRON 4 MG/2 ML VIAL IVP PRN (23:33)
[2019-08-01] MEDS ORDERED: ONDANSETRON 4 MG/2 ML VIAL IVP SCH
[2019-08-01] MEDS: SODIUM CHLORIDE 0.9% 1,000 ML IV SCH ×2 (06:13→17:37)
[2019-08-01 08:30] LABS: Basophils # (A) 0.1 k/uL (0-0.2); Basophils % (A) 1 %; Eosinophils # (A) 0.1 k/uL (0-0.7); Eosinophils % (A) 1 %; HCT 37.9 % (34.0-46.0); HGB 12.8 gm/dL (11.4-16.0); Lymphocytes # (A) 1.9 k/uL (1.0-4.8); Lymphocytes % (A) 16 %; MCH 30.6 pg (25.0-35.0); MCHC 33.7 g/dL (31.0-37.0); Monocytes # (A) 0.8 k/uL (0-1.0); Monocytes % (A) 7 %; Neutrophils # (A) 8.7 k/uL (1.3-7.7); Neutrophils % (A) 74 %; Platelet Count 187 k/uL (150-450); RBC 4.17 m/uL (3.80-5.40); RDW 12.4 % (11.5-15.5); WBC 11.8 k/uL (3.8-10.6)
[2019-08-01] MEDS ORDERED: PANTOPRAZOLE 40 MG/10 ML VIAL IVP SCH (09:00)
--- NOTE | 2019-08-01 12:19 | P.PN ---
Subjective Progress Note Date: 08/01/19 CHIEF COMPLAINT: GIB HISTORY OF PRESENT ILLNESS: Patient examined at the bedside with Dr. Nolan. Patient denies abdominal pain. Denies nausea or vomiting. She is requesting to eat. Hemoglobin stable at 12.8 PHYSICAL EXAM: VITAL SIGNS: Reviewed. GENERAL: Well-developed in no acute distress. HEENT: No sclera icterus. Extraocular movements grossly intact. Moist buccal mucosa. Head is atraumatic, normocephalic. ABDOMEN: Soft. Nondistended. Nontender. NEUROLOGIC: Alert and oriented. Cranial nerves II through XII grossly intact. LABORATORY DATA: WBC 13.0. Hemoglobin 14.6. Platelet count 238. ASSESSMENT: 1. Nausea and vomiting 2. Questionable hematemesis PLAN: -Full liquid diet -No plans for endoscopic studies at this time from a surgical standpoint -Discharge per medicine -We will sign off. Please re-consult if needed Nurse practitioner note has been reviewed by physician. Signing provider agrees with the documented findings, assessment, and plan of care. Objective - Vital Signs Vital signs: Vital Signs Temp 98.2 F 08/01/19 05:51 Pulse 67 08/01/19 05:51 Resp 18 08/01/19 05:51 BP 116/70 08/01/19 05:51 Pulse Ox 95 08/01/19 05:51 Intake & Output 07/31/19 08/01/19 08/01/19 18:59 06:59 18:59 Intake Total 1500 Balance 1500 Weight 72.575 kg Intake: Amount of Fluid Infused ( 1500 ml) Other: # Voids 3 - Labs CBC & Chem 7: 08/01/19 08:15 07/31/19 07:40 Labs: Abnormal Lab Results - Last 24 Hours (Table) 07/31/19 07/31/19 08/01/19 Range/Units 17:05 21:20 08:15 WBC 11.8 H 11.8 H (3.8-10.6) k/uL Neutrophils # 10.3 H 8.7 H (1.3-7.7) k/uL Urine Protein 1+ H (Negative) Urine Ketones 2+ H (Negative) Urine Blood Small H (Negative) Ur Leukocyte Esterase Moderate H (Negative) Urine RBC 14 H (0-5) /hpf Urine WBC 23 H (0-5) /hpf Microbiology - Last 24 Hours (Table) 07/31/19 21:20 Urine Culture - Preliminary Urine,Voided
[2019-08-01 17:56] VITALS: BP 110/56; PULSE 68; RESP 14; TEMP 98.8
--- NOTE | 2019-08-19 09:36 | DS ---
DISCHARGE SUMMARY ADMITTED: 07/31/2019. DISCHARGE DATE: 08/01/2019. DISCHARGE MEDICATIONS: 1. Aldactone 25 mg daily. 2. Synthroid 100 mcg daily. 3. Lipitor 80 mg daily. 4. Coreg 25 mg b.i.d. 5. Pantoprazole 40 mg b.i.d. CONDITION: Stable. PROGNOSIS: Guarded. Ambulate as tolerated. HISTORY: White female who is admitted with severe cyclic vomiting syndrome, dehydration. She was given rehydration overnight. She stabilized. Electrolytes were normal. Once cleared by surgery and Gastroenterology, she was sent home in stable condition to follow up with possible endoscopy as an outpatient. Abdominal pelvis CT was negative. She will follow up as an outpatient. MMODL / IJN: [id number] /
== END 2019-08-01 19:31 | disposition home or self-care (01) ==
LOC: EC 06:20 → INTOOBSV 10:54 → 5NMEDONC 10:54 → 6NMEDSUR 17:06
PROVIDERS: ADMIT Family Medicine; ATTEND Family Medicine
DX: K92.2 Gastrointestinal hemorrhage, unspecified (principal); K92.0 Hematemesis; F12.10 Cannabis abuse, uncomplicated; K85.90 Acute pancreatitis without necrosis or infection, unspecified; E86.0 Dehydration; I25.10 Atherosclerotic heart disease of native coronary artery without angina pectoris; E78.5 Hyperlipidemia, unspecified; E03.9 Hypothyroidism, unspecified; I25.2 Old myocardial infarction; N18.3 Chronic kidney disease, stage 3 (moderate); I12.9 Hypertensive chronic kidney disease with stage 1 through stage 4 chronic kidney disease, or unspecified chronic kidney disease; K57.90 Diverticulosis of intestine, part unspecified, without perforation or abscess without bleeding; K44.9 Diaphragmatic hernia without obstruction or gangrene; Z79.890 Hormone replacement therapy; Z79.899 Other long term (current) drug therapy; Z88.5 Allergy status to narcotic agent; Z88.0 Allergy status to penicillin; Z91.048 Other nonmedicinal substance allergy status; Z90.49 Acquired absence of other specified parts of digestive tract; Z87.11 Personal history of peptic ulcer disease; Z85.850 Personal history of malignant neoplasm of thyroid; Z86.73 Personal history of transient ischemic attack (TIA), and cerebral infarction without residual deficits; Z82.0 Family history of epilepsy and other diseases of the nervous system; Z82.49 Family history of ischemic heart disease and other diseases of the circulatory system
CPT/HCPCS: 96376 ×2; 96361 ×2; 96365; 96372; 96375; 99285; 36415; 93005; 86900; 86901; 80053; 82150; 83605; 83690; 85025 ×2; 86850; 82271; 81001; 87086; 74022; 71045; 74177; G0378; J2060; J2270; J0360; J2405; J3410; J0696; C9113 ×2; Q9967

== ENCOUNTER 2019-08-05 07:44 | Inpatient (IN) | payer MEDICARE ==
[2019-08-05] MEDS ORDERED: ONDANSETRON 4 MG/2 ML VIAL IVP STA (08:00)
[2019-08-05] MEDS ORDERED: LORazepam 2 MG/ML INJ IV STA (08:00)
[2019-08-05] MEDS ORDERED: SODIUM CHLORIDE 0.9% 1,000 ML IV STA (08:00)
--- NOTE | 2019-08-05 08:03 | ED ---
General Adult HPI - General Stated complaint: nausea/vomiting Time Seen by Provider: 08/05/19 07:44 Source: patient, RN notes reviewed, old records reviewed - History of Present Illness Initial comments: This is a 64-year-old female who presents to the emergency department complaining of vomiting. Patient states she's had multiple occasions where she's needed to come into the hospital because of her vomiting. Patient states she smoked marijuana at 4:00 in the morning shortly thereafter she started vomiting. Patient states that she smokes marijuana every single day. Patient denies any chest pain or difficulty breathing patient does states she has a little upset stomach and she points to the epigastric region. Patient denies any diarrhea. Patient denies any fever chills per patient denies any cough per patient denies any lightheadedness or dizziness. Patient denies any blood in the vomitus. - Related Data Home Medications Medication Instructions Recorded Confirmed Spironolactone [Aldactone] 25 mg PO DAILY 03/28/18 07/31/19 Atorvastatin [Lipitor] 80 mg PO HS 07/24/18 07/31/19 Levothyroxine Sodium [Synthroid] 100 mcg PO DAILY 07/24/18 07/31/19 Carvedilol [Coreg] 25 mg PO BID 09/03/18 07/31/19 Previous Rx's Medication Instructions Recorded Pantoprazole Sodium [Protonix] 40 mg PO BID #60 tablet. 08/01/19 Allergies Allergy/AdvReac Type Severity Reaction Status Date / Time Penicillins Allergy Unknown Verified 07/31/19 10:54 adhesive AdvReac Itching Verified 07/31/19 10:54 codeine AdvReac Nausea & Verified 07/31/19 10:54 Vomiting Review of Systems ROS Statement: Those systems with pertinent positive or pertinent negative responses have been documented in the HPI. ROS Other: All systems not noted in ROS Statement are negative. Past Medical History Past Medical History: Coronary Artery Disease (CAD), Cancer, Chest Pain / Angina, COPD, CVA/TIA, Hyperlipidemia, Hypertension, Myocardial Infarction ([place]), Renal Disease, Thyroid Disorder Additional Past Medical History / Comment(s): Thyroid cancer with thyroidectomy, TIA years ago, acute pancreatitis, hiatal hernia, PUD, diverticular disease, CKD stage III, bronchitis. Last Myocardial Infarction Date:: 05/2010 History of Any Multi-Drug Resistant Organisms: None Reported Past Surgical History: Cholecystectomy, Heart Catheterization, Hysterectomy, Orthopedic Surgery, Tonsillectomy Additional Past Surgical History / Comment(s): Cardiac cath [place] [place]-pt states she was told no blockages, thyroidectomy, R thumb fracture with surgery, colonoscopy. Past Anesthesia/Blood Transfusion Reactions: Previous Problems w/ Anesthesia Additional Past Anesthesia/Blood Transfusion Reaction / Comment(s): trouble urinating after general anesthesia Smoking Status: Former smoker - Past Family History Mother Family Medical History: Vascular Disorder Additional Family Medical History / Comment(s): Mother is from esophageal varices d/t alcoholism at the age of 69yrs. Father Family Medical History: CVA/TIA, Hyperlipidemia, Hypertension, Musculoskeletal Disorder, Neurologic Disorder Additional Family Medical History / Comment(s): Father had a CVA in his 50s. Father is from parkinsons at age 69yrs. General Exam - General Exam Comments Initial Comments: GENERAL: Patient is well-developed and well-nourished. Patient is nontoxic and well- hydrated and is in mild distress. ENT: Neck is soft and supple. No significant lymphadenopathy is noted. Oropharynx is clear. Moist mucous membranes. Neck has full range of motion without eliciting any pain. EYES: The sclera were anicteric and conjunctiva were pink and moist. Extraocular movements were intact and pupils were equal round and reactive to light. Eyelids were unremarkable. PULMONARY: Unlabored respirations. Good breath sounds bilaterally. No audible rales rhonchi or wheezing was noted. CARDIOVASCULAR: There is a regular rate and rhythm without any murmurs gallops or rubs. ABDOMEN: Soft and nontender with normal bowel sounds. No palpable organomegaly was noted. There is no palpable pulsatile mass. SKIN: Skin is clear with no lesions or rashes and otherwise unremarkable. NEUROLOGIC: Patient is alert and oriented x3. Cranial nerves II through XII are grossly intact. Motor and sensory are also intact. Normal speech, volume and content. Symmetrical smile. MUSCULOSKELETAL: Normal extremities with adequate strength and full range of motion. LYMPHATICS: No significant lymphadenopathy is noted PSYCHIATRIC: Normal psychiatric evaluation. Course Vital Signs 08/05/19 08/05/19 08/05/19 07:49 08:03 08:10 Temperature 98.3 F Pulse Rate 70 Respiratory 20 Rate Blood Pressure 195/126 O2 Sat by Pulse 98 98 97 Oximetry 08/05/19 08/05/19 08/05/19 08:20 08:30 08:32 Temperature Pulse Rate 72 Respiratory 18 Rate Blood Pressure 168/95 O2 Sat by Pulse 97 94 L 98 Oximetry 08/05/19 08/05/19 08/05/19 08:40 08:50 09:00 Temperature Pulse Rate Respiratory Rate Blood Pressure 168/95 168/95 168/95 O2 Sat by Pulse 96 96 89 L Oximetry 08/05/19 08/05/19 08/05/19 09:04 09:10 09:20 Temperature Pulse Rate 72 Respiratory 18 Rate Blood Pressure 175/98 184/111 184/111 O2 Sat by Pulse 98 87 L 90 L Oximetry 08/05/19 08/05/19 08/05/19 09:30 09:40 09:50 Temperature Pulse Rate Respiratory Rate Blood Pressure 184/111 193/120 193/120 O2 Sat by Pulse 91 L 93 L Oximetry 08/05/19 08/05/19 08/05/19 10:00 10:10 10:20 Temperature Pulse Rate 72 Respiratory 18 Rate Blood Pressure 193/120 197/91 197/91 O2 Sat by Pulse 99 92 L 94 L Oximetry 08/05/19 08/05/19 08/05/19 10:30 10:40 10:50 Temperature Pulse Rate Respiratory Rate Blood Pressure 197/91 194/114 194/114 O2 Sat by Pulse 96 91 L 96 Oximetry 08/05/19 08/05/19 08/05/19 11:00 11:10 11:20 Temperature Pulse Rate 78 Respiratory 18 Rate Blood Pressure 194/114 190/110 190/110 O2 Sat by Pulse 96 95 98 Oximetry 08/05/19 08/05/19 08/05/19 11:30 11:40 11:50 Temperature Pulse Rate Respiratory Rate Blood Pressure 190/110 180/106 180/106 O2 Sat by Pulse 93 L Oximetry 08/05/19 08/05/19 08/05/19 12:00 12:10 12:20 Temperature Pulse Rate 88 Respiratory 18 Rate Blood Pressure 180/106 189/110 189/110 O2 Sat by Pulse 98 Oximetry Medical Decision Making - Medical Decision Making EKG shows a normal sinus rhythm at 69 bpm OH interval 150 QRS is 84 QT interval 412 QTC is 441. Patient's EKG shows no ST segment elevation or depression. Patient got Zofran in the ER but she continued to be nauseated. Patient also received Reglan Compazine and some Vistaril none of which seemed to calm her nausea down and she was vomiting of gastric contents still so we decided to admit the patient. I spoke with Dr. Brown agreed to accept the patient I admitted the patient wrote admitting orders. - Lab Data Result diagrams: 08/05/19 08:38 08/05/19 08:38 Lab Results 08/05/19 08/05/19 08/05/19 Range/Units 08:38 08:38 08:38 WBC 11.9 H (3.8-10.6) k/uL RBC 4.85 (3.80-5.40) m/uL Hgb 14.4 (11.4-16.0) gm/dL Hct 44.4 (34.0-46.0) % MCV 91.5 (80.0-100.0) fL MCH 29.8 (25.0-35.0) pg MCHC 32.6 (31.0-37.0) g/dL RDW 12.3 (11.5-15.5) % Plt Count 217 (150-450) k/uL Neutrophils % 74 % Lymphocytes % 17 % Monocytes % 5 % Eosinophils % 3 % Basophils % 0 % Neutrophils # 8.8 H (1.3-7.7) k/uL Lymphocytes # 2.0 (1.0-4.8) k/uL Monocytes # 0.6 (0-1.0) k/uL Eosinophils # 0.4 (0-0.7) k/uL Basophils # 0.0 (0-0.2) k/uL Sodium 142 (137-145) mmol/L Potassium 3.5 (3.5-5.1) mmol/L Chloride 108 H (98-107) mmol/L Carbon Dioxide 22 (22-30) mmol/L Anion Gap 12 mmol/L BUN 14 (7-17) mg/dL Creatinine 0.65 (0.52-1.04) mg/dL Est GFR (CKD-EPI)AfAm >90 (>60 ml/min/1.73 sqM) Est GFR (CKD-EPI)NonAf >90 (>60 ml/min/1.73 sqM) Glucose 146 H (74-99) mg/dL Calcium 8.8 (8.4-10.2) mg/dL Total Bilirubin 1.4 H (0.2-1.3) mg/dL AST 26 (14-36) U/L ALT 21 (4-34) U/L Alkaline Phosphatase 127 H (38-126) U/L Troponin I <0.012 (0.000-0.034) ng/mL Total Protein 7.4 (6.3-8.2) g/dL Albumin 4.5 (3.5-5.0) g/dL Amylase 61 (30-110) U/L Lipase 117 (23-300) U/L Disposition Clinical Impression: Cyclic vomiting syndrome, Hypertensive urgency Disposition: ADMITTED IP TO THIS HOSP Referrals: Liborio Colon MD [Primary Care Provider] - 1-2 days Time of Disposition: 12:32
[2019-08-05 09:12] LABS: Basophils % (A) 0 %; Eosinophils # (A) 0.4 k/uL (0-0.7); Eosinophils % (A) 3 %; HCT 44.4 % (34.0-46.0); HGB 14.4 gm/dL (11.4-16.0); Lymphocytes % (A) 17 %; MCH 29.8 pg (25.0-35.0); MCHC 32.6 g/dL (31.0-37.0); MCV 91.5 fL (80.0-100.0); Monocytes # (A) 0.6 k/uL (0-1.0); Monocytes % (A) 5 %; Neutrophils # (A) 8.8 k/uL (1.3-7.7); Neutrophils % (A) 74 %; Platelet Count 217 k/uL (150-450); RBC 4.85 m/uL (3.80-5.40); RDW 12.3 % (11.5-15.5); WBC 11.9 k/uL (3.8-10.6)
[2019-08-05] MEDS ORDERED: METOCLOPRAMIDE 5 MG/ML 2 ML VIAL IVP STA (09:12)
[2019-08-05 09:15] LABS: ALT 21 U/L (4-34); AST 26 U/L (14-36); African American GFR (CKD) >90 (>60 ml/min/1.73 sqM); Albumin 4.5 g/dL (3.5-5.0); Alkaline Phosphatase 127 U/L (38-126); Amylase 61 U/L (30-110); Anion Gap 12 mmol/L; Blood Urea Nitrogen 14 mg/dL (7-17); Calcium 8.8 mg/dL (8.4-10.2); Carbon Dioxide 22 mmol/L (22-30); Chloride 108 mmol/L (98-107); Glucose 146 mg/dL (74-99); Non-African American GFR(CKD) >90 (>60 ml/min/1.73 sqM); Potassium 3.5 mmol/L (3.5-5.1); Sodium 142 mmol/L (137-145); Total Bilirubin 1.4 mg/dL (0.2-1.3); Total Protein 7.4 g/dL (6.3-8.2)
[2019-08-05] MEDS ORDERED: hydrOXYzine HCL 50 MG/ML 1 ML VIAL IM STA (10:20)
[2019-08-05] MEDS ORDERED: PROCHLORPERAZINE SUPPOSITORY 25 MG SUPP RECTAL STA (10:21)
[2019-08-05] MEDS ORDERED: SODIUM CHLORIDE 0.9% 1,000 ML IV ONE (12:48)
[2019-08-05] MEDS ORDERED: ONDANSETRON 4 MG/2 ML VIAL IVP PRN (12:49)
[2019-08-05] MEDS ORDERED: hydrALAZINE HCL 20 MG/ML 1 ML VIAL IVP STA (12:53)
[2019-08-05] MEDS ORDERED: PROMETHAZINE INJ 25 MG in SODIUM CHLORIDE 0.9% 50 ML IVPB PRN (14:09)
[2019-08-05] MEDS ORDERED: PROCHLORPERAZINE 5 MG TAB PO PRN (14:09)
--- NOTE | 2019-08-05 14:13 | P.HPIM ---
History of Present Illness 64-year-old female came in with comments of nausea vomiting was started today with complaints of mild epigastric abdominal discomfort and pain as well as right upper quadrant discomfort. Patient still has her gallbladder. Patient d oes use marijuana patient was diagnosed with cyclical vomiting syndrome in the past patient did smoke bit of marijuana segments she started vomiting which made it worse. Patient was given multiple medications for nausea vomiting without any significant improvement because of which I was asked to admit the patient and patient is admitted now patient will be started on Phenergan, Zofran, Compazine along with the proton pump inhibitor and the right upper quadrant ultrasound. Review of Systems REVIEW OF SYSTEMS: CONSTITUTIONAL: No fever, no malaise, no fatigue. HEENT: No recent visual problems or hearing problems. Denied any sore throat. CARDIOVASCULAR: No chest pain, orthopnea, PND, no palpitations, no syncope. PULMONARY: No shortness of breath, no cough, no hemoptysis. GASTROINTESTINAL: As mentioned in HPI NEUROLOGICAL: No headaches, no weakness, no numbness. HEMATOLOGICAL: Denies any bleeding or petechiae. GENITOURINARY: Denies any burning micturition, frequency, or urgency. MUSCULOSKELETAL/RHEUMATOLOGICAL: Denies any joint pain, swelling, or any muscle pain. ENDOCRINE: Denies any polyuria or polydipsia. The rest of the 14-point review of systems is negative. Past Medical History Past Medical History: Coronary Artery Disease (CAD), Cancer, Chest Pain / Angina, COPD, CVA/TIA, Hyperlipidemia, Hypertension, Myocardial Infarction ([place]), Renal Disease, Thyroid Disorder Additional Past Medical History / Comment(s): Thyroid cancer with thyroidectomy, TIA years ago, acute pancreatitis, hiatal hernia, PUD, diverticular disease, CKD stage III, bronchitis. Last Myocardial Infarction Date:: 05/2010 History of Any Multi-Drug Resistant Organisms: None Reported Past Surgical History: Cholecystectomy, Heart Catheterization, Hysterectomy, Orthopedic Surgery, Tonsillectomy Additional Past Surgical History / Comment(s): Cardiac cath [place], [place]-pt states she was told no blockages, thyroidectomy, R thumb fracture with surgery, colonoscopy. Past Anesthesia/Blood Transfusion Reactions: Previous Problems w/ Anesthesia Additional Past Anesthesia/Blood Transfusion Reaction / Comment(s): trouble urinating after general anesthesia Smoking Status: Former smoker - Past Family History Mother Family Medical History: Vascular Disorder Additional Family Medical History / Comment(s): Mother is from esophageal varices d/t alcoholism at the age of 69yrs. Father Family Medical History: CVA/TIA, Hyperlipidemia, Hypertension, Musculoskeletal Disorder, Neurologic Disorder Additional Family Medical History / Comment(s): Father had a CVA in his 50s. Father is from parkinsons at age 69yrs. Medications and Allergies Home Medications Medication Instructions Recorded Confirmed Type Spironolactone [Aldactone] 25 mg PO DAILY 03/28/18 08/05/19 History Atorvastatin [Lipitor] 80 mg PO HS 07/24/18 08/05/19 History Levothyroxine Sodium [Synthroid] 100 mcg PO DAILY 07/24/18 08/05/19 History Carvedilol [Coreg] 25 mg PO BID 09/03/18 08/05/19 History Pantoprazole Sodium [Protonix] 40 mg PO BID #60 tablet. 08/01/19 08/05/19 Rx Hydrocortisone Cream 1 applic TOPICAL BID 08/05/19 08/05/19 History [Hydrocortisone 2.5% Cream] Allergies Allergy/AdvReac Type Severity Reaction Status Date / Time Penicillins Allergy Unknown Verified 08/05/19 13:24 adhesive AdvReac Itching Verified 08/05/19 13:24 codeine AdvReac Nausea & Verified 08/05/19 13:24 Vomiting Physical Exam Vitals: Vital Signs Temp Pulse Resp BP Pulse Ox 08/05/19 13:48 20 175/100 98 08/05/19 12:20 189/110 08/05/19 12:10 189/110 08/05/19 12:00 88 18 180/106 98 08/05/19 11:50 180/106 08/05/19 11:40 180/106 08/05/19 11:30 190/110 93 L 08/05/19 11:20 190/110 98 08/05/19 11:10 190/110 95 08/05/19 11:00 78 18 194/114 96 08/05/19 10:50 194/114 96 08/05/19 10:40 194/114 91 L 08/05/19 10:30 197/91 96 08/05/19 10:20 197/91 94 L 08/05/19 10:10 197/91 92 L 08/05/19 10:00 72 18 193/120 99 08/05/19 09:50 193/120 93 L 08/05/19 09:40 193/120 91 L 08/05/19 09:30 184/111 08/05/19 09:20 184/111 90 L 08/05/19 09:10 184/111 87 L 08/05/19 09:04 72 18 175/98 98 08/05/19 09:00 168/95 89 L 08/05/19 08:50 168/95 96 08/05/19 08:40 168/95 96 08/05/19 08:32 72 18 168/95 98 08/05/19 08:30 94 L 08/05/19 08:20 97 08/05/19 08:10 97 08/05/19 08:03 98 08/05/19 07:49 98.3 F 70 20 195/126 98 Intake and Output 08/04/19 08/05/19 08/05/19 22:59 06:59 14:59 Other: Weight 74.843 kg PHYSICAL EXAMINATION: GENERAL: The patient is alert and oriented x3, not in any acute distress. Well developed, well nourished. HEENT: Pupils are round and equally reacting to light. EOMI. No scleral icterus. No conjunctival pallor. Normocephalic, atraumatic. No pharyngeal erythema. No thyromegaly. CARDIOVASCULAR: S1 and S2 present. No murmurs, rubs, or gallops. PULMONARY: Chest is clear to auscultation, no wheezing or crackles. ABDOMEN: Soft, nontender, nondistended, normoactive bowel sounds. No palpable organomegaly. MUSCULOSKELETAL: No joint swelling or deformity. EXTREMITIES: No cyanosis, clubbing, or pedal edema. NEUROLOGICAL: Gross neurological examination did not reveal any focal deficits. SKIN: No rashes. Results CBC & Chem 7: 08/05/19 08:38 08/05/19 08:38 Labs: Abnormal Lab Results - Last 24 Hours (Table) 08/05/19 08/05/19 Range/Units 08:38 08:38 WBC 11.9 H (3.8-10.6) k/uL Neutrophils # 8.8 H (1.3-7.7) k/uL Chloride 108 H (98-107) mmol/L Glucose 146 H (74-99) mg/dL Total Bilirubin 1.4 H (0.2-1.3) mg/dL Alkaline Phosphatase 127 H (38-126) U/L Assessment and Plan Plan: -Intractable nausea vomiting: Possible etiologies of cyclical vomiting syndrome, acute gastritis, gallbladder disease not in THE GALLBLADDER MEDICATIONS MENTIONED ABOVE CONTINUE WITH IV FLUIDS -CORONARY ARTERY DISEASE 10-COPD WITHOUT ANY ACUTE EXACERBATION -HYPERTENSION -HYPERLIPIDEMIA -HYPOTHYROIDISm -Depression -DVT prophylaxis: Early ambulation For above-mentioned multiple chronic medical problems patient will be started on appropriate home medications and will be given whenever she can tolerate his me dications
[2019-08-05] MEDS: CARVEDILOL 12.5 MG TAB PO SCH (15:07)
[2019-08-05] MEDS: ATORVASTATIN 80 MG TAB PO SCH (19:58)
[2019-08-05] MEDS: HYDROCORTISONE 1% CREAM 30 GM TUBE TOPICAL SCH (19:59)
[2019-08-05] MEDS: PANTOPRAZOLE 40 MG/10 ML VIAL IVP SCH (19:59)
[2019-08-05] MEDS ORDERED: ACETAMINOPHEN TAB 325 MG TAB PO PRN (20:24)
[2019-08-06] MEDS: CARVEDILOL 12.5 MG TAB PO SCH ×2 (06:24→17:30)
[2019-08-06] MEDS: LEVOTHYROXINE 100 MCG TAB PO SCH (06:24)
[2019-08-06] MEDS: SPIRONOLACTONE 25 MG TAB PO SCH (09:18)
[2019-08-06] MEDS: HYDROCORTISONE 1% CREAM 30 GM TUBE TOPICAL SCH ×2 (09:18→20:23)
[2019-08-06] MEDS: PANTOPRAZOLE 40 MG/10 ML VIAL IVP SCH (09:18)
[2019-08-06] MEDS: ATORVASTATIN 80 MG TAB PO SCH (20:23)
[2019-08-06] MEDS: PANTOPRAZOLE 40 MG TABLET PO SCH (20:45)
--- NOTE | 2019-08-06 22:39 | PN ---
PROGRESS NOTE This patient is on a clear liquid diet at this time. She still has cyclic vomiting. She came in after 4 days of being home. She started vomiting again. She has been admitted. We are getting a GI consultation. Do an upper GI, small-bowel follow- through. Vital signs are stable at this time. CARDIOVASCULAR: S1, S2. LUNGS: Clear. GI: Soft. HEMATOLOGY: Negative Homans. PSYCH: Fair mood and affect. ASSESSMENT: 1. Possible gastroparesis. 2. Cyclic vomiting. 3. Hyperkalemia. PLAN: As mentioned, upper GI. GI consult. Anti-nausea medicines. Please see further orders. MMODL / IJN: [id number] /
[2019-08-07] MEDS: LEVOTHYROXINE 100 MCG TAB PO SCH (05:07)
[2019-08-07] MEDS ORDERED: PANTOPRAZOLE 40 MG TABLET PO SCH (07:30)
[2019-08-07] MEDS: SPIRONOLACTONE 25 MG TAB PO SCH (07:59)
[2019-08-07] MEDS: PANTOPRAZOLE 40 MG TABLET PO SCH (07:59)
[2019-08-07] MEDS: CARVEDILOL 12.5 MG TAB PO SCH ×2 (07:59→16:08)
[2019-08-07] MEDS: HYDROCORTISONE 1% CREAM 30 GM TUBE TOPICAL SCH ×2 (09:33→21:17)
--- NOTE | 2019-08-07 10:27 | FL ---
EXAMINATION TYPE: FL barium swallow w SBFT DATE OF EXAM: 08/07/2019 CLINICAL HISTORY: Vomiting TECHNIQUE: A double contrast esophagram is performed utilizing air and barium. A total of 1 minute and 27 seconds of fluoroscopic time was utilized during procedure. 21 images submitted. COMPARISON: None FINDINGS: The esophagus shows normal motility and emptying into the stomach. No evidence of hiatal h ernia or stricture noted. No significant gastroesophageal reflux was seen during real time performanc e of this study. Single contrast imaging demonstrates no filling defect within the stomach. Duodenal bulb and sweep ar e unremarkable. Transit time through the small bowel is within normal limits. Mucosal pattern of the small bowel incl uding the terminal ileum had a normal appearance. No evidence of obstruction. IMPRESSION: No significant abnormality is seen to account for patient's symptoms. Correlate with di rect visualization as clinically warranted.
[2019-08-07] MEDS: PANTOPRAZOLE 40 MG/10 ML VIAL IVP SCH ×2 (10:57→21:20)
--- NOTE | 2019-08-07 12:25 | P.GSCN ---
History of Present Illness Consult date: 08/07/19 Reason for Consult: Chronic nausea vomiting History of present illness: The cystic 6-year-old female admitted to the hospital. Patient states that she had chronic nausea vomiting. She had several episodes emesis yesterday. Patient's currently hungry and states her vomiting has resolved.. She is scheduled for MRI and of her abdomen today. Past Medical History Past Medical History: Coronary Artery Disease (CAD), Cancer, Chest Pain / Angina, COPD, CVA/TIA, Hyperlipidemia, Hypertension, Myocardial Infarction ([place]), Renal Disease, Thyroid Disorder Additional Past Medical History / Comment(s): Thyroid cancer with thyroidectomy, TIA years ago, acute pancreatitis, hiatal hernia, PUD, diverticular disease, CKD stage III, bronchitis. Last Myocardial Infarction Date:: 05/2010 History of Any Multi-Drug Resistant Organisms: None Reported Past Surgical History: Cholecystectomy, Heart Catheterization, Hysterectomy, Orthopedic Surgery, Tonsillectomy Additional Past Surgical History / Comment(s): Cardiac cath [place], [place]-pt states she was told no blockages, thyroidectomy, R thumb fracture with surgery, colonoscopy. Past Anesthesia/Blood Transfusion Reactions: Previous Problems w/ Anesthesia Additional Past Anesthesia/Blood Transfusion Reaction / Comm: trouble urinating after general anesthesia Past Psychological History: Depression Additional Psychological History / Comment(s): Pt resides with her son. She does not drive, her son takes her to appointments. She is otherwise independent. Smoking Status: Former smoker Past Alcohol Use History: None Reported Additional Past Alcohol Use History / Comment(s): Pt started smoking in 1970 and quit in 2009. Past Drug Use History: Marijuana Additional Drug Use History / Comment(s): Pt states she smokes marijuana in the AM and occasionally in the evening - Past Family History Mother Family Medical History: Vascular Disorder Additional Family Medical History / Comment(s): Mother is from esophageal varices d/t alcoholism at the age of 69yrs. Father Family Medical History: CVA/TIA, Hyperlipidemia, Hypertension, Musculoskeletal Disorder, Neurologic Disorder Additional Family Medical History / Comment(s): Father had a CVA in his 50s. Father is from parkinsons at age 69yrs. Medications and Allergies Home Medications Medication Instructions Recorded Confirmed Type Spironolactone [Aldactone] 25 mg PO DAILY 03/28/18 08/05/19 History Atorvastatin [Lipitor] 80 mg PO HS 07/24/18 08/05/19 History Levothyroxine Sodium [Synthroid] 100 mcg PO DAILY 07/24/18 08/05/19 History Carvedilol [Coreg] 25 mg PO BID 09/03/18 08/05/19 History Pantoprazole Sodium [Protonix] 40 mg PO BID #60 tablet. 08/01/19 08/05/19 Rx Hydrocortisone Cream 1 applic TOPICAL BID 08/05/19 08/05/19 History [Hydrocortisone 2.5% Cream] Allergies Allergy/AdvReac Type Severity Reaction Status Date / Time Penicillins Allergy Unknown Verified 08/05/19 13:24 adhesive AdvReac Itching Verified 08/05/19 13:24 codeine AdvReac Nausea & Verified 08/05/19 13:24 Vomiting Surgical - Exam Vital Signs Temp Pulse Resp BP Pulse Ox 98.3 F 70 20 195/126 98 08/05/19 07:49 08/05/19 07:49 08/05/19 07:49 08/05/19 07:49 08/05/19 07:49 - General well developed, well nourished, no distress - Eyes PERRL - ENT normal pinna - Neck no masses - Respiratory normal expansion - Cardiovascular Rhythm: regular - Abdomen Abdomen: soft, non tender Results - Labs 08/05/19 08:38 08/05/19 08:38 Assessment and Plan Assessment: History of chronic nausea vomiting. No surgical intervention is planned. We wi ll defer to GI for further management
--- NOTE | 2019-08-07 18:26 | CONS ---
CONSULTATION DATE OF DICTATION: 08/07/2019. REASON FOR CONSULTATION: Chronic intermittent nausea and vomiting. HISTORY OF PRESENT ILLNESS: The patient is a 64-year-old pleasant white female who came to the emergency room complaining of nausea, vomiting for the last 2 days' duration. She was in the hospital a week ago for similar symptoms, was treated symptomatically and discharged home. The patient apparently uses marijuana for cyclical vomiting syndrome. She has been having these episodes at least 3 or 4 times a year for the last couple of years. During this hospitalization, she states that she was having intense nausea followed by several episodes of emesis and came into the hospital. She was started on Zofran as well as Protonix and her symptoms are much better today; in fact, she had no further episodes of nausea or vomiting all day today and is feeling much better; wants the diet to be advanced. PAST MEDICAL HISTORY: Significant for coronary artery disease, history of COPD, CVA/TIA in the past, hypertension, hyperlipidemia, chronic kidney disease, hypothyroidism. PAST SURGICAL HISTORY: Thyroidectomy for thyroid cancer, hysterectomy, cardiac catheterization, cholecystectomy, tonsillectomy. MEDICATIONS: Medications at home include Aldactone, Lipitor, Synthroid, Coreg, Protonix, hydrocortisone cream. ALLERGIES: ADHESIVE TAPE, CODEINE, PENICILLIN. SOCIAL HISTORY: Chronic marijuana use. Former smoker. No alcohol use. REVIEW OF SYSTEMS: CARDIOPULMONARY: No chest pain or shortness of breath. GENITOURINARY: No dysuria or hematuria. MUSCULOSKELETAL: Unremarkable. SKIN: Unremarkable. ENDOCRINE: Unremarkable. PSYCHIATRIC: Unremarkable. NEUROLOGY: Unremarkable. ENT/VISION: Unremarkable. CONSTITUTIONAL: No recent weight loss. No fever, chills, night sweats. PHYSICAL EXAMINATION: She appears comfortable. No apparent distress. Vital signs are stable. Blood pressure 107/73, pulse rate 67, temperature 98.6. HEENT examination unremarkable. Conjunctivae pink. Sclerae anicteric. Oral cavity no lesions. NECK: No JVD or lymph node enlargement. CHEST: Clear to auscultation. HEART: Regular rate and rhythm. ABDOMEN: Soft. Bowel sounds are positive. No organomegaly. EXTREMITIES: No pedal edema. SKIN: No rashes. NEUROLOGIC: Alert and oriented x3. No focal deficits. LABS: Labs done today show WBC 11.9, hemoglobin 14.4, platelets normal. Basic metabolic panel is within normal limits. BUN and creatinine are normal. Bilirubin is 1.4, but ALT and AST are normal. Alkaline phosphatase 127. She did have upper GI and small bowel series done today that showed no significant abnormality. IMPRESSION: This is a lady who presented to the hospital with episodes of severe nausea and vomiting that started 3 days ago. She had a similar episode a week ago, was in the hospital for 2 days and she was discharged home. She had an upper endoscopy by Dr. Merritt in August of 2018 that showed gastritis and duodenitis. Presently on Zofran, Compazine and Phenergan and symptoms are significantly improved. All day today she did not have any further episodes of nausea, vomiting. RECOMMENDATIONS: 1. Continue with Protonix 40 mg twice daily. 2. Antiemetics as needed, alternating with Zofran and Compazine as needed. 3. Advance as tolerated. 4. No plans on any endoscopic intervention, as her upper GI series was completely within normal limits. 5. Will follow with you closely. Thank you for this consultation. MMODL / IJN: [id number] /
[2019-08-07] MEDS: ATORVASTATIN 80 MG TAB PO SCH (21:18)
--- NOTE | 2019-08-07 23:16 | PN ---
PROGRESS NOTE SUBJECTIVE: This is a 64-year-old white female, hypertensive urgency, cyclic emesis. Continues on blood pressure control. Cyclic emesis. GI has seen her as well as Surgery. Possible scopes will be done. Barium swallow has been ordered as well as an MRI of the liver and abdomen. CARDIOVASCULAR: S1, S2. LUNGS: Clear. GI: Increased bowel sounds. HEMATOLOGY: Negative Homans. ASSESSMENT: 1. Hypertensive urgency. 2. Cyclic emesis. 3. Dehydration. MRI abdomen. Barium swallow. Surgery, GI consult. Recommendations pending. Advance diet once cleared by GI and Surgery. MMODL / IJN: [id number] /
[2019-08-08] MEDS: LEVOTHYROXINE 100 MCG TAB PO SCH (05:55)
[2019-08-08] MEDS: CARVEDILOL 12.5 MG TAB PO SCH ×2 (09:13→15:29)
[2019-08-08] MEDS: HYDROCORTISONE 1% CREAM 30 GM TUBE TOPICAL SCH (09:13)
[2019-08-08] MEDS: SPIRONOLACTONE 25 MG TAB PO SCH (09:13)
[2019-08-08] MEDS: PANTOPRAZOLE 40 MG/10 ML VIAL IVP SCH (09:13)
--- NOTE | 2019-08-08 10:21 | P.PN ---
Subjective Progress Note Date: 08/08/19 CHIEF COMPLAINT: nausea, vomiting HISTORY OF PRESENT ILLNESS: Patient examined at the bedside with Dr. Nolan. Patient denies nausea or vomiting this morning. Denies diarrhea or constipation. Reports BM yesterday. Tolerating diet. PHYSICAL EXAM: VITAL SIGNS: Reviewed. GENERAL: Well-developed in no acute distress. HEENT: No sclera icterus. Extraocular movements grossly intact. Moist buccal mucosa. Head is atraumatic, normocephalic. ABDOMEN: Soft. Nondistended. Nontender. NEUROLOGIC: Alert and oriented. Cranial nerves II through XII grossly intact. ASSESSMENT: 1. Chronic nausea and vomiting PLAN: No surgical intervention recommended Continue supportive measures Defer any endoscopic procedures if needed to GI service Diet as tolerated We will sign off. Please reconsult if needed Nurse practitioner note has been reviewed by physician. Signing provider agrees with the documented findings, assessment, and plan of care. Objective - Vital Signs Vital signs: Vital Signs Temp 98.0 F 08/08/19 05:35 Pulse 63 08/08/19 05:35 Resp 18 08/08/19 05:35 BP 113/70 08/08/19 05:35 Pulse Ox 96 08/08/19 05:35 Intake & Output 08/07/19 08/08/19 08/08/19 18:59 06:59 18:59 Other: Voiding Method Toilet Toilet # Voids 2 1 # Bowel Movements 0 - Labs CBC & Chem 7: 08/05/19 08:38 08/05/19 08:38
--- NOTE | 2019-08-08 14:25 | MR ---
EXAMINATION TYPE: MR abdomen wo/w con DATE OF EXAM: 08/08/2019 COMPARISON: CT abdomen and pelvis July 31, 2019 and older CTs HISTORY: recurrent emesis/elevated lfts CONTRAST: Standard multiplanar, multisequence MRI departmental protocol utilizing 7.5 mL intravenous Gadavist g adolinium contrast. FINDINGS: Lung bases remain clear. Liver remains normal in size without suspicious solid or cystic ma ss. No significant signal dropout to suggest fatty infiltration. Gallbladder is surgically absent. No biliary dilatation is noted. Pancreas, spleen, and both adrenal glands are felt within normal limits . Kidney show no concerning renal mass or hydronephrosis bilaterally. Mild prominence of stomach. Stable small hiatal hernia. No suspicious small or large bowel dilatation otherwise seen. No aneurysm of the aorta. No concerning abdominal ascites. No suspicious greater destin n 1 cm abdominal adenopathy. Visualized osseous structures are intact. No suspicious enhancement is s een. IMPRESSION: No acute finding identified. No significant change from recent CT study. No suspicious in trahepatic mass or ductal dilatation.
[2019-08-08 15:37] VITALS: BP 116/64; PULSE 86; RESP 14; TEMP 98.4
--- NOTE | 2019-08-09 15:52 | P.DS ---
Providers Date of admission: 08/05/19 12:49 Expected date of discharge: 08/08/19 Attending physician: Liborio Colon Consults: 08/06/19 17:22 Consult Physician Routine Consulting Provider: Francia Richards Consult Reason/Comments: emesis Do you want consulting provider notified?: Yes [facility] care [facility] Course: Final Diagnoses: Hypertensive urgency Cyclic vomiting syndrome, chronic Acute gastritis Dehydration History of gastritis and duodenitis per EGD in August 2018 THC,daily use CAD Hospital course is a 64-year-old female admitted with hypertensive urgency, cyclic emesis and multiple other medical issues. Evaluated by both surgery, and GI. Upper GI and small bowel series completed reporting no significant abnormality. Abdomen MRI reported no acute findings with no significant change from recent CT studysuspicious intrahepatic mass or ductal dilation. Treated with antiemetics. No surgical or endoscopic interventions recommended. Significant clinical improvement. Cleared by all consults for discharge. Patient is being discharged home in a stable condition with guarded prognosis. Exam: GEN: Alert and oriented 3, no acute distress CV: Regular S1 and S2 LUNGS: CTA ABD: Soft, nontender, positive bowel sounds NEURO: No focal deficits. The impression and plan of care has been dictated as directed. .: I performed a history and examination of this patient, discussed the same with the dictator. I agree with the dictator's note ,documented as a scribe. Any additional findings or plans will be noted. Patient Condition at Discharge: Stable Plan - Discharge Summary New Discharge Prescriptions: Continue Spironolactone [Aldactone] 25 mg PO DAILY Levothyroxine Sodium [Synthroid] 100 mcg PO DAILY Atorvastatin [Lipitor] 80 mg PO HS Carvedilol [Coreg] 25 mg PO BID Pantoprazole Sodium [Protonix] 40 mg PO BID #60 tablet. Hydrocortisone Cream [Hydrocortisone 2.5% Cream] 1 applic TOPICAL BID Discharge Medication List Spironolactone [Aldactone] 25 mg PO DAILY 03/28/18 [History] Atorvastatin [Lipitor] 80 mg PO HS 07/24/18 [History] Levothyroxine Sodium [Synthroid] 100 mcg PO DAILY 07/24/18 [History] Carvedilol [Coreg] 25 mg PO BID 09/03/18 [History] Pantoprazole Sodium [Protonix] 40 mg PO BID #60 tablet. 08/01/19 [Rx] Hydrocortisone Cream [Hydrocortisone 2.5% Cream] 1 applic TOPICAL BID 08/05/19 [History] Follow up Appointment(s)/Referral(s): Liborio Colon MD [Primary Care Provider] - 08/10/19 10:30 am Francia Richards MD [STAFF PHYSICIAN] - 09/06/19 1:30 pm Patient Instructions/Handouts: Acute Nausea and Vomiting (DC), Hypertensive Crisis (DC) Discharge Disposition: HOME SELF-CARE
== END 2019-08-08 17:12 | disposition home or self-care (01) | DRG 395 ==
LOC: EC 07:44 → INTOOBSV 12:49 → 3SCARD 12:49 → 6NMEDSUR 08-07 00:25 → OBSVTOIN 08-08 15:13
PROVIDERS: ADMIT Family Medicine; ATTEND Family Medicine
PROC: 05HF33Z Insertion of Infusion Device into Left Cephalic Vein, Percutaneous Approach (ICD-10-PCS; principal; 2019-08-07 11:50)
DX: R11.15 Cyclical vomiting syndrome unrelated to migraine (principal); I16.0 Hypertensive urgency; I12.9 Hypertensive chronic kidney disease with stage 1 through stage 4 chronic kidney disease, or unspecified chronic kidney disease; E78.5 Hyperlipidemia, unspecified; E86.0 Dehydration; E87.5 Hyperkalemia; E89.0 Postprocedural hypothyroidism; F32.9 Major depressive disorder, single episode, unspecified; I25.10 Atherosclerotic heart disease of native coronary artery without angina pectoris; I25.2 Old myocardial infarction; J44.9 Chronic obstructive pulmonary disease, unspecified; K29.00 Acute gastritis without bleeding; N18.3 Chronic kidney disease, stage 3 (moderate); Z79.890 Hormone replacement therapy; Z79.899 Other long term (current) drug therapy; Z82.0 Family history of epilepsy and other diseases of the nervous system; Z82.3 Family history of stroke; Z82.49 Family history of ischemic heart disease and other diseases of the circulatory system; Z85.850 Personal history of malignant neoplasm of thyroid; Z86.73 Personal history of transient ischemic attack (TIA), and cerebral infarction without residual deficits; Z87.11 Personal history of peptic ulcer disease; Z87.891 Personal history of nicotine dependence; Z90.710 Acquired absence of both cervix and uterus; Z88.5 Allergy status to narcotic agent; Z88.0 Allergy status to penicillin; K57.90 Diverticulosis of intestine, part unspecified, without perforation or abscess without bleeding; K44.9 Diaphragmatic hernia without obstruction or gangrene
CPT/HCPCS: 36410; 36415; 74183; 74245; 76937; 80053; 82150; 83690; 84484; 85025; 93005; 96361; 96372; 96374; 96375; 99285

== ENCOUNTER 2019-10-01 08:10 | Day surgery (SDC) | payer MEDICARE ==
[2019-09-26 15:45] VITALS: BMI 26.6
[~2019-10-01 08:10] MED LIST changes: -DEXAMETHASONE SOD PHOSPHATE 10 MG/ML 1 ML VIAL IV ONE; -HEPARIN SODIUM,PORCINE 5,000 UNIT/ML 1 ML VIAL SQ ONE; +LIDOCAINE 1% (10MG/ML) FOR IV START INTRADERMA PRN; -MIDAZOLAM 2 MG/2 ML VIAL IV PRN; -ONDANSETRON 4 MG/2 ML VIAL IVP ONE; -Pre Op ABX Message 1 EACH MISC MISCELLANE ONE; -SCOPOLAMINE 1.5MG/72HR PATCH TRANSDERM ONE
[2019-10-01 08:40] VITALS: RESP 16; TEMP 98.8
[2019-10-01] MEDS ORDERED: LIDOCAINE 1% INJ 10MG/ML (20 ML MDV) ONE (09:09)
[2019-10-01] MEDS ORDERED: PROPOFOL 10 MG/ML 20 ML VIAL IV ONE (09:09)
--- NOTE | 2019-10-01 09:41 | P.PCN ---
Date of Procedure: 10/01/19 Description of Procedure: BRIEF HISTORY: Patient is a 64-year-old female presenting to the hospital for outpatient colonoscopy for evaluation of altered bowel function/change in bowel habits. She reports alternating diarrhea and constipation. Last colonoscopy 10 years ago and she is unsure of the results. PROCEDURE PERFORMED: Colonoscopy with biopsy. PREOPERATIVE DIAGNOSIS: Change in bowel habits, last colonoscopy 10 years ago. ESTIMATED BLOOD LOSS: Minimal. IV sedation per Anesthesia. PROCEDURE: After informed consent was obtained, the patient, was brought into the endoscopy unit. IV sedation was administered by Anesthesia under continuous monitoring. Digital rectal examination was normal. Initially the Olympus CF-190 flexible video colonoscope was then inserted in the rectum, gradually advanced into the cecum without any difficulty. Careful examination was performed as the scope was gradually being withdrawn. Ileocecal valve and the appendiceal orifice were visualized and appeared normal. Prep was good. Mucosa of the cecum, ascending colon, transverse colon, descending colon, sigmoid colon, and rectum appeared normal. Random biopsies taken of the right and left colon in the setting of altered bowel function. A few scattered diverticula noted in the sigmoid colon. Retroflexion was performed in the rectum and no lesions were seen, low-grade internal hemorrhoids noted. The patient tolerated the procedure well. IMPRESSION: Mild sigmoid diverticulosis. Random biopsies of the left and right colon in the setting of altered bowel function. Otherwise normal-appearing colon from rectum to cecum. RECOMMENDATIONS: Findings of this examination were discussed with the patient. Okay to resume diet. Okay to resume medications. Await pathology from biopsies. Follow up in gastroenterology clinic as previously scheduled. Repeat colonoscopy 10 years for screening.
[2019-10-01 10:03] VITALS: BP 157/86; PULSE 55
== END 2019-10-01 10:24 ==
LOC: ORWHC2ENDO 08:10
PROVIDERS: ATTEND Internal Medicine
DX: K57.30 Diverticulosis of large intestine without perforation or abscess without bleeding (principal); K64.8 Other hemorrhoids; I25.2 Old myocardial infarction; I25.10 Atherosclerotic heart disease of native coronary artery without angina pectoris; I10 Essential (primary) hypertension; E78.5 Hyperlipidemia, unspecified; J44.9 Chronic obstructive pulmonary disease, unspecified; E89.0 Postprocedural hypothyroidism; K21.9 Gastro-esophageal reflux disease without esophagitis; K85.90 Acute pancreatitis without necrosis or infection, unspecified; Z88.0 Allergy status to penicillin; Z88.5 Allergy status to narcotic agent; Z91.048 Other nonmedicinal substance allergy status; Z87.891 Personal history of nicotine dependence; Z79.890 Hormone replacement therapy; Z86.73 Personal history of transient ischemic attack (TIA), and cerebral infarction without residual deficits; Z79.02 Long term (current) use of antithrombotics/antiplatelets; Z79.899 Other long term (current) drug therapy; Z90.710 Acquired absence of both cervix and uterus; Z90.49 Acquired absence of other specified parts of digestive tract; Z90.89 Acquired absence of other organs
CPT/HCPCS: 88305; 45380; J2001; J2704

== ENCOUNTER → 2019-12-28 | Outpatient (CLI) | payer MEDICARE ==
--- NOTE | 2019-12-28 14:27 | MR ---
EXAMINATION TYPE: MR brain wo/w con DATE OF EXAM: 12/28/2019 COMPARISON: Prior brain MRI 07/06/2017 HISTORY: White matter changes, memory loss TECHNIQUE: Multiplanar, multisequence images of the brain and brainstem is performed without and with IV contras t, utilizing 7.5 mL intravenous Gadavist . FINDINGS: Diffusion weighted images demonstrate no evidence of a recent infarct or other diffusion ab normality. There is no extra-axial fluid collection or significant interval change in white matter s ignal abnormality. There are too numerous to count foci of hyperintensity and inversion recovery and T2-weighted sequences within the subcortical, juxtacortical, pericallosal, periventricular white yimi er, confluent areas of hyperintensity are again noted as on prior. The ventricular system and cistern al spaces are normal in size and appearance. The brain volume is age appropriate. Midline structures demonstrate normal morphology. The craniocervical junction appears within normal limits. Post contrast images demonstrate no abnormal enhancement. The dural venous sinuses appear pa tent. The visualized sinuses are showing minimal mucoperiosteal thickening within the ethmoid air jonathan ls, frontal sinus, and the globes are intact. IMPRESSION: Essentially stable exam. Nonspecific white matter demyelination may be related to chronic small vessel ischemic change.
== END | disposition home or self-care (01) ==
LOC: RADMRIMAIN 07:46
PROVIDERS: ATTEND Family Medicine
DX: S24.102A Unspecified injury at T2-T6 level of thoracic spinal cord, initial encounter (principal); R90.82 White matter disease, unspecified
CPT/HCPCS: 70553; A9585

== ENCOUNTER 2020-02-28 07:21 | Observation (INO) | payer MEDICARE ==
[2020-02-28] MEDS ORDERED: SODIUM CHLORIDE 0.9% 1,000 ML IV STA (07:42)
[2020-02-28] MEDS ORDERED: ONDANSETRON 4 MG/2 ML VIAL IVP STA (07:42)
--- NOTE | 2020-02-28 07:46 | ED ---
General Adult HPI - General Chief complaint: Chest Pain Stated complaint: Chest pain, vomiting Time Seen by Provider: 02/28/20 07:27 Source: patient Mode of arrival: wheelchair Limitations: no limitations - History of Present Illness Initial comments: Dictation was produced using [employer] dictation software. please excuse any grammatical, word or spelling errors. This patient was cared for during a federal and state declared state of emergency secondary to Covid 19 Chief Complaint: 65-year-old female multiple comorbidities presents with chest pain. History of Present Illness: An is a 65-year-old female she is accompanied by her youngest son. Patient has been having substernal chest pain that starting around 4 AM. Patient reports that the pain is severe located to the substernal and epigastric area. She does report that it radiates slightly to the back. Denies any numbness tingling or paresthesias to the arms or legs. Family member at bedside reports that patient has had symptoms like this in the past. She does have multiple comorbidities but have not really figured out why patient gets symptoms. 10 years ago patient had symptoms like this which was later found out that patient was having acute myocardial infarction. Patient has any fever, chills or night sweats. She has been having bilious emesis. No murmur bedside reports that she should. She has had multiple workups to try and diagnose her chronic symptoms. The ROS documented in this emergency department record has been reviewed and confirmed by me. Those systems with pertinent positive or negative responses have been documented in the HPI. All other systems are other negative and/or noncontributory. PHYSICAL EXAM: General Impression: Alert and oriented x3, acute distress secondary to vomiting, nondiaphoretic HEENT: Normocephalic atraumatic, extra-ocular movements intact, pupils equal and reactive to light bilaterally, mucous membranes moist. Cardiovascular: Heart regular rate and rhythm Chest: Able to complete full sentences, no retractions, no tachypnea Abdomen: abdomen soft, non-tender, non-distended, no organomegaly Musculoskeletal: Pulses present and equal in all extremities, no peripheral edema Motor: no focal deficits noted Neurological: CN II-XII grossly intact, no focal motor or sensory deficits noted Skin: Intact with no visualized rashes ED course: 65-year-old female presents today with chest pain and epigastric pain. Signs upon arrival are within acceptable limits. Patient has multiple comorbidities. Her medications are reviewed. Chart review was performed. Patient is then admitted to the hospital twice this year. According to most recent discharge summary dated 2019. Patient was admitted at that time for cyclical vomiting syndrome. Patient has a past medical history of cyclical vomiting syndrome and acute gastritis. She's been evaluated by GI multiple occasions this year. She is a daily THC user. She has had multiple workups for her symptoms without any obvious findings. EKG was obtained showing no acute processes. No findings of ischemia or infarction. Laboratory evaluation obtained. CBC shows leukocytosis of 17.2. This is likely secondary to stress. Coag panel is negative. Metabolic panel is within acceptable limits. Troponin is negative. Chest x-ray is nonacute. Case was discussed with Dr. Colon, patient's PCP. Recommends the patient be admitted to 23 hour ops with consultation to GI. Patient started on intravenous fluids. She is reevaluated after administration of benzodiazepine and antiemetics with stable medical condition. EKG interpretation: Ventricular rate 78, normal sinus rhythm, SC interval 162, QRS 94, QTC 471. No SC prolongation, no QTC prolongation, no ST or T-wave changes noted. EKG compared to August 05 2019 showing no changes. Overall, this EKG is unremarkable - Related Data Home Medications Medication Instructions Recorded Confirmed Atorvastatin [Lipitor] 80 mg PO HS 07/24/18 02/28/20 Carvedilol [Coreg] 25 mg PO BID 09/03/18 02/28/20 Amitriptyline HCl [Elavil] 10 mg PO HS 02/28/20 02/28/20 Levothyroxine Sodium [Synthroid] 125 mcg PO DAILY 02/28/20 02/28/20 Pantoprazole Sodium [Protonix] 40 mg PO DAILY 02/28/20 02/28/20 Spironolactone 50 mg PO DAILY 02/28/20 02/28/20 amLODIPine [Norvasc] 10 mg PO DAILY 02/28/20 02/28/20 metFORMIN HCL [Glucophage] 500 mg PO DAILY 02/28/20 02/28/20 Allergies Allergy/AdvReac Type Severity Reaction Status Date / Time Penicillins Allergy Unknown Verified 02/28/20 08:26 Childhood adhesive AdvReac Itching Verified 02/28/20 08:26 codeine AdvReac Nausea & Verified 02/28/20 08:26 Vomiting Review of Systems ROS Statement: Those systems with pertinent positive or pertinent negative responses have been documented in the HPI. ROS Other: All systems not noted in ROS Statement are negative. Past Medical History Past Medical History: Coronary Artery Disease (CAD), Cancer, Chest Pain / Angina, COPD, CVA/TIA, Diabetes Mellitus, GERD/Reflux, Hyperlipidemia, H ypertension, Memory Impairment, Myocardial Infarction (MD), Renal Disease, Thyroid Disorder Additional Past Medical History / Comment(s): Thyroid cancer with thyroidectomy, TIA years ago, acute pancreatitis, hiatal hernia, PUD, diverticular disease, CKD stage III, bronchitis. CHRONIC N/V-GETTING BETTER SINCE STARTED ON PROTONIX Last Myocardial Infarction Date:: 05/2010 History of Any Multi-Drug Resistant Organisms: None Reported Past Surgical History: Cholecystectomy, Heart Catheterization, Hysterectomy, Orthopedic Surgery, Tonsillectomy Additional Past Surgical History / Comment(s): Cardiac cath [place], [place]-pt states she was told no blockages, thyroidectomy, R thumb fracture with surgery, colonoscopy. Past Anesthesia/Blood Transfusion Reactions: Previous Problems w/ Anesthesia Additional Past Anesthesia/Blood Transfusion Reaction / Comment(s): trouble urinating after general anesthesia Past Psychological History: Depression Smoking Status: Former smoker Past Alcohol Use History: None Reported Past Drug Use History: Marijuana - Past Family History Mother Family Medical History: Vascular Disorder Additional Family Medical History / Comment(s): Mother is from esophageal varices d/t alcoholism at the age of 69yrs. Father Family Medical History: CVA/TIA, Hyperlipidemia, Hypertension, Musculoskeletal Disorder, Neurologic Disorder Additional Family Medical History / Comment(s): Father had a CVA in his 50s. Father is from parkinsons at age 69yrs. General Exam Limitations: no limitations Course Vital Signs 02/28/20 02/28/20 07:23 08:40 Temperature 98.1 F Pulse Rate 72 71 Respiratory 18 16 Rate Blood Pressure 145/84 120/79 O2 Sat by Pulse 100 98 Oximetry Medical Decision Making - Lab Data Result diagrams: 02/28/20 08:10 02/28/20 08:10 Lab Results 02/28/20 02/28/20 02/28/20 Range/Units 08:10 08:10 08:10 WBC 17.2 H (3.8-10.6) k/uL RBC 4.86 (3.80-5.40) m/uL Hgb 14.6 (11.4-16.0) gm/dL Hct 42.8 (34.0-46.0) % MCV 88.2 (80.0-100.0) fL MCH 30.0 (25.0-35.0) pg MCHC 34.0 (31.0-37.0) g/dL RDW 12.5 (11.5-15.5) % Plt Count 302 (150-450) k/uL Neutrophils % 72 % Lymphocytes % 21 % Monocytes % 5 % Eosinophils % 1 % Basophils % 0 % Neutrophils # 12.4 H (1.3-7.7) k/uL Lymphocytes # 3.6 (1.0-4.8) k/uL Monocytes # 0.8 (0-1.0) k/uL Eosinophils # 0.2 (0-0.7) k/uL Basophils # 0.1 (0-0.2) k/uL PT 9.9 (9.0-12.0) sec INR 0.9 (<1.2) APTT 22.1 (22.0-30.0) sec Sodium 140 (137-145) mmol/L Potassium 4.1 (3.5-5.1) mmol/L Chloride 108 H (98-107) mmol/L Carbon Dioxide 21 L (22-30) mmol/L Anion Gap 11 mmol/L BUN 18 H (7-17) mg/dL Creatinine 0.79 (0.52-1.04) mg/dL Est GFR (CKD-EPI)AfAm >90 (>60 ml/min/1.73 sqM) Est GFR (CKD-EPI)NonAf 80 (>60 ml/min/1.73 sqM) Glucose 174 H (74-99) mg/dL Calcium 9.6 (8.4-10.2) mg/dL Magnesium 1.8 (1.6-2.3) mg/dL Total Bilirubin 1.2 (0.2-1.3) mg/dL AST 31 (14-36) U/L ALT 30 (4-34) U/L Alkaline Phosphatase 162 H (38-126) U/L Troponin I (0.000-0.034) ng/mL Total Protein 7.7 (6.3-8.2) g/dL Albumin 4.9 (3.5-5.0) g/dL Lipase 309 H (23-300) U/L 02/28/20 Range/Units 08:10 WBC (3.8-10.6) k/uL RBC (3.80-5.40) m/uL Hgb (11.4-16.0) gm/dL Hct (34.0-46.0) % MCV (80.0-100.0) fL MCH (25.0-35.0) pg MCHC (31.0-37.0) g/dL RDW (11.5-15.5) % Plt Count (150-450) k/uL Neutrophils % % Lymphocytes % % Monocytes % % Eosinophils % % Basophils % % Neutrophils # (1.3-7.7) k/uL Lymphocytes # (1.0-4.8) k/uL Monocytes # (0-1.0) k/uL Eosinophils # (0-0.7) k/uL Basophils # (0-0.2) k/uL PT (9.0-12.0) sec INR (<1.2) APTT (22.0-30.0) sec Sodium (137-145) mmol/L Potassium (3.5-5.1) mmol/L Chloride (98-107) mmol/L Carbon Dioxide (22-30) mmol/L Anion Gap mmol/L BUN (7-17) mg/dL Creatinine (0.52-1.04) mg/dL Est GFR (CKD-EPI)AfAm (>60 ml/min/1.73 sqM) Est GFR (CKD-EPI)NonAf (>60 ml/min/1.73 sqM) Glucose (74-99) mg/dL Calcium (8.4-10.2) mg/dL Magnesium (1.6-2.3) mg/dL Total Bilirubin (0.2-1.3) mg/dL AST (14-36) U/L ALT (4-34) U/L Alkaline Phosphatase (38-126) U/L Troponin I <0.012 (0.000-0.034) ng/mL Total Protein (6.3-8.2) g/dL Albumin (3.5-5.0) g/dL Lipase (23-300) U/L Disposition Clinical Impression: Cyclical vomiting Disposition: ADMITTED IP TO THIS HOSP Condition: Fair Referrals: Liborio Colon MD [Primary Care Provider] - 1-2 days Decision Time: 10:15
[2020-02-28] MEDS ORDERED: LORazepam 2 MG/ML INJ IV STA ×2 (07:47→11:07)
[2020-02-28] MEDS ORDERED: ONDANSETRON ODT 4 MG TAB PO STA (07:56)
[2020-02-28] MEDS ORDERED: LORazepam 2 MG/ML INJ IM STA (07:56)
[2020-02-28 08:24] LABS: Basophils # (A) 0.1 k/uL (0-0.2); Basophils % (A) 0 %; Eosinophils # (A) 0.2 k/uL (0-0.7); Eosinophils % (A) 1 %; HCT 42.8 % (34.0-46.0); HGB 14.6 gm/dL (11.4-16.0); Lymphocytes # (A) 3.6 k/uL (1.0-4.8); Lymphocytes % (A) 21 %; MCV 88.2 fL (80.0-100.0); Mean Platelet Volume 7.8; Monocytes # (A) 0.8 k/uL (0-1.0); Monocytes % (A) 5 %; Neutrophils # (A) 12.4 k/uL (1.3-7.7); Neutrophils % (A) 72 %; Platelet Count 302 k/uL (150-450); RBC 4.86 m/uL (3.80-5.40); RDW 12.5 % (11.5-15.5); WBC 17.2 k/uL (3.8-10.6)
--- NOTE | 2020-02-28 08:31 | XR ---
EXAMINATION TYPE: XR chest 1V portable DATE OF EXAM: 02/28/2020 Comparison: 07/31/2019 Clinical History: 65-year-old female with chest pain Findings: Slight leftward patient rotation. Heart appears upper limits of normal in size. Mild interstitial pro minence. Mild hyperinflation. Mild right apical pleural-parenchymal scarring. No consolidation or ple ural effusion. Impression: Possible underlying COPD. No acute cardiopulmonary process.
[2020-02-28 08:33] LABS: INR 0.9 (<1.2); Partial Thromboplastin Time 22.1 sec (22.0-30.0); Prothrombin Time 9.9 sec (9.0-12.0)
[2020-02-28 08:37] LABS: ALT 30 U/L (4-34); AST 31 U/L (14-36); African American GFR (CKD) >90 (>60 ml/min/1.73 sqM); Albumin 4.9 g/dL (3.5-5.0); Alkaline Phosphatase 162 U/L (38-126); Anion Gap 11 mmol/L; Blood Urea Nitrogen 18 mg/dL (7-17); Calcium 9.6 mg/dL (8.4-10.2); Carbon Dioxide 21 mmol/L (22-30); Chloride 108 mmol/L (98-107); Glucose 174 mg/dL (74-99); Lipase 309 U/L (23-300); Magnesium 1.8 mg/dL (1.6-2.3); Non-African American GFR(CKD) 80 (>60 ml/min/1.73 sqM); Potassium 4.1 mmol/L (3.5-5.1); Sodium 140 mmol/L (137-145); Total Bilirubin 1.2 mg/dL (0.2-1.3); Total Protein 7.7 g/dL (6.3-8.2)
[2020-02-28] MEDS ORDERED: NALOXONE 0.4 MG/ML 1 ML VIAL IV PRN (10:12)
[2020-02-28] MEDS ORDERED: ONDANSETRON 4 MG/2 ML VIAL IVP PRN (10:12)
[2020-02-28 10:24] LABS: Appearance,Urine Clear (Clear); Bilirubin,Urine Negative (Negative); Blood,Urine Negative (Negative); Color,Urine Colorless; Glucose,Urine (UA) Trace (Negative); Ketones,Urine Trace (Negative); Leukocyte Esterase,Urine Negative (Negative); Nitrite,Urine Negative (Negative); Protein,Urine Negative (Negative); Specific Gravity,Urine 1.008 (1.001-1.035); Urobilinogen,Urine <2.0 mg/dL (<2.0)
[2020-02-28 10:37] LABS: Amphetamine Screen,Urine Not Detected (NotDetected); Barbiturate Screen,Urine Not Detected (NotDetected); Benzodiazepines Screen,Urine Not Detected (NotDetected); Cocaine Screen,Urine Not Detected (NotDetected); Methadone Screen, Urine Not Detected (NotDetected); Opiate Screen,Urine Not Detected (NotDetected); Oxycodone Screen, Urine Not Detected (NotDetected); Phencyclidine Screen,Urine Not Detected (NotDetected); Tricyclic Antidepressant,Urine Not Detected (NotDetected); Urn Cannabinoid Scrn Detected (NotDetected)
[2020-02-28] MEDS: SODIUM CHLORIDE 0.9% 1,000 ML IV SCH ×2 (11:28→20:06)
[2020-02-28 13:39] VITALS: BMI 27.4
[2020-02-28] MEDS: LORazepam 2 MG/ML INJ IV PRN ×2 (15:16→22:42)
[2020-02-28] MEDS ORDERED: PROCHLORPERAZINE SUPPOSITORY 25 MG SUPP RECTAL PRN (16:03)
[2020-02-28 16:38] LABS: Glucose,Whole Blood 148 mg/dL (75-99)
--- NOTE | 2020-02-28 17:13 | HP ---
HISTORY AND PHYSICAL A 65-year-old white female admitted with persistent emesis and substernal chest pain, starting around 4 in the morning. Severe like into the sternum, epigastric area radiates to the back. Denies any numbness or paresthesias. Symptoms like this in the past. She says she had this 10 years ago. Patient has symptoms like this when later found she was having acute myocardial infarction. She denies any fever, chills, night sweats. She states she has been having some biliary emesis, multiple workups, try to diagnose her chronic symptoms. Used to be marijuana smoker for hyperemesis syndrome, but apparently she says she does not. A 14-point review of systems otherwise negative. HOME MEDICINES: See list. HEAD: Normocephalic, atraumatic. CARDIAC: S1, S2. LUNGS: Clear. GI: Soft, increased bowel sounds. MUSCULOSKELETAL: Range of motion x4. CRANIAL NERVES: Intact. SKIN No rash, excoriations or bruising. EKG was no ischemia. PAST MEDICAL HISTORY: Coronary artery disease, cancer, angina, CVA, diabetes mellitus, GERD, dyslipidemia, hypertension, depression. Temperature 98.1, pulse 70 to 72, respiratory 16 to 18, blood pressure is 120s to 140s/70s to 80s, O2 is 98% to 100% on room air. White count is 17.2, hemoglobin 14.6 sodium 140, potassium 4.1. ASSESSMENT: Cyclic vomiting, atypical chest pain. Get GI consult. Admit the patient. Negative troponin. Get Cardiology and GI to cutter plastics rolls her prior to being discharged. MMODL / IJN: [id number] /
[2020-02-28] MEDS ORDERED: TRIMETHOBENZAMIDE 100 MG/ML 2 ML VIAL IM PRN (17:28)
[2020-02-28] MEDS: carvediloL 12.5 MG TAB PO SCH (20:05)
[2020-02-28] MEDS: FAMOTIDINE 20 MG/2 ML VIAL IV SCH (20:06)
[2020-02-28] MEDS ORDERED: PANTOPRAZOLE 40 MG/10 ML VIAL IVP SCH (21:00)
[2020-02-28] MEDS ORDERED: ATORVASTATIN 80 MG TAB PO SCH (21:00)
[2020-02-28] MEDS ORDERED: AMITRIPTYLINE HCL 10 MG TAB PO SCH (21:00)
--- NOTE | 2020-02-28 21:26 | P.CONS ---
History of Present Illness - Reason for Consult Consult date: 02/28/20 Nausea and vomiting Requesting physician: Liborio Colon - Chief Complaint Nausea and vomiting - History of Present Illness 65-year-old female with multiple medical comorbidities including pancreatitis, marijuana abuse, diverticular disease, coronary artery disease, chronic kidney and prior hospitalization for nausea and vomiting and cyclical vomiting who presented to the hospital with complaints of chest pain, nausea and vomiting. The patient had been experiencing chest pain with troponins negative on presentation. She was also having multiple episodes of nausea and vomiting and GI was consult is for further evaluation. Numerous admissions with complaints of nausea and vomiting and has had testing of gastric output which was positive for occult blood. She underwent EGD in 08/2018 with findings of duodenitis, gastritis and a hiatal hernia. She underwent colonoscopy in 09/2019 with findings of diverticulosis and a negative biopsies for microscopic colitis which were performed in the setting of diarrhea. She is on Protonix daily. She denies any signs or symptoms of GI bleeding at this time. Laboratory evaluation of pancreatitis negative with a lipase of 309. Other laboratory evaluation significant for WBC 17.2, hemoglobin 14.6, platelet count 302,000, total bilirubin 1.2, alkaline phosphatase 162, AST 31 and ALT 30. On previous admissions marijuana was identified as a possible cause of patient's cyclical vomiting, that time she was smoking marijuana daily. She again tested positive for marijuana but reports that she last used the drug 3 weeks ago. Review of Systems REVIEW OF SYSTEMS: CONSTITUTIONAL: Denies any fevers, chills, weight change or fatigue. CARDIOVASCULAR: Denies any palpitations high or low blood pressures, but did report she has been on presentation. RESPIRATORY: Denies any shortness of breath, hemoptysis or cough. GENITOURINARY: No dysuria or hematuria. MUSCULOSKELETAL: No weakness reported. SKIN: Denies any new rashes or lesions, jaundice or pallor. PSYCHIATRIC: Denies any depression or anxiety. NEUROLOGY: Denies headache, denies any new focal deficits. EARS/NOSE/THROAT: No recent hearing change, congestion, nasal discharge or sore throat. EYES: No pain in eyes, discharge or change in vision. GASTROINTESTINAL: As per HPI. Past Medical History Past Medical History: Coronary Artery Disease (CAD), Cancer, Chest Pain / Angina, COPD, CVA/TIA, Diabetes Mellitus, Eye Disorder, GERD/Reflux, Hyperlipidemia, Hypertension, Memory Impairment, Myocardial Infarction ([place]), Renal Disease, Thyroid Disorder Additional Past Medical History / Comment(s): Thyroid cancer with thyroidectomy /radiation, TIA years ago, possible upper FI bleed with + emesis hemoccult, cyclic vomiting, acute pancreatitis, hiatal hernia, PUD, diverticular disease, CKD stage III, bronchitis, bilateral cataracts. Last Myocardial Infarction Date:: 05/2010 History of Any Multi-Drug Resistant Organisms: None Reported Past Surgical History: Cholecystectomy, Heart Catheterization, Hysterectomy, Orthopedic Surgery, Tonsillectomy Additional Past Surgical History / Comment(s): Cardiac cath [place], [place]-pt states she was told no blockages, thyroidectomy, R thumb fracture with surgery, colonoscopy. Past Anesthesia/Blood Transfusion Reactions: Previous Problems w/ Anesthesia Additional Past Anesthesia/Blood Transfusion Reaction / Comm: trouble urinating after general anesthesia Smoking Status: Former smoker - Past Family History Mother Family Medical History: Vascular Disorder Additional Family Medical History / Comment(s): Mother is from esophageal varices d/t alcoholism at the age of 69yrs. Father Family Medical History: CVA/TIA, Hyperlipidemia, Hypertension, Musculoskeletal Disorder, Neurologic Disorder Additional Family Medical History / Comment(s): Father had a CVA in his 50s. Father is from parkinsons at age 69yrs. Medications and Allergies Home Medications Medication Instructions Recorded Confirmed Type Atorvastatin [Lipitor] 80 mg PO HS 07/24/18 02/28/20 History Carvedilol [Coreg] 25 mg PO BID 09/03/18 02/28/20 History Amitriptyline HCl [Elavil] 10 mg PO HS 02/28/20 02/28/20 History Levothyroxine Sodium [Synthroid] 125 mcg PO DAILY 02/28/20 02/28/20 History Pantoprazole Sodium [Protonix] 40 mg PO DAILY 02/28/20 02/28/20 History Spironolactone 50 mg PO DAILY 02/28/20 02/28/20 History amLODIPine [Norvasc] 10 mg PO DAILY 02/28/20 02/28/20 History metFORMIN HCL [Glucophage] 500 mg PO DAILY 02/28/20 02/28/20 History Allergies Allergy/AdvReac Type Severity Reaction Status Date / Time Penicillins Allergy Unknown Verified 02/28/20 08:26 Childhood adhesive AdvReac Itching Verified 02/28/20 08:26 codeine AdvReac Nausea & Verified 02/28/20 08:26 Vomiting Physical Exam Vitals: Vital Signs Temp Pulse Pulse Resp BP BP Pulse Ox 02/28/20 13:50 18 02/28/20 13:28 98.1 F 71 18 119/81 95 02/28/20 13:09 98.0 F 77 16 151/88 98 02/28/20 11:37 73 16 154/84 98 02/28/20 11:22 79 18 160/101 98 02/28/20 08:40 71 16 120/79 98 02/28/20 07:23 98.1 F 72 18 145/84 100 Intake and Output 02/27/20 02/28/20 02/28/20 22:59 06:59 14:59 Other: Weight 77.111 kg On physical examination, patient appears comfortable in no apparent distress. HEAD: Normocephalic, atraumatic. EYES: No scleral icterus. No conjunctival injection. MOUTH: No lesions, tongue midline. NECK: Trachea midline, no gross abnormalities. CHEST: Clear to auscultation with no wheezing or rhonchi appreciated. HEART: Regular rate and rhythm. ABDOMEN: Soft, nontender to palpation. Bowel sounds are positive. No orga nomegaly. No guarding or rigidity. EXTREMITIES: No pedal edema. SKIN: No rashes, no jaundice. NEUROLOGIC: Alert and oriented but quite somnolent after receiving Xanax. Results CBC & Chem 7: 02/28/20 08:10 02/28/20 08:10 Labs: Abnormal Lab Results - Last 24 Hours (Table) 02/28/20 02/28/20 02/28/20 Range/Units 08:10 08:10 09:36 WBC 17.2 H (3.8-10.6) k/uL Neutrophils # 12.4 H (1.3-7.7) k/uL Chloride 108 H (98-107) mmol/L Carbon Dioxide 21 L (22-30) mmol/L BUN 18 H (7-17) mg/dL Glucose 174 H (74-99) mg/dL Alkaline Phosphatase 162 H (38-126) U/L Lipase 309 H (23-300) U/L Urine Glucose (UA) Trace H (Negative) Urine Ketones Trace H (Negative) U Marijuana (THC) Screen (NotDetected) 02/28/20 Range/Units 09:37 WBC (3.8-10.6) k/uL Neutrophils # (1.3-7.7) k/uL Chloride (98-107) mmol/L Carbon Dioxide (22-30) mmol/L BUN (7-17) mg/dL Glucose (74-99) mg/dL Alkaline Phosphatase (38-126) U/L Lipase (23-300) U/L Urine Glucose (UA) (Negative) Urine Ketones (Negative) U Marijuana (THC) Screen Detected H (NotDetected) Chest x-ray: report reviewed (Underlying COPD on chest x-ray) Assessment and Plan (1) Nausea & vomiting Narrative/Plan: 65-year-old female with multiple medical comorbidities and multiple admissions with complaints of nausea and vomiting who presented to the hospital with chest pain, nausea and vomiting. Patient denies any signs or symptoms of GI bleeding with hemoglobin 14.6 on presentation, liver enzymes normal with total bilirubin 1.2, alkaline phosphatase 162, AST is 31 and ALT 30 and lipase of 309. Last EGD in 08/2018 with findings of a Schatzki ring which was widely patent, duodenitis, gastritis and a small hiatal hernia and recently had colonoscopy in September with findings of diverticulosis. She is on Protonix daily. She does continue to use marijuana. She also has a known history of diabetes mellitus. Unknown etiology, previously patient told about the possibility of cannabinoid hyperemesis syndrome and told to stop using marijuana products, however she continues to use marijuana with positive drug screen on presentation. Differential also includes gastroparesis with plan for a gastric emptying study, uncontrolled GERD, or other etiology. Current Visit: No Status: Acute Code(s): R11.2 - NAUSEA WITH VOMITING, UNSPECIFIED SNOMED Code(s): 65462241 (2) GERD (gastroesophageal reflux disease) Current Visit: Yes Status: Acute Code(s): K21.9 - GASTRO-ESOPHAGEAL REFLUX DISEASE WITHOUT ESOPHAGITIS SNOMED Code(s): 058855540 (3) Cyclic vomiting syndrome Current Visit: Yes Status: Acute Code(s): R11.15 - CYCLICAL VOMITING SYNDROME UNRELATED TO MIGRAINE SNOMED Code(s): 04623411 Plan: Supportive care Clear liquid diet as tolerated Gastric emptying study ordered Tigan as needed for breakthrough nausea and vomiting Pepcid ordered continue to treat symptomatically Marijuana abstinence advised No plans for endoscopic evaluation at this time Continue IV fluid hydration Thank you for allowing us to participate in the care of the patient
[2020-02-28 21:44] LABS: Glucose,Whole Blood 131 mg/dL (75-99)
[2020-02-29] MEDS ORDERED: ONDANSETRON 4 MG/2 ML VIAL IVP SCH
[2020-02-29 03:09] VITALS: RESP 16
[2020-02-29] MEDS: SODIUM CHLORIDE 0.9% 1,000 ML IV SCH ×2 (06:18→12:13)
[2020-02-29 06:24] LABS: Glucose,Whole Blood 124 mg/dL (75-99)
[2020-02-29] MEDS ORDERED: LEVOTHYROXINE 125 MCG TAB PO SCH (06:30)
[2020-02-29] MEDS ORDERED: PANTOPRAZOLE 40 MG TABLET PO SCH (07:30)
[2020-02-29] MEDS ORDERED: amLODIPine 10 MG TAB PO SCH (09:00)
[2020-02-29] MEDS ORDERED: SPIRONOLACTONE 25 MG TAB PO SCH (09:00)
[2020-02-29] MEDS: carvediloL 12.5 MG TAB PO SCH (12:15)
[2020-02-29] MEDS: FAMOTIDINE 20 MG/2 ML VIAL IV SCH (12:16)
[2020-02-29 12:18] LABS: Glucose,Whole Blood 116 mg/dL (75-99)
[2020-02-29] MEDS: LORazepam 2 MG/ML INJ IV PRN (12:22)
--- NOTE | 2020-02-29 12:50 | CONS ---
CONSULTATION CHIEF COMPLAINT: Chest pain Milka is a 65-year-old lady with history of hypertension and hypothyroidism and non- insulin-dependent diabetes and dyslipidemia who presents to hospital complaining of nausea, vomiting. Patient has had recurrent episodes of this and along the way complained of chest pain. Her chest discomfort is epigastric, sharp, mild intensity and seems to be related to the nausea and episodes of vomiting. She has had a troponin that was negative. Her urine drug screen was negative other than the marijuana and she had an EKG that revealed sinus rhythm with nonspecific ST-T wave changes. Her chest discomfort seems atypical and noncardiac. Once her nausea, vomiting settles down, we will consider an outpatient stress test on her. PAST MEDICAL HISTORY: Significant for hypertension, diabetes, dyslipidemia, and hypothyroidism. CURRENT MEDICATIONS: Include Synthroid, Norvasc, Elavil, Glucophage, Aldactone, Protonix, Coreg and Lipitor. ALLERGIES: To PENICILLIN, CODEINE, and ADHESIVE TAPE. FAMILY HISTORY: Negative for premature coronary artery disease. SOCIAL HISTORY: Negative for smoking, EtOH abuse, or drug abuse. REVIEW OF SYSTEMS: HEENT: Unremarkable. CARDIAC: As described above. RESPIRATORY: Negative. GI: As described above. GENITOURINARY: Negative. ALLERGY/IMMUNOLOGY: Negative. SKIN: Negative. MUSCULOSKELETAL: Significant for arthritis. PSYCHOSOCIAL: Negative. DERM: Negative. CONSTITUTIONAL: Negative. ONCOLOGICAL: Negative. INSURANCE OFFICE SUPERVISOR: Negative. The rest of the system review is not relevant. PHYSICAL EXAM: Patient is comfortable at rest. Vital signs are stable. There is no jugular venous distention. Carotid upstroke is normal. There is no bruit. Chest exam reveals good air entry bilaterally. Heart exam reveals first and second heart sounds. No gallop. No murmur. No rub. Abdomen is soft, nontender. Exam of extremities did not reveal any edema. Peripheral pulses are felt. ASSESSMENT: 1. Atypical chest pain. 2. Nausea, vomiting. PLAN: I will obtain a 2D echo. Consider an outpatient stress test. MMODL / IJN: [id number] /
--- NOTE | 2020-02-29 15:03 | NM ---
EXAMINATION TYPE: NM gastric emptying static DATE OF EXAM: 02/29/2020 COMPARISON: NONE HISTORY: Gastroparesis. Following administration of 1.9 mCi Tc 99m Sulfur Colloid with 4 oz liquid eggs and ice water, projec tion images of the abdomen were obtained 5 minutes post ingestion. Patient Emptying Values 1 Hour 18% % 2 Hours 58% % 3 Hours 96% % 4 Hours 100% % Gastroesophageal reflux: None IMPRESSION: Gastric emptying: Normal Gastroesophageal reflux: None Gastric emptying normal percentage values: 30 minutes: <70% of retention (> 30% emptying) suggests abnormally fast emptying. 60 minutes: <90% retention (>10% emptying) is normal; less than 30% retention (>70% emptying) suggest s abnormally rapid emptying. 90 minutes: <65% retention (> 35% emptying) is normal. 120 minutes: <60% retention (> 40% emptying) is normal. 180 minutes: <30% retention (> 70% emptying) is normal. Gastric emptying T-1/2: Solid: The normal range is 60-105 minutes Liquid only: Normal range is 10-45 minutes. Liquid only-children: At 60 minutes, normal range is 44-58 % . Liquid only-infants: At 60 minutes, normal range is 32-64 %. Additional references: Gastric Emptying Scintigraphy [email or web address]://[email or web address]
[2020-02-29 15:26] VITALS: BP 133/81; PULSE 69; TEMP 98.1
--- NOTE | 2020-02-29 18:00 | ECHOF ---
Referral Reason:cp MEASUREMENTS -------- HEIGHT: 165.1 cm WEIGHT: 72.6 kg BP: RVIDd: 3.0 cm (< 3.3) IVSd: 1.3 cm (0.6 - 1.1) LVIDd: 4.1 cm (3.9 - 5.3) LVPWd: 1.3 cm (0.6 - 1.1) EDV(Teich): 73 ml IVSs: 1.5 cm LVIDs: 2.5 cm LVPWs: 1.6 cm %IVS Thck: 10 % ESV(Teich): 23 ml EF(Teich): 68 % %FS: 38 % SV(Teich): 49 ml LA Diam: 3.3 cm (2.7 - 3.8) LALs A4C: 4.5 cm LAAs A4C: 13.8 cm LAESV A-L A4C: 36 ml LAESV MOD A4C: 34 ml Ao Diam: 2.4 cm (2.0 - 3.7) AV Cusp: 1.6 cm (1.5 - 2.6) LA Diam: 3.4 cm (2.7 - 3.8) MV EXCURSION: 11.800 mm (> 18.000) MV EF SLOPE: 52 mm/s (70 - 150) EPSS: 0.4 cm MV E Sen: 0.56 m/s MV DecT: 267 ms MV Dec Vermilion: 2.1 m/s MV A Sen: 0.60 m/s MV E/A Ratio: 0.92 MV PHT: 77 ms TR Vmax: 2.21 m/s TR maxP.48 mmHg RAP: 5.00 mmHg RVSP: 24.48 mmHg FINDINGS -------- Sinus rhythm. This was a technically adequate study. The left ventricular size is normal. There is mild concentric left ventricular hypertrophy. Overa ll left ventricular systolic function is normal with, an EF between 55 - 60 %. The right ventricle is normal in size. LA is moderately dilated 34-39 ml/m2 The right atrial size is normal. The aortic valve is trileaflet and appears structurally normal. There is mild aortic regurgitation. Mild mitral annular calcification present. Mild mitral regurgitation is present. Mild tricuspid regurgitation present. Right ventricular systolic pressure is normal at < 35 mmHg. There is no pulmonic regurgitation present. The aortic root size is normal. There is no pericardial effusion. CONCLUSIONS -------- 1. There is mild concentric left ventricular hypertrophy. 2. Overall left ventricular systolic function is normal with, an EF between 55 - 60 %. 3. LA is moderately dilated 34-39 ml/m2 4. There is mild aortic regurgitation. 5. Mild mitral annular calcification present. 6. Mild mitral regurgitation is present. 7. Mild tricuspid regurgitation present. 8. There is no pulmonic regurgitation present. 9. There is no pericardial effusion. ALARM SIGNALER: Kiersten Fortune RDCS
--- NOTE | 2020-02-29 19:54 | PN ---
PROGRESS NOTE DATE OF SERVICE: 02/29/2020 The patient is a 65-year-old pleasant white female admitted to the hospital with persistent nausea and vomiting for the last few days duration. She was started on Protonix and Zofran and she is feeling much better this morning. She did have a gastric emptying scan this morning that was completely normal. Presently tolerating a full liquid diet well. She has some nausea but no emesis. PHYSICAL EXAMINATION: Appears comfortable, no apparent distress. Vital signs are stable. Blood pressure 133/81, pulse rate 69, temperature 98.1. HEENT examination unremarkable. Conjunctivae pink. Sclerae anicteric. Oral cavity no lesions. NECK: No JVD or lymph node enlargement. CHEST: Clear to auscultation. HEART: Regular rate and rhythm. ABDOMEN: Soft. There was no tenderness. EXTREMITIES: No pedal edema. SKIN: No rashes. NEUROLOGIC: Alert and oriented x3. No focal deficits. LABS: From yesterday WBC 17.2, hemoglobin normal. Basic metabolic panel is within normal limits. ALT, AST, T-bilirubin and alkaline phosphatase are within normal limits. Alkaline phosphatase is 162. IMPRESSION: 1. Persistent nausea and vomiting for the last days duration status post EGD by Dr. Merritt a year ago that showed mild gastritis, duodenitis and small hiatal hernia. Currently on Protonix 40 mg daily, doing much better, symptoms have resolved. 2. Normal gastric emptying scan. RECOMMENDATION: 1. Continue with Protonix daily. 2. We will advance diet as tolerated. 3. If she is doing well she can be discharged home today with outpatient followup with Dr. Merritt in 2-3 weeks. Thank you for this consultation. MMODL / IJN: [id number] /
[2020-03-01 04:57] LABS: Hemoglobin A1C 6.3 % (4.0-6.0)
== END 2020-02-29 16:45 | disposition home or self-care (01) ==
LOC: EC 07:21 → 1SOBS 10:12
PROVIDERS: ADMIT Family Medicine; ATTEND Family Medicine
DX: R11.15 Cyclical vomiting syndrome unrelated to migraine (principal); K21.9 Gastro-esophageal reflux disease without esophagitis; R11.14 Bilious vomiting; R07.89 Other chest pain; I12.9 Hypertensive chronic kidney disease with stage 1 through stage 4 chronic kidney disease, or unspecified chronic kidney disease; E11.22 Type 2 diabetes mellitus with diabetic chronic kidney disease; N18.3 Chronic kidney disease, stage 3 (moderate); I25.10 Atherosclerotic heart disease of native coronary artery without angina pectoris; Z86.73 Personal history of transient ischemic attack (TIA), and cerebral infarction without residual deficits; J44.9 Chronic obstructive pulmonary disease, unspecified; E78.5 Hyperlipidemia, unspecified; R41.3 Other amnesia; I25.2 Old myocardial infarction; E89.0 Postprocedural hypothyroidism; Z85.850 Personal history of malignant neoplasm of thyroid; Z87.19 Personal history of other diseases of the digestive system; K44.9 Diaphragmatic hernia without obstruction or gangrene; Z87.11 Personal history of peptic ulcer disease; Z90.49 Acquired absence of other specified parts of digestive tract; Z90.710 Acquired absence of both cervix and uterus; Z98.890 Other specified postprocedural states; F32.9 Major depressive disorder, single episode, unspecified; Z87.891 Personal history of nicotine dependence; Z87.81 Personal history of (healed) traumatic fracture; Z82.49 Family history of ischemic heart disease and other diseases of the circulatory system; Z81.1 Family history of alcohol abuse and dependence; Z82.3 Family history of stroke; Z82.0 Family history of epilepsy and other diseases of the nervous system; Z79.84 Long term (current) use of oral hypoglycemic drugs; Z79.890 Hormone replacement therapy; Z79.899 Other long term (current) drug therapy; Z88.5 Allergy status to narcotic agent; Z88.0 Allergy status to penicillin; Z91.09 Other allergy status, other than to drugs and biological substances
CPT/HCPCS: 96361 ×3; 96375 ×2; 96376 ×3; 96372; 96374; 99285; 36415; 93005; 93306; 80053; 83690; 83735; 84484; 85025; 85610; 85730; 81003; 80306; 83036; 71045; 78264; G0378 ×2; A9541; J2060 ×2; J2405

== ENCOUNTER → 2020-04-08 | Outpatient (CLI) | payer MEDICARE ==
[~2020-04-08] MED LIST changes: +AMINOPHYLLINE 500 MG/20 ML VIAL IV ONE; -LACTATED RINGERS 1,000 ML IV SCH; -LIDOCAINE 1% (10MG/ML) FOR IV START INTRADERMA PRN; +REGADENOSON 0.4 MG/5 ML SYRINGE IV ONE
--- NOTE | 2020-04-08 11:51 | NM ---
EXAMINATION TYPE: NM stress lexiscan cardiolite DATE OF EXAM: 04/08/2020 COMPARISON: NONE HISTORY: Chest pain TECHNIQUE: After the intravenous administration of 10.4 mCi Tc 99m Sestamibi - Cardiolite resting SP ECT images acquired 45 minutes post injection. The patient received 0.4mg Lexiscan, 23.7 mCi Tc 99m Sestamibi - Stress images obtained [address] injection FINDINGS: Review of stress and rest SPECT images demonstrates no distinct perfusion abnormality. Gated analysi s shows normal wall motion with an estimated left ventricular ejection fraction of 63 %. IMPRESSION: No scintigraphic evidence for reversible ischemia.
--- NOTE | 2020-04-09 10:22 | EST ---
Stress Test Results/Findings: Exam Performed: NM stress lexiscan cardiolite Exam Date: 04/08/20 Reason for Exam: CHEST PAIN Height: 5 ft 7 in Weight: 75 kg Protocol: LEXISCAN Stage: N/A Duration of Exercise: 15 MINUTES Resting Heart Rate: 56 Resting Blood Pressure: 126/70 Maximum Achieved Heart Rate: 95 Maximum Achieved Blood Pressure: 161/100 85% PMHR: 132 100% PMHR: 155 METS: N/A Technologist Comment: Stress Test Results/Findings: Baseline heart rate 56 beats a minute, Baseline blood pressure 126/70 mmHg Baseline twelve-lead ECG shows minimal nonspecific ST-T abnormalities with a 0.[address] depression inferolaterally Patient received Lexiscan infusion per protocol. Heart rate blood pressure remained stable until she started experiencing nausea vomiting and sweating. At that time heart rate increased to maximum of 95 beats a minute. Peak blood pressure 161/100 mmHg occasional premature beats are noted There was no ECG evidence for ischemia Please note the patient has been admitted for cyclical vomiting in the past Impression No ECG evidence for ischemia during Lexiscan infusion Nuclear portion will be reported separately Additional CC's: Liborio MANE
== END | disposition home or self-care (01) ==
LOC: RADNMMAIN 07:28
PROVIDERS: ATTEND Family Medicine
DX: R07.9 Chest pain, unspecified (principal)
CPT/HCPCS: 93017; 78452; A9500; J2785

== ENCOUNTER 2020-08-05 01:00 | Emergency (ER) | payer MEDICARE ==
[2020-08-05] MEDS ORDERED: SODIUM CHLORIDE 0.9% 1,000 ML IV STA (01:03)
[2020-08-05] MEDS ORDERED: IPRATROPIUM-ALBUTEROL 3 ML NEB INHALATION STA (01:03)
--- NOTE | 2020-08-05 01:06 | ED ---
Chest Pain HPI - General Stated Complaint: Chest Pain Time Seen by Provider: 08/05/20 01:03 Source: RN notes reviewed, old records reviewed - History of Present Illness Initial Comments: This is a 65-year-old female DF for evaluation. Patient's computed and long medical history, patient comes in for chest pain that woke her from sleep. She does admit to some anxiety, admits to smoking Tylenol last night which is normal before she was to bed. No diaphoresis no shortness of breath. Patient did call EMS if she started to get panic about chest pain. On arrival to ER she states she does feel better MD Complaint: chest pain -: hour(s) Onset: awoke with symptoms Pain Location: substernal Pain Radiation: none Severity: mild Severity scale (1-10): 3 Quality: tightness Consistency: constant Improves With: nothing Worsens With: nothing Context: other (none) Anginal Symptoms: dyspnea Other Symptoms: palpitations Treatments Prior to Arrival: none - Related Data Home Medications Medication Instructions Recorded Confirmed Atorvastatin [Lipitor] 80 mg PO HS 07/24/18 02/28/20 Carvedilol [Coreg] 25 mg PO BID 09/03/18 02/28/20 Amitriptyline HCl [Elavil] 10 mg PO HS 02/28/20 02/28/20 Levothyroxine Sodium [Synthroid] 125 mcg PO DAILY 02/28/20 02/28/20 Pantoprazole Sodium [Protonix] 40 mg PO DAILY 02/28/20 02/28/20 Spironolactone 50 mg PO DAILY 02/28/20 02/28/20 amLODIPine [Norvasc] 10 mg PO DAILY 02/28/20 02/28/20 Allergies Allergy/AdvReac Type Severity Reaction Status Date / Time Penicillins Allergy Unknown Verified 02/28/20 08:26 Childhood adhesive AdvReac Itching Verified 02/28/20 08:26 codeine AdvReac Nausea & Verified 02/28/20 08:26 Vomiting Review of Systems ROS Statement: Those systems with pertinent positive or pertinent negative responses have been documented in the HPI. ROS Other: All systems not noted in ROS Statement are negative. EKG Findings - EKG Comments: EKG Findings:: EKG shows nsr 67 NV 172 QRS 94 QTc 445 Past Medical History Past Medical History: Coronary Artery Disease (CAD), Cancer, Chest Pain / Angina, COPD, CVA/TIA, Diabetes Mellitus, Eye Disorder, GERD/Reflux, Hyperlipidemia, Hypertension, Memory Impairment, Myocardial Infarction ([place]), Renal Disease, Thyroid Disorder Additional Past Medical History / Comment(s): Thyroid cancer with thyroidectomy/radiation, TIA years ago, possible upper FI bleed with + emesis hemoccult, cyclic vomiting, acute pancreatitis, hiatal hernia, PUD, diverticular disease, CKD stage III, bronchitis, bilateral cataracts. Last Myocardial Infarction Date:: 05/2010 History of Any Multi-Drug Resistant Organisms: None Reported Past Surgical History: Cholecystectomy, Heart Catheterization, Hysterectomy, O rthopedic Surgery, Tonsillectomy Additional Past Surgical History / Comment(s): Cardiac cath [place], [place]- states she was told no blockages, thyroidectomy, R thumb fracture with surgery, colonoscopy. Past Anesthesia/Blood Transfusion Reactions: Previous Problems w/ Anesthesia Additional Past Anesthesia/Blood Transfusion Reaction / Comment(s): trouble urinating after general anesthesia Smoking Status: Former smoker - Past Family History Mother Family Medical History: Vascular Disorder Additional Family Medical History / Comment(s): Mother is from esophageal varices d/t alcoholism at the age of 69yrs. Father Family Medical History: CVA/TIA, Hyperlipidemia, Hypertension, Musculoskeletal Disorder, Neurologic Disorder Additional Family Medical History / Comment(s): Father had a CVA in his 50s. Father is from parkinsons at age 69yrs. General Exam General appearance: alert, in no apparent distress Head exam: Present: atraumatic, normocephalic, normal inspection Eye exam: Present: normal appearance, PERRL, EOMI. Absent: scleral icterus, con junctival injection, periorbital swelling ENT exam: Present: normal exam, mucous membranes moist Neck exam: Present: normal inspection. Absent: tenderness, meningismus, lymphadenopathy Respiratory exam: Present: normal lung sounds bilaterally. Absent: respiratory distress, wheezes, rales, rhonchi, stridor Cardiovascular Exam: Present: regular rate, normal rhythm, normal heart sounds. Absent: systolic murmur, diastolic murmur, rubs, gallop, clicks GI/Abdominal exam: Present: soft, normal bowel sounds. Absent: distended, tenderness, guarding, rebound, rigid Extremities exam: Present: normal inspection, full ROM, normal capillary refill. Absent: tenderness, pedal edema, joint swelling, calf tenderness Back exam: Present: normal inspection Neurological exam: Present: alert, oriented X3, CN II-XII intact Psychiatric exam: Present: normal affect, normal mood Skin exam: Present: warm, dry, intact, normal color. Absent: rash Course Vital Signs 08/05/20 08/05/20 08/05/20 01:01 02:14 02:37 Temperature 98 F Pulse Rate 71 80 80 Respiratory 18 Rate Blood Pressure 142/95 O2 Sat by Pulse 100 Oximetry 08/05/20 08/05/20 02:38 03:10 Temperature Pulse Rate 69 75 Respiratory 18 18 Rate Blood Pressure 142/85 O2 Sat by Pulse 99 98 Oximetry - Reevaluation(s) Reevaluation #1: Medical record is reviewed Patient has no recent new complaints. Chest pain is resolved upon arrival to ER, anxiety improved Patient informed results here in the ER, questions are answered Chest Pain MDM - MDM 65 female DF for evaluation of chest pain over from sleep patient comes in with significant anxiety, became medical history about testing is normal here in the ER patient can be discharged home she feels well Disposition Clinical Impression: Chest pain, Marijuana use Disposition: HOME SELF-CARE Condition: Good Instructions (If sedation given, give patient instructions): Chest Pain (ED) Is patient prescribed a controlled substance at d/c from ED?: No Referrals: Liborio Colon MD [Primary Care Provider] - 1-2 days
[2020-08-05 01:10] VITALS: RESP 18; TEMP 98
[2020-08-05 01:19] LABS: Basophils # (A) 0.1 k/uL (0-0.2); Basophils % (A) 1 %; Eosinophils # (A) 0.2 k/uL (0-0.7); Eosinophils % (A) 2 %; HCT 45.7 % (34.0-46.0); Lymphocytes # (A) 4.7 k/uL (1.0-4.8); Lymphocytes % (A) 56 %; MCH 30.7 pg (25.0-35.0); MCV 87.8 fL (80.0-100.0); Mean Platelet Volume 7.1; Monocytes # (A) 0.4 k/uL (0-1.0); Monocytes % (A) 4 %; Neutrophils % (A) 36 %; Platelet Count 278 k/uL (150-450); RDW 12.4 % (11.5-15.5); WBC 8.4 k/uL (3.8-10.6)
[2020-08-05 01:40] LABS: African American GFR (CKD) >90 (>60 ml/min/1.73 sqM); Albumin 4.9 g/dL (3.5-5.0); Anion Gap 7 mmol/L; Calcium 10.2 mg/dL (8.4-10.2); Carbon Dioxide 23 mmol/L (22-30); Chloride 110 mmol/L (98-107); Creatine Kinase 65 U/L (30-135); Glucose 107 mg/dL (74-99); Magnesium 1.9 mg/dL (1.6-2.3); Non-African American GFR(CKD) >90 (>60 ml/min/1.73 sqM); Sodium 140 mmol/L (137-145); Total Protein 8.5 g/dL (6.3-8.2)
[2020-08-05 01:41] LABS: Blood Urea Nitrogen 13 mg/dL (7-17)
[2020-08-05 01:42] LABS: ALT 33 U/L (4-34); AST 41 U/L (14-36); Alkaline Phosphatase 147 U/L (38-126); Potassium 5.2 mmol/L (3.5-5.1)
--- NOTE | 2020-08-05 01:47 | XR ---
EXAM: XR Chest, 2 Views CLINICAL HISTORY: ITS.REASON XR Reason: difficulty breathing TECHNIQUE: Frontal and lateral views of the chest. COMPARISON: Chest radiograph on 07/31/2019 FINDINGS: Hardware: None. Lungs/pleura: Hyperinflation of the lungs is suggestive of COPD. No focal consolidation. No pleural effusion or pneumothorax. Heart/mediastinum: Normal. No cardiomegaly. Soft tissues: Unremarkable. Bones: No acute fracture. Upper abdomen: Normal. IMPRESSION: Hyperinflation of the lungs is suggestive of COPD. No acute disease identified.
[2020-08-05] MEDS ORDERED: DEXTROSE 50% SYRINGE 50 ML IVP STA (02:12)
[2020-08-05] MEDS ORDERED: INSULIN REGULAR 100 UNIT/ML VIAL IV ONE (02:12)
[2020-08-05] MEDS ORDERED: SODIUM BICARB 8.4% 50 ML SYR (1 MEQ/ML) IV STA (02:12)
[2020-08-05] MEDS ORDERED: SODIUM POLYSTYRENE SULFONATE 15 GM/60 ML BOTTLE PO STA (02:12)
[2020-08-05 03:12] VITALS: BP 142/85; PULSE 75
== END 2020-08-05 03:06 | disposition home or self-care (01) ==
LOC: EC 01:00
DX: R07.2 Precordial pain (principal); F12.90 Cannabis use, unspecified, uncomplicated; F32.9 Major depressive disorder, single episode, unspecified; E78.5 Hyperlipidemia, unspecified; I25.2 Old myocardial infarction; E07.9 Disorder of thyroid, unspecified; N18.30 Chronic kidney disease, stage 3 unspecified; I12.9 Hypertensive chronic kidney disease with stage 1 through stage 4 chronic kidney disease, or unspecified chronic kidney disease; Z79.890 Hormone replacement therapy; Z79.899 Other long term (current) drug therapy; Z88.0 Allergy status to penicillin; Z88.5 Allergy status to narcotic agent; Z91.048 Other nonmedicinal substance allergy status; Z98.42 Cataract extraction status, left eye; Z92.3 Personal history of irradiation; Z98.41 Cataract extraction status, right eye; Z86.73 Personal history of transient ischemic attack (TIA), and cerebral infarction without residual deficits; Z85.850 Personal history of malignant neoplasm of thyroid; Z87.891 Personal history of nicotine dependence; Z95.5 Presence of coronary angioplasty implant and graft; Z90.710 Acquired absence of both cervix and uterus; Z90.89 Acquired absence of other organs
CPT/HCPCS: 36415; 71046; 80053; 82550; 83605; 83735; 83880; 84484; 85025; 93005; 94640; 96361; 96374; 96375; 99285

== ENCOUNTER 2020-09-17 07:41 | Inpatient (IN) | payer MEDICARE ==
[2020-09-17] MEDS ORDERED: SODIUM CHLORIDE 0.9% 1,000 ML IV STA ×3 (07:59→10:30)
[2020-09-17] MEDS ORDERED: PROCHLORPERAZINE INJ 10 MG/2 ML VIAL IVP STA (08:03)
--- NOTE | 2020-09-17 08:08 | ED ---
Nausea/Vomiting/Diarrhea HPI - General Chief complaint: Nausea/Vomiting/Diarrhea Stated complaint: diarrhea/vomiting Time Seen by Provider: 09/17/20 07:48 Source: patient, RN notes reviewed Mode of arrival: ambulatory Limitations: no limitations - History of Present Illness Initial comments: This is a 65-year-old female with a prior history of nausea vomiting diarrhea who states she had he has swelling around 3 AM of nausea vomiting with diarrhea she states is been persistent she is not sure what the cause is she has had this in the past she had crampy abdominal pain along with it. She states that the emesis is brown color is the diarrhea. She is states that she isn't [place] food yesterday that may have been the cause she also does smoke marijuana. No fevers chills no other modifying factors MD complaint: nausea, vomiting, diarrhea, abdominal pain - Related Data Home Medications Medication Instructions Recorded Confirmed Atorvastatin [Lipitor] 80 mg PO HS 07/24/18 09/17/20 Carvedilol [Coreg] 25 mg PO BID 09/03/18 09/17/20 Amitriptyline HCl [Elavil] 10 mg PO HS 02/28/20 09/17/20 Levothyroxine Sodium [Synthroid] 125 mcg PO DAILY 02/28/20 09/17/20 Spironolactone 50 mg PO DAILY 02/28/20 09/17/20 amLODIPine [Norvasc] 10 mg PO DAILY 02/28/20 09/17/20 Allergies Allergy/AdvReac Type Severity Reaction Status Date / Time Penicillins Allergy Unknown Verified 09/17/20 09:50 Childhood adhesive AdvReac Itching Verified 09/17/20 09:50 codeine AdvReac Nausea & Verified 09/17/20 09:50 Vomiting Review of Systems ROS Statement: Those systems with pertinent positive or pertinent negative responses have been documented in the HPI. ROS Other: All systems not noted in ROS Statement are negative. Past Medical History Past Medical History: Coronary Artery Disease (CAD), Cancer, Chest Pain / Angina, COPD, CVA/TIA, Diabetes Mellitus, Eye Disorder, GERD/Reflux, Hyperlipidemia, Hypertension, Memory Impairment, Myocardial Infarction ([place]), Renal Disease, Thyroid Disorder Additional Past Medical History / Comment(s): Thyroid cancer with thyroidectomy/radiation, TIA years ago, possible upper FI bleed with + emesis hemoccult, cyclic vomiting, acute pancreatitis, hiatal hernia, PUD, diverticular disease, CKD stage III, bronchitis, bilateral cataracts. Last Myocardial Infarction Date:: 05/2010 History of Any Multi-Drug Resistant Organisms: None Reported Past Surgical History: Cholecystectomy, Heart Catheterization, Hysterectomy, Orthopedic Surgery, Tonsillectomy Additional Past Surgical History / Comment(s): Cardiac cath [place]-pt states she was told no blockages, thyroidectomy, R thumb fracture with surgery, colonoscopy. Past Anesthesia/Blood Transfusion Reactions: Previous Problems w/ Anesthesia Additional Past Anesthesia/Blood Transfusion Reaction / Comment(s): trouble urinating after general anesthesia Past Psychological History: Depression Smoking Status: Former smoker Past Alcohol Use History: None Reported Past Drug Use History: Marijuana - Past Family History Mother Family Medical History: Vascular Disorder Additional Family Medical History / Comment(s): Mother is from esophageal varices d/t alcoholism at the age of 69yrs. Father Family Medical History: CVA/TIA, Hyperlipidemia, Hypertension, Musculoskeletal Disorder, Neurologic Disorder Additional Family Medical History / Comment(s): Father had a CVA in his 50s. Father is from parkinsons at age 69yrs. General Exam - General Exam Comments Initial Comments: This is a well-developed well-nourished awake alert oriented history female she is actively vomiting during the exam Limitations: no limitations General appearance: alert, anxious, in distress Head exam: Present: atraumatic, normocephalic, normal inspection Eye exam: Present: normal appearance, PERRL, EOMI. Absent: scleral icterus, conjunctival injection, periorbital swelling ENT exam: Present: mucous membranes dry Neck exam: Present: normal inspection. Absent: tenderness, meningismus, lymphadenopathy Respiratory exam: Present: normal lung sounds bilaterally. Absent: respiratory distress, wheezes, rales, rhonchi, stridor Cardiovascular Exam: Present: regular rate, normal rhythm, normal heart sounds. Absent: systolic murmur, diastolic murmur, rubs, gallop, clicks GI/Abdominal exam: Present: soft, normal bowel sounds. Absent: distended, tenderness, guarding, rebound, rigid Rectal exam: Present: deferred Extremities exam: Present: normal inspection, full ROM, normal capillary refill. Absent: tenderness, pedal edema, joint swelling, calf tenderness Back exam: Present: normal inspection Neurological exam: Present: alert, oriented X3, CN II-XII intact Psychiatric exam: Present: normal affect, normal mood Skin exam: Present: warm, dry, intact, normal color. Absent: rash Course Vital Signs 09/17/20 09/17/20 07:44 09:00 Temperature 97.8 F Pulse Rate 77 77 Respiratory 18 18 Rate Blood Pressure 128/74 139/85 O2 Sat by Pulse 96 100 Oximetry Medical Decision Making - Medical Decision Making Patient did require different medications for nausea control she still somewhat nauseated evidence of dehydration she was heme positive on her gastric cold thou gh hemoglobin level within normal limits I did discuss findings with the patient is well with Dr. Colon the patient will be admitted with GI consultation. - Lab Data Result diagrams: 09/17/20 08:35 09/17/20 08:35 Lab Results 09/17/20 09/17/20 09/17/20 Range/Units 08:35 08:35 08:35 WBC 12.8 H (3.8-10.6) k/uL RBC 4.97 (3.80-5.40) m/uL Hgb 15.1 (11.4-16.0) gm/dL Hct 44.1 (34.0-46.0) % MCV 88.7 (80.0-100.0) fL MCH 30.3 (25.0-35.0) pg MCHC 34.2 (31.0-37.0) g/dL RDW 12.6 (11.5-15.5) % Plt Count 321 (150-450) k/uL MPV 8.5 Neutrophils % 64 % Lymphocytes % 29 % Monocytes % 4 % Eosinophils % 1 % Basophils % 0 % Neutrophils # 8.2 H (1.3-7.7) k/uL Lymphocytes # 3.7 (1.0-4.8) k/uL Monocytes # 0.5 (0-1.0) k/uL Eosinophils # 0.2 (0-0.7) k/uL Basophils # 0.0 (0-0.2) k/uL Sodium 142 (137-145) mmol/L Potassium 4.3 (3.5-5.1) mmol/L Chloride 108 H (98-107) mmol/L Carbon Dioxide 17 L (22-30) mmol/L Anion Gap 17 mmol/L BUN 14 (7-17) mg/dL Creatinine 0.64 (0.52-1.04) mg/dL Est GFR (CKD-EPI)AfAm >90 (>60 ml/min/1.73 sqM) Est GFR (CKD-EPI)NonAf >90 (>60 ml/min/1.73 sqM) Glucose 235 H (74-99) mg/dL Plasma Lactic Acid Enoch 2.8 H* (0.7-2.0) mmol/L Calcium 10.2 (8.4-10.2) mg/dL Magnesium 1.7 (1.6-2.3) mg/dL Total Bilirubin 1.5 H (0.2-1.3) mg/dL AST 36 (14-36) U/L ALT 34 (4-34) U/L Alkaline Phosphatase 165 H (38-126) U/L Total Protein 8.4 H (6.3-8.2) g/dL Albumin 5.3 H (3.5-5.0) g/dL Amylase 92 (30-110) U/L Lipase 263 (23-300) U/L Gastric Occult Blood (Negative) Blood Type Blood Type Recheck Bld Type Recheck Status Antibody Screen Spec Expiration Date 09/17/20 09/17/20 Range/Units 08:35 09:30 WBC (3.8-10.6) k/uL RBC (3.80-5.40) m/uL Hgb (11.4-16.0) gm/dL Hct (34.0-46.0) % MCV (80.0-100.0) fL MCH (25.0-35.0) pg MCHC (31.0-37.0) g/dL RDW (11.5-15.5) % Plt Count (150-450) k/uL MPV Neutrophils % % Lymphocytes % % Monocytes % % Eosinophils % % Basophils % % Neutrophils # (1.3-7.7) k/uL Lymphocytes # (1.0-4.8) k/uL Monocytes # (0-1.0) k/uL Eosinophils # (0-0.7) k/uL Basophils # (0-0.2) k/uL Sodium (137-145) mmol/L Potassium (3.5-5.1) mmol/L Chloride (98-107) mmol/L Carbon Dioxide (22-30) mmol/L Anion Gap mmol/L BUN (7-17) mg/dL Creatinine (0.52-1.04) mg/dL Est GFR (CKD-EPI)AfAm (>60 ml/min/1.73 sqM) Est GFR (CKD-EPI)NonAf (>60 ml/min/1.73 sqM) Glucose (74-99) mg/dL Plasma Lactic Acid Enoch (0.7-2.0) mmol/L Calcium (8.4-10.2) mg/dL Magnesium (1.6-2.3) mg/dL Total Bilirubin (0.2-1.3) mg/dL AST (14-36) U/L ALT (4-34) U/L Alkaline Phosphatase (38-126) U/L Total Protein (6.3-8.2) g/dL Albumin (3.5-5.0) g/dL Amylase (30-110) U/L Lipase (23-300) U/L Gastric Occult Blood Positive (Negative) Blood Type O Negative Blood Type Recheck O Neg Bld Type Recheck Status No Antibody Screen NEGATIVE Spec Expiration Date 09/20/20202334 - EKG Data -: EKG Interpreted by Me EKG shows normal: sinus rhythm EKG Comments: Sinus rhythm 77. Interval 150 to QRS 98 QT since QTC 426/[address]-T wave changes - Radiology Data Radiology results: report reviewed (Imaging reviewed no acute findings), image reviewed Disposition Clinical Impression: Gastroenteritis, Dehydration, Lactic acidosis, Intractable vomiting, Upper GI bleed Disposition: ADMITTED IP TO THIS [facility] Condition: Fair Referrals: Liborio Colon MD [Primary Care Provider] - 1-2 days
--- NOTE | 2020-09-17 08:58 | XR ---
EXAMINATION TYPE: XR KUB DATE OF EXAM: 09/17/2020 COMPARISON: 09/03/2018 INDICATION: Pain nausea vomiting TECHNIQUE: Single view abdomen supine view FINDINGS: There is a nonspecific bowel gas pattern. Some air-filled small bowel loops are in the right mid abdo men. Nonspecific small bowel gas appears to be within the pelvis. No mass effect is evident. Some min imal colonic bowel gas is at the cecum. Air is within the stomach. Psoas margins are normal. No organomegaly is present. Cholecystectomy clips are in the right upper quadrant. IMPRESSION: 1. Nonspecific small bowel gas with some minimal colonic bowel gas.
[2020-09-17 09:15] LABS: Basophils % (A) 0 %; Eosinophils # (A) 0.2 k/uL (0-0.7); Eosinophils % (A) 1 %; HCT 44.1 % (34.0-46.0); HGB 15.1 gm/dL (11.4-16.0); Lymphocytes # (A) 3.7 k/uL (1.0-4.8); Lymphocytes % (A) 29 %; MCH 30.3 pg (25.0-35.0); MCHC 34.2 g/dL (31.0-37.0); MCV 88.7 fL (80.0-100.0); Mean Platelet Volume 8.5; Monocytes # (A) 0.5 k/uL (0-1.0); Monocytes % (A) 4 %; Neutrophils # (A) 8.2 k/uL (1.3-7.7); Neutrophils % (A) 64 %; Platelet Count 321 k/uL (150-450); RBC 4.97 m/uL (3.80-5.40); RDW 12.6 % (11.5-15.5); WBC 12.8 k/uL (3.8-10.6)
[2020-09-17 09:21] LABS: ALT 34 U/L (4-34); AST 36 U/L (14-36); African American GFR (CKD) >90 (>60 ml/min/1.73 sqM); Albumin 5.3 g/dL (3.5-5.0); Alkaline Phosphatase 165 U/L (38-126); Amylase 92 U/L (30-110); Anion Gap 17 mmol/L; Blood Urea Nitrogen 14 mg/dL (7-17); Calcium 10.2 mg/dL (8.4-10.2); Carbon Dioxide 17 mmol/L (22-30); Chloride 108 mmol/L (98-107); Glucose 235 mg/dL (74-99); Lipase 263 U/L (23-300); Magnesium 1.7 mg/dL (1.6-2.3); Non-African American GFR(CKD) >90 (>60 ml/min/1.73 sqM); Potassium 4.3 mmol/L (3.5-5.1); Sodium 142 mmol/L (137-145); Total Bilirubin 1.5 mg/dL (0.2-1.3); Total Protein 8.4 g/dL (6.3-8.2)
[2020-09-17] MEDS ORDERED: ONDANSETRON 4 MG/2 ML VIAL IVP STA (09:40)
[2020-09-17] MEDS ORDERED: NALOXONE 0.4 MG/ML 1 ML VIAL IV PRN (10:37)
[2020-09-17 13:36] LABS: Basophils % (A) 0 %; Eosinophils # (A) 0.2 k/uL (0-0.7); Eosinophils % (A) 1 %; HCT 44.6 % (34.0-46.0); HGB 14.8 gm/dL (11.4-16.0); Lymphocytes # (A) 1.6 k/uL (1.0-4.8); Lymphocytes % (A) 9 %; MCH 29.7 pg (25.0-35.0); MCHC 33.1 g/dL (31.0-37.0); MCV 89.7 fL (80.0-100.0); Mean Platelet Volume 7.6; Monocytes # (A) 0.5 k/uL (0-1.0); Monocytes % (A) 3 %; Neutrophils # (A) 14.9 k/uL (1.3-7.7); Neutrophils % (A) 86 %; Platelet Count 291 k/uL (150-450); RBC 4.97 m/uL (3.80-5.40); RDW 12.6 % (11.5-15.5); WBC 17.3 k/uL (3.8-10.6)
--- NOTE | 2020-09-17 15:57 | HP ---
HISTORY AND PHYSICAL This is a 65-year-old white female with came in with nausea, vomiting, swelling. She has swelling around 3 a.m., nausea, vomiting, diarrhea, persistent. She has had this before, crampy abdominal pain along with emesis that is brown. Gastric positive for blood. She yesterday; may be the cause. She also does smoke marijuana. No fever, chills. HOME MEDICINES: 1. Lipitor 80 daily. 2. Coreg 25 b.i.d. 3. 10 daily. 4. Synthroid 125 mcg daily. 5. Spironolactone 50 mg daily. 6. Norvasc 10 mg daily. ALLERGIES: PENICILLIN, ADHESIVE, CODEINE. REVIEW OF SYSTEMS: Fourteen-point review of systems otherwise negative. PAST MEDICAL HISTORY: Coronary artery disease, COPD, CVA, TIA, diabetes mellitus, GERD, dyslipidemia, hypertension, memory impairment, myocardial infarction, renal disease, hypothyroidism. She had thyroid cancer with thyroidectomy and radiation, TIA years ago. She had upper GI bleed, positive Hemoccult, cyclic acute pancreatitis, hiatal hernia, PUD, diverticular disease, chronic kidney disease, stage 2, bilateral cataract surgery, cholecystectomy, heart catheterization, hysterectomy, orthopedic surgery, tonsillectomy. She had cardiac catheterization in [place], was told she had no blockages. Right thumb fracture. Colonoscopy. History of depression. Uses marijuana. FAMILY HISTORY: Vascular disorder. Mother , esophageal varices, alcoholism. Father with CVA, TIA, hypertension, dyslipidemia, musculoskeletal disorder, neurologic disorder. PHYSICAL EXAMINATION: Well-developed, well-nourished white female who is actively vomiting. Some dehydration. She is alert, giving appropriate answers. INTEGUMENT: Poor skin turgor, dry mucous membranes. ENT: External ear canals within normal limits. LUNGS: Normal breath sounds. CARDIOVASCULAR: Regular rate and rhythm. GI: Soft. Normal bowel sounds. EXTREMITIES: Normal to inspection. Normal capillary refill pedal edema. Joint swelling. Calf tenderness. BACK EXAM: Normal. She is alert and oriented x3. PSYCH: Fair mood and affect. SKIN: Warm, dry. VITAL SIGNS: Temperature 97.8, pulse 77, respiratory rate 18-20, blood pressure is 120s to 130s over 70s to 80s. Oxygenation 96% to 100% on room air. LABS: White count was up to 17, hemoglobin 15.1. BUN of 14, creatinine 0.64. ASSESSMENT: 1. Leukocytosis secondary to possible gastroenteritis. 2. Dehydration. 3. Lactic acidosis. 4. Intractable nausea and vomiting. 5. Upper gastrointestinal bleed. Get serial CBCs. Get GI consultation. Rehydrate. Possibly will have to do a CT scan of her abdomen. Please see further orders. MMODL / IJN: [id number] /
[2020-09-17] MEDS: carvediloL 12.5 MG TAB PO SCH (16:33)
[2020-09-17 17:20] LABS: Glucose,Whole Blood 145 mg/dL (75-99)
[2020-09-17] MEDS: PROCHLORPERAZINE INJ 10 MG/2 ML VIAL IVP PRN (19:19)
[2020-09-17] MEDS: AMITRIPTYLINE HCL 10 MG TAB PO SCH (20:21)
[2020-09-17] MEDS: ATORVASTATIN 80 MG TAB PO SCH (20:21)
[2020-09-17 20:23] LABS: Glucose,Whole Blood 186 mg/dL (75-99)
[2020-09-18] MEDS: PROCHLORPERAZINE INJ 10 MG/2 ML VIAL IVP PRN (01:58)
[2020-09-18 07:41] LABS: Glucose,Whole Blood 131 mg/dL (75-99)
[2020-09-18] MEDS: SPIRONOLACTONE 25 MG TAB PO SCH (08:32)
[2020-09-18] MEDS: carvediloL 12.5 MG TAB PO SCH ×2 (08:32→16:56)
[2020-09-18] MEDS: PANTOPRAZOLE 40 MG/10 ML VIAL IV SCH (08:33)
[2020-09-18] MEDS: amLODIPine 10 MG TAB PO SCH (08:33)
[2020-09-18 08:56] LABS: Basophils % (A) 0 %; Eosinophils # (A) 0.1 k/uL (0-0.7); Eosinophils % (A) 0 %; HCT 46.3 % (34.0-46.0); HGB 15.9 gm/dL (11.4-16.0); Lymphocytes # (A) 2.7 k/uL (1.0-4.8); Lymphocytes % (A) 17 %; MCH 30.7 pg (25.0-35.0); MCHC 34.4 g/dL (31.0-37.0); MCV 89.2 fL (80.0-100.0); Mean Platelet Volume 7.7; Monocytes # (A) 1.2 k/uL (0-1.0); Monocytes % (A) 7 %; Neutrophils % (A) 74 %; Platelet Count 261 k/uL (150-450); RDW 12.3 % (11.5-15.5); WBC 16.2 k/uL (3.8-10.6)
[2020-09-18 09:07] LABS: Potassium 3.1 mmol/L (3.5-5.1)
[2020-09-18 09:08] LABS: ALT 29 U/L (4-34); AST 34 U/L (14-36); African American GFR (CKD) >90 (>60 ml/min/1.73 sqM); Albumin 5.1 g/dL (3.5-5.0); Albumin/Globulin Ratio 1.7; Alkaline Phosphatase 135 U/L (38-126); Anion Gap 17 mmol/L; Blood Urea Nitrogen 12 mg/dL (7-17); Calcium 9.3 mg/dL (8.4-10.2); Carbon Dioxide 18 mmol/L (22-30); Chloride 103 mmol/L (98-107); Glucose 140 mg/dL (74-99); Non-African American GFR(CKD) >90 (>60 ml/min/1.73 sqM); Sodium 138 mmol/L (137-145); Total Bilirubin 1.9 mg/dL (0.2-1.3); Total Protein 8.1 g/dL (6.3-8.2)
[2020-09-18] MEDS ORDERED: LOPERAMIDE 2 MG CAP PO PRN (11:52)
[2020-09-18] MEDS: LEVOTHYROXINE 125 MCG TAB PO SCH (12:24)
[2020-09-18 12:27] VITALS: BMI 23.3
[2020-09-18 12:28] LABS: Glucose,Whole Blood 163 mg/dL (75-99)
[2020-09-18] MEDS ORDERED: POTASSIUM CHLORIDE ER 20 MEQ TAB.ER PO STA (12:58)
[2020-09-18 17:01] LABS: Glucose,Whole Blood 108 mg/dL (75-99)
--- NOTE | 2020-09-18 17:13 | CONS ---
CONSULTATION DATE OF SERVICE: 09/18/2020 REQUESTING PHYSICIAN: Dr. Liborio Colon. REASON FOR CONSULTATION: Nausea, vomiting, diarrhea of 2 days duration. HISTORY OF PRESENT ILLNESS: The patient is a 65-year-old pleasant white female admitted to the hospital with acute onset of abdominal pain associated with nausea, vomiting, diarrhea that started yesterday after eating English food. She had at least 3-4 episodes of emesis followed by several episodes of loose watery bowel movements. No blood or mucus in the stool. She denies any rectal bleeding or melena. In the ER, two emesis were positive for Gastroccult. This morning the nausea and vomiting has resolved. She is on a clear liquid diet, tolerating well. She denies any recent antibiotic use. She denies any recent travel history. No new medications that were given to her recently. She did have EGD [place] [address] Merritt which showed gastritis and colonoscopy in 2019 that was unremarkable. PAST MEDICAL HISTORY: History of COPD, coronary artery disease, hypertension, hyperlipidemia, hypothyroidism and gastroesophageal reflux disease. She was also diagnosed with cyclical vomiting syndrome. MEDICATIONS: Medications at home Lipitor, Coreg, Synthroid, spironolactone, Norvasc. ALLERGIES: PENICILLIN and CODEINE. PAST SURGICAL HISTORY: Bilateral cataract surgery, cholecystectomy, cardiac catheterization, hysterectomy, tonsillectomy, EGD and colonoscopy. FAMILY HISTORY: Mother from alcoholism. Father had CVA and TIA, as well as hypertension. REVIEW OF SYSTEMS: CARDIOPULMONARY: No chest pain or shortness of breath. : No dysuria or hematuria. MUSCULOSKELETAL: Unremarkable. SKIN: Unremarkable. ENDOCRINE: Unremarkable. PSYCHIATRIC: Unremarkable. GI: Intermittent episodes of nausea, vomiting for the last several years duration. These episodes happen once every 3-4 months. NEUROLOGY: Unremarkable. PSYCHIATRIC: Unremarkable. PHYSICAL EXAMINATION: She appears comfortable. No apparent distress. VITAL SIGNS: Stable. Blood pressure is 109/70, pulse rate 70, temperature 98.5. HEENT: Examination unremarkable. Conjunctivae are pink. Sclerae anicteric. Oral cavity no lesions. NECK: No JVD or lymph node enlargement. CHEST: Clear to auscultation. HEART: Regular rate and rhythm. ABDOMEN: Soft. There was very mild diffuse tenderness noted throughout the abdomen, more in the left lower abdominal area. EXTREMITIES: No pedal edema. SKIN: No rashes. NEUROLOGIC: Alert and oriented x3. No focal deficits. LABS: WBC 17.3, hemoglobin 14, platelets normal. Basic metabolic panel showed a BUN and creatinine are normal. Chloride 108, CO2 17. AST, ALT are normal. T bilirubin 1.5 and alkaline phosphatase 165. C diff negative. Gastroccult positive. IMPRESSION: 1. Acute onset of nausea, vomiting, diarrhea that started yesterday after eating some English food. Symptoms are suggestive of a possible gastroenteritis, most likely viral in etiology. Doubt food poisoning at this time. Her symptoms are gradually improving. Stool for C diff is negative. No recent antibiotic use. No recent travel history. Last colonoscopy was a year ago that was unremarkable. 2. History of hypertension. 3. History of hyperlipidemia. 4. History of cyclical vomiting syndrome. 5. History of hypothyroidism. RECOMMENDATIONS: 1. Start on a clear liquid diet. 2. Antiemetics as needed. 3. Await stool cultures and C difficile toxin. 4. If the stool studies are negative, start her on antimotility agents. 5. No plans on any endoscopic intervention. 6. We will follow with you closely. Thank you for this consultation. MMODL / IJN: [id number] /
[2020-09-18] MEDS: AMITRIPTYLINE HCL 10 MG TAB PO SCH (20:24)
[2020-09-18] MEDS: ATORVASTATIN 80 MG TAB PO SCH (20:24)
[2020-09-18 20:25] LABS: Glucose,Whole Blood 146 mg/dL (75-99)
[2020-09-18 20:42] VITALS: RESP 16
[2020-09-19 04:51] VITALS: BP 106/69; PULSE 62; TEMP 98.1
[2020-09-19] MEDS: LEVOTHYROXINE 125 MCG TAB PO SCH (05:49)
[2020-09-19 06:57] LABS: ALT 31 U/L (4-34); AST 32 U/L (14-36); African American GFR (CKD) >90 (>60 ml/min/1.73 sqM); Albumin 3.9 g/dL (3.5-5.0); Albumin/Globulin Ratio 1.6; Alkaline Phosphatase 101 U/L (38-126); Anion Gap 9 mmol/L; Blood Urea Nitrogen 15 mg/dL (7-17); Calcium 9.2 mg/dL (8.4-10.2); Carbon Dioxide 23 mmol/L (22-30); Chloride 108 mmol/L (98-107); Globulin 2.5 g/dL; Glucose 110 mg/dL (74-99); Non-African American GFR(CKD) >90 (>60 ml/min/1.73 sqM); Potassium 3.5 mmol/L (3.5-5.1); Sodium 140 mmol/L (137-145); Total Bilirubin 2.1 mg/dL (0.2-1.3); Total Protein 6.4 g/dL (6.3-8.2)
[2020-09-19 07:23] LABS: Glucose,Whole Blood 122 mg/dL (75-99)
[2020-09-19] MEDS: PANTOPRAZOLE 40 MG/10 ML VIAL IV SCH (08:37)
[2020-09-19] MEDS: amLODIPine 10 MG TAB PO SCH (08:37)
[2020-09-19] MEDS: carvediloL 12.5 MG TAB PO SCH (08:37)
[2020-09-19] MEDS: SPIRONOLACTONE 25 MG TAB PO SCH (08:37)
[2020-09-19 08:52] LABS: Basophils # (A) 0.03 X 10*3/uL (0.00-0.10); Basophils % (A) 0.4 %; Eosinophils # (A) 0.12 X 10*3/uL (0.04-0.35); Eosinophils % (A) 1.4 %; HCT 39.8 % (37.2-46.3); HGB 13.3 g/dL (12.0-15.0); Lymphocytes # (A) 2.95 X 10*3/uL (0.90-5.00); Lymphocytes % (A) 34.5 %; MCH 30.1 pg (27.0-32.0); MCHC 33.4 g/dL (32.0-37.0); Mean Platelet Volume 10.5 fL (9.5-12.2); Monocytes # (A) 0.97 X 10*3/uL (0.20-1.00); Monocytes % (A) 11.4 %; Neutrophils # (A) 4.44 X 10*3/uL (1.80-7.70); Neutrophils % (A) 51.9 %; Platelet Count 227 X 10*3/uL (140-440); RBC 4.42 X 10*6/uL (4.10-5.20); RDW 12.9 % (11.5-14.5); WBC 8.54 X 10*3/uL (4.50-10.00)
[2020-09-19 12:04] LABS: Glucose,Whole Blood 217 mg/dL (75-99)
== END 2020-09-19 13:15 | disposition home or self-care (01) | DRG 392 ==
LOC: EC 07:41 → 6NMEDSUR 10:48 → 5NMEDONC 11:33 → OBSVTOIN 09-18 15:17
PROVIDERS: ADMIT Family Medicine; ATTEND Family Medicine
PROC: 05HF33Z Insertion of Infusion Device into Left Cephalic Vein, Percutaneous Approach (ICD-10-PCS; principal; 2020-09-17 13:40)
DX: K52.9 Noninfective gastroenteritis and colitis, unspecified (principal); E87.2 Acidosis; E11.22 Type 2 diabetes mellitus with diabetic chronic kidney disease; J44.9 Chronic obstructive pulmonary disease, unspecified; N18.30 Chronic kidney disease, stage 3 unspecified; E86.0 Dehydration; I12.9 Hypertensive chronic kidney disease with stage 1 through stage 4 chronic kidney disease, or unspecified chronic kidney disease; I25.10 Atherosclerotic heart disease of native coronary artery without angina pectoris; E78.5 Hyperlipidemia, unspecified; K21.9 Gastro-esophageal reflux disease without esophagitis; E89.0 Postprocedural hypothyroidism; K44.9 Diaphragmatic hernia without obstruction or gangrene; K57.90 Diverticulosis of intestine, part unspecified, without perforation or abscess without bleeding; F32.9 Major depressive disorder, single episode, unspecified; F12.90 Cannabis use, unspecified, uncomplicated; I25.2 Old myocardial infarction; Z90.49 Acquired absence of other specified parts of digestive tract; Z90.710 Acquired absence of both cervix and uterus; Z20.822 Contact with and (suspected) exposure to COVID-19; Z88.5 Allergy status to narcotic agent; Z88.0 Allergy status to penicillin; Z91.048 Other nonmedicinal substance allergy status; Z79.899 Other long term (current) drug therapy; Z79.890 Hormone replacement therapy; Z86.73 Personal history of transient ischemic attack (TIA), and cerebral infarction without residual deficits; Z87.11 Personal history of peptic ulcer disease; Z87.19 Personal history of other diseases of the digestive system; Z87.891 Personal history of nicotine dependence; Z81.1 Family history of alcohol abuse and dependence
CPT/HCPCS: 36410; 36415; 74018; 76937; 80053; 82150; 82271; 83605; 83690; 83735; 85025; 86850; 86900; 86901; 87324; 87635; 93005; 96361; 96374; 96375; 99285

== ENCOUNTER → 2021-06-18 | Outpatient (CLI) | payer MEDICARE | END | disposition home or self-care (01) | LOC: LABWHC1 13:25 | PROVIDERS: ATTEND Family Medicine | DX: Z79.899 Other long term (current) drug therapy (principal) | CPT/HCPCS: 36415; 83605 ==

== ENCOUNTER 2021-11-26 06:33 | Observation (INO) | payer MEDICARE ==
[2021-11-26] MEDS ORDERED: diphenhydrAMINE 50 MG/ML 1 ML VIAL IVP STA (06:44)
[2021-11-26] MEDS ORDERED: ONDANSETRON 4 MG/2 ML VIAL IVP STA (06:44)
[2021-11-26] MEDS ORDERED: SODIUM CHLORIDE 0.9% 1,000 ML IV STA ×2 (06:44→10:43)
[2021-11-26] MEDS ORDERED: KETOROLAC 15 MG/ML 1 ML VIAL IVP STA (06:46)
--- NOTE | 2021-11-26 06:54 | ED ---
Nausea/Vomiting/Diarrhea HPI - General Chief complaint: Nausea/Vomiting/Diarrhea Stated complaint: Vomiting, Back Pain Time Seen by Provider: 11/26/21 06:42 Source: patient, RN notes reviewed Mode of arrival: wheelchair - History of Present Illness Initial comments: This is a 66-year-old female with a past medical history of myocardial infarction, diabetes mellitus, COPD, and multiple other comorbidities who presents to the emergency department for nausea, vomiting, and diarrhea that started at 2 AM. Vomiting is described as bile. Abdominal pain is described as being just inferior to the epigastric region. Patient has a known history of peptic ulcers. Not currently taking anything at home to treat the ulcers. Denies any hematemesis. Patient is vomiting upon initial examination. Also reports bilateral flank pain, which she believes is related to her kidneys. Denies any fevers, chills, sore throat, cough, dyspnea, chest pain, palpitations, or headaches. MD complaint: nausea, vomiting, diarrhea Onset/Timin -: hour(s) Description of Vomiting: bilious Associated Abdominal Pain: Yes Location: epigastric Quality: sharp - Related Data Home Medications Medication Instructions Recorded Confirmed Atorvastatin [Lipitor] 80 mg PO HS 07/24/18 11/26/21 Acamprosate Calcium [Campral] 333 mg PO BID 11/26/21 11/26/21 Cholecalciferol [Vitamin D3 (25 25 mcg PO DAILY 11/26/21 11/26/21 Mcg = 1000 Iu)] Levothyroxine Sodium [Synthroid] 100 mcg PO DAILY 11/26/21 11/26/21 Losartan Potassium 100 mg PO DAILY 11/26/21 11/26/21 Mirabegron [Myrbetriq] 50 mg PO DAILY 11/26/21 11/26/21 Pantoprazole Sodium [Protonix] 40 mg PO DAILY 11/26/21 11/26/21 amLODIPine [Norvasc] 5 mg PO DAILY 11/26/21 11/26/21 carvediloL 12.5 mg PO BID 11/26/21 11/26/21 metFORMIN HCL [Glucophage] 500 mg PO DAILY 11/26/21 11/26/21 Allergies Allergy/AdvReac Type Severity Reaction Status Date / Time Penicillins Allergy Unknown Verified 11/26/21 09:52 Childhood adhesive AdvReac Itching Verified 11/26/21 09:52 codeine AdvReac Nausea & Verified 11/26/21 09:52 Vomiting Review of Systems ROS Statement: Those systems with pertinent positive or pertinent negative responses have been documented in the HPI. ROS Other: All systems not noted in ROS Statement are negative. Past Medical History Past Medical History: Coronary Artery Disease (CAD), Cancer, Chest Pain / Angina, COPD, CVA/TIA, Diabetes Mellitus, Eye Disorder, GERD/Reflux, Hyperlipidemia, Hypertension, Memory Impairment, Myocardial Infarction (VT), Renal Disease, Thyroid Disorder Additional Past Medical History / Comment(s): Thyroid cancer with thyroidectomy/radiation, NIDDM type II, neuropathy bilateral feet/toes and bilateral hands/finger, TIA years ago, possible upper GI bleed with + emesis hemoccult, cyclic vomiting, acute pancreatitis, hiatal hernia, PUD, diverticular disease, CKD stage III, bronchitis Last Myocardial Infarction Date:: 05/2010 History of Any Multi-Drug Resistant Organisms: None Reported Past Surgical History: Cholecystectomy, Heart Catheterization, Hysterectomy, Orthopedic Surgery, Tonsillectomy Additional Past Surgical History / Comment(s): Cardiac cath [place], [place]-pt states she was told no blockages, thyroidectomy, R thumb fracture with surgery, EGD, colonoscopy, bilateral cataract removals/lens transplants. Past Anesthesia/Blood Transfusion Reactions: Previous Problems w/ Anesthesia Additional Past Anesthesia/Blood Transfusion Reaction / Comment(s): trouble urinating after general anesthesia Past Psychological History: Depression Smoking Status: Former smoker - Past Family History Mother Family Medical History: Vascular Disorder Additional Family Medical History / Comment(s): Mother is from esophageal varices d/t alcoholism at the age of 69yrs. Father Family Medical History: CVA/TIA, Hyperlipidemia, Hypertension, Musculoskeletal Disorder, Neurologic Disorder Additional Family Medical History / Comment(s): Father had a CVA in his 50s. Father is from parkinsons at age 69yrs. General Exam General appearance: alert, in distress Head exam: Present: atraumatic, normocephalic, normal inspection Respiratory exam: Present: normal lung sounds bilaterally. Absent: respiratory distress, wheezes, rales, rhonchi, stridor Cardiovascular Exam: Present: regular rate, normal rhythm, normal heart sounds. Absent: systolic murmur, diastolic murmur, rubs, gallop, clicks GI/Abdominal exam: Present: soft, tenderness (centralized and inferior to the epigastric region.), normal bowel sounds. Absent: distended, guarding, rebound, rigid, organomegaly, mass Back exam: Present: CVA tenderness (R), CVA tenderness (L) Neurological exam: Present: alert, oriented X3, CN II-XII intact Psychiatric exam: Present: normal affect, normal mood Skin exam: Present: warm, dry, intact, normal color. Absent: rash Course Vital Signs 11/26/21 11/26/21 11/26/21 06:35 07:23 10:51 Temperature 97.0 F L Pulse Rate 56 L 72 72 Respiratory 19 22 20 Rate Blood Pressure 155/78 155/75 153/87 O2 Sat by Pulse 98 100 98 Oximetry 11/26/21 11:51 Temperature Pulse Rate 73 Respiratory 18 Rate Blood Pressure 163/83 O2 Sat by Pulse 93 L Oximetry Medical Decision Making - Medical Decision Making This is a 66-year-old female who presents emergency department for nausea, vomiting, diarrhea, and abdominal pain. White blood cell count elevated at 14.3, which may be reactive. IV fluids administered for dehydration. Given the patient's age, risk factors, and associated abdominal pain, a computed tomography scan of the abdomen and pelvis was obtained. This did not identify any acute changes from prior imaging. Patient's nausea and vomiting have been very difficult to control. We were unable to control the patient's nausea and vomiting with multiple medications including Reglan, Zofran, Compazine, Decadron, Benadryl, and droperidol. Patient is very drowsy and unwilling to eat. The patient is a known marijuana user, it is possible this is related to cannabinoid hyperemesis syndrome. Patient will be admitted for intractable nausea and vomiting. This case was discussed in detail with the attending ED physician. Presentation, findings, and treatment plan discussed in detail as well. - Lab Data Result diagrams: 11/26/21 07:08 11/26/21 07:08 Lab Results 11/26/21 11/26/21 11/26/21 Range/Units 07:01 07:08 07:08 WBC 14.3 H (3.8-10.6) k/uL RBC 4.67 (3.80-5.40) m/uL Hgb 14.2 (11.4-16.0) gm/dL Hct 42.8 (34.0-46.0) % MCV 91.7 (80.0-100.0) fL MCH 30.4 (25.0-35.0) pg MCHC 33.2 (31.0-37.0) g/dL RDW 13.3 (11.5-15.5) % Plt Count 247 (150-450) k/uL MPV 7.9 Neutrophils % 65 % Lymphocytes % 28 % Monocytes % 4 % Eosinophils % 1 % Basophils % 0 % Neutrophils # 9.2 H (1.3-7.7) k/uL Lymphocytes # 4.0 (1.0-4.8) k/uL Monocytes # 0.6 (0-1.0) k/uL Eosinophils # 0.1 (0-0.7) k/uL Basophils # 0.1 (0-0.2) k/uL Sodium 141 (137-145) mmol/L Potassium 4.2 (3.5-5.1) mmol/L Chloride 107 (98-107) mmol/L Carbon Dioxide 20 L (22-30) mmol/L Anion Gap 14 mmol/L BUN 25 H (7-17) mg/dL Creatinine 0.78 (0.52-1.04) mg/dL Est GFR (CKD-EPI)AfAm >90 (>60 ml/min/1.73 sqM) Est GFR (CKD-EPI)NonAf 80 (>60 ml/min/1.73 sqM) Glucose 193 H (74-99) mg/dL Plasma Lactic Acid Enoch (0.7-2.0) mmol/L Calcium 9.7 (8.4-10.2) mg/dL Total Bilirubin 1.0 (0.2-1.3) mg/dL AST 30 (14-36) U/L ALT 27 (4-34) U/L Alkaline Phosphatase 164 H (38-126) U/L Troponin I (0.000-0.034) ng/mL Total Protein 8.1 (6.3-8.2) g/dL Albumin 5.0 (3.5-5.0) g/dL Amylase 89 (30-110) U/L Lipase 232 (23-300) U/L Urine Color Urine Appearance (Clear) Urine pH (5.0-8.0) Ur Specific Colstrip (1.001-1.035) Urine Protein (Negative) Urine Glucose (UA) (Negative) Urine Ketones (Negative) Urine Blood (Negative) Urine Nitrite (Negative) Urine Bilirubin (Negative) Urine Urobilinogen (<2.0) mg/dL Ur Leukocyte Esterase (Negative) Coronavirus (PCR) Not Detected (Not Detectd) 11/26/21 11/26/21 11/26/21 Range/Units 07:08 07:08 09:45 WBC (3.8-10.6) k/uL RBC (3.80-5.40) m/uL Hgb (11.4-16.0) gm/dL Hct (34.0-46.0) % MCV (80.0-100.0) fL MCH (25.0-35.0) pg MCHC (31.0-37.0) g/dL RDW (11.5-15.5) % Plt Count (150-450) k/uL MPV Neutrophils % % Lymphocytes % % Monocytes % % Eosinophils % % Basophils % % Neutrophils # (1.3-7.7) k/uL Lymphocytes # (1.0-4.8) k/uL Monocytes # (0-1.0) k/uL Eosinophils # (0-0.7) k/uL Basophils # (0-0.2) k/uL Sodium (137-145) mmol/L Potassium (3.5-5.1) mmol/L Chloride (98-107) mmol/L Carbon Dioxide (22-30) mmol/L Anion Gap mmol/L BUN (7-17) mg/dL Creatinine (0.52-1.04) mg/dL Est GFR (CKD-EPI)AfAm (>60 ml/min/1.73 sqM) Est GFR (CKD-EPI)NonAf (>60 ml/min/1.73 sqM) Glucose (74-99) mg/dL Plasma Lactic Acid Enoch 1.9 (0.7-2.0) mmol/L Calcium (8.4-10.2) mg/dL Total Bilirubin (0.2-1.3) mg/dL AST (14-36) U/L ALT (4-34) U/L Alkaline Phosphatase (38-126) U/L Troponin I <0.012 (0.000-0.034) ng/mL Total Protein (6.3-8.2) g/dL Albumin (3.5-5.0) g/dL Amylase (30-110) U/L Lipase (23-300) U/L Urine Color Light Yellow Urine Appearance Clear (Clear) Urine pH 7.5 (5.0-8.0) Ur Specific [place]strip 1.024 (1.001-1.035) Urine Protein Negative (Negative) Urine Glucose (UA) Trace H (Negative) Urine Ketones 1+ H (Negative) Urine Blood Negative (Negative) Urine Nitrite Negative (Negative) Urine Bilirubin Negative (Negative) Urine Urobilinogen <2.0 (<2.0) mg/dL Ur Leukocyte Esterase Negative (Negative) Coronavirus (PCR) (Not Detectd) - EKG Data EKG Comments: Normal sinus rhythm. Possible left atrial enlargement. Incomplete right bundle branch block. Ventricular rate 76 bpm, AK interval 168 ms, QRS duration 102 ms, QTC 431 ms. - Radiology Data Radiology results: report reviewed, image reviewed Disposition Clinical Impression: Intractable nausea and vomiting Disposition: ADMITTED IP TO THIS [facility] Referrals: Liborio Colon MD [Primary Care Provider] - 1-2 days
[2021-11-26 07:22] LABS: Basophils # (A) 0.1 k/uL (0-0.2); Basophils % (A) 0 %; Eosinophils # (A) 0.1 k/uL (0-0.7); Eosinophils % (A) 1 %; HCT 42.8 % (34.0-46.0); HGB 14.2 gm/dL (11.4-16.0); Lymphocytes % (A) 28 %; MCH 30.4 pg (25.0-35.0); MCHC 33.2 g/dL (31.0-37.0); MCV 91.7 fL (80.0-100.0); Mean Platelet Volume 7.9; Monocytes # (A) 0.6 k/uL (0-1.0); Monocytes % (A) 4 %; Neutrophils # (A) 9.2 k/uL (1.3-7.7); Neutrophils % (A) 65 %; Platelet Count 247 k/uL (150-450); RBC 4.67 m/uL (3.80-5.40); RDW 13.3 % (11.5-15.5); WBC 14.3 k/uL (3.8-10.6)
[2021-11-26 07:31] LABS: ALT 27 U/L (4-34); AST 30 U/L (14-36); African American GFR (CKD) >90 (>60 ml/min/1.73 sqM); Alkaline Phosphatase 164 U/L (38-126); Amylase 89 U/L (30-110); Anion Gap 14 mmol/L; Blood Urea Nitrogen 25 mg/dL (7-17); Calcium 9.7 mg/dL (8.4-10.2); Carbon Dioxide 20 mmol/L (22-30); Chloride 107 mmol/L (98-107); Glucose 193 mg/dL (74-99); Lipase 232 U/L (23-300); Non-African American GFR(CKD) 80 (>60 ml/min/1.73 sqM); Potassium 4.2 mmol/L (3.5-5.1); Sodium 141 mmol/L (137-145); Total Protein 8.1 g/dL (6.3-8.2)
[2021-11-26] MEDS ORDERED: METOCLOPRAMIDE 5 MG/ML 2 ML VIAL IVP STA ×2 (07:34→10:09)
[2021-11-26] MEDS ORDERED: FAMOTIDINE 20 MG/2 ML VIAL IV STA (07:55)
[2021-11-26] MEDS ORDERED: PROCHLORPERAZINE INJ 10 MG/2 ML VIAL IVP STA (08:14)
[2021-11-26] MEDS ORDERED: DEXAMETHASONE SOD PHOSPHATE 10 MG/ML 1 ML VIAL IVP STA (10:08)
[2021-11-26 10:12] LABS: Appearance,Urine Clear (Clear); Bilirubin,Urine Negative (Negative); Blood,Urine Negative (Negative); Color,Urine Light Yellow; Glucose,Urine (UA) Trace (Negative); Ketones,Urine 1+ (Negative); Leukocyte Esterase,Urine Negative (Negative); Nitrite,Urine Negative (Negative); PH, Urine 7.5 (5.0-8.0); Protein,Urine Negative (Negative); Specific Gravity,Urine 1.024 (1.001-1.035); Urobilinogen,Urine <2.0 mg/dL (<2.0)
--- NOTE | 2021-11-26 10:17 | CT ---
EXAMINATION TYPE: CT abdomen pelvis w con DATE OF EXAM: 11/26/2021 HISTORY: Abd pain, vomiting CT DLP: 401.5mGycm Automated Exposure Control for Dose Reduction was Utilized. CONTRAST: CT scan of the abdomen and pelvis is performed without oral but with IV Contrast, patient injected wi th 100 mL of Isovue 300. COMPARISON: CT abdomen and pelvis July 31, 2019 and older studies FINDINGS: LUNG BASES: No significant abnormality is appreciated. LIVER/GB: Cholecystectomy clips are redemonstrated. Liver size mildly enlarged. No new biliary dilata tion. PANCREAS: No significant abnormality is seen. SPLEEN: No significant abnormality is seen. ADRENALS: No significant abnormality is seen. KIDNEYS: Delayed phase images either not performed or are not sent to PACS. BOWEL: A small hiatal hernia is redemonstrated. Sigmoid colonic diverticulosis redemonstrated. Modera te to severe wall thickening at level of sigmoid colon again seen. No significant surrounding fat str anding noted. Finding favored product of chronic diverticulitis. There is no suspicious small or larg e bowel dilatation. Suboptimal study due to lack of enteric contrast. UTERUS/ADNEXA: Uterus is surgically absent . Scattered pelvic phleboliths are redemonstrated. LYMPH NODES: No new greater than 1cm abdominal or pelvic lymph nodes are appreciated. OSSEOUS STRUCTURES: No significant abnormality is seen. OTHER: There is mild to moderate peripheral calcified plaque of aorta extending into branch vessels. IMPRESSION: No bowel obstruction is seen. No significant new or acute finding is seen to account for patient's clinical symptoms.
[2021-11-26] MEDS ORDERED: LORazepam 2 MG/ML INJ IV STA (11:05)
[2021-11-26] MEDS ORDERED: ONDANSETRON 4 MG/2 ML VIAL IVP PRN (13:25)
[2021-11-26] MEDS ORDERED: KETOROLAC 15 MG/ML 1 ML VIAL IVP PRN (13:25)
[2021-11-26] MEDS ORDERED: NALOXONE 0.4 MG/ML 1 ML VIAL IV PRN (13:25)
[2021-11-26] MEDS ORDERED: ACETAMINOPHEN TAB 325 MG TAB PO PRN (13:25)
[2021-11-26] MEDS ORDERED: METOCLOPRAMIDE 5 MG/ML 2 ML VIAL IVP PRN (13:30)
[2021-11-26] MEDS ORDERED: PANTOPRAZOLE 40 MG/10 ML VIAL IVP STA (13:33)
[2021-11-26] MEDS ORDERED: HYDROmorphone 0.5 MG/0.5 ML SYRINGE IVP PRN (13:34)
[2021-11-26] MEDS: SODIUM CHLORIDE 0.9% 1,000 ML IV SCH (14:58)
[2021-11-26] MEDS: carvediloL 12.5 MG TAB PO SCH (18:37)
--- NOTE | 2021-11-26 20:53 | HP ---
HISTORY AND PHYSICAL HISTORY OF PRESENT ILLNESS: 66-year-old white female, history of myocardial infarction, diabetes mellitus, COPD, came with nausea, vomiting, diarrhea, vomiting his bile, abdominal pain being described as inferior to the epigastric region. Has a known history of peptic ulcers. She vomited with multiple medicines in the ER at which time we admitted her. We are having GI or surgery see her depending if we have GI. MEDICATIONS: Home medications: Lipitor 80 daily, vitamin D3 1000 daily, Synthroid 100 mcg daily, losartan 100 mg daily, Myrbetriq 50 mg daily, Protonix 40 mg daily, Norvasc 5 mg daily, carvedilol 12.5 b.i.d., metformin 500 daily. ALLERGIES: PENICILLIN. ADHESIVES AND CODEINE. REVIEW OF SYMPTOMS: 14-point review of systems otherwise negative. PAST MEDICAL HISTORY: Coronary artery disease, angina, COPD, CVA, TIA, diabetes mellitus, GERD, dyslipidemia, hypertension, memory impairment, renal disease, hypothyroidism. SURGERIES: Cholecystectomy, heart catheterization, hysterectomy, orthopedic surgery, tonsillectomy. FAMILY HISTORY: Mother, vascular disorder. Father CVA and TIA, hypertension. PHYSICAL EXAMINATION: Temp 97, pulse 66-72, respiratory rate 19 to 22, blood pressure 150s over 70s, O2 98- 100 on room air. CARDIOVASCULAR S1, S2. ABDOMEN is soft, nontender. BACK is CVA tenderness bilaterally. NEUROLOGIC: Alert and orient x3. PSYCH: Fair mood and affect. SKIN: Warm, dry, intact. IMPRESSION: 1. Possible cannabis hyperemesis syndrome. 2. Acute emesis, unclear etiology. 3. Hypertension acceleration. 4. Leukocytosis, possibly reactive. Wait for surgical consult. Rehydrate overnight. MMODL / IJN: [id number] /
[2021-11-26] MEDS ORDERED: ATORVASTATIN 80 MG TAB PO SCH (21:00)
[2021-11-27] MEDS ORDERED: LEVOTHYROXINE 100 MCG TAB PO SCH (06:30)
[2021-11-27] MEDS: carvediloL 12.5 MG TAB PO SCH (08:34)
[2021-11-27] MEDS ORDERED: NON FORMULARY DRUG (Mirabegron [Myrbetriq] 50 MG Tab.Er.24h) PO SCH (09:00)
[2021-11-27] MEDS ORDERED: LOSARTAN 50 MG TAB PO SCH (09:00)
[2021-11-27] MEDS ORDERED: amLODIPine 5 MG TAB PO SCH (09:00)
[2021-11-27] MEDS ORDERED: PANTOPRAZOLE 40 MG TABLET PO SCH (09:00)
--- NOTE | 2021-11-27 12:37 | P.GSCN ---
History of Present Illness Consult date: 11/27/21 History of present illness: CHIEF COMPLAINT: Nausea and vomiting HISTORY OF PRESENT ILLNESS: This is a 66-year-old female who presented to the hospital with complaints of nausea and vomiting and a few episodes of diarrhea that started at 2 AM yesterday morning. Patient reports having 3 hospitalizations for this recurrent nausea and vomiting. She presented to the ER due to the intractable vomiting. The emesis was bile in color. She does report some mild abdominal discomfort in the epigastric area. Patient reports that she's had a history of peptic ulcer disease. She does take Protonix at home. Her last EGD was in August 2018 which had revealed gastritis, duodenitis, esophageal Schatzki ring and small hiatal hernia. Patient does use marijuana daily for about 50 years. Also noted the patient did have a temp of 101 which has normalized and a white count of 14.3. Computed tomography scan of the abdomen and pelvis was negative. Patient has tolerated the clear liquid diet. No further episode of vomiting. And diarrhea resolved early yesterday. Patient denies any blood in her stools or black stools. PAST MEDICAL HISTORY: See list. PAST SURGICAL HISTORY: Cholecystectomy MEDICATIONS: See list. ALLERGIES: See list. SOCIAL HISTORY: No illicit drug use. REVIEW OF SYSTEMS: CONSTITUTIONAL: Denies fever or chills. HEENT: Denies blurred vision, vision changes, or eye pain. Denies hemoptysis CARDIOVASCULAR: Denies chest pain or pressure. RESPIRATORY: No shortness of breath. GASTROINTESTINAL: See HPI for pertinent findings HEMATOLOGIC: Denies bleeding disorders. GENITOURINARY: Denies any blood in urine or increased urinary frequency. SKIN: Denies pruitis. Denies rash. PHYSICAL EXAM: VITAL SIGNS: Reviewed GENERAL: Well-developed in no acute distress. HEENT: No sclera icterus. Extraocular movements grossly intact. Moist buccal mucosa. Head is atraumatic, normocephalic. No nasal drainage. ABDOMEN: Soft. Nondistended. Nontender NEUROLOGIC: Alert and oriented. Cranial nerves II through XII grossly intact. LABORATORY DATA: WBC is 14.3 HGB 14.2 platelets 247 Sodium 141 potassium 4.2 creatinine 0.78 Lipase 232 LFTs normal IMAGING: Computed tomography scan abdomen and pelvis no bowel obstruction seen. No significant new or acute findings seen to come for patient's symptoms. ASSESSMENT: 1. Recurrent episodes of nausea and vomiting with some mild diarrhea. Possibly due to gastroenteritis 2. Mild epigastric discomfort 3. History of peptic ulcer disease 4. History of gastritis, duodenitis, esophageal Schatzki ring and small hiatal hernia noted on EGD PLAN: -Patient scheduled for EGD outpatient on 11/30/[address] 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 Signing provider agrees with the documented findings, assessment, and plan of care. Past Medical History Past Medical History: Coronary Artery Disease (CAD), Cancer, Chest Pain / Angina, COPD, CVA/TIA, Diabetes Mellitus, Eye Disorder, GERD/Reflux, Hyperlipidemia, Hypertension, Memory Impairment, Myocardial Infarction ([place]), Renal Disease, Thyroid Disorder Additional Past Medical History / Comment(s): Thyroid cancer with thyroidectomy/radiation, NIDDM type II, neuropathy bilateral feet/toes and bilateral hands/finger, TIA years ago, possible upper GI bleed with + emesis hemoccult, cyclic vomiting, acute pancreatitis, hiatal hernia, PUD, diverticular disease, CKD stage III, bronchitis Last Myocardial Infarction Date:: 05/2010 History of Any Multi-Drug Resistant Organisms: None Reported Past Surgical History: Cholecystectomy, Heart Catheterization, Hysterectomy, Orthopedic Surgery, Tonsillectomy Additional Past Surgical History / Comment(s): Cardiac cath [place], [place]-pt states she was told no blockages, thyroidectomy, R thumb fracture with surgery, EGD, colonoscopy, bilateral cataract removals/lens transplants. Past Anesthesia/Blood Transfusion Reactions: Previous Problems w/ Anesthesia Additional Past Anesthesia/Blood Transfusion Reaction / Comm: trouble urinating after general anesthesia Past Psychological History: Depression Additional Psychological History / Comment(s): Pt resides with her son. She does not drive, her son takes her to appointments and is very helpful. Smoking Status: Former smoker Past Alcohol Use History: None Reported Additional Past Alcohol Use History / Comment(s): Pt started smoking in 1970 and quit in 2009. Past Drug Use History: Marijuana Additional Drug Use History / Comment(s): Pt states she smokes marijuana in the AM and occasionally in the evening-has smoked marijuana since her [place] - Past Family History Mother Family Medical History: Vascular Disorder Additional Family Medical History / Comment(s): Mother is from esophageal varices d/t alcoholism at the age of 69yrs. Father Family Medical History: CVA/TIA, Hyperlipidemia, Hypertension, Musculoskeletal Disorder, Neurologic Disorder Additional Family Medical History / Comment(s): Father had a CVA in his 50s. Father is from parkinsons at age 69yrs. Medications and Allergies Home Medications Medication Instructions Recorded Confirmed Type Atorvastatin [Lipitor] 80 mg PO HS 07/24/18 11/26/21 History Acamprosate Calcium [Campral] 333 mg PO BID 11/26/21 11/26/21 History Cholecalciferol [Vitamin D3 (25 25 mcg PO DAILY 11/26/21 11/26/21 History Mcg = 1000 Iu)] Levothyroxine Sodium [Synthroid] 100 mcg PO DAILY 11/26/21 11/26/21 History Losartan Potassium 100 mg PO DAILY 11/26/21 11/26/21 History Mirabegron [Myrbetriq] 50 mg PO DAILY 11/26/21 11/26/21 History Pantoprazole Sodium [Protonix] 40 mg PO DAILY 11/26/21 11/26/21 History amLODIPine [Norvasc] 5 mg PO DAILY 11/26/21 11/26/21 History carvediloL 12.5 mg PO BID 11/26/21 11/26/21 History metFORMIN HCL [Glucophage] 500 mg PO DAILY 11/26/21 11/26/21 History Allergies Allergy/AdvReac Type Severity Reaction Status Date / Time Penicillins Allergy Unknown Verified 11/26/21 09:52 Childhood adhesive AdvReac Itching Verified 11/26/21 09:52 codeine AdvReac Nausea & Verified 11/26/21 09:52 Vomiting Surgical - Exam Vital Signs Pulse Resp BP Pulse Ox 56 L 19 155/78 98 11/26/21 06:35 11/26/21 06:35 11/26/21 06:35 11/26/21 06:35 Results - Labs 11/26/21 07:08 11/26/21 07:08
[2021-11-27] MEDS: SODIUM CHLORIDE 0.9% 1,000 ML IV SCH (13:24)
[2021-11-27 13:56] VITALS: BP 132/77; PULSE 65; RESP 14; TEMP 98.2
== END 2021-11-27 16:34 | disposition home or self-care (01) ==
LOC: EC 06:33 → 6NMEDSUR 13:25
PROVIDERS: ADMIT Family Medicine; ATTEND Family Medicine
DX: R11.2 Nausea with vomiting, unspecified (principal); R19.7 Diarrhea, unspecified; M54.9 Dorsalgia, unspecified; R10.13 Epigastric pain; I25.2 Old myocardial infarction; J44.9 Chronic obstructive pulmonary disease, unspecified; I25.10 Atherosclerotic heart disease of native coronary artery without angina pectoris; I12.9 Hypertensive chronic kidney disease with stage 1 through stage 4 chronic kidney disease, or unspecified chronic kidney disease; E11.40 Type 2 diabetes mellitus with diabetic neuropathy, unspecified; E11.22 Type 2 diabetes mellitus with diabetic chronic kidney disease; N18.30 Chronic kidney disease, stage 3 unspecified; K21.9 Gastro-esophageal reflux disease without esophagitis; E78.5 Hyperlipidemia, unspecified; R41.3 Other amnesia; E89.0 Postprocedural hypothyroidism; N28.9 Disorder of kidney and ureter, unspecified; D72.829 Elevated white blood cell count, unspecified; K22.2 Esophageal obstruction; K29.80 Duodenitis without bleeding; K44.9 Diaphragmatic hernia without obstruction or gangrene; K29.70 Gastritis, unspecified, without bleeding; F32.A Depression, unspecified; E86.0 Dehydration; H57.9 Unspecified disorder of eye and adnexa; Z20.822 Contact with and (suspected) exposure to COVID-19; Z79.899 Other long term (current) drug therapy; Z79.890 Hormone replacement therapy; Z79.84 Long term (current) use of oral hypoglycemic drugs; Z88.0 Allergy status to penicillin; Z88.5 Allergy status to narcotic agent; Z91.048 Other nonmedicinal substance allergy status; Z87.11 Personal history of peptic ulcer disease; Z86.73 Personal history of transient ischemic attack (TIA), and cerebral infarction without residual deficits; Z90.49 Acquired absence of other specified parts of digestive tract; Z90.710 Acquired absence of both cervix and uterus; Z85.850 Personal history of malignant neoplasm of thyroid; G62.9 Polyneuropathy, unspecified; Z92.3 Personal history of irradiation; Z87.09 Personal history of other diseases of the respiratory system; Z87.19 Personal history of other diseases of the digestive system; Z87.891 Personal history of nicotine dependence; Z82.3 Family history of stroke; Z82.49 Family history of ischemic heart disease and other diseases of the circulatory system; Z81.1 Family history of alcohol abuse and dependence; Z82.0 Family history of epilepsy and other diseases of the nervous system; Z82.69 Family history of other diseases of the musculoskeletal system and connective tissue; Z83.79 Family history of other diseases of the digestive system; Z81.8 Family history of other mental and behavioral disorders
CPT/HCPCS: 96376 ×2; 96361; 96374; 96375; 99285; 36415; 93005; 80053; 82150; 83605; 83690; 84484; 85025; 81003; 87502; 87635; 74177; G0378 ×2; J2060; J1200; J0780; J1100; J2765; J2405 ×2; J1885; C9113; Q9967; J1790

== ENCOUNTER 2022-01-25 10:31 | Day surgery (SDC) | payer MEDICARE ==
[2022-01-20 14:34] VITALS: BMI 22.6
[~2022-01-25 10:31] MED LIST changes: -AMINOPHYLLINE 500 MG/20 ML VIAL IV ONE; +LACTATED RINGERS 1,000 ML IV SCH; -REGADENOSON 0.4 MG/5 ML SYRINGE IV ONE
[2022-01-25 10:53] VITALS: TEMP 97.8
[2022-01-25 11:00] LABS: Glucose,Whole Blood 119 mg/dL (70-110)
[2022-01-25] MEDS ORDERED: LIDOCAINE 2% INJ 20 MG/ML (2 ML VIAL) ONE (11:59)
[2022-01-25] MEDS ORDERED: PROPOFOL 10 MG/ML 20 ML VIAL IV ONE (11:59)
--- NOTE | 2022-01-25 12:03 | P.GSHP ---
History of Present Illness H&P Date: 01/25/22 Chief Complaint: Diverticulitis, GERD This is a 66-year-old female presents today for colonoscopy patient's issues with diverticulitis and GERD. Past Medical History Past Medical History: Cancer, Chest Pain / Angina, COPD, Diabetes Mellitus, Eye Disorder, GERD/Reflux, Hyperlipidemia, Hypertension, Memory Impairment, Myocardial Infarction ([place]), Renal Disease, Thyroid Disorder Additional Past Medical History / Comment(s): Thyroid cancer with thyroidectomy/radiation, NIDDM type II, neuropathy bilateral feet/toes and bilateral hands/finger, cyclic vomiting, acute pancreatitis, hiatal hernia, PUD, diverticular disease, CKD stage III Last Myocardial Infarction Date:: 05/2010 History of Any Multi-Drug Resistant Organisms: None Reported Past Surgical History: Cholecystectomy, Heart Catheterization, Hysterectomy, Orthopedic Surgery, Tonsillectomy Additional Past Surgical History / Comment(s): Cardiac cath [place], [place]-pt states she was told no blockages and [place] must have been due to a viral infection, thyroidectomy, R thumb fracture with surgery, EGD, colonoscopy, bilateral cataract removals/lens transplants. Past Anesthesia/Blood Transfusion Reactions: Previous Problems w/ Anesthesia Additional Past Anesthesia/Blood Transfusion Reaction / Comment(s): trouble urinating after general anesthesia Smoking Status: Former smoker Past Alcohol Use History: None Reported Additional Past Alcohol Use History / Comment(s): Pt started smoking in 1970 and quit in 2009. Past Drug Use History: Marijuana Additional Drug Use History / Comment(s): Pt states she smokes marijuana in the AM and occasionally in the evening-has smoked marijuana since her [place] - Past Family History Mother Family Medical History: Vascular Disorder Additional Family Medical History / Comment(s): Mother is from esophageal varices d/t alcoholism at the age of 69yrs. Father Family Medical History: CVA/TIA, Hyperlipidemia, Hypertension, Musculoskeletal Disorder, Neurologic Disorder Additional Family Medical History / Comment(s): Father had a CVA in his 50s. Father is from parkinsons at age 69yrs. Medications and Allergies Home Medications Medication Instructions Recorded Confirmed Type Atorvastatin [Lipitor] 80 mg PO HS 07/24/18 01/20/22 History Levothyroxine Sodium [Synthroid] 100 mcg PO DAILY 11/26/21 01/20/22 History Pantoprazole Sodium [Protonix] 40 mg PO DAILY 11/26/21 01/20/22 History amLODIPine [Norvasc] 5 mg PO DAILY 11/26/21 01/20/22 History carvediloL 12.5 mg PO BID 11/26/21 01/20/22 History metFORMIN HCL [Glucophage] 250 mg PO DAILY 11/26/21 01/20/22 History Allergies Allergy/AdvReac Type Severity Reaction Status Date / Time Penicillins Allergy Unknown Verified 01/25/22 10:47 Childhood adhesive AdvReac Itching Verified 01/25/22 10:47 codeine AdvReac Nausea & Verified 01/25/22 10:47 Vomiting Surgical - Exam Vital Signs Temp Pulse Resp BP Pulse Ox 97.8 F 72 20 113/65 96 01/25/22 10:52 01/25/22 10:52 01/25/22 10:52 01/25/22 10:52 01/25/22 10:52 - General well developed, well nourished, no distress - Eyes PERRL - ENT normal pinna - Neck no masses - Respiratory normal expansion - Cardiovascular Rhythm: regular - Abdomen Abdomen: soft, non tender Results - Labs Abnormal Lab Results - Last 24 Hours (Table) 01/25/22 Range/Units 10:57 POC Glucose (mg/dL) 119 H (70-110) mg/dL Assessment and Plan Assessment: Diverticulitis and GERD. We'll perform EGD and colonoscopy.
--- NOTE | 2022-01-25 12:26 | P.OP ---
Date of Procedure: 01/25/22 Preoperative Diagnosis: GERD Diverticulitis Postoperative Diagnosis: Esophagitis Small hiatal hernia Severe diverticulosis Procedure(s) Performed: EGD Colonoscopy Anesthesia: MAC Surgeon: Trever Nolan Pathology: other (Esophagus) Condition: stable Disposition: PACU Description of Procedure: The patient's placed on the endoscopy table in the lateral position. He received IV sedation. The gastro-/oropharynx passed in the esophagus and the stomach. Scope was then placed through the pylorus. The first and second portion of the duodenum appeared normal. Scope and the antrum this appeared normal. Scope was unretroflexedsmall sliding hiatal hernia. The GE junction was at 38 cm. The distal esophagus appeared inflamed and a biopsies performed. The proximal esophagus appeared normal. Scope withdrawn for patient. Next digital rectal exam was performed. This revealed no ebonized. Flexible colonoscope was then placed patient anus passed with colon. In the sigmoid colon there is severe diverticulosis. The scope could not be advanced due to tortuosity and scarring of the bowel.. Scope was withdrawn. The rectumAppeared Normal. Scope withdrawn for patient
[2022-01-25 13:11] VITALS: BP 109/63; PULSE 66; RESP 20
== END 2022-01-25 13:00 | disposition home or self-care (01) ==
LOC: ORWHC2ENDO 10:31
PROVIDERS: ATTEND Surgery
DX: K21.00 Gastro-esophageal reflux disease with esophagitis, without bleeding (principal); K57.30 Diverticulosis of large intestine without perforation or abscess without bleeding; K44.9 Diaphragmatic hernia without obstruction or gangrene; Q43.8 Other specified congenital malformations of intestine; E78.5 Hyperlipidemia, unspecified; I12.9 Hypertensive chronic kidney disease with stage 1 through stage 4 chronic kidney disease, or unspecified chronic kidney disease; E11.22 Type 2 diabetes mellitus with diabetic chronic kidney disease; N18.30 Chronic kidney disease, stage 3 unspecified; E11.40 Type 2 diabetes mellitus with diabetic neuropathy, unspecified; R41.3 Other amnesia; I25.2 Old myocardial infarction; N28.9 Disorder of kidney and ureter, unspecified; J44.9 Chronic obstructive pulmonary disease, unspecified; Z85.850 Personal history of malignant neoplasm of thyroid; E89.0 Postprocedural hypothyroidism; Z92.3 Personal history of irradiation; Z87.11 Personal history of peptic ulcer disease; Z90.49 Acquired absence of other specified parts of digestive tract; Z90.710 Acquired absence of both cervix and uterus; Z98.890 Other specified postprocedural states; Z87.891 Personal history of nicotine dependence; Z98.42 Cataract extraction status, left eye; Z98.41 Cataract extraction status, right eye; Z96.1 Presence of intraocular lens; Z82.49 Family history of ischemic heart disease and other diseases of the circulatory system; Z83.438 Family history of other disorder of lipoprotein metabolism and other lipidemia; Z82.3 Family history of stroke; Z79.84 Long term (current) use of oral hypoglycemic drugs; Z79.890 Hormone replacement therapy; Z79.899 Other long term (current) drug therapy; Z88.5 Allergy status to narcotic agent; Z91.010 Allergy to peanuts; Z91.09 Other allergy status, other than to drugs and biological substances
CPT/HCPCS: 88305; 43239; 45330; J2704; J2001

== ENCOUNTER → 2022-02-04 | Outpatient (CLI) | payer MEDICARE ==
[2022-02-04 17:46] LABS: Basophils # (A) 0.03 X 10*3/uL (0.00-0.10); Basophils % (A) 0.4 %; Eosinophils # (A) 0.15 X 10*3/uL (0.04-0.35); HCT 39.6 % (37.2-46.3); HGB 12.7 g/dL (12.0-15.0); Immature Grans, Automated 0.3 %; Lymphocytes # (A) 3.25 X 10*3/uL (0.90-5.00); Lymphocytes % (A) 44.2 %; MCH 29.6 pg (27.0-32.0); MCHC 32.1 g/dL (32.0-37.0); MCV 92.3 fL (80.0-97.0); Mean Platelet Volume 11.1 fL (9.5-12.2); Monocytes # (A) 0.55 X 10*3/uL (0.20-1.00); Monocytes % (A) 7.5 %; NRBC Per 100 WBC 0 /100 WBCS (0.0-0.0); Neutrophils # (A) 3.36 X 10*3/uL (1.80-7.70); Neutrophils % (A) 45.6 %; Platelet Count 210 X 10*3/uL (140-440); RBC 4.29 X 10*6/uL (4.10-5.20); RDW 13.1 % (11.5-14.5); WBC 7.36 X 10*3/uL (4.50-10.00)
[2022-02-04 17:58] LABS: Anion Gap 12.7 mmol/L (10.00-18.00); Carbon Dioxide 22.8 mmol/L (20.0-27.5); Potassium 4.5 mmol/L (3.5-5.5)
== END | disposition home or self-care (01) ==
LOC: LABPAT 11:29
PROVIDERS: ATTEND Surgery
DX: Z01.818 Encounter for other preprocedural examination (principal); K57.33 Diverticulitis of large intestine without perforation or abscess with bleeding; R00.1 Bradycardia, unspecified
CPT/HCPCS: 80051; 85025; 93005

== ENCOUNTER 2022-02-09 07:23 | Inpatient (IN) | payer MEDICARE ==
[~2022-02-09 07:23] MED LIST changes: +ACETAMINOPHEN TAB 500 MG TAB PO PRN; +DEXAMETHASONE SOD PHOSPHATE 4 MG/ML 1 ML VIAL IV ONE; +HEPARIN SODIUM,PORCINE/PF 5,000 UNIT/0.5 ML SYRINGE SQ PRN; -LACTATED RINGERS 1,000 ML IV SCH; +LIDOCAINE 1% (10MG/ML) FOR IV START INTRADERMA PRN; +ONDANSETRON 4 MG/2 ML VIAL IVP PRN; +metroNIDAZOLE-NS PMX 500 MG in SALINE 1 100ML.BAG IVPB PRN
--- NOTE | 2022-02-09 08:09 | P.GSHP ---
History of Present Illness H&P Date: 02/09/22 Chief Complaint: History of chronic diverticulitis This is a 66-year-old female who presents today for low anterior section. She's had issues with diverticulitis. Patient reversed surgery including bowel perforation, infection, hematoma and possible colostomy. Past Medical History Past Medical History: Cancer, Chest Pain / Angina, COPD, Diabetes Mellitus, Eye Disorder, GERD/Reflux, Hyperlipidemia, Hypertension, Memory Impairment, Myocardial Infarction ([place]), Renal Disease, Thyroid Disorder Additional Past Medical History / Comment(s): Thyroid cancer with thyroidectomy/radiation, NIDDM type II, neuropathy bilateral feet/toes and bilateral hands/finger, cyclic vomiting, acute pancreatitis, hiatal hernia, PUD, diverticular disease, CKD stage III Last Myocardial Infarction Date:: 05/2010 History of Any Multi-Drug Resistant Organisms: None Reported Past Surgical History: Cholecystectomy, Heart Catheterization, Hysterectomy, Orthopedic Surgery, Tonsillectomy Additional Past Surgical History / Comment(s): Cardiac cath [place], [place]-pt states she was told no blockages and [place] must have been due to a viral infection, thyroidectomy, R thumb fracture with surgery, EGD, colonoscopy, bilateral cataract removals/lens transplants. Past Anesthesia/Blood Transfusion Reactions: No Reported Reaction Additional Past Anesthesia/Blood Transfusion Reaction / Comment(s): trouble urinating after general anesthesia Past Psychological History: Depression Additional Psychological History / Comment(s): Pt resides with her son. She does not drive, her son takes her to appointments and is very helpful. Smoking Status: Former smoker Past Alcohol Use History: None Reported Additional Past Alcohol Use History / Comment(s): Pt started smoking in 1970 and quit in 2009. Past Drug Use History: Marijuana Additional Drug Use History / Comment(s): Pt states she smokes marijuana in the AM and occasionally in the evening-has smoked marijuana since her [place] - Past Family History Mother Family Medical History: Vascular Disorder Additional Family Medical History / Comment(s): Mother is from esophageal varices d/t alcoholism at the age of 69yrs. Father Family Medical History: CVA/TIA, Hyperlipidemia, Hypertension, Musculoskeletal Disorder, Neurologic Disorder Additional Family Medical History / Comment(s): Father had a CVA in his 50s. Father is from parkinsons at age 69yrs. Medications and Allergies Home Medications Medication Instructions Recorded Confirmed Type Atorvastatin [Lipitor] 80 mg PO HS 07/24/18 02/09/22 History Levothyroxine Sodium [Synthroid] 100 mcg PO QAM 11/26/21 02/09/22 History Pantoprazole Sodium [Protonix] 40 mg PO QAM 11/26/21 02/09/22 History amLODIPine [Norvasc] 5 mg PO QAM 11/26/21 02/09/22 History carvediloL 12.5 mg PO BID 11/26/21 02/09/22 History metFORMIN HCL [Glucophage] 250 mg PO DAILY 11/26/21 02/09/22 History Erythromycin Base [Erythromycin] 1,000 mg PO 1300,1400,2300 02/08/22 02/09/22 History Neomycin 100 mg PO 1300,1400,2300 02/08/22 02/09/22 History Allergies Allergy/AdvReac Type Severity Reaction Status Date / Time Penicillins Allergy Unknown Verified 02/08/22 08:29 Childhood adhesive AdvReac Itching Verified 02/08/22 08:29 codeine AdvReac Nausea & Verified 02/08/22 08:29 Vomiting Surgical - Exam Vital Signs Temp Pulse Resp BP Pulse Ox 97.5 F L 61 18 143/66 95 02/09/22 07:50 02/09/22 07:50 02/09/22 07:50 02/09/22 07:50 02/09/22 07:50 - General well developed, well nourished, no distress - Eyes PERRL - ENT normal pinna - Neck no masses - Respiratory normal expansion - Cardiovascular Rhythm: regular - Abdomen Abdomen: soft, non tender Assessment and Plan Assessment: Chronic diverticulitis. We'll perform low anterior resection
[2022-02-09 08:15] LABS: Glucose,Whole Blood 118 mg/dL (70-110)
[2022-02-09] MEDS: LACTATED RINGERS 1,000 ML IV SCH ×2 (08:30→08:51)
[2022-02-09] MEDS ORDERED: MIDAZOLAM 2 MG/2 ML VIAL IVP ONE (08:47)
[2022-02-09] MEDS ORDERED: fentaNYL (PF) 50 MCG/ML 2 ML AMP IVP ONE (08:47)
[2022-02-09] MEDS ORDERED: NALOXONE 0.4 MG/ML 1 ML VIAL IV PRN (09:01)
[2022-02-09] MEDS ORDERED: NEOSTIGMINE 1 MG/ML 10 ML VIAL ONE (09:03)
[2022-02-09] MEDS ORDERED: ROCURONIUM 10 MG/ML (5 ML VIAL) IV ONE (09:03)
[2022-02-09] MEDS ORDERED: ePHEDrine 50 MG/ML 1 ML VIAL ONE (09:03)
[2022-02-09] MEDS ORDERED: KETAMINE 10 MG/ML 20 ML VIAL ONE (09:03)
[2022-02-09] MEDS ORDERED: fentaNYL (PF) 50 MCG/ML 2 ML AMP ONE (09:03)
[2022-02-09] MEDS ORDERED: PROPOFOL 10 MG/ML 20 ML VIAL IV ONE (09:03)
[2022-02-09] MEDS ORDERED: MIDAZOLAM 2 MG/2 ML VIAL ONE (09:03)
[2022-02-09] MEDS ORDERED: GLYCOPYRROLATE 0.2 MG/ML 2 ML VIAL ONE (09:03)
[2022-02-09] MEDS ORDERED: SUCCINYLCHOLINE CHLORIDE 200 MG/10 ML VIAL IV ONE (09:03)
[2022-02-09] MEDS ORDERED: HYDROmorphone (PF) 1 MG/ML ONE (09:03)
[2022-02-09] MEDS ORDERED: HEPARIN SODIUM,PORCINE 5,000 UNIT/ML 1 ML VIAL ONE (09:03)
[2022-02-09] MEDS ORDERED: WATER FOR INJECTION, STERILE 10 ML VIAL IV ONE (09:03)
[2022-02-09] MEDS ORDERED: LIDOCAINE 2% INJ 20 MG/ML (2 ML VIAL) ONE (09:03)
[2022-02-09] MEDS ORDERED: LACTATED RINGERS 1,000 ML IV ONE (10:01)
[2022-02-09] MEDS ORDERED: METOCLOPRAMIDE 5 MG/ML 2 ML VIAL IVP PRN (10:07)
--- NOTE | 2022-02-09 10:08 | P.OP ---
Date of Procedure: 02/09/22 Preoperative Diagnosis: Diverticulitis Postoperative Diagnosis: Diverticulitis Procedure(s) Performed: Low anterior resection Anesthesia: PATRICIA Surgeon: Trever Nolan Estimated Blood Loss (ml): 5 Pathology: other (Sigmoid colon) Condition: stable Disposition: PACU Description of Procedure: DESCRIPTION OF PROCEDURE: The patient was placed on the operating table in the supine position. Patient received a general anesthesia. Patient was then placed in the dorsal lithotomy position. The patients abdomen was prepped and draped in the usual sterile fashion. Through a low midline incision, the abdomen was entered. The Glen retractor was placed in the wound. The stomach appeared normal. The small bowel appeared normal. The liver appeared normal. The right colon and transverse colon appeared normal. On the left colon, there was an extensive diverticulosis noted. The sigmoid colon was then mobilized by dividing the white line of Toldt with electrocautery. At this point, the proximal sigmoid colon was transected with a GI stapler after a window had been made in the mesentery. The distal sigmoid colon was then dissected. Mesentery was taken down between Yasmeen clamps and ligated with #0 silk ties. At a point beyond the lesion, the bowel was then transected with a Proximate stapler. This was then removed. The splenic flexure was then taken down in order to provide adequate lengthening of the sigmoid colon. At this point, the auto purse-string suture device was placed across the proximal colon and fired. The colon was then opened. The 29 mm EEA anvil was then placed into the colon and then the purse-string was secured. The EEA stapler device was then placed in the patients anus and passed into the rectum. The nail for the EEA was then brought out through the distal rectum and then attached to the anvil. The EEA stapler device was then fired. The anastomosis was inspected. There were 2 good donuts of tissue removed from the EEA stapler. The anastomosis was then tested under water and there was no air leak seen. At this point the abdomen was then irrigated. There was no bleeding seen. The fascia was then closed with double stranded #1 PDS. The skin was closed with damon. The patient tolerated the procedure well.
[2022-02-09] MEDS: ROPIVACAINE 250 MG, fentaNYL (PF) 625 MCG in SODIUM CHLORIDE 0.9% 188 ML EPIDURAL PRN (10:52)
[2022-02-09] MEDS: HYDROmorphone 0.5 MG/0.5 ML SYRINGE IVP PRN ×4 (11:02→14:21)
--- NOTE | 2022-02-09 11:47 | P.ANPRN ---
Procedure Note - Anesthesia - Epidural/Spinal Epidural Time Out Performed: Yes Date of Procedure: 02/09/22 Procedure Start Time: 08:46 Procedure Stop Time: 08:58 Location of Patient: PreOp Indication: Acute Post-Operative Pain Sedation Type: Sedate with meaningful contact maintained Preparation: Sterile Dressing Position: Sitting Catheter: Indwelling Needle Guage: 18 Injectate: Test Dose Lidocaine1.5% w/1:200,000 epi (3cc without response) Blood Aspirated: No Pain Paresthesia on Injection Noted: No Events: Uneventful and Well Tolerated
[2022-02-09 14:21] LABS: Basophils % (A) 0 %; Eosinophils # (A) 0.1 k/uL (0-0.7); Eosinophils % (A) 0 %; HCT 43.1 % (34.0-46.0); HGB 14.2 gm/dL (11.4-16.0); Lymphocytes # (A) 0.9 k/uL (1.0-4.8); Lymphocytes % (A) 6 %; MCH 30.8 pg (25.0-35.0); MCV 93.1 fL (80.0-100.0); Mean Platelet Volume 8.1; Monocytes # (A) 0.6 k/uL (0-1.0); Monocytes % (A) 5 %; Neutrophils % (A) 88 %; Platelet Count 238 k/uL (150-450); RBC 4.63 m/uL (3.80-5.40); RDW 12.5 % (11.5-15.5); WBC 13.6 k/uL (3.8-10.6)
[2022-02-09 14:56] LABS: African American GFR (CKD) >90 (>60 ml/min/1.73 sqM); Anion Gap 10 mmol/L; Blood Urea Nitrogen 12 mg/dL (7-17); Calcium 8.8 mg/dL (8.4-10.2); Carbon Dioxide 25 mmol/L (22-30); Chloride 106 mmol/L (98-107); Glucose 124 mg/dL (74-99); Non-African American GFR(CKD) >90 (>60 ml/min/1.73 sqM); Potassium 3.9 mmol/L (3.5-5.1); Sodium 141 mmol/L (137-145)
[2022-02-09 15:26] LABS: RBC Morphology Normal
[2022-02-09 17:09] LABS: Glucose,Whole Blood 135 mg/dL (70-110)
[2022-02-09] MEDS: HEPARIN SODIUM,PORCINE/PF 5,000 UNIT/0.5 ML SYRINGE SQ SCH ×2 (18:24→23:35)
[2022-02-09] MEDS: ALVIMOPAN 12 MG CAPSULE PO SCH (20:33)
[2022-02-09] MEDS: D5-0.45% NACL WITH KCL 20MEQ/L 1,000 ML IV SCH (21:52)
[2022-02-10] MEDS: D5-0.45% NACL WITH KCL 20MEQ/L 1,000 ML IV SCH ×4 (01:33→23:48)
[2022-02-10] MEDS: HYDROmorphone 1 MG/ML 1 ML SYRINGE IVP PRN ×3 (02:13→14:01)
[2022-02-10] MEDS: ONDANSETRON 4 MG/2 ML VIAL IVP PRN ×2 (03:21→16:57)
[2022-02-10] MEDS: LACTATED RINGERS 1,000 ML IV SCH (06:19)
--- NOTE | 2022-02-10 07:41 | P.PN ---
Progress Note - Text Progress Note Date: 02/10/22 Patient doing well. Moderate pain after pulling herself up in bed. Left leg paresthesia and weakness last night improved once epidural turned down. Patient complaining of more pain however. Denies headache. Epidural @ 8 ml/hr currently. Back - epidural site c/d A/P POD#1 s/p ex lap w/ epidural - multimodal analgesia - may need to titrate epidural up for increased coverage
[2022-02-10] MEDS: HEPARIN SODIUM,PORCINE/PF 5,000 UNIT/0.5 ML SYRINGE SQ SCH ×3 (08:10→23:48)
[2022-02-10] MEDS: ALVIMOPAN 12 MG CAPSULE PO SCH ×2 (08:11→21:13)
--- NOTE | 2022-02-10 12:13 | P.PN ---
Progress Note - Text Progress Note Date: 02/10/22 The patient is resting comfortably bed. She is postop day 1 from low anterior section. On exam vital signs are stable. Abdomen soft. Incisions clean dry tach. The patient will start increasing her diet once her bowel function returned.
[2022-02-10] MEDS: ROPIVACAINE 250 MG, fentaNYL (PF) 625 MCG in SODIUM CHLORIDE 0.9% 188 ML EPIDURAL PRN (15:00)
[2022-02-11] MEDS: LACTATED RINGERS 1,000 ML IV SCH (06:09)
[2022-02-11] MEDS: D5-0.45% NACL WITH KCL 20MEQ/L 1,000 ML IV SCH ×2 (07:59→16:22)
[2022-02-11] MEDS: HYDROmorphone 1 MG/ML 1 ML SYRINGE IVP PRN (08:05)
[2022-02-11] MEDS: HEPARIN SODIUM,PORCINE/PF 5,000 UNIT/0.5 ML SYRINGE SQ SCH ×2 (09:26→15:27)
[2022-02-11] MEDS: ALVIMOPAN 12 MG CAPSULE PO SCH ×2 (09:27→21:24)
--- NOTE | 2022-02-11 09:41 | PN ---
PROGRESS NOTE 66-year-old white female who is status post colectomy for diverticulitis. The patient is not doing well, in severe pain. She is unable to do physical therapy Cardiovascular S1-S2. Lungs clear. GI soft. Hematology negative Homans. ASSESSMENT: Diverticulitis colitis status post colectomy. Severe abdominal pain. PROGNOSIS: Guarded. Follow up in the next 24 to 48 hours for possible discharge. Diet will be advanced as tolerated. Please see further orders. MMODL / IJN: [id number] /
--- NOTE | 2022-02-11 09:56 | P.PN ---
Progress Note - Text Progress Note Date: 02/11/22 Postop day 1 from exploratory laparotomy, epidural catheter inserted for postop pain control. Epidural solution: Ropivacaine/fentanyl running at 8 mL an hour. Patient pain is well controlled with visual analog score of 7/10. Reports that she can take deep breath. No nausea vomiting, itching, weakness or numbness in the legs or headache reported by the patient. Plan: Epidural bolus of 6 mL given Rate increased to 12 mL per hour
[2022-02-11] MEDS: ROPIVACAINE 250 MG, fentaNYL (PF) 625 MCG in SODIUM CHLORIDE 0.9% 188 ML EPIDURAL PRN (12:44)
--- NOTE | 2022-02-11 16:49 | P.PN ---
Subjective Progress Note Date: 02/11/22 CHIEF COMPLAINT: Diverticulitis HISTORY OF PRESENT ILLNESS: The patient is a 66-year-old female status post anterior resection for diverticulitis 02/09/2022. She is passing flatus. She had a bowel movement this morning. She has an epidural. She is on clear liquid diet. ROS: No reports of nausea and vomiting. No bowel movements. No fevers or chills. No new chest pain. No productive sputum PHYSICAL EXAM: VITAL SIGNS: Reviewed CONSTITUTIONAL: Well developed and in no acute distress. EYES: Conjuctivae without sclera icterus. Extraocular movements grossly intact. HEAD, EARS, NOSE, THROAT: Moist buccal mucosa. Head is atraumatic, normocephalic. Hears conversational speech. No nasal drainage. RESPIRATORY: Non-labored respirations and equal bilateral excursions. CARDIOVASCULAR: Palpable 2+ radial pulses. ABDOMEN: Dressing clean dry and intact. MUSCULOSKELETAL: No gross deformity of the lower extremities noted. No clubbing. No cyanosis. SKIN: Good skin turgor. Well perfused. NEUROLOGIC: Cranial nerves II through XII grossly intact. No focal or lateralizing signs. PSYCH: Appropriate affect. Alert and oriented to person, place and time. CLINICAL LABS: Reviewed. WBC elevated at 13.6 ASSESSMENT: 1. Diverticulitis status post low anterior resection PLAN: 1. We'll advance to full liquid diet. 2. Ambulation encouraged. Objective - Vital Signs Vital signs: Vital Signs Temp 98.3 F 02/11/22 12:47 Pulse 61 02/11/22 12:47 Resp 17 02/11/22 12:47 BP 125/66 02/11/22 12:47 Pulse Ox 99 02/11/22 12:47 FiO2 Intake & Output 02/10/22 02/11/22 02/11/22 18:59 06:59 18:59 Intake Total 61.867 590 184.6 Output Total 2250 1050 Balance -2188.133 590 -865.4 Intake: Intake, IV Titration 61.867 184.6 Amount Ropivacaine 250 mg 61.867 184.6 fentaNYL (PF) 625 mcg In Sodium Chloride 0.9% 188 ml @ Per Protocol EPIDURAL .Q0M PRN Rx#: [id number] Oral 590 Output: Urine 2250 1050 Other: Voiding Method Indwelling Catheter Indwelling Catheter Indwelling Catheter - Labs CBC & Chem 7: 02/09/22 14:04 02/09/22 14:04
[2022-02-12] MEDS: HEPARIN SODIUM,PORCINE/PF 5,000 UNIT/0.5 ML SYRINGE SQ SCH ×5 (00:41→23:29)
[2022-02-12] MEDS: D5-0.45% NACL WITH KCL 20MEQ/L 1,000 ML IV SCH ×3 (00:41→16:47)
[2022-02-12] MEDS: ROPIVACAINE 250 MG, fentaNYL (PF) 625 MCG in SODIUM CHLORIDE 0.9% 188 ML EPIDURAL PRN (05:08)
[2022-02-12] MEDS: LACTATED RINGERS 1,000 ML IV SCH (06:25)
[2022-02-12 10:37] LABS: Basophils % (A) 0 %; Eosinophils # (A) 0.2 k/uL (0-0.7); Eosinophils % (A) 2 %; HCT 37.1 % (34.0-46.0); HGB 11.9 gm/dL (11.4-16.0); Lymphocytes # (A) 1.8 k/uL (1.0-4.8); Lymphocytes % (A) 21 %; MCH 29.9 pg (25.0-35.0); MCHC 32.2 g/dL (31.0-37.0); MCV 92.9 fL (80.0-100.0); Mean Platelet Volume 7.8; Monocytes # (A) 0.7 k/uL (0-1.0); Monocytes % (A) 8 %; Neutrophils # (A) 5.9 k/uL (1.3-7.7); Neutrophils % (A) 68 %; Platelet Count 183 k/uL (150-450); RBC 3.99 m/uL (3.80-5.40); RDW 12.4 % (11.5-15.5); WBC 8.6 k/uL (3.8-10.6)
--- NOTE | 2022-02-12 10:40 | P.PN ---
Progress Note - Text Progress Note Date: 02/12/22 Postop day 3 from exploratory laparotomy, epidural catheter inserted for postop pain control. Epidural solution: Ropivacaine and fentanyl running at 12 mL an hour. Patient pain is well controlled with visual analog score of 3/10. No nausea vomiting, itching, weakness or numbness in the legs or headache reported by the patient. Plan: Discontinue epidural today.
[2022-02-12 10:53] LABS: African American GFR (CKD) >90 (>60 ml/min/1.73 sqM); Anion Gap 3 mmol/L; Blood Urea Nitrogen 2 mg/dL (7-17); Carbon Dioxide 26 mmol/L (22-30); Chloride 110 mmol/L (98-107); Glucose 114 mg/dL (74-99); Potassium 4.2 mmol/L (3.5-5.1); Sodium 139 mmol/L (137-145)
[2022-02-12 10:54] LABS: ALT 33 U/L (4-34); AST 48 U/L (14-36); Albumin 3.6 g/dL (3.5-5.0); Albumin/Globulin Ratio 1.4; Alkaline Phosphatase 83 U/L (38-126); Calcium 8.7 mg/dL (8.4-10.2); Globulin 2.6 g/dL; Non-African American GFR(CKD) >90 (>60 ml/min/1.73 sqM); Total Bilirubin 1.3 mg/dL (0.2-1.3); Total Protein 6.2 g/dL (6.3-8.2)
--- NOTE | 2022-02-12 13:04 | P.PN ---
Subjective Progress Note Date: 02/12/22 CHIEF COMPLAINT: Diverticulitis HISTORY OF PRESENT ILLNESS: The patient is a 66-year-old female status post anterior resection for diverticulitis 02/09/2022. She is passing flatus and having bowel movements. Epidural discontinued. ROS: No reports of nausea and vomiting. No bowel movements. No fevers or chills. No new chest pain. No productive sputum PHYSICAL EXAM: VITAL SIGNS: Reviewed CONSTITUTIONAL: Well developed and in no acute distress. EYES: Conjuctivae without sclera icterus. Extraocular movements grossly intact. HEAD, EARS, NOSE, THROAT: Moist buccal mucosa. Head is atraumatic, normocephalic. Hears conversational speech. No nasal drainage. RESPIRATORY: Non-labored respirations and equal bilateral excursions. CARDIOVASCULAR: Palpable 2+ radial pulses. ABDOMEN: Dressing clean dry and intact. MUSCULOSKELETAL: No gross deformity of the lower extremities noted. No club marilyn. No cyanosis. SKIN: Good skin turgor. Well perfused. NEUROLOGIC: Cranial nerves II through XII grossly intact. No focal or lateralizing signs. PSYCH: Appropriate affect. Alert and oriented to person, place and time. CLINICAL LABS: Reviewed. WBC elevated at 13.6, now normal 8.6. Hgb normal 11.9 ASSESSMENT: 1. Diverticulitis status post low anterior resection PLAN: 1. Will discontinue Red today. 2. Patient had expected blood in stools due to lower anterior resection. 3. Will advance diet as tolerated. 4. Ambulation encouraged. 5. Recommend PT OT. Objective - Vital Signs Vital signs: Vital Signs Temp 98.5 F 02/12/22 07:03 Pulse 73 02/12/22 07:03 Resp 16 02/12/22 07:03 BP 114/72 02/12/22 07:03 Pulse Ox 99 02/12/22 07:03 FiO2 Intake & Output 02/11/22 02/12/22 02/12/22 18:59 06:59 18:59 Intake Total 184.6 196.8 Output Total 2500 250 1700 Balance -2315.4 -53.2 -1700 Intake: Intake, IV Titration 184.6 196.8 Amount Ropivacaine 250 mg 184.6 196.8 fentaNYL (PF) 625 mcg In Sodium Chloride 0.9% 188 ml @ Per Protocol EPIDURAL .Q0M PRN Rx#: [id number] Output: Urine 2500 250 1700 Other: Voiding Method Indwelling Catheter Indwelling Catheter Indwelling Catheter # Voids 825 # Bowel Movements 1 1 - Labs CBC & Chem 7: 02/12/22 10:14 02/12/22 10:14 Labs: Abnormal Lab Results - Last 24 Hours (Table) 02/12/22 Range/Units 10:14 Chloride 110 H (98-107) mmol/L BUN 2 L (7-17) mg/dL Glucose 114 H (74-99) mg/dL AST 48 H (14-36) U/L Total Protein 6.2 L (6.3-8.2) g/dL
[2022-02-12] MEDS: HYDROmorphone 1 MG/ML 1 ML SYRINGE IVP PRN ×3 (14:14→19:47)
[2022-02-12] MEDS ORDERED: DEXTROSE 50% SYRINGE 50 ML IVP PRN ×2 (20:51)
[2022-02-12] MEDS ORDERED: IPRATROPIUM-ALBUTEROL 3 ML NEB INHALATION PRN (20:56)
--- NOTE | 2022-02-12 20:57 | P.PN ---
Progress Note - Text Progress Note Date: 02/12/22 I'm rounding for Dr. Liborio Colon February 12: Patient status post low anterior resection. Having some abdominal discomfort. Tolerated full liquids. Had a BM yesterday. Does pass flatus. Has a Red catheter. Active Medications Benzocaine/Menthol (Benzocaine/Menthol Lozeng 1 Each Lozenge) 1 each MUCOUS MEM Q1HR PRN PRN Reason: Sore Throat Heparin Sodium (Porcine) (Heparin Sodium,Porcine/Pf 5,000 Unit/0.5 Ml Syringe) 5,000 unit SQ Q8HR [facility] Last Admin: 02/12/22 16:46 Dose: 5,000 unit Hydromorphone HCl (Hydromorphone 1 Mg/Ml 1 Ml Syringe) 1 mg IVP Q3HR PRN PRN Reason: Severe Pain Last Admin: 02/12/22 19:47 Dose: 1 mg Lactated Ringer's (Lactated Ringers) 1,000 mls @ 20 mls/hr IV .Q24H [facility] Last Admin: 02/12/22 06:25 Dose: Not Given Ropivacaine 250 mg/ Fentanyl Citrate 625 mcg/ Sodium Chloride 250 mls @ 0 mls/hr EPIDURAL .Q0M PRN; Protocol PRN Reason: Analgesia Last Admin: 02/12/22 05:08 Dose: 12 mls/hr Potassium Chloride/Dextrose/Sod Cl (D5%-1/2ns-Kcl 20 Meq/L Iv Solution) 1,000 mls @ 125 mls/hr IV .Q8H [facility] Last Admin: 02/12/22 16:47 Dose: 125 mls/hr Lidocaine HCl (Lidocaine 1% (10mg/Ml) For Iv Start) 0.1 ml INTRADERMA PER PROTOCOL PRN PRN Reason: IV Start Metoclopramide HCl (Metoclopramide 5 Mg/Ml 2 Ml Vial) 10 mg IVP Q6HR PRN PRN Reason: Nausea and Vomiting Naloxone HCl (Naloxone 0.4 Mg/Ml 1 Ml Vial) 0.2 mg IV Q2M PRN PRN Reason: Opioid Reversal Ondansetron HCl (Ondansetron 4 Mg/2 Ml Vial) 4 mg IVP Q8HR PRN PRN Reason: Nausea And Vomiting Last Admin: 02/10/22 16:57 Dose: 4 mg On examination: VITAL SIGNS: [99.5, 68, 16, 141/71, 98% room air] GENERAL APPEARANCE: BMI 21.4, laying in bed, awake, not in distress. HEENT: Normal external appearance of nose and ear. Oral cavity normal EYES: Pupils equal. Conjunctiva normal. NECK: JVD not raised. Mass not palpable. RESPIRATORY: Respiratory effort normal. Lungs clear to auscultation. CARDIOVASCULAR: First and second sounds normal. No edema. ABDOMEN: Soft. Liver and spleen not palpable. Midline dressing over incision. Mild tenderness. PSYCHIATRY: Alert and oriented x3. Mood and affect normal. INVESTIGATIONS, reviewed in the clinical context: White count 8.6 hemoglobin 11.9 platelets with 83 potassium 4.2 creatinine 0.56 Assessment and plan: -Low anterior resection for diverticulitis Full liquid diet. Patient had a BM yesterday and passed flatus today. -COPD -GERD Protonix 40 mg a day -Hyperlipidemia Lipitor 80 mg daily at bedtime -Essential hypertension . Coreg 12.5 mg twice a day -Diabetes mellitus type 2 on oral hypoglycemic Follow Accu-Cheks with sliding scale -Diabetic peripheral neuropathy -Hypothyroid Synthroid 100 g a day Sliding scale coverage. Resume Coreg. Lipitor. Increase activity.
[2022-02-12] MEDS: ATORVASTATIN 80 MG TAB PO SCH (21:55)
[2022-02-12] MEDS: carvediloL 12.5 MG TAB PO SCH (21:55)
[2022-02-12] MEDS: INSULIN ASPART (NovoLOG) 100 UNIT/ML VIAL SQ SCH (21:56)
[2022-02-13] MEDS: HYDROmorphone 1 MG/ML 1 ML SYRINGE IVP PRN ×2 (00:04→05:05)
[2022-02-13] MEDS: D5-0.45% NACL WITH KCL 20MEQ/L 1,000 ML IV SCH ×2 (02:00→11:05)
[2022-02-13] MEDS: LEVOTHYROXINE 100 MCG TAB PO SCH (05:05)
[2022-02-13] MEDS: LACTATED RINGERS 1,000 ML IV SCH (05:05)
[2022-02-13 06:53] LABS: Glucose,Whole Blood 152 mg/dL (70-110)
[2022-02-13] MEDS: HEPARIN SODIUM,PORCINE/PF 5,000 UNIT/0.5 ML SYRINGE SQ SCH ×3 (08:11→23:24)
[2022-02-13] MEDS: INSULIN ASPART (NovoLOG) 100 UNIT/ML VIAL SQ SCH ×3 (08:11→17:17)
[2022-02-13] MEDS: PANTOPRAZOLE 40 MG TABLET PO SCH (08:11)
[2022-02-13] MEDS: carvediloL 12.5 MG TAB PO SCH ×2 (08:11→21:35)
[2022-02-13 11:03] LABS: Glucose,Whole Blood 121 mg/dL (70-110)
--- NOTE | 2022-02-13 11:17 | P.PN ---
Subjective Progress Note Date: 02/13/22 CHIEF COMPLAINT: Diverticulitis HISTORY OF PRESENT ILLNESS: The patient is a 66-year-old female status post anterior resection for diverticulitis 02/09/2022. Patient reports having flatus and having bowel movements. She tolerated breakfast this morning. Red catheter was still present. She sat up in a chair. She reports lack of assistance to ambulate. ROS: No reports of nausea and vomiting. No fevers or chills. No new chest pain. No productive sputum PHYSICAL EXAM: VITAL SIGNS: Reviewed CONSTITUTIONAL: Well developed and in no acute distress. EYES: Conjuctivae without sclera icterus. Extraocular movements grossly intact. HEAD, EARS, NOSE, THROAT: Moist buccal mucosa. Head is atraumatic, normocephalic. Hears conversational speech. No nasal drainage. RESPIRATORY: Non-labored respirations and equal bilateral excursions. CARDIOVASCULAR: Palpable 2+ radial pulses. ABDOMEN: Dressing clean dry and intact. MUSCULOSKELETAL: No gross deformity of the lower extremities noted. No clubbing. No cyanosis. SKIN: Good skin turgor. Well perfused. NEUROLOGIC: Cranial nerves II through XII grossly intact. No focal or lateralizing signs. PSYCH: Appropriate affect. Alert and oriented to person, place and time. CLINICAL LABS: Reviewed. Blood sugar 121 to 150 ASSESSMENT: 1. Diverticulitis status post low anterior resection PLAN: 1. Recommend PT and OT 2. Low fiber diet 3. Start by mouth pain medications 4. Ensure supplements with meals 5. Disposition pending assessment for rehab needs and home needs Objective - Vital Signs Vital signs: Vital Signs Temp 98.5 F 02/13/22 04:30 Pulse 65 02/13/22 04:30 Resp 18 02/13/22 04:30 BP 126/78 02/13/22 04:30 Pulse Ox 96 02/13/22 04:30 FiO2 Intake & Output 02/12/22 02/13/22 02/13/22 18:59 06:59 18:59 Intake Total 1500 Output Total 2100 1200 1100 Balance -600 -1200 -1100 Intake: Intake, IV Titration 1500 Amount D5-0.45% NaCl with KCl 1500 20Meq/l 1,000 ml @ 125 mls/hr IV .Q8H [facility] Rx#: [id number] Output: Urine 2100 1200 1100 Other: Voiding Method Indwelling Catheter Indwelling Catheter Indwelling Catheter # Bowel Movements 1 - Labs CBC & Chem 7: 02/12/22 10:14 02/12/22 10:14 Labs: Abnormal Lab Results - Last 24 Hours (Table) 02/13/22 02/13/22 Range/Units 06:52 11:01 POC Glucose (mg/dL) 152 H 121 H (70-110) mg/dL
[2022-02-13] MEDS: IBUPROFEN 600 MG TAB PO SCH ×3 (11:53→21:36)
[2022-02-13] MEDS: ACETAMINOPHEN TAB 500 MG TAB PO SCH ×3 (13:09→23:27)
[2022-02-13] MEDS: SIMETHICONE 80 MG CHEWABLE PO SCH ×3 (13:41→21:35)
[2022-02-13 17:09] LABS: Glucose,Whole Blood 140 mg/dL (70-110)
--- NOTE | 2022-02-13 18:43 | P.PN ---
Progress Note - Text Progress Note Date: 02/13/22 I'm rounding for Dr. Liborio Colon February 12: Patient status post low anterior resection. Having some abdominal discomfort. Tolerated full liquids. Had a BM yesterday. Does pass flatus. Has a Red catheter. February 13: Patient advanced to low fiber diet by surgery. Had BM. Passing flatus. Some abdominal discomfort. No nausea vomiting. Encouraged to be out of bed. Active Medications Acetaminophen (Acetaminophen Tab 500 Mg Tab) 1,000 mg PO Q6HR [facility] Last Admin: 02/13/22 17:58 Dose: 1,000 mg Albuterol/Ipratropium (Ipratropium-Albuterol 3 Ml Neb) 3 ml INHALATION RT-QID PRN PRN Reason: Shortness Of Breath Or Wheezing Atorvastatin Calcium (Atorvastatin 80 Mg Tab) 80 mg PO HS [facility] Last Admin: 02/12/22 21:55 Dose: 80 mg Benzocaine/Menthol (Benzocaine/Menthol Lozeng 1 Each Lozenge) 1 each MUCOUS MEM Q1HR PRN PRN Reason: Sore Throat Carvedilol (Carvedilol 12.5 Mg Tab) 12.5 mg PO BID [facility] Last Admin: 02/13/22 08:11 Dose: 12.5 mg Dextrose/Water (Dextrose 50% Syringe 50 Ml) 25 ml IVP PER PROTOCOL PRN; Protocol PRN Reason: Hypoglycemia Dextrose/Water (Dextrose 50% Syringe 50 Ml) 50 ml IVP PER PROTOCOL PRN; Protocol PRN Reason: Hypoglycemia Heparin Sodium (Porcine) (Heparin Sodium,Porcine/Pf 5,000 Unit/0.5 Ml Syringe) 5,000 unit SQ Q8HR [facility] Last Admin: 02/13/22 16:39 Dose: 5,000 unit Hydromorphone HCl (Hydromorphone 1 Mg/Ml 1 Ml Syringe) 1 mg IVP Q3HR PRN PRN Reason: Severe Pain Last Admin: 02/13/22 05:05 Dose: 1 mg Lactated Ringer's (Lactated Ringers) 1,000 mls @ 20 mls/hr IV .Q24H [facility] Last Admin: 02/13/22 05:05 Dose: Not Given Ibuprofen (Ibuprofen 600 Mg Tab) 600 mg PO TID [facility] Last Admin: 02/13/22 16:38 Dose: Not Given Insulin Aspart (Insulin Aspart (Novolog) 100 Unit/Ml Vial) 0 unit SQ AC-TID [facility]; Protocol Last Admin: 02/13/22 17:17 Dose: Not Given Levothyroxine Sodium (Levothyroxine 100 Mcg Tab) 100 mcg PO DAILY@0630 [facility] Last Admin: 02/13/22 05:05 Dose: 100 mcg Lidocaine HCl (Lidocaine 1% (10mg/Ml) For Iv Start) 0.1 ml INTRADERMA PER PROTOCOL PRN PRN Reason: IV Start Metoclopramide HCl (Metoclopramide 5 Mg/Ml 2 Ml Vial) 10 mg IVP Q6HR PRN PRN Reason: Nausea and Vomiting Naloxone HCl (Naloxone 0.4 Mg/Ml 1 Ml Vial) 0.2 mg IV Q2M PRN PRN Reason: Opioid Reversal Ondansetron HCl (Ondansetron 4 Mg/2 Ml Vial) 4 mg IVP Q8HR PRN PRN Reason: Nausea And Vomiting Last Admin: 02/10/22 16:57 Dose: 4 mg Pantoprazole Sodium (Pantoprazole 40 Mg Tablet) 40 mg PO AC-BRKFST [facility] Last Admin: 02/13/22 08:11 Dose: 40 mg Simethicone (Simethicone 80 Mg Chewable) 40 mg PO QID [facility] Last Admin: 02/13/22 17:59 Dose: 40 mg On examination: VITAL SIGNS: 99.2, 69, 15, 120/78, 98% room air GENERAL APPEARANCE: Laying in bed, comfortable. HEENT: Normal external appearance of nose and ear. Oral cavity normal EYES: Pupils equal. Conjunctiva normal. NECK: JVD not raised. Mass not palpable. RESPIRATORY: Respiratory effort normal. Lungs clear to auscultation. CARDIOVASCULAR: First and second sounds normal. No edema. ABDOMEN: Soft. Liver and spleen not palpable. Midline dressing over incision. Mild tenderness. PSYCHIATRY: Alert and oriented x3. Mood and affect normal. INVESTIGATIONS, reviewed in the clinical context: White count 8.6 hemoglobin 11.9 platelets with 83 potassium 4.2 creatinine 0.56 Assessment and plan: -Low anterior resection for diverticulitis Advanced to soft bland diet. -COPD -GERD Protonix 40 mg a day -Hyperlipidemia Lipitor 80 mg daily at bedtime -Essential hypertension . Coreg 12.5 mg twice a day -Diabetes mellitus type 2 on oral hypoglycemic Follow Accu-Cheks with sliding scale -Diabetic peripheral neuropathy -Hypothyroid Synthroid 100 g a day Diet advanced. Discussed with patient. Increase activity.
[2022-02-13 19:59] LABS: Glucose,Whole Blood 133 mg/dL (70-110)
[2022-02-13] MEDS: ATORVASTATIN 80 MG TAB PO SCH (21:35)
[2022-02-14] MEDS: LEVOTHYROXINE 100 MCG TAB PO SCH (06:19)
[2022-02-14] MEDS: ACETAMINOPHEN TAB 500 MG TAB PO SCH ×3 (06:19→17:27)
[2022-02-14] MEDS: LACTATED RINGERS 1,000 ML IV SCH (06:20)
[2022-02-14] MEDS: PANTOPRAZOLE 40 MG TABLET PO SCH (06:46)
[2022-02-14 06:53] LABS: Glucose,Whole Blood 120 mg/dL (70-110)
[2022-02-14] MEDS: INSULIN ASPART (NovoLOG) 100 UNIT/ML VIAL SQ SCH ×3 (06:56→17:26)
[2022-02-14] MEDS: IBUPROFEN 600 MG TAB PO SCH (08:07)
[2022-02-14] MEDS: carvediloL 12.5 MG TAB PO SCH ×2 (08:08→19:03)
[2022-02-14] MEDS: HEPARIN SODIUM,PORCINE/PF 5,000 UNIT/0.5 ML SYRINGE SQ SCH ×2 (08:08→16:43)
[2022-02-14] MEDS: SIMETHICONE 80 MG CHEWABLE PO SCH ×4 (08:08→19:09)
[2022-02-14] MEDS: ONDANSETRON 4 MG/2 ML VIAL IVP PRN (09:35)
[2022-02-14] MEDS: KETOROLAC 15 MG/ML 1 ML VIAL IVP PRN ×2 (10:53→19:13)
[2022-02-14 10:57] LABS: Glucose,Whole Blood 211 mg/dL (70-110)
--- NOTE | 2022-02-14 12:00 | XR ---
EXAMINATION TYPE: XR abdomen 2V DATE OF EXAM: 02/14/2022 COMPARISON: 09/17/2020 INDICATION: Ileus TECHNIQUE: Single view abdomen supine view FINDINGS: There is nonspecific bowel gas in the right mid abdomen. Surgical skin damon are in the midline. No nspecific bowel gas is within the lower pelvis. Postsurgical changes within the bowel are evident. Psoas margins are normal. No organomegaly is present. Free air is under the left diaphragm on the upright projection. This can be postsurgical. IMPRESSION: 1. Pneumoperitoneum suspected to be postsurgical. 2. Postsurgical changes within the lower pelvis.
--- NOTE | 2022-02-14 13:31 | P.PN ---
Subjective Progress Note Date: 02/14/22 CHIEF COMPLAINT: Diverticulitis HISTORY OF PRESENT ILLNESS: The patient is a 66-year-old female status post anterior resection for diverticulitis 02/09/2022. Yesterday, patient was tolerating diet quite well. This morning, patient had multiple bouts of nausea and vomiting. She reports Compazine helps her with her nausea. She only has abdominal pain with vomiting otherwise she's been having bowel movements and passing flatus. ROS: No fevers or chills. No new chest pain. No productive sputum PHYSICAL EXAM: VITAL SIGNS: Reviewed CONSTITUTIONAL: Well developed and in no acute distress. EYES: Conjuctivae without sclera icterus. Extraocular movements grossly intact. HEAD, EARS, NOSE, THROAT: Moist buccal mucosa. Head is atraumatic, normocephalic. Hears conversational speech. No nasal drainage. RESPIRATORY: Non-labored respirations and equal bilateral excursions. CARDIOVASCULAR: Palpable 2+ radial pulses. ABDOMEN: Dressing clean dry and intact. Abdomen soft. Nondistended. No peritoneal signs. MUSCULOSKELETAL: No gross deformity of the lower extremities noted. No clubbing. No cyanosis. SKIN: Good skin turgor. Well perfused. NEUROLOGIC: Cranial nerves II through XII grossly intact. No focal or lateralizing signs. PSYCH: Appropriate affect. Alert and oriented to person, place and time. CLINICAL LABS: Reviewed. Blood sugar glucose 122-211 STUDIES: Abdominal x-ray independently reviewed demonstrating gas within the rectum. No signs of bowel obstruction. This is my independent interpretation. REPORT: Abdominal x-ray report of questionable pneumoperitoneum likely secondary to recent surgical procedure. ASSESSMENT: 1. Diverticulitis status post low anterior resection 2. Postoperative nausea and vomiting PLAN: 1. Diet has been downgraded to nothing by mouth status due to nausea and vomiting. 2. Per patient request, Compazine started. Reglan discontinued due to adverse reaction for prolonged ST 3. On review of abdominal x-ray, clinical symptoms discordant with radiology report. Patient has no signs of peritonitis with soft nondistended abdomen. 4. Bowel rest in the interim. Objective - Vital Signs Vital signs: Vital Signs Temp 96.7 F L 02/14/22 11:32 Pulse 85 02/14/22 11:32 Resp 19 02/14/22 11:32 BP 164/64 02/14/22 11:32 Pulse Ox 100 02/14/22 11:32 FiO2 Intake & Output 02/13/22 02/14/22 02/14/22 18:59 06:59 18:59 Output Total 1100 Balance -1100 Output: Urine 1100 Other: Voiding Method Indwelling Catheter Toilet Toilet Bedside Commode Bedside Commode # Voids 3 1 # Bowel Movements 2 1 - Labs CBC & Chem 7: 02/12/22 10:14 02/12/22 10:14 Labs: Abnormal Lab Results - Last 24 Hours (Table) 02/13/22 02/13/22 02/14/22 Range/Units 17:08 19:57 06:52 POC Glucose (mg/dL) 140 H 133 H 120 H (70-110) mg/dL 02/14/22 Range/Units 10:55 POC Glucose (mg/dL) 211 H (70-110) mg/dL
[2022-02-14] MEDS: PROCHLORPERAZINE INJ 10 MG/2 ML VIAL IVP PRN ×2 (13:44→19:01)
--- NOTE | 2022-02-14 16:58 | P.PN ---
Progress Note - Text Progress Note Date: 02/14/22 I'm rounding for Dr. Liborio Colon February 12: Patient status post low anterior resection. Having some abdominal discomfort. Tolerated full liquids. Had a BM yesterday. Does pass flatus. Has a Red catheter. February 13: Patient advanced to low fiber diet by surgery. Had BM. Passing flatus. Some abdominal discomfort. No nausea vomiting. Encouraged to be out of bed. February 14: Patient a few bouts of vomiting this morning. Made nothing by mouth. Only some abdominal discomfort. Abdominal x-ray unremarkable. Made nothing by mouth by surgery. Active Medications Acetaminophen (Acetaminophen Tab 500 Mg Tab) 1,000 mg PO Q6HR [facility] Last Admin: 02/14/22 12:44 Dose: Not Given Albuterol/Ipratropium (Ipratropium-Albuterol 3 Ml Neb) 3 ml INHALATION RT-QID PRN PRN Reason: Shortness Of Breath Or Wheezing Atorvastatin Calcium (Atorvastatin 80 Mg Tab) 80 mg PO HS [facility] Last Admin: 02/13/22 21:35 Dose: 80 mg Benzocaine/Menthol (Benzocaine/Menthol Lozeng 1 Each Lozenge) 1 each MUCOUS MEM Q1HR PRN PRN Reason: Sore Throat Carvedilol (Carvedilol 12.5 Mg Tab) 12.5 mg PO BID [facility] Last Admin: 02/14/22 08:08 Dose: 12.5 mg Dextrose/Water (Dextrose 50% Syringe 50 Ml) 25 ml IVP PER PROTOCOL PRN; Protocol PRN Reason: Hypoglycemia Dextrose/Water (Dextrose 50% Syringe 50 Ml) 50 ml IVP PER PROTOCOL PRN; Protocol PRN Reason: Hypoglycemia Heparin Sodium (Porcine) (Heparin Sodium,Porcine/Pf 5,000 Unit/0.5 Ml Syringe) 5,000 unit SQ Q8HR [facility] Last Admin: 02/14/22 16:43 Dose: Not Given Hydromorphone HCl (Hydromorphone 1 Mg/Ml 1 Ml Syringe) 1 mg IVP Q3HR PRN PRN Reason: Severe Pain Last Admin: 02/13/22 05:05 Dose: 1 mg Insulin Aspart (Insulin Aspart (Novolog) 100 Unit/Ml Vial) 0 unit SQ AC-TID [facility]; Protocol Last Admin: 02/14/22 12:44 Dose: Not Given Ketorolac Tromethamine (Ketorolac 15 Mg/Ml 1 Ml Vial) 15 mg IVP Q6HR PRN PRN Reason: Pain Stop: 02/17/22 10:25 Last Admin: 02/14/22 10:53 Dose: 15 mg Levothyroxine Sodium (Levothyroxine 100 Mcg Tab) 100 mcg PO DAILY@0630 [facility] Last Admin: 02/14/22 06:19 Dose: 100 mcg Lidocaine HCl (Lidocaine 1% (10mg/Ml) For Iv Start) 0.1 ml INTRADERMA PER PROTOCOL PRN PRN Reason: IV Start Naloxone HCl (Naloxone 0.4 Mg/Ml 1 Ml Vial) 0.2 mg IV Q2M PRN PRN Reason: Opioid Reversal Ondansetron HCl (Ondansetron 4 Mg/2 Ml Vial) 4 mg IVP Q8HR PRN PRN Reason: Nausea And Vomiting Last Admin: 02/14/22 09:35 Dose: 4 mg Pantoprazole Sodium (Pantoprazole 40 Mg Tablet) 40 mg PO -BRKFST [facility] Last Admin: 02/14/22 06:46 Dose: 40 mg Prochlorperazine Edisylate (Prochlorperazine Inj 10 Mg/2 Ml Vial) 10 mg IVP Q6HR PRN PRN Reason: Nausea And Vomiting Last Admin: 02/14/22 13:44 Dose: 10 mg Simethicone (Simethicone 80 Mg Chewable) 40 mg PO QID [facility] Last Admin: 02/14/22 12:44 Dose: Not Given On examination: VITAL SIGNS: 96.7, 85, 19, 1 64 x 64, 100% room air GENERAL APPEARANCE: Laying in bed, comfortable. HEENT: Normal external appearance of nose and ear. Oral cavity normal EYES: Pupils equal. Conjunctiva normal. NECK: JVD not raised. Mass not palpable. RESPIRATORY: Respiratory effort normal. Lungs clear to auscultation. CARDIOVASCULAR: First and second sounds normal. No edema. ABDOMEN: Soft. Liver and spleen not palpable. Midline dressing over incision. Mild tenderness. PSYCHIATRY: Alert and oriented x3. Mood and affect normal. INVESTIGATIONS, reviewed in the clinical context: White count 8.6 hemoglobin 11.9 platelets with 83 potassium 4.2 creatinine 0.56 Assessment and plan: -Low anterior resection for diverticulitis Patient had nausea vomiting this morning. Abdomen is soft. Abdominal x-ray unremarkable. Currently made nothing by mouth. - -COPD -GERD Protonix 40 mg a day -Hyperlipidemia Lipitor 80 mg daily at bedtime -Essential hypertension . Coreg 12.5 mg twice a day -Diabetes mellitus type 2 on oral hypoglycemic Follow Accu-Cheks with sliding scale -Diabetic peripheral neuropathy -Hypothyroid Synthroid 100 g a day Made nothing by mouth. Discussed with patient. Follow with surgery. Abdomen is soft.
[2022-02-14 17:17] LABS: Glucose,Whole Blood 162 mg/dL (70-110)
[2022-02-14] MEDS: ATORVASTATIN 80 MG TAB PO SCH (19:10)
[2022-02-14 20:15] LABS: Glucose,Whole Blood 141 mg/dL (70-110)
[2022-02-15] MEDS: ONDANSETRON 4 MG/2 ML VIAL IVP PRN ×3 (00:31→18:04)
[2022-02-15] MEDS: HEPARIN SODIUM,PORCINE/PF 5,000 UNIT/0.5 ML SYRINGE SQ SCH ×4 (00:35→23:49)
[2022-02-15] MEDS: ACETAMINOPHEN TAB 500 MG TAB PO SCH ×5 (00:35→23:48)
[2022-02-15] MEDS: LEVOTHYROXINE 100 MCG TAB PO SCH (05:59)
[2022-02-15 06:54] LABS: Glucose,Whole Blood 158 mg/dL (70-110)
[2022-02-15] MEDS: PANTOPRAZOLE 40 MG TABLET PO SCH (09:12)
[2022-02-15] MEDS: carvediloL 12.5 MG TAB PO SCH ×2 (09:12→20:02)
[2022-02-15] MEDS: INSULIN ASPART (NovoLOG) 100 UNIT/ML VIAL SQ SCH ×3 (09:13→18:06)
[2022-02-15] MEDS: SIMETHICONE 80 MG CHEWABLE PO SCH ×4 (09:14→20:02)
[2022-02-15] MEDS: SODIUM CHLORIDE 0.9% 1,000 ML IV SCH ×2 (10:33→23:48)
[2022-02-15 11:15] LABS: Glucose,Whole Blood 135 mg/dL (70-110)
--- NOTE | 2022-02-15 13:27 | P.PN ---
Subjective Progress Note Date: 02/15/22 CHIEF COMPLAINT: Diverticulitis HISTORY OF PRESENT ILLNESS: Patient is status post lower anterior resection for diverticulitis on 02/09/2022. Patient was having severe nausea and vomiting yesterday. The vomiting has now resolved. She does have intermittent nausea. But again better than yesterday. She does report having bowel movement and flatus. She did have a low-grade temp of 100.1 yesterday mild tachycardia heart rate of 104. Abdominal x-ray shows pneumoperitoneum suspected to be postsurgic al. Patient does report pain is controlled. No new labs Patient seen and examined with Dr. Cortez PHYSICAL EXAM: VITAL SIGNS: Reviewed. GENERAL: Well-developed in no acute distress. HEENT: No sclera icterus. Extraocular movements grossly intact. Moist buccal mucosa. Head is atraumatic, normocephalic. ABDOMEN: Soft. Nondistended. Nontender. Incision site clean dry and intact NEUROLOGIC: Alert and oriented. Cranial nerves II through XII grossly intact. ASSESSMENT: 1. Diverticulitis status post low anterior resection 2. Postoperative nausea and vomiting PLAN: -Patient's nausea improving. Advance diet to clear liquids -Restart IV fluids at 75 mL per hour normal saline to hydrate patient -Patient has no IV access. 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 Signing provider agrees with the documented findings, assessment, and plan of care. Objective - Vital Signs Vital signs: Vital Signs Temp 99.1 F 02/15/22 11:39 Pulse 92 02/15/22 11:39 Resp 15 02/15/22 11:39 BP 163/98 02/15/22 11:39 Pulse Ox 96 02/15/22 11:39 FiO2 Intake & Output 02/14/22 02/15/22 02/15/22 18:59 06:59 18:59 Output Total 2 2 Balance -2 -2 Output: Urine 2 2 Other: Voiding Method Toilet Toilet Toilet Bedside Commode Bedside Commode Bedside Commode # Voids 1 # Bowel Movements 4 4 - Labs CBC & Chem 7: 02/12/22 10:14 02/12/22 10:14 Labs: Abnormal Lab Results - Last 24 Hours (Table) 02/14/22 02/14/22 02/15/22 Range/Units 17:15 20:06 06:52 POC Glucose (mg/dL) 162 H 141 H 158 H (70-110) mg/dL 02/15/22 Range/Units 11:13 POC Glucose (mg/dL) 135 H (70-110) mg/dL
[2022-02-15 17:17] LABS: Glucose,Whole Blood 165 mg/dL (70-110)
--- NOTE | 2022-02-15 18:14 | P.PN ---
Progress Note - Text Progress Note Date: 02/15/22 I'm rounding for Dr. Liborio Colon February 12: Patient status post low anterior resection. Having some abdominal discomfort. Tolerated full liquids. Had a BM yesterday. Does pass flatus. Has a Red catheter. February 13: Patient advanced to low fiber diet by surgery. Had BM. Passing flatus. Some abdominal discomfort. No nausea vomiting. Encouraged to be out of bed. February 14: Patient a few bouts of vomiting this morning. Made nothing by mouth. Only some abdominal discomfort. Abdominal x-ray unremarkable. Made nothing by mouth by surgery. February 15: Has had no further vomiting. Started back on clear liquids. Has passed flatus. Did walk. Does feel a bit tired. Abdominal pain well controlled Active Medications Acetaminophen (Acetaminophen Tab 500 Mg Tab) 1,000 mg PO Q6HR [facility] Last Admin: 02/15/22 18:07 Dose: Not Given Albuterol/Ipratropium (Ipratropium-Albuterol 3 Ml Neb) 3 ml INHALATION RT-QID PRN PRN Reason: Shortness Of Breath Or Wheezing Atorvastatin Calcium (Atorvastatin 80 Mg Tab) 80 mg PO HS [facility] Last Admin: 02/14/22 19:10 Dose: Not Given Benzocaine/Menthol (Benzocaine/Menthol Lozeng 1 Each Lozenge) 1 each MUCOUS MEM Q1HR PRN PRN Reason: Sore Throat Carvedilol (Carvedilol 12.5 Mg Tab) 12.5 mg PO BID [facility] Last Admin: 02/15/22 09:12 Dose: 12.5 mg Dextrose/Water (Dextrose 50% Syringe 50 Ml) 25 ml IVP PER PROTOCOL PRN; Protocol PRN Reason: Hypoglycemia Dextrose/Water (Dextrose 50% Syringe 50 Ml) 50 ml IVP PER PROTOCOL PRN; Protocol PRN Reason: Hypoglycemia Heparin Sodium (Porcine) (Heparin Sodium,Porcine/Pf 5,000 Unit/0.5 Ml Syringe) 5,000 unit SQ Q8HR [facility] Last Admin: 02/15/22 18:04 Dose: 5,000 unit Hydromorphone HCl (Hydromorphone 1 Mg/Ml 1 Ml Syringe) 1 mg IVP Q3HR PRN PRN Reason: Severe Pain Last Admin: 02/13/22 05:05 Dose: 1 mg Sodium Chloride (Saline 0.9%) 1,000 mls @ 75 mls/hr IV .[id number] [facility] Last Admin: 02/15/22 10:33 Dose: 75 mls/hr Insulin Aspart (Insulin Aspart (Novolog) 100 Unit/Ml Vial) 0 unit SQ AC-TID [facility]; Protocol Last Admin: 02/15/22 18:06 Dose: 1 unit Ketorolac Tromethamine (Ketorolac 15 Mg/Ml 1 Ml Vial) 15 mg IVP Q6HR PRN PRN Reason: Pain Stop: 02/17/22 10:25 Last Admin: 02/14/22 19:13 Dose: 15 mg Levothyroxine Sodium (Levothyroxine 100 Mcg Tab) 100 mcg PO DAILY@0630 [facility] Last Admin: 02/15/22 05:59 Dose: 100 mcg Lidocaine HCl (Lidocaine 1% (10mg/Ml) For Iv Start) 0.1 ml INTRADERMA PER PROTOCOL PRN PRN Reason: IV Start Naloxone HCl (Naloxone 0.4 Mg/Ml 1 Ml Vial) 0.2 mg IV Q2M PRN PRN Reason: Opioid Reversal Ondansetron HCl (Ondansetron 4 Mg/2 Ml Vial) 4 mg IVP Q8HR PRN PRN Reason: Nausea And Vomiting Last Admin: 02/15/22 18:04 Dose: 4 mg Pantoprazole Sodium (Pantoprazole 40 Mg Tablet) 40 mg PO AC-BRKFST [facility] Last Admin: 02/15/22 09:12 Dose: 40 mg Prochlorperazine Edisylate (Prochlorperazine Inj 10 Mg/2 Ml Vial) 10 mg IVP Q6H R PRN PRN Reason: Nausea And Vomiting Last Admin: 02/14/22 19:01 Dose: 10 mg Simethicone (Simethicone 80 Mg Chewable) 40 mg PO QID [facility] Last Admin: 02/15/22 18:08 Dose: Not Given On examination: VITAL SIGNS: 99.1, 92, 15, 163/98, 95% on room air GENERAL APPEARANCE: Sitting up in a chair, HEENT: Normal external appearance of nose and ear. Oral cavity normal EYES: Pupils equal. Conjunctiva normal. NECK: JVD not raised. Mass not palpable. RESPIRATORY: Respiratory effort normal. Lungs clear to auscultation. CARDIOVASCULAR: First and second sounds normal. No edema. ABDOMEN: Soft. Liver and spleen not palpable. Midline dressing over incision. Mild tenderness. PSYCHIATRY: Alert and oriented x3. Mood and affect normal. INVESTIGATIONS, reviewed in the clinical context: White count 8.6 hemoglobin 11.9 platelets with 83 potassium 4.2 creatinine 0.56 Assessment and plan: -Low anterior resection for diverticulitis Doing better. Started back on clear liquids -COPD -GERD Protonix 40 mg a day -Hyperlipidemia Lipitor 80 mg daily at bedtime -Essential hypertension . Coreg 12.5 mg twice a day -Diabetes mellitus type 2 on oral hypoglycemic Follow Accu-Cheks with sliding scale -Diabetic peripheral neuropathy -Hypothyroid Synthroid 100 g a day Started back on clear liquids. Continue other medications. Increase activity.
[2022-02-15] MEDS: PROCHLORPERAZINE INJ 10 MG/2 ML VIAL IVP PRN (19:27)
[2022-02-15] MEDS: ATORVASTATIN 80 MG TAB PO SCH (20:02)
[2022-02-15 20:37] LABS: Glucose,Whole Blood 126 mg/dL (70-110)
[2022-02-16] MEDS: PROCHLORPERAZINE INJ 10 MG/2 ML VIAL IVP PRN ×2 (01:27→10:52)
[2022-02-16] MEDS: ONDANSETRON 4 MG/2 ML VIAL IVP PRN ×2 (01:28→08:34)
[2022-02-16] MEDS: ACETAMINOPHEN TAB 500 MG TAB PO SCH ×4 (05:41→23:14)
[2022-02-16] MEDS: LEVOTHYROXINE 100 MCG TAB PO SCH (05:42)
[2022-02-16 07:14] LABS: Glucose,Whole Blood 133 mg/dL (70-110)
[2022-02-16] MEDS: INSULIN ASPART (NovoLOG) 100 UNIT/ML VIAL SQ SCH ×3 (07:20→17:40)
[2022-02-16] MEDS: HEPARIN SODIUM,PORCINE/PF 5,000 UNIT/0.5 ML SYRINGE SQ SCH ×3 (08:25→23:14)
[2022-02-16] MEDS: PANTOPRAZOLE 40 MG TABLET PO SCH (08:26)
[2022-02-16] MEDS: SIMETHICONE 80 MG CHEWABLE PO SCH ×4 (08:26→19:54)
[2022-02-16] MEDS: carvediloL 12.5 MG TAB PO SCH ×2 (08:26→19:54)
[2022-02-16 11:16] LABS: Glucose,Whole Blood 111 mg/dL (70-110)
--- NOTE | 2022-02-16 12:12 | P.PN ---
Subjective Progress Note Date: 02/16/22 CHIEF COMPLAINT: Diverticulitis HISTORY OF PRESENT ILLNESS: Patient is status post lower anterior resection for diverticulitis on 02/09/2022. Patient started to have nausea vomiting again to the night yesterday. Multiple episodes of emesis. She does report abdominal pain which worsened after the vomiting. She did have diarrhea yesterday. She reports having flatus. Afebrile. Patient seen and examined with Dr. Nolan PHYSICAL EXAM: VITAL SIGNS: Reviewed. GENERAL: Well-developed in no acute distress. HEENT: No sclera icterus. Extraocular movements grossly intact. Moist buccal mucosa. Head is atraumatic, normocephalic. ABDOMEN: Soft. Nondistended. Nontender. Incision site clean dry and intact NEUROLOGIC: Alert and oriented. Cranial nerves II through XII grossly intact. ASSESSMENT: 1. Diverticulitis status post low anterior resection 2. Postoperative nausea and vomiting PLAN: -Due to patient continued to have nausea, vomiting and abdominal pain a computed tomography scan of abdomen and pelvis has been ordered with oral and IV contrast -NG tube placed for decompression -Keep patient nothing by mouth -Continue IV fluids -Encouraged patient to ambulate -Continue antiemetics as needed -Continue pain medication as needed -Repeat labs -Continue subcu heparin for DVT prophylaxis and Protonix for GI prophylaxis Physician Signalman note has been reviewed by physician. Signing provider agrees with the documented findings, assessment, and plan of care. Objective - Vital Signs Vital signs: Vital Signs Temp 97.4 F L 02/16/22 04:10 Pulse 93 02/16/22 04:10 Resp 17 02/16/22 10:32 BP 160/83 02/16/22 04:10 Pulse Ox 97 02/16/22 04:10 FiO2 Intake & Output 02/15/22 02/16/22 02/16/22 18:59 06:59 18:59 Other: Voiding Method Toilet Toilet Bedside Commode Bedside Commode # Voids 2 2 1 # Bowel Movements 1 - Labs CBC & Chem 7: 02/12/22 10:14 02/12/22 10:14 Labs: Abnormal Lab Results - Last 24 Hours (Table) 02/15/22 02/15/22 02/16/22 Range/Units 17:15 20:35 07:09 POC Glucose (mg/dL) 165 H 126 H 133 H (70-110) mg/dL 02/16/22 Range/Units 11:14 POC Glucose (mg/dL) 111 H (70-110) mg/dL
[2022-02-16] MEDS: IOPAMIDOL CONTRAST (ORAL USE) VIAL PO PRN ×2 (12:34→13:30)
[2022-02-16 13:09] VITALS: BMI 21.4
[2022-02-16] MEDS: SODIUM CHLORIDE 0.9% 1,000 ML IV SCH (13:31)
--- NOTE | 2022-02-16 14:56 | CT ---
EXAMINATION TYPE: CT abdomen pelvis w con CT DLP: 813 mGycm, Automated exposure control for dose reduction was used. DATE OF EXAM: 02/16/2022 2:26 PM COMPARISON: CT abdomen pelvis most recent from 11/26/2021 CLINICAL INDICATION:Female, 66 years old with history of abdominal pain, vomiting; abdominal pain, vo miting, h/o bowel resection TECHNIQUE: Axial CT of the abdomen and pelvis. Sagittal and coronal reformats were created on a [employer] workstation. Contrast used:70 mL of Isovue 300 with IV Contrast, Oral contrast used: with Oral Contrast FINDINGS: LOWER CHEST: Unremarkable ABDOMEN LIVER: Unremarkable GALLBLADDER AND BILE DUCTS: Gallbladder is surgically absent with mild extra hepatic biliary dilatati on likely physiologic and a postcholecystectomy change. No evidence of choledocholithiasis. PANCREAS: Unremarkable. SPLEEN: Unremarkable. ADRENAL GLANDS: Unremarkable. KIDNEYS AND URETERS: No evidence of hydronephrosis or renal calculus. The ureters are unremarkable. PELVIS BLADDER: Unremarkable REPRODUCTIVE: Unremarkable. ABDOMEN & PELVIS STOMACH AND BOWEL: Nasogastric tube terminates within the gastric lumen. No evidence of bowel obstruc tion. PERITONEUM: A few foci of pneumoperitoneum is seen in the upper abdomen, example includes best apprec iated on series 3 image 10 and 9. VASCULATURE: Mild atherosclerotic calcifications are present throughout the abdominal aorta and its b ranches. No evidence of aortic aneurysm. MUSCULOSKELETAL: No acute osseous abnormalities. Mild disc degeneration changes are present throughou t the thoracolumbar spine. LYMPH NODES: No gross evidence for lymphadenopathy. SOFT TISSUE/ABDOMINAL WALL: Postsurgical changes to the anterior abdominal wall. No organizing fluid collections. Skin damon in place. Subcutaneous gas is seen in the left lower quadrant anteriorly. IMPRESSION: 1. Few scattered foci of pneumoperitoneum likely related to recent surgery. No evidence for bowel ob struction or organizing fluid collection within the abdomen. 2. Nasogastric tube terminating within the gastric lumen.
[2022-02-16] MEDS: BENZOCAINE/MENTHOL LOZENG 1 EACH LOZENGE MUCOUS MEM PRN ×3 (16:29→22:36)
[2022-02-16] MEDS: HYDROmorphone 1 MG/ML 1 ML SYRINGE IVP PRN (16:30)
[2022-02-16 17:16] LABS: Glucose,Whole Blood 118 mg/dL (70-110)
[2022-02-16] MEDS: KETOROLAC 15 MG/ML 1 ML VIAL IVP PRN (19:07)
[2022-02-16] MEDS: ATORVASTATIN 80 MG TAB PO SCH (19:54)
[2022-02-16 20:59] LABS: Glucose,Whole Blood 108 mg/dL (70-110)
[2022-02-17] MEDS: HYDROmorphone 1 MG/ML 1 ML SYRINGE IVP PRN (01:39)
[2022-02-17] MEDS: SODIUM CHLORIDE 0.9% 1,000 ML IV SCH ×3 (01:40→23:17)
[2022-02-17] MEDS: BENZOCAINE/MENTHOL LOZENG 1 EACH LOZENGE MUCOUS MEM PRN (01:41)
[2022-02-17] MEDS: ACETAMINOPHEN TAB 500 MG TAB PO SCH ×4 (05:28→23:14)
[2022-02-17] MEDS: LEVOTHYROXINE 100 MCG TAB PO SCH (05:28)
[2022-02-17 07:18] LABS: Glucose,Whole Blood 92 mg/dL (70-110)
[2022-02-17] MEDS: INSULIN ASPART (NovoLOG) 100 UNIT/ML VIAL SQ SCH ×3 (07:42→17:04)
[2022-02-17] MEDS: HEPARIN SODIUM,PORCINE/PF 5,000 UNIT/0.5 ML SYRINGE SQ SCH ×3 (08:19→23:14)
--- NOTE | 2022-02-17 08:19 | PN ---
PROGRESS NOTE A 66-year-old white female, status post bowel resection for diverticulitis. She had possible bowel obstruction versus vomiting for 2 days, unclear etiology. We are going to advance her diet. Monitor electrolytes, CBC. OBJECTIVE: CARDIOVASCULAR: S1, S2. LUNGS: Clear. GI: Increased bowel sounds x4. ASSESSMENT: Status post diverticulitis with persistent gastritis, possible bowel obstruction. Prognosis is extremely guarded. Advance diet per Surgery. Follow up in the next 24 to 48 hours. Monitor electrolytes. MMODL / IJN: [id number] /
[2022-02-17] MEDS: SIMETHICONE 80 MG CHEWABLE PO SCH ×4 (08:20→20:51)
[2022-02-17] MEDS: carvediloL 12.5 MG TAB PO SCH ×2 (08:20→20:51)
[2022-02-17] MEDS: PANTOPRAZOLE 40 MG TABLET PO SCH (08:20)
[2022-02-17] MEDS ORDERED: ONDANSETRON 4 MG/2 ML VIAL IVP PRN (09:02)
[2022-02-17 09:11] LABS: Basophils # (A) 0.03 X 10*3/uL (0.00-0.10); Basophils % (A) 0.3 %; Eosinophils # (A) 0.43 X 10*3/uL (0.04-0.35); Eosinophils % (A) 4.6 %; HCT 34.6 % (37.2-46.3); HGB 11.5 g/dL (12.0-15.0); Immature Grans, Automated 0.5 %; Lymphocytes % (A) 25.6 %; MCH 30.1 pg (27.0-32.0); MCHC 33.2 g/dL (32.0-37.0); MCV 90.6 fL (80.0-97.0); Mean Platelet Volume 10.4 fL (9.5-12.2); Monocytes # (A) 1.16 X 10*3/uL (0.20-1.00); Monocytes % (A) 12.4 %; NRBC Per 100 WBC 0 /100 WBCS (0.0-0.0); Neutrophils # (A) 5.32 X 10*3/uL (1.80-7.70); Neutrophils % (A) 56.6 %; Platelet Count 241 X 10*3/uL (140-440); RBC 3.82 X 10*6/uL (4.10-5.20); RDW 12.7 % (11.5-14.5); WBC 9.39 X 10*3/uL (4.50-10.00)
[2022-02-17 09:26] LABS: African American GFR (CKD) 110.1 (60.0-200.0); Anion Gap 11.3 mmol/L (10.00-18.00); BUN/Creat Ratio 26.67 Ratio (12.00-20.00); Calcium 8.4 mg/dL (8.7-10.3); Carbon Dioxide 25.7 mmol/L (20.0-27.5); Potassium 3.3 mmol/L (3.5-5.5)
[2022-02-17] MEDS ORDERED: POTASSIUM CHLORIDE ER 20 MEQ TAB.ER PO STA (10:29)
--- NOTE | 2022-02-17 10:30 | P.PN ---
Subjective Progress Note Date: 02/17/22 CHIEF COMPLAINT: Diverticulitis HISTORY OF PRESENT ILLNESS: Patient is status post lower anterior resection for diverticulitis on 02/09/2022. Patient had NG tube placed yesterday due to continuous nausea and vomiting. She had 450 mL bilious output through the night and 250 output this morning. Computed tomography scan abdomen and pelvis reviewed with Dr. burrell. Results show few scattered foci of pneumoperitoneum likely related to recent surgery. No evidence for bowel obstruction or organized fluid collection within the abdomen. NG tube terminating within the gastric lumen. Afebrile. Patient reports that her nausea has resolved. She is having bowel movements and flatus. She reports feeling thirsty and hungry. WBC is 9.39 Hgb 11.5 sodium 140 potassium 3.3 creatinine 0.6 Patient seen and examined with Dr. Burrell PHYSICAL EXAM: VITAL SIGNS: Reviewed. GENERAL: Well-developed in no acute distress. HEENT: No sclera icterus. Extraocular movements grossly intact. Moist buccal mucosa. Head is atraumatic, normocephalic. ABDOMEN: Soft. Nondistended. Nontender. Incision site clean dry and intact NEUROLOGIC: Alert and oriented. Cranial nerves II through XII grossly intact. ASSESSMENT: 1. Diverticulitis status post low anterior resection 2. Postoperative nausea and vomiting 3. Postoperative ileus 4. Hypokalemia PLAN: -Discontinue NG tube -Start clear liquid diet -Add Reglan scheduled for postop ileus -Replace potassium -Continue IV fluids -Encouraged patient to ambulate -Continue antiemetics as needed -Continue pain medication as needed -Repeat labs -Continue subcu heparin for DVT prophylaxis and Protonix for GI prophylaxis Physician [employer] Systems Integrator note has been reviewed by physician. Signing provider agrees with the documented findings, assessment, and plan of care. Objective - Vital Signs Vital signs: Vital Signs Temp 98.1 F 02/17/22 05:00 Pulse 64 02/17/22 05:00 Resp 16 02/17/22 05:00 BP 111/68 02/17/22 05:00 Pulse Ox 99 02/17/22 05:00 FiO2 Intake & Output 02/16/22 02/17/22 02/17/22 18:59 06:59 18:59 Intake Total 900 1490 Output Total 450 250 Balance 450 1240 Weight 61 kg Intake: Intake, IV Titration 900 900 Amount Sodium Chloride 0.9% 1, 900 900 000 ml @ 75 mls/hr IV . [id number] [facility] Rx#:[id number] Oral 590 Output: Gastric Drainage 450 250 Other: Voiding Method Toilet Bedside Commode # Voids 1 2 - Labs CBC & Chem 7: 02/17/22 05:09 02/17/22 05:09 Labs: Abnormal Lab Results - Last 24 Hours (Table) 02/16/22 02/16/22 02/17/22 Range/Units 11:14 17:10 05:09 RBC 3.82 L (4.10-5.20) X 10*6/uL Hgb 11.5 L (12.0-15.0) g/dL Hct 34.6 L (37.2-46.3) % Immature Gran # 0.05 H (0.00-0.04) X 10*3/uL Monocytes # 1.16 H (0.20-1.00) X 10*3/uL Eosinophils # 0.43 H (0.04-0.35) X 10*3/uL Potassium (3.5-5.5) mmol/L BUN/Creatinine Ratio (12.00-20.00) Ratio POC Glucose (mg/dL) 111 H 118 H (70-110) mg/dL Calcium (8.7-10.3) mg/dL 02/17/22 Range/Units 05:09 RBC (4.10-5.20) X 10*6/uL Hgb (12.0-15.0) g/dL Hct (37.2-46.3) % Immature Gran # (0.00-0.04) X 10*3/uL Monocytes # (0.20-1.00) X 10*3/uL Eosinophils # (0.04-0.35) X 10*3/uL Potassium 3.3 L (3.5-5.5) mmol/L BUN/Creatinine Ratio 26.67 H (12.00-20.00) Ratio POC Glucose (mg/dL) (70-110) mg/dL Calcium 8.4 L (8.7-10.3) mg/dL
[2022-02-17 11:37] LABS: Glucose,Whole Blood 92 mg/dL (70-110)
[2022-02-17] MEDS: METOCLOPRAMIDE 5 MG/ML 2 ML VIAL IVP SCH ×3 (13:05→23:14)
[2022-02-17 16:56] LABS: Glucose,Whole Blood 85 mg/dL (70-110)
[2022-02-17] MEDS: ATORVASTATIN 80 MG TAB PO SCH (20:52)
[2022-02-18] MEDS: LEVOTHYROXINE 100 MCG TAB PO SCH (04:24)
[2022-02-18] MEDS: ACETAMINOPHEN TAB 500 MG TAB PO SCH ×2 (04:24→12:39)
[2022-02-18] MEDS: METOCLOPRAMIDE 5 MG/ML 2 ML VIAL IVP SCH ×2 (04:25→12:48)
[2022-02-18 06:08] LABS: Basophils % (A) 0 %; Eosinophils # (A) 0.3 k/uL (0-0.7); Eosinophils % (A) 4 %; HCT 31.4 % (34.0-46.0); HGB 10.9 gm/dL (11.4-16.0); Lymphocytes # (A) 2.2 k/uL (1.0-4.8); Lymphocytes % (A) 38 %; MCHC 34.8 g/dL (31.0-37.0); MCV 91.9 fL (80.0-100.0); Mean Platelet Volume 10.3; Monocytes # (A) 0.5 k/uL (0-1.0); Monocytes % (A) 8 %; Neutrophils # (A) 2.7 k/uL (1.3-7.7); Neutrophils % (A) 47 %; Platelet Count 176 k/uL (150-450); RBC 3.41 m/uL (3.80-5.40); WBC 5.8 k/uL (3.8-10.6)
[2022-02-18 06:54] LABS: ALT 36 U/L (4-34); African American GFR (CKD) >90 (>60 ml/min/1.73 sqM); Albumin 3.1 g/dL (3.5-5.0); Albumin/Globulin Ratio 1.2; Anion Gap 4 mmol/L; Blood Urea Nitrogen 15 mg/dL (7-17); Calcium 8.2 mg/dL (8.4-10.2); Carbon Dioxide 22 mmol/L (22-30); Chloride 111 mmol/L (98-107); Globulin 2.5 g/dL; Glucose 100 mg/dL (74-99); Non-African American GFR(CKD) >90 (>60 ml/min/1.73 sqM); Sodium 137 mmol/L (137-145); Total Bilirubin 1.2 mg/dL (0.2-1.3); Total Protein 5.6 g/dL (6.3-8.2)
[2022-02-18 06:58] LABS: AST 40 U/L (14-36); Alkaline Phosphatase 63 U/L (38-126); Potassium 4.1 mmol/L (3.5-5.1)
[2022-02-18 06:58] LABS: Glucose,Whole Blood 99 mg/dL (70-110)
[2022-02-18] MEDS: PANTOPRAZOLE 40 MG TABLET PO SCH (07:36)
[2022-02-18] MEDS: HEPARIN SODIUM,PORCINE/PF 5,000 UNIT/0.5 ML SYRINGE SQ SCH ×2 (07:37→08:00)
[2022-02-18] MEDS: SIMETHICONE 80 MG CHEWABLE PO SCH ×2 (07:38→12:40)
[2022-02-18] MEDS: INSULIN ASPART (NovoLOG) 100 UNIT/ML VIAL SQ SCH ×2 (08:00→12:48)
[2022-02-18 08:06] VITALS: RESP 16
--- NOTE | 2022-02-18 09:11 | CDI ---
Documentation Clarification Form Date: 02/18/2022 08:28:37 AM From: Rachael Jacobo RN CCDS Admit Date: 02/09/2022 07:23:00 AM Patient Name: Milka Olivera Visit Number: [id number] Discharge Date: ATTENTION: The Clinical Documentation Specialists (CDI) and [facility] Coding Staff appreciate your assistance in clarifying documentation. Please respond to the clarification below the line at the bottom and electronically sign. The CDI & [facility] Coding staff will review the response and follow-up if needed. Please note: Queries are made part of the Legal Health Record. If you have any questions, please contact the author of this message via ITS. Dr. Trever Nolan Postoperative ileus is documented 02/17, Surgical progress note and patient had Low anterior resection, 02/09. Additional clarification is requested regarding the relationship, if any, that exists between the diagnosis and the procedure. Patients Admitting Diagnosis: Diverticulitis Post-Operative Diagnosis: Diverticulitis Procedure performed: Low anterior resection History/Risk Factors: 66-year-old female presented to [facility] for elective Low anterior resection due to diverticulitis. Medical History: DM2, Diverticulitis and Cholecystectomy. 02/09, H&P. Clinical Indicators: ABD 2V Xray, 02/14: Pneumoperitoneum suspected to be surgical. Postsurgical changes within the lower pelvis. CT ABDPELV, 02/16: Nasogastric tube, No evidence of bowel obstruction. Few scattered foci of pneumoperitoneum likely related to recent surgery. 02/14, Surgical progress note: This morning, patient had multiple bouts of nausea and vomiting. The patient only has abdominal pain with vomiting and has been having bowel movements and passing flatus. Treatment: NG Tube placed for Decompression, CT ABDPELV, NPO , Antiemetics What relationship, if any, exists between the diagnosis of Postoperative ileus and the procedure: [ ] Postoperative ileus is a complication of surgical procedure [ xx] Postoperative is an expected outcome of the surgical procedure [ ] Postoperative ileus ruled out [ ] Other please specify ____ [ ] Unable to determine (Template Last Revised: September 2020) MTDD
--- NOTE | 2022-02-18 09:51 | P.PN ---
Subjective Progress Note Date: 02/18/22 CHIEF COMPLAINT: Diverticulitis HISTORY OF PRESENT ILLNESS: Patient is status post lower anterior resection for diverticulitis on 02/09/2022. Patient being treated for a postoperative ileus. NG tube was discontinued yesterday. She tolerated clear liquid diet. No nausea or vomiting. She is having bowel movements and flatus. Denies abdominal pain. She is hungry and is requesting advancement of diet. She has been up and ambulating in the [place] with physical therapy. Afebrile. WBC is 5.8 Hgb 10.9 platelets 176 sodium is 137 potassium 3.3 up to 4.1 creatinine 0.59 Patient seen and examined with Dr. Nolan PHYSICAL EXAM: VITAL SIGNS: Reviewed. GENERAL: Well-developed in no acute distress. HEENT: No sclera icterus. Extraocular movements grossly intact. Moist buccal mucosa. Head is atraumatic, normocephalic. ABDOMEN: Soft. Nondistended. Nontender. Incision site clean dry and intact NEUROLOGIC: Alert and oriented. Cranial nerves II through XII grossly intact. ASSESSMENT: 1. Diverticulitis status post low anterior resection 2. Postoperative nausea and vomiting resolved 3. Postoperative ileus improved 4. Hypokalemia resolved PLAN: -Advance diet to full liquids -Continue Reglan -Heplock IV -Encouraged patient to ambulate -Continue antiemetics as needed -Continue pain medication as needed -Continue subcu heparin for DVT prophylaxis and Protonix for GI prophylaxis Physician Patient Partner note has been reviewed by physician. Signing provider agrees with the documented findings, assessment, and plan of care. Objective - Vital Signs Vital signs: Vital Signs Temp 98.4 F 02/18/22 06:45 Pulse 56 L 02/18/22 06:45 Resp 16 02/18/22 06:45 BP 118/67 02/18/22 06:45 Pulse Ox 97 02/18/22 06:45 FiO2 Intake & Output 02/17/22 02/18/22 02/18/22 18:59 06:59 18:59 Intake Total 1300 360 Balance 1300 360 Intake: Intake, IV Titration 900 Amount Sodium Chloride 0.9% 1, 900 000 ml @ 75 mls/hr IV . [id number] [facility] Rx#:[id number] Oral 400 360 Other: Voiding Method Toilet Toilet Bedside Commode Bedside Commode # Voids 3 - Labs CBC & Chem 7: 02/18/22 05:42 02/18/22 05:42 Labs: Abnormal Lab Results - Last 24 Hours (Table) 02/18/22 02/18/22 Range/Units 05:42 05:42 RBC 3.41 L (3.80-5.40) m/uL Hgb 10.9 L (11.4-16.0) gm/dL Hct 31.4 L (34.0-46.0) % Chloride 111 H (98-107) mmol/L Glucose 100 H (74-99) mg/dL Calcium 8.2 L (8.4-10.2) mg/dL AST 40 H (14-36) U/L ALT 36 H (4-34) U/L Total Protein 5.6 L (6.3-8.2) g/dL Albumin 3.1 L (3.5-5.0) g/dL
[2022-02-18 10:00] VITALS: PULSE 61
[2022-02-18] MEDS: carvediloL 12.5 MG TAB PO SCH (10:00)
[2022-02-18 11:15] LABS: Glucose,Whole Blood 143 mg/dL (70-110)
[2022-02-18 12:36] VITALS: BP 100/59; TEMP 98.6
--- NOTE | 2022-02-18 18:46 | P.PN ---
Progress Note - Text Progress Note Date: 02/18/22 I'm rounding for Dr. Liborio Colon February 12: Patient status post low anterior resection. Having some abdominal discomfort. Tolerated full liquids. Had a BM yesterday. Does pass flatus. Has a Red catheter. February 13: Patient advanced to low fiber diet by surgery. Had BM. Passing flatus. Some abdominal discomfort. No nausea vomiting. Encouraged to be out of bed. February 14: Patient a few bouts of vomiting this morning. Made nothing by mouth. Only some abdominal discomfort. Abdominal x-ray unremarkable. Made nothing by mouth by surgery. February 15: Has had no further vomiting. Started back on clear liquids. Has passed flatus. Did walk. Does feel a bit tired. Abdominal pain well controlled February 18: Feeling well. Did tolerate her diet. Had a BM. Pain well controlled. Up and about. Surgeries considering discharge. Discussed with patient. Walk in the hallway. Incision healing well. On examination: VITAL SIGNS: 98.6, 61, 16, 100/59, 99% GENERAL APPEARANCE: Reclining but awake, comfortable HEENT: Normal external appearance of nose and ear. Oral cavity normal EYES: Pupils equal. Conjunctiva normal. NECK: JVD not raised. Mass not palpable. RESPIRATORY: Respiratory effort normal. Lungs clear to auscultation. CARDIOVASCULAR: First and second sounds normal. No edema. ABDOMEN: Soft. Liver and spleen not palpable. Midline dressing over incision. Mild tenderness. Incision healing well PSYCHIATRY: Alert and oriented x3. Mood and affect normal. INVESTIGATIONS, reviewed in the clinical context: February 18: White count 5.8 kg globin 10.9 potassium 4.1 creatinine 0.5 White count 8.6 hemoglobin 11.9 platelets with 83 potassium 4.2 creatinine 0.56 Assessment and plan: -Low anterior resection for diverticulitis Doing better. Tolerating diet -COPD -GERD Protonix 40 mg a day -Hyperlipidemia Lipitor 80 mg daily at bedtime -Essential hypertension . Coreg 12.5 mg twice a day -Diabetes mellitus type 2 on oral hypoglycemic Follow Accu-Cheks with sliding scale -Diabetic peripheral neuropathy -Hypothyroid Synthroid 100 g a day Tolerating diet. Up and about. No pain or fever. If patient is discharged to follow up with Dr. Colon in the office.
--- NOTE | 2022-02-19 06:55 | PN ---
PROGRESS NOTE The patient is not vomiting anymore. She wants to have her diet advanced. Possibly go home soon. She continues to improve from medical standpoint. Labs were reviewed. OBJECTIVE: CARDIOVASCULAR: S1 and S2. HEMATOLOGIC: Negative Homans. PSYCHIATRIC: Fair mood and affect. GI: Soft with diverticulitis, status post low anterior resection. ASSESSMENT: Postoperative nausea and vomiting, postoperative ileus, hypokalemia. Advance diet. Continue Reglan. Possible discharge home sooner as she is greatly improved. Prognosis guarded. MMODL / IJN: [id number] /
== END 2022-02-18 13:55 | disposition home or self-care (01) | DRG 330 ==
LOC: 2ORMAIN 07:23 → 5NMEDONC 16:32
PROVIDERS: ADMIT Surgery; ATTEND Surgery
DX: K57.32 Diverticulitis of large intestine without perforation or abscess without bleeding (principal); K56.7 Ileus, unspecified; J44.9 Chronic obstructive pulmonary disease, unspecified; K21.9 Gastro-esophageal reflux disease without esophagitis; E78.5 Hyperlipidemia, unspecified; E11.42 Type 2 diabetes mellitus with diabetic polyneuropathy; E11.22 Type 2 diabetes mellitus with diabetic chronic kidney disease; I12.9 Hypertensive chronic kidney disease with stage 1 through stage 4 chronic kidney disease, or unspecified chronic kidney disease; N18.30 Chronic kidney disease, stage 3 unspecified; E87.6 Hypokalemia; F32.A Depression, unspecified; K57.90 Diverticulosis of intestine, part unspecified, without perforation or abscess without bleeding; K91.0 Vomiting following gastrointestinal surgery; R94.31 Abnormal electrocardiogram [ECG] [EKG]; T45.0X5A Adverse effect of antiallergic and antiemetic drugs, initial encounter; E89.0 Postprocedural hypothyroidism; Z96.1 Presence of intraocular lens; Z79.84 Long term (current) use of oral hypoglycemic drugs; Z85.850 Personal history of malignant neoplasm of thyroid; Z71.3 Dietary counseling and surveillance; I25.2 Old myocardial infarction; Z79.890 Hormone replacement therapy; Z79.899 Other long term (current) drug therapy; Z87.891 Personal history of nicotine dependence; Z92.3 Personal history of irradiation; Z87.11 Personal history of peptic ulcer disease; Z90.710 Acquired absence of both cervix and uterus; Z98.42 Cataract extraction status, left eye; Z98.41 Cataract extraction status, right eye; Z82.3 Family history of stroke; Z82.49 Family history of ischemic heart disease and other diseases of the circulatory system
CPT/HCPCS: 74019; 74177; 80048; 80053; 83036; 85025; 86850; 86900; 86901; 88307

== ENCOUNTER 2023-01-03 16:00 | Observation (INO) | payer MEDICARE ==
[2023-01-03 16:09] LABS: Glucose,Whole Blood 220 mg/dL (70-110)
[2023-01-03] MEDS ORDERED: SODIUM CHLORIDE 0.9% 1,000 ML IV STA (16:42)
[2023-01-03] MEDS ORDERED: ONDANSETRON 4 MG/2 ML VIAL IVP STA (16:42)
[2023-01-03 16:43] LABS: Glucose,Whole Blood 245 mg/dL (70-110)
--- NOTE | 2023-01-03 16:48 | ED ---
General Adult HPI - General Chief complaint: Recheck/Abnormal Lab/Rx Stated complaint: High BP, Hyperglycemia Time Seen by Provider: 01/03/23 16:35 Source: patient, RN notes reviewed Mode of arrival: ambulatory Limitations: no limitations - History of Present Illness Initial comments: Patient is a pleasant 67-year-old female presenting to the emergency department concerned with not feeling well. Onset of symptoms was this morning. Patient states she was more forgetful and forgetting people's names. Patient states she also was nauseated. Patient still has some nausea. Patient does have history of some chronic nausea however has not been bad the past year. Patient states she was concerned that her systolic blood pressure was 150 this morning. Patient is also concerned that her blood sugar was 150 this morning. - Related Data Home Medications Medication Instructions Recorded Confirmed Atorvastatin [Lipitor] 80 mg PO HS 07/24/18 02/09/22 Levothyroxine Sodium [Synthroid] 100 mcg PO QAM 11/26/21 02/09/22 Pantoprazole Sodium [Protonix] 40 mg PO QAM 11/26/21 02/09/22 carvediloL 12.5 mg PO BID 11/26/21 02/09/22 metFORMIN HCL [Glucophage] 250 mg PO DAILY 11/26/21 02/09/22 Previous Rx's Medication Instructions Recorded Acetaminophen Tab [Tylenol] 1,000 mg PO Q6HR PRN #30 tablet 02/18/22 Allergies Allergy/AdvReac Type Severity Reaction Status Date / Time Penicillins Allergy Unknown Verified 01/03/23 16:08 Childhood adhesive AdvReac Itching Verified 01/03/23 16:08 codeine AdvReac Nausea & Verified 01/03/23 16:08 Vomiting Review of Systems ROS Statement: Those systems with pertinent positive or pertinent negative responses have been documented in the HPI. ROS Other: All systems not noted in ROS Statement are negative. Constitutional: Denies: fever Eyes: Denies: eye pain ENT: Denies: ear pain Respiratory: Denies: cough, dyspnea Cardiovascular: Denies: chest pain Endocrine: Reports: fatigue Gastrointestinal: Reports: nausea. Denies: abdominal pain, vomiting Genitourinary: Denies: dysuria Neurological: Reports: as per HPI, confusion Past Medical History Past Medical History: Cancer, Chest Pain / Angina, COPD, Diabetes Mellitus, Eye Disorder, GERD/Reflux, Hyperlipidemia, Hypertension, Memory Impairment, Myocardial Infarction (SD), Renal Disease, Thyroid Disorder Additional Past Medical History / Comment(s): Thyroid cancer with thy roidectomy/radiation, NIDDM type II, neuropathy bilateral feet/toes and bilateral hands/finger, cyclic vomiting, acute pancreatitis, hiatal hernia, PUD, diverticular disease, CKD stage III Last Myocardial Infarction Date:: 05/2010 History of Any Multi-Drug Resistant Organisms: None Reported Past Surgical History: Cholecystectomy, Heart Catheterization, Hysterectomy, Orthopedic Surgery, Tonsillectomy Additional Past Surgical History / Comment(s): Cardiac cath [employer] [place]-pt states she was told no blockages and SD must have been due to a viral infection, thyroidectomy, R thumb fracture with surgery, EGD, colonoscopy, bilateral cataract removals/lens transplants. Past Anesthesia/Blood Transfusion Reactions: No Reported Reaction Additional Past Anesthesia/Blood Transfusion Reaction / Comment(s): trouble urinating after general anesthesia Past Psychological History: Depression Smoking Status: Former smoker Past Alcohol Use History: None Reported Past Drug Use History: Marijuana - Past Family History Mother Family Medical History: Vascular Disorder Additional Family Medical History / Comment(s): Mother is from esophageal varices d/t alcoholism at the age of 69yrs. Father Family Medical History: CVA/TIA, Hyperlipidemia, Hypertension, Musculoskeletal Disorder, Neurologic Disorder Additional Family Medical History / Comment(s): Father had a CVA in his 50s. Father is from parkinsons at age 69yrs. General Exam Limitations: no limitations General appearance: alert, in no apparent distress Head exam: Present: normocephalic Eye exam: Present: normal appearance, PERRL, EOMI ENT exam: Present: normal oropharynx Neck exam: Present: normal inspection. Absent: tenderness Respiratory exam: Present: normal lung sounds bilaterally Cardiovascular Exam: Present: regular rate, normal rhythm GI/Abdominal exam: Present: soft. Absent: tenderness Extremities exam: Present: normal inspection Neurological exam: Present: alert, oriented X3, CN II-XII intact. Absent: motor sensory deficit Expanded Neurological exam: Present: protecting the airway Patient oriented to: Present: person, place, time Speech: Present: fluid speech Cranial nerves: EOM's Intact: Normal Motor strength exam: RUE: 5, LUE: 5, RLE: 5, LLE: 5 Eye Response: (4) open spontaneously Motor Response: (6) obeys commands Verbal Response: (5) oriented Psychiatric exam: Present: normal affect, normal mood Skin exam: Present: normal color Course Vital Signs 01/03/23 01/03/23 01/03/23 16:05 17:30 19:00 Temperature 97.5 F L 98.9 F Pulse Rate 94 71 73 Respiratory 20 19 20 Rate Blood Pressure 120/82 127/95 144/96 O2 Sat by Pulse 98 99 Oximetry EKG Findings - EKG Results: EKG: interpreted by JUANITA (Incomplete right bundle-branch block.), sinus rhythm, normal axis, normal ST/T Medical Decision Making - Medical Decision Making Was pt. sent in by a medical professional or institution (, PA, BOILER TENDER, urgent care, hospital, or alf...) When possible be specific @ -No Did you speak to anyone other than the patient for history (EMS, parent, family, police, friend...)? What history was obtained from this source @ -No Did you review nursing and triage notes (agree or disagree)? Why? @ -I reviewed and agree with nursing and triage notes Were old charts reviewed (outside hosp., previous admission, EMS record, old EKG, old radiological studies, urgent care reports/EKG's, alf records)? Report findings @ -No old charts were reviewed Differential Diagnosis (chest pain, altered mental status, abdominal pain women, abdominal pain men, vaginal bleeding, weakness, fever, dyspnea, syncope, head ache, dizziness, GI bleed, back pain, seizure, CVA, palpatations, mental health)? @ -Differential Dizziness: Benign paroxysmal positional Vertigo, Menieres disease, otitis media, acoustic neuroma, vertebrobasilar insufficiency, cerebellar stroke, encephalitis, hypovolemic, arrhythmia, coronary artery syndrome, anemia, this is not meant to be an all-inclusive list EKG interpreted by me (3pts min.). @ -As above X-rays interpreted by me (1pt min.). @ -Chest x-ray shows no acute process CT interpreted by me (1pt min.). @ -CT reported as U/S interpreted by me (1pt. min.). @ -None done What testing was considered but not performed or refused? (CT, X-rays, U/S, labs)? Why? @ -None What meds were considered but not given or refused? Why? @ -None Did you discuss the management of the patient with other professionals (professionals i.e. Dr., PA, BOILER TENDER, lab, RT, psych nurse, social sciences instructor, gasoline truck operator, teacher, airport operations officer, field nurse case manager)? Give summary @ -Case discussed with Dr. Colon, who will admit his patient Was smoking cessation discussed for >3mins.? @ -No Was critical care preformed (if so, how long)? @ -No Were there social determinants of health that impacted care today? How? (Homelessness, low income, unemployed, alcoholism, drug addiction, transportation, low edu. Level, literacy, decrease access to med. care, nursing home, rehab)? @ -No Was there de-escalation of care discussed even if they declined (Discuss DNR or withdrawal of care, Hospice)? DNR status @ -No What co-morbidities impacted this encounter? (DM, HTN, Smoking, COPD, CAD, Cancer, CVA, ARF, Chemo, Hep., AIDS, mental health diagnosis, sleep apnea, morbid obesity)? @ -None Was patient admitted / discharged? Hospital course, mention meds given and route, prescriptions, significant lab abnormalities, going to OR and other per tinent info. @ -Patient reevaluated and is concerned regarding her memory and mental status change. Patient states she is also getting dizzy here patient is not comfortable with discharge home. Case was discussed with Dr. Colon who will admit his patient with neurology consult Undiagnosed new problem with uncertain prognosis? @ -No Drug Therapy requiring intensive monitoring for toxicity (Heparin, Nitro, Insulin, Cardizem)? @ -No Were any procedures done? @ -No Diagnosis/symptom? @ -Altered mental status Acute, or Chronic, or Acute on Chronic? @ -Acute Uncomplicated (without systemic symptoms) or Complicated (systemic symptoms)? @ -default Side effects of treatment? @ -No Exacerbation, Progression, or Severe Exacerbation? @ -No Poses a threat to life or bodily function? How? (Chest pain, USA, SD, pneumonia, PE, COPD, DKA, ARF, appy, cholecystitis, CVA, Diverticulitis, Homicidal, Suicidal, threat to staff... and all critical care pts) @ -No - Lab Data Result diagrams: 01/03/23 16:55 01/03/23 16:55 Lab Results 01/03/23 01/03/23 01/03/23 Range/Units 16:07 16:42 16:55 WBC 10.9 H (3.8-10.6) k/uL RBC 5.14 (3.80-5.40) m/uL Hgb 15.9 (11.4-16.0) gm/dL Hct 45.8 (34.0-46.0) % MCV 89.1 (80.0-100.0) fL MCH 31.0 (25.0-35.0) pg MCHC 34.8 (31.0-37.0) g/dL RDW 12.1 (11.5-15.5) % Plt Count 254 (150-450) k/uL MPV 7.5 Neutrophils % 75 % Lymphocytes % 17 % Monocytes % 7 % Eosinophils % 1 % Basophils % 0 % Neutrophils # 8.2 H (1.3-7.7) k/uL Lymphocytes # 1.8 (1.0-4.8) k/uL Monocytes # 0.7 (0-1.0) k/uL Eosinophils # 0.1 (0-0.7) k/uL Basophils # 0.0 (0-0.2) k/uL PT (9.0-12.0) sec INR (<1.2) APTT (22.0-30.0) sec Sodium (137-145) mmol/L Potassium (3.5-5.1) mmol/L Chloride (98-107) mmol/L Carbon Dioxide (22-30) mmol/L Anion Gap mmol/L BUN (7-17) mg/dL Creatinine (0.52-1.04) mg/dL Est GFR (CKD-EPI)AfAm (>60 ml/min/1.73 sqM) Est GFR (CKD-EPI)NonAf (>60 ml/min/1.73 sqM) Glucose (74-99) mg/dL POC Glucose (mg/dL) 220 H 245 H (70-110) mg/dL POC Glu Package Sealer Yola Gonzalez Lauren Plasma Lactic Acid Enoch (0.7-2.0) mmol/L Calcium (8.4-10.2) mg/dL Magnesium (1.6-2.3) mg/dL Total Bilirubin (0.2-1.3) mg/dL AST (14-36) U/L ALT (4-34) U/L Alkaline Phosphatase (38-126) U/L Troponin I (0.000-0.034) ng/mL Total Protein (6.3-8.2) g/dL Albumin (3.5-5.0) g/dL Urine Color Urine Appearance (Clear) Urine pH (5.0-8.0) Ur Specific [place] (1.001-1.035) Urine Protein (Negative) Urine Glucose (UA) (Negative) Urine Ketones (Negative) Urine Blood (Negative) Urine Nitrite (Negative) Urine Bilirubin (Negative) Urine Urobilinogen (<2.0) mg/dL Ur Leukocyte Esterase (Negative) Urine RBC (0-5) /hpf Urine WBC (0-5) /hpf Ur Squamous Epith Cells (0-4) /hpf Urine Bacteria (None) /hpf 01/03/23 01/03/23 01/03/23 Range/Units 16:55 16:55 16:55 WBC (3.8-10.6) k/uL RBC (3.80-5.40) m/uL Hgb (11.4-16.0) gm/dL Hct (34.0-46.0) % MCV (80.0-100.0) fL MCH (25.0-35.0) pg MCHC (31.0-37.0) g/dL RDW (11.5-15.5) % Plt Count (150-450) k/uL MPV Neutrophils % % Lymphocytes % % Monocytes % % Eosinophils % % Basophils % % Neutrophils # (1.3-7.7) k/uL Lymphocytes # (1.0-4.8) k/uL Monocytes # (0-1.0) k/uL Eosinophils # (0-0.7) k/uL Basophils # (0-0.2) k/uL PT 10.6 (9.0-12.0) sec INR 1.0 (<1.2) APTT 24.9 (22.0-30.0) sec Sodium 135 L (137-145) mmol/L Potassium 3.2 L (3.5-5.1) mmol/L Chloride 98 (98-107) mmol/L Carbon Dioxide 20 L (22-30) mmol/L Anion Gap 17 mmol/L BUN 21 H (7-17) mg/dL Creatinine 0.83 (0.52-1.04) mg/dL Est GFR (CKD-EPI)AfAm 85 (>60 ml/min/1.73 sqM) Est GFR (CKD-EPI)NonAf 74 (>60 ml/min/1.73 sqM) Glucose 189 H (74-99) mg/dL POC Glucose (mg/dL) (70-110) mg/dL POC Glu Package Sealer ID Plasma Lactic Acid Enoch 1.9 (0.7-2.0) mmol/L Calcium 10.7 H (8.4-10.2) mg/dL Magnesium 1.7 (1.6-2.3) mg/dL Total Bilirubin 1.8 H (0.2-1.3) mg/dL AST 34 (14-36) U/L ALT 37 H (4-34) U/L Alkaline Phosphatase 124 (38-126) U/L Troponin I (0.000-0.034) ng/mL Total Protein 8.5 H (6.3-8.2) g/dL Albumin 5.3 H (3.5-5.0) g/dL Urine Color Urine Appearance (Clear) Urine pH (5.0-8.0) Ur Specific [place] (1.001-1.035) Urine Protein (Negative) Urine Glucose (UA) (Negative) Urine Ketones (Negative) Urine Blood (Negative) Urine Nitrite (Negative) Urine Bilirubin (Negative) Urine Urobilinogen (<2.0) mg/dL Ur Leukocyte Esterase (Negative) Urine RBC (0-5) /hpf Urine WBC (0-5) /hpf Ur Squamous Epith Cells (0-4) /hpf Urine Bacteria (None) /hpf 01/03/23 01/03/23 Range/Units 16:55 16:55 WBC (3.8-10.6) k/uL RBC (3.80-5.40) m/uL Hgb (11.4-16.0) gm/dL Hct (34.0-46.0) % MCV (80.0-100.0) fL MCH (25.0-35.0) pg MCHC (31.0-37.0) g/dL RDW (11.5-15.5) % Plt Count (150-450) k/uL MPV Neutrophils % % Lymphocytes % % Monocytes % % Eosinophils % % Basophils % % Neutrophils # (1.3-7.7) k/uL Lymphocytes # (1.0-4.8) k/uL Monocytes # (0-1.0) k/uL Eosinophils # (0-0.7) k/uL Basophils # (0-0.2) k/uL PT (9.0-12.0) sec INR (<1.2) APTT (22.0-30.0) sec Sodium (137-145) mmol/L Potassium (3.5-5.1) mmol/L Chloride (98-107) mmol/L Carbon Dioxide (22-30) mmol/L Anion Gap mmol/L BUN (7-17) mg/dL Creatinine (0.52-1.04) mg/dL Est GFR (CKD-EPI)AfAm (>60 ml/min/1.73 sqM) Est GFR (CKD-EPI)NonAf (>60 ml/min/1.73 sqM) Glucose (74-99) mg/dL POC Glucose (mg/dL) (70-110) mg/dL POC Glu Package Sealer ID Plasma Lactic Acid Enoch (0.7-2.0) mmol/L Calcium (8.4-10.2) mg/dL Magnesium (1.6-2.3) mg/dL Total Bilirubin (0.2-1.3) mg/dL AST (14-36) U/L ALT (4-34) U/L Alkaline Phosphatase (38-126) U/L Troponin I 0.012 (0.000-0.034) ng/mL Total Protein (6.3-8.2) g/dL Albumin (3.5-5.0) g/dL Urine Color Light Yellow Urine Appearance Clear (Clear) Urine pH 7.5 (5.0-8.0) Ur Specific [place] 1.008 (1.001-1.035) Urine Protein Negative (Negative) Urine Glucose (UA) Negative (Negative) Urine Ketones 1+ H (Negative) Urine Blood Trace H (Negative) Urine Nitrite Negative (Negative) Urine Bilirubin Negative (Negative) Urine Urobilinogen <2.0 (<2.0) mg/dL Ur Leukocyte Esterase Small H (Negative) Urine RBC 3 (0-5) /hpf Urine WBC 4 (0-5) /hpf Ur Squamous Epith Cells <1 (0-4) /hpf Urine Bacteria Rare H (None) /hpf Disposition Clinical Impression: Altered mental status Disposition: ADMITTED IP TO THIS HOSP Condition: Stable Is patient prescribed a controlled substance at d/c from ED?: No Referrals: Liborio Colon MD [Primary Care Provider] - 1-2 days Time of Disposition: 20:22
[2023-01-03 17:20] LABS: WBC 10.9 k/uL (3.8-10.6)
[2023-01-03 17:21] LABS: Basophils % (A) 0 %; Eosinophils # (A) 0.1 k/uL (0-0.7); Eosinophils % (A) 1 %; HCT 45.8 % (34.0-46.0); HGB 15.9 gm/dL (11.4-16.0); Lymphocytes # (A) 1.8 k/uL (1.0-4.8); Lymphocytes % (A) 17 %; MCHC 34.8 g/dL (31.0-37.0); MCV 89.1 fL (80.0-100.0); Mean Platelet Volume 7.5; Monocytes # (A) 0.7 k/uL (0-1.0); Monocytes % (A) 7 %; Neutrophils # (A) 8.2 k/uL (1.3-7.7); Neutrophils % (A) 75 %; Platelet Count 254 k/uL (150-450); RBC 5.14 m/uL (3.80-5.40); RDW 12.1 % (11.5-15.5)
[2023-01-03 17:31] LABS: Partial Thromboplastin Time 24.9 sec (22.0-30.0); Prothrombin Time 10.6 sec (9.0-12.0)
[2023-01-03 17:32] LABS: ALT 37 U/L (4-34); AST 34 U/L (14-36); African American GFR (CKD) 85 (>60 ml/min/1.73 sqM); Albumin 5.3 g/dL (3.5-5.0); Alkaline Phosphatase 124 U/L (38-126); Anion Gap 17 mmol/L; Blood Urea Nitrogen 21 mg/dL (7-17); Calcium 10.7 mg/dL (8.4-10.2); Carbon Dioxide 20 mmol/L (22-30); Chloride 98 mmol/L (98-107); Glucose 189 mg/dL (74-99); Magnesium 1.7 mg/dL (1.6-2.3); Non-African American GFR(CKD) 74 (>60 ml/min/1.73 sqM); Potassium 3.2 mmol/L (3.5-5.1); Sodium 135 mmol/L (137-145); Total Bilirubin 1.8 mg/dL (0.2-1.3); Total Protein 8.5 g/dL (6.3-8.2)
--- NOTE | 2023-01-03 18:21 | CT ---
EXAMINATION TYPE: CT brain wo con CT DLP: 1196.4 mGycm, Automated exposure control for dose reduction was used. DATE OF EXAM: 01/03/2023 6:12 PM COMPARISON: 12/28/2019. CLINICAL INDICATION:Female, 67 years old with history of memory problems, ams, c/o memory loss and co nfusion. TECHNIQUE: Brain: Axial CT images of the brain were obtained with coronal and sagittal reformats created and rev iewed. Contrast used: None. Oral contrast used: None. FINDINGS: Brain: Extra-axial spaces: No abnormal extra-axial fluid collections. Ventricular system: Dilatation in proportion to cerebral atrophy. Cerebral parenchyma: Cerebral atrophy. No acute intraparenchymal hemorrhage or mass effect. The castañeda -white junction is well differentiated. Scattered hypoattenuating areas are seen within the white mat ter. Cerebellum: Unremarkable. Mass effect: No evidence of midline shift. Intracranial vasculature: Atherosclerotic calcifications of the intracranial vessels. Soft tissues: Normal. Calvarium/osseous structures: No depressed skull fracture. Paranasal sinuses and mastoid air cells: Mild scattered paranasal sinus disease. Visualized orbits: Bilateral aphakia IMPRESSION: 1. No acute intracranial process. 2. Nonspecific white matter changes, likely secondary to chronic small vessel ischemic disease.
--- NOTE | 2023-01-03 18:21 | XR ---
EXAMINATION TYPE: XR chest 2V DATE OF EXAM: 01/03/2023 5:57 PM COMPARISON: Chest radiographs from 08/05/2020. TECHNIQUE: XR chest 2V Frontal and lateral views of the chest. CLINICAL INDICATION:Female, 67 years old with history of Weakness; FINDINGS: Lungs/Pleura: There is flattening of the diaphragm with increased lucency of the lungs. No evidence o f pneumothorax, pleural effusion or focal consolidation. Pulmonary vascularity: Unremarkable. Heart/mediastinum: Cardiomediastinal silhouette is unremarkable. Musculoskeletal: No acute osseous pathology. IMPRESSION: 1. No acute cardiopulmonary disease process. 2. COPD changes.
[2023-01-03 19:41] LABS: Appearance,Urine Clear (Clear); Bacteria,Urine Rare /hpf; Bilirubin,Urine Negative (Negative); Blood,Urine Trace (Negative); Color,Urine Light Yellow; Glucose,Urine (UA) Negative (Negative); Ketones,Urine 1+ (Negative); Leukocyte Esterase,Urine Small (Negative); Nitrite,Urine Negative (Negative); PH, Urine 7.5 (5.0-8.0); Protein,Urine Negative (Negative); RBC,Urine 3 /hpf (0-5); Specific Gravity,Urine 1.008 (1.001-1.035); Squamous Epithelial Cell,Urine <1 /hpf (0-4); Urobilinogen,Urine <2.0 mg/dL (<2.0); WBC,Urine 4 /hpf (0-5)
[2023-01-03] MEDS ORDERED: ONDANSETRON 4 MG/2 ML VIAL IVP PRN (20:23)
[2023-01-03] MEDS ORDERED: NALOXONE 0.4 MG/ML 1 ML VIAL IV PRN (20:23)
[2023-01-03] MEDS: SODIUM CHLORIDE 0.9% 1,000 ML IV SCH (21:12)
[2023-01-04 06:23] LABS: Basophils % (A) 0 %; Eosinophils # (A) 0.1 k/uL (0-0.7); Eosinophils % (A) 1 %; HCT 45.4 % (34.0-46.0); HGB 15.5 gm/dL (11.4-16.0); Lymphocytes # (A) 2.8 k/uL (1.0-4.8); Lymphocytes % (A) 28 %; MCH 30.9 pg (25.0-35.0); MCV 90.7 fL (80.0-100.0); Mean Platelet Volume 7.8; Monocytes # (A) 0.9 k/uL (0-1.0); Monocytes % (A) 9 %; Neutrophils # (A) 6.1 k/uL (1.3-7.7); Neutrophils % (A) 61 %; Platelet Count 230 k/uL (150-450); RBC 5.01 m/uL (3.80-5.40); RDW 12.3 % (11.5-15.5)
[2023-01-04 08:18] LABS: Glucose,Whole Blood 112 mg/dL (70-110)
[2023-01-04] MEDS: amLODIPine 2.5 MG TAB PO SCH (09:25)
[2023-01-04] MEDS: TRIAMTERENE-HCTZ 37.5-25MG 1 EACH CAP PO SCH (09:25)
[2023-01-04] MEDS: SODIUM CHLORIDE 0.9% 1,000 ML IV SCH ×2 (09:26→21:24)
[2023-01-04] MEDS: carvediloL 12.5 MG TAB PO SCH ×2 (09:26→21:24)
[2023-01-04] MEDS: metFORMIN 500 MG TAB PO SCH (09:26)
[2023-01-04] MEDS: PANTOPRAZOLE 40 MG TABLET PO SCH (09:32)
[2023-01-04] MEDS: LEVOTHYROXINE 100 MCG TAB PO SCH (09:32)
--- NOTE | 2023-01-04 10:05 | P.CNNES ---
History of Present Illness Consult date: 01/04/23 Requesting physician: [facility] Reason for Consult: ams History of Present Illness: This is a 67-year-old woman with history of hypertension, diabetes mellitus, hypercholesterolemia, myocardial infarction, hypothyroidism, thyroid cancer status post thyroidectomy with radiation presented emergency department for dizziness Patient stated that the she was recently started on a new blood pressure medication as well on Lexapro by her primary care physician. As a result she is been feeling dizzy. She felt her dizziness started about couple days ago and it's usually with movement. Denies any focal weakness, visual di sturbance, ringing in the ear. Denies of any recent sickness. She denies of any confusion or any nausea. Per the ED note she presented because of forgetfulness forgetting the pupils names. And is seems the patient was considered her blood pressure was increased. I spoke with the patient nurse and she agreed that the patient was not confused and she did state that the patient was recently started on the and your blood pressure medication as well as Lexapro. Some other workup during his hospital visit consisted of: She is afebrile. Potassium 3.2, glucose is a range of 200s on presentation. Calcium 10.7. Plasma lactic acid venous is 1.9. CT of the head is reported as no acute intracranial process. I personally reviewed the CT and agree with report. Review of Systems Review of system: The 12 point system was reviewed and apparent positive and negative per HPI. Past Medical History Past Medical History: Cancer, Chest Pain / Angina, COPD, Diabetes Mellitus, Eye Disorder, GERD/Reflux, Hyperlipidemia, Hypertension, Memory Impairment, Myocardial Infarction ([place]), Renal Disease, Thyroid Disorder Additional Past Medical History / Comment(s): Thyroid cancer with thyroidect chely/radiation, NIDDM type II, neuropathy bilateral feet/toes and bilateral hands/finger, cyclic vomiting, acute pancreatitis, hiatal hernia, PUD, diverticular disease and pt she had a bowel resection about 1 yr ago. , CKD stage III Last Myocardial Infarction Date:: 05/2010 History of Any Multi-Drug Resistant Organisms: None Reported Past Surgical History: Cholecystectomy, Heart Catheterization, Hysterectomy, Orthopedic Surgery, Tonsillectomy Additional Past Surgical History / Comment(s): Cardiac cath [facility] [place]-pt states she was told no blockages and [place] must have been due to a viral infection, thyroidectomy, R thumb fracture with surgery, EGD, colonoscopy, bilateral cataract removals/lens transplants. Past Anesthesia/Blood Transfusion Reactions: No Reported Reaction Additional Past Anesthesia/Blood Transfusion Reaction / Comment(s): trouble urinating after general anesthesia Past Psychological History: Depression Additional Psychological History / Comment(s): Pt resides with her son. She does not drive, her son takes her to appointments and is very helpful. Smoking Status: Former smoker Past Alcohol Use History: None Reported Additional Past Alcohol Use History / Comment(s): Pt started smoking in 1970 and quit in 2009. Past Drug Use History: Marijuana Additional Drug Use History / Comment(s): Pt states she smokes marijuana in the AM and occasionally in the evening-has smoked marijuana since her [place] - Past Family History Mother Family Medical History: Vascular Disorder Additional Family Medical History / Comment(s): Mother is from esophageal varices d/t alcoholism at the age of 69yrs. Father Family Medical History: CVA/TIA, Hyperlipidemia, Hypertension, Musculoskeletal Disorder, Neurologic Disorder Additional Family Medical History / Comment(s): Father had a CVA in his 50s. Father is from parkinsons at age 69yrs. Medications and Allergies Home Medications Medication Instructions Recorded Confirmed Type Atorvastatin [Lipitor] 80 mg PO HS 07/24/18 01/03/23 History Levothyroxine Sodium [Synthroid] 100 mcg PO DAILY 11/26/21 01/03/23 History Pantoprazole Sodium [Protonix] 40 mg PO DAILY 11/26/21 01/03/23 History carvediloL 12.5 mg PO BID 11/26/21 01/03/23 History metFORMIN HCL [Glucophage] 250 mg PO DAILY 11/26/21 01/03/23 History Escitalopram [Lexapro] 10 mg PO HS 01/03/23 01/03/23 History Triamterene-Hctz 37.5-25Mg 1 cap PO DAILY 01/03/23 01/03/23 History [Dyazide 37.5-25 Capsule] amLODIPine [Norvasc] 2.5 mg PO DAILY 01/03/23 01/03/23 History Allergies Allergy/AdvReac Type Severity Reaction Status Date / Time Penicillins Allergy Unknown Verified 01/03/23 20:22 Childhood adhesive AdvReac Itching Verified 01/03/23 20:22 codeine AdvReac Nausea & Verified 01/03/23 20:22 Vomiting Physical Examination - Vital Signs Vital Signs: Vital Signs Temp Pulse Pulse Resp BP BP Pulse Ox 01/04/23 07:00 98.3 F 66 17 157/71 98 01/04/23 03:33 16 01/04/23 00:29 98.1 F 65 18 127/76 98 01/03/23 23:00 67 16 140/77 96 01/03/23 22:00 63 18 136/71 98 01/03/23 21:00 65 17 135/76 01/03/23 20:00 71 17 127/78 01/03/23 19:00 73 20 144/96 01/03/23 17:30 98.9 F 71 19 127/95 99 01/03/23 16:05 97.5 F L 94 20 120/82 98 Intake and Output 01/03/23 01/04/23 01/04/23 22:59 06:59 14:59 Other: # Voids 2 Weight 63.503 kg 63.503 kg GENERAL: The patient is lying in bed and is not in acute distress. NEUROLOGICAL: Higher mental function: The patient is awake, alert, oriented to self, place and time. Patient is following commands. No aphasia and no neglect. Cranial nerves: The pupils are round, equal and reactive to light and acc ommodation. Visual holland are full to confrontation throughout. Extraocular movement is intact no nystagmus is noted. Facial sensation is normal to touch throughout. The facial strength is normal throughout. Hearing is mildly decreasedl bilaterally to hand rub. Tongue is midline and moved [id number] without any difficulty. No dysarthria is noted. Shoulder shrug is normal bilaterally. Motor: The strength is 5 over 5 throughout. Normal tone and bulk. Cerebellum: Normal finger to nose heel to villa bilaterally. Sensation: Sensation is normal to touch throughout. Reflexes (right/left): 2+ throughout. Plantars are downgoing bilaterally. Results - Laboratory Findings CBC and BMP: 01/04/23 05:36 01/03/23 16:55 Abnormal Lab Findings: Abnormal Labs 01/03/23 01/03/23 01/03/23 16:07 16:42 16:55 WBC 10.9 H Neutrophils # 8.2 H Sodium Potassium Carbon Dioxide BUN Glucose POC Glucose (mg/dL) 220 H 245 H Calcium Total Bilirubin ALT Total Protein Albumin Urine Ketones Urine Blood Ur Leukocyte Esterase Urine Bacteria 01/03/23 01/03/23 01/04/23 16:55 16:55 08:17 WBC Neutrophils # Sodium 135 L Potassium 3.2 L Carbon Dioxide 20 L BUN 21 H Glucose 189 H POC Glucose (mg/dL) 112 H Calcium 10.7 H Total Bilirubin 1.8 H ALT 37 H Total Protein 8.5 H Albumin 5.3 H Urine Ketones 1+ H Urine Blood Trace H Ur Leukocyte Esterase Small H Urine Bacteria Rare H Assessment and Plan Assessment: This is a 67-year-old woman who presented because of dizziness, also she felt unwell recently and possible confusion. It seems the patient was started on the new blood pressure medication as well as on Lexapro and then after that she noticed her symptoms. Dizziness: Possible due to medication side-effects (started on new blood pressure medication and ?lexapro but feel more blood pressure): Examination is nonfocal. I doubt this is central cause. Transient encephalopathy due to metabolic encephalopathy--- mentation resolved Hypertension Diabetes mellitus Hypercholesteremia History of [place] History of thyroid cancer status post thyroidectomy and radiation Hypothyroidism Plan: I ordered MRI the brain with and without I ordered ammonia level, TSH, vitamin B12, folate. Ordered orthostatic vitals. The need for EEG since her presentation does not sound like a seizure. But if patient has any worsening of her confusion then we'll pursue with the EEG. We'll defer modification of her blood pressure and the recent Lexapro to her primary care Defer the rest of the medical management to primary team The plan discussed with the patient and her nurse. Thank you consultation Time with Patient: Greater than 30
[2023-01-04] MEDS: ATORVASTATIN 80 MG TAB PO SCH (21:23)
[2023-01-04] MEDS: ESCITALOPRAM 10 MG TAB PO SCH (21:23)
[2023-01-05] MEDS: LEVOTHYROXINE 100 MCG TAB PO SCH (05:21)
[2023-01-05] MEDS: PANTOPRAZOLE 40 MG TABLET PO SCH (05:21)
--- NOTE | 2023-01-05 05:28 | HP ---
HISTORY AND PHYSICAL HISTORY OF PRESENT ILLNESS: A 67-year-old woman with hypertension, diabetes mellitus, hypercholesterolemia, coronary artery disease, hypothyroidism status post thyroidectomy with radiation, and dizziness. She was started on new water pill. She has been feeling dizzy ever since. She came in due to forgetfulness, forgetting people's names. Blood pressure is increased. Neurology workup is pending. Her potassium is a little bit low. She appears to be a little bit dehydrated. CT of the head was negative. REVIEW OF SYSTEMS: Fourteen-point review of systems is otherwise negative. PAST MEDICAL HISTORY: See old chart. PAST SURGICAL HISTORY: See old chart. She had a thyroidectomy, right thumb fracture, EGD, colonoscopy, and cataract surgery. FAMILY HISTORY: Mother, vascular disorder and esophageal varices. MEDICATIONS: 1. Norvasc 2.5 mg a day. 2. Dyazide 1 daily. 3. Protonix 40 daily. 4. Lipitor 80 daily. 5. Synthroid 100 mcg daily. 6. Carvedilol 12.5 b.i.d. 7. Metformin 250 daily. 8. Lexapro 10 daily. PHYSICAL EXAMINATION: VITAL SIGNS: Temperature 98, blood pressure 130s to 140s over 70s, pulse 60s to 70s, respiratory rate 16 to 18. CARDIOVASCULAR: S1 and S2. LUNGS: Transmitted upper sounds. GI: Soft. HEMATOLOGY: Negative for Homans. PSYCHIATRIC: Fair mood and affect. NEUROLOGIC: Alert and oriented x3. LABORATORY DATA: Sodium 135, potassium 3.2, BUN is 21, creatinine 0.83. Sugars in the mid 200s. Labs reviewed. PLAN: MRI of the brain has been ordered. Orthostatic changes, EEG. Fluid rehydration continues for dehydration and prerenal azotemia. Dizziness, unclear etiology. Right now, it is possibly dehydration. Transient encephalopathy, possible metabolic encephalopathy. Mentation is improved. Hypertension, diabetes mellitus, hypercholesterolemia, history of thyroid cancer, hypothyroidism, myocardial infarction. Prognosis is guarded. Wait for MRI and then possible discharge. MMODL / IJN: [id number] /
[2023-01-05] MEDS: amLODIPine 2.5 MG TAB PO SCH (08:58)
[2023-01-05] MEDS: metFORMIN 500 MG TAB PO SCH (08:58)
[2023-01-05] MEDS: TRIAMTERENE-HCTZ 37.5-25MG 1 EACH CAP PO SCH (08:58)
[2023-01-05] MEDS: carvediloL 12.5 MG TAB PO SCH ×2 (08:58→20:17)
[2023-01-05] MEDS ORDERED: haloperidoL 1 MG TAB PO STA (10:01)
[2023-01-05] MEDS ORDERED: haloperidoL 1 MG TAB PO PRN (10:03)
--- NOTE | 2023-01-05 15:15 | P.PN ---
Subjective Progress Note Date: 01/05/23 The patient seen at bedside and she feels her dizziness is improving but still has dizziness. She feels that improvement after the IV fluids. Otherwise denies of any neurological issues. Objective - Vital Signs Vital signs: Vital Signs Temp 98.3 F 01/05/23 07:00 Pulse 60 01/05/23 07:00 Resp 16 01/05/23 07:00 BP 132/70 01/05/23 07:00 Pulse Ox 100 01/05/23 07:00 FiO2 Intake & Output 01/04/23 01/05/23 01/05/23 18:59 06:59 18:59 Intake Total 100 100 Balance 100 100 Intake: Oral 100 100 Other: # Voids 3 2 - Exam NEUROLOGICAL: Higher mental function: The patient is awake, alert, oriented to self, place and time. Patient is following commands. No aphasia and no neglect. Cranial nerves: The pupils are round, equal and reactive to light and accommodation. Visual holland are full to confrontation throughout. Extraocular movement is intact no nystagmus is noted. Facial sensation is normal to touch throughout. The facial strength is normal throughout. Hearing is mildly decreasedl bilaterally to hand rub. Tongue is midline and moved [id number] without any difficulty. No dysarthria is noted. Shoulder shrug is normal b ilaterally. Motor: The strength is 5 over 5 throughout. Normal tone and bulk. Cerebellum: Normal finger to nose heel to villa bilaterally. Sensation: Sensation is normal to touch throughout. Reflexes (right/left): 2+ throughout. Plantars are downgoing bilaterally. Some other workup during his hospital visit consisted of: Orthostatic is negative. Vitamin B12 is 561, folate is 13.9 TSH is 1.28. Potassium 3.2, glucose is a range of 200s on presentation. Calcium 10.7. Plasma lactic acid venous is 1.9. CT of the head is reported as no acute intracranial process. I personally revie wed the CT and agree with report. - Labs CBC & Chem 7: 01/04/23 05:36 01/03/23 16:55 Assessment and Plan Assessment: This is a 67-year-old woman who presented because of dizziness, also she felt unwell recently and possible confusion. It seems the patient was started on the new blood pressure medication as well as on Lexapro and then after that she noticed her symptoms. Dizziness: Possible due to medication side-effects (started on new blood pressure medication and ?lexapro but feel more blood pressure): Examination is nonfocal. I doubt this is central cause. Transient encephalopathy due to metabolic encephalopathy--- mentation resolved Hypertension Diabetes mellitus Hypercholesteremia History of [place] History of thyroid cancer status post thyroidectomy and radiation Hypothyroidism Plan: Pending MRI the brain with and without We'll defer modification of her blood pressure and the recent Lexapro to her primary care Defer the rest of the medical management to primary team The plan discussed with the patient and her nurse. Time with Patient: Less than 30
[2023-01-05] MEDS: SODIUM CHLORIDE 0.9% 1,000 ML IV SCH (15:26)
[2023-01-05 15:45] VITALS: TEMP 98.4
[2023-01-05 16:15] LABS: ALT 31 U/L (4-34); AST 34 U/L (14-36); African American GFR (CKD) >90 (>60 ml/min/1.73 sqM); Albumin 4.7 g/dL (3.5-5.0); Albumin/Globulin Ratio 1.7; Alkaline Phosphatase 102 U/L (38-126); Anion Gap 12 mmol/L; Blood Urea Nitrogen 20 mg/dL (7-17); Calcium 9.6 mg/dL (8.4-10.2); Carbon Dioxide 24 mmol/L (22-30); Chloride 104 mmol/L (98-107); Globulin 2.7 g/dL; Glucose 115 mg/dL (74-99); Non-African American GFR(CKD) 83 (>60 ml/min/1.73 sqM); Potassium 3.6 mmol/L (3.5-5.1); Sodium 140 mmol/L (137-145); Total Bilirubin 1.5 mg/dL (0.2-1.3); Total Protein 7.4 g/dL (6.3-8.2)
--- NOTE | 2023-01-05 18:31 | MR ---
EXAMINATION TYPE: MR brain wo/w con DATE OF EXAM: 01/05/2023 5:55 PM CLINICAL INDICATION:Female, 67 years old with history of confusion of unknown cause with dizzy; Confu hilton of unknown cause with dizziness COMPARISON: MR brain 12/28/2019 TECHNIQUE: Multi planar, multi sequence imaging was performed through the brain including: T1, T2, In version recovery, susceptibility weighted imaging and gradient echo imaging and Diffusion weighted im aging. The patient was then given intravenous contrast and multi planar, T1 fat-saturation images wer e obtained. IV Contrast: 6.5 cc Gadavist FINDINGS: The castañeda-white junctions, ventricular system, basal cisterns appear unremarkable. Diffusion-weighted imaging shows no evidence of restricted diffusion to suggest acute/subacute infarct. Intracranial art erial flow voids are maintained. Midline structures show no abnormality. Scattered foci of high T2 si gnal intensity are seen within the periventricular white matter which is mildly progressed from 2019. . The susceptibility weighted images do not reveal any evidence for micro-hemorrhage. After administr ation of gadolinium, no abnormal enhancement is seen. The bone marrow signal is within normal limits. Paranasal sinuses and mastoid air cells: No significant paranasal sinus disease. Visualized orbits: Bilateral aphakia IMPRESSION: 1. No evidence of intracranial mass, acute/subacute infarct, or abnormal enhancement. 2. Mildly progressed from 2019, Nonspecific white matter changes, likely related to small vessel isch emic disease
[2023-01-05] MEDS: ATORVASTATIN 80 MG TAB PO SCH (20:17)
[2023-01-05] MEDS: ESCITALOPRAM 10 MG TAB PO SCH (20:17)
--- NOTE | 2023-01-05 23:22 | PN ---
PROGRESS NOTE SUBJECTIVE: This is a 67-year-old white female. She is much better with the dizziness with the fluids, but she is still getting a little bit dizzy, just 1 episode today. She is crying because they only gave her 2 mg of Valium, which did not make her sleepy at all. She is so claustrophobic in an MRI machine. She says she is just falling in here, so she wants a Valium 10 mg, which I ordered. OBJECTIVE: VITAL SIGNS: Temperature 98.3, pulse 60, respiratory rate 16, blood pressure 130s/70s, and O2 100%. CARDIOVASCULAR: S1, S2. LUNGS: Decreased breath sounds. PSYCH: Fair mood and affect. All vitamin levels were normal. Potassium is a little bit low at 1.9. CT of head is negative. Orthostatics are negative. Possible discharge home when cleared with dizziness from dehydration, possible COPD, asthma exacerbation, possible discharge home after MRI is negative. Discussed with the patient. MMODL / IJN: [id number] /
[2023-01-06] MEDS: LEVOTHYROXINE 100 MCG TAB PO SCH (05:56)
[2023-01-06] MEDS: PANTOPRAZOLE 40 MG TABLET PO SCH (05:56)
[2023-01-06 08:21] VITALS: RESP 16
[2023-01-06] MEDS: carvediloL 12.5 MG TAB PO SCH (09:19)
[2023-01-06] MEDS: metFORMIN 500 MG TAB PO SCH (09:19)
[2023-01-06] MEDS: amLODIPine 2.5 MG TAB PO SCH (09:19)
[2023-01-06 11:17] LABS: ALT 29 U/L (8-44); AST 29 U/L (13-35); Albumin 4.7 d/dL (3.8-4.9); Albumin/Globulin Ratio 2.04 Ratio (1.60-3.17); Alkaline Phosphatase 100 U/L (41-126); BUN/Creat Ratio 24.38 Ratio (12.00-20.00); Blood Urea Nitrogen 19.5 mg/dL (9.0-27.0); Calcium 9.8 mg/dL (8.7-10.3); Carbon Dioxide 24.6 mmol/L (21.6-31.8); Chloride 102 mmol/L (96-109); Globulin 2.3 d/dL (1.6-3.3); Glucose 107 mg/dL (70-110); Potassium 3.7 mmol/L (3.5-5.5); Sodium 141 mmol/L (135-145); Total Bilirubin 1.3 mg/dL (0.3-1.2)
--- NOTE | 2023-01-06 15:34 | P.PN ---
Subjective Progress Note Date: 01/06/23 The patient seen at bedside and she feels drastically much better today compared to initial presentation. Denies of any further dizziness or any focal weakness. She feels back to baseline. Objective - Vital Signs Vital signs: Vital Signs Temp 98.4 F 01/06/23 07:00 Pulse 62 01/06/23 07:00 Resp 16 01/06/23 07:00 BP 125/76 01/06/23 07:00 Pulse Ox 97 01/06/23 07:00 FiO2 Intake & Output 01/05/23 01/06/23 01/06/23 18:59 06:59 18:59 Intake Total 218 118 Balance 218 118 Intake: Oral 218 118 Other: # Voids 2 1 - Exam NEUROLOGICAL: Higher mental function: The patient is awake, alert, oriented to self, place and time. Patient is following commands. No aphasia and no neglect. Cranial nerves: The pupils are round, equal and reactive to light and accommodation. Visual holland are full to confrontation throughout. Extraocular movement is intact no nystagmus is noted. Facial sensation is normal to touch throughout. The facial strength is normal throughout. Hearing is mildly decreasedl bilaterally to hand rub. Tongue is midline and moved [id number] without any difficulty. No dysarthria is noted. Shoulder shrug is normal bilaterally. Motor: The strength is 5 over 5 throughout. Normal tone and bulk. Cerebellum: Normal finger to nose heel to villa bilaterally. Sensation: Sensation is normal to touch throughout. Reflexes (right/left): 2+ throughout. Plantars are downgoing bilaterally. Some other workup during his hospital visit consisted of: Orthostatic is negative. Vitamin B12 is 561, folate is 13.9 TSH is 1.28. Potassium 3.2, glucose is a range of 200s on presentation. Calcium 10.7. Plasma lactic acid venous is 1.9. CT of the head is reported as no acute intracranial process. I personally revi ewed the CT and agree with report. MRI the brain with and without is reported as no evidence of intracranial mass, acute/subacute infarct or abnormal enhancement. Mild progressed from 2020, nonspecific white matter changes, likely related to small vessel ischemic disease. I personally reviewed the MRI and agree with report. - Labs CBC & Chem 7: 01/04/23 05:36 01/06/23 05:38 Labs: Abnormal Lab Results - Last 24 Hours (Table) 01/05/23 01/06/23 Range/Units 15:49 05:38 Anion Gap 14.40 H (4.00-12.00) mmol/L BUN 20 H (7-17) mg/dL BUN/Creatinine Ratio 24.38 H (12.00-20.00) Ratio Glucose 115 H (74-99) mg/dL Total Bilirubin 1.5 H 1.3 H (0.2-1.3) mg/dL Assessment and Plan Assessment: This is a 67-year-old woman who presented because of dizziness, also she felt unwell recently and possible confusion. It seems the patient was started on the new blood pressure medication as well as on Lexapro and then after that she noticed her symptoms. Dizziness: Possible due to medication side-effects (started on new blood pressure medication and ?lexapro but feel more blood pressure): Examination is nonfocal. MRI Brain is negative for stroke or mass. Transient encephalopathy due to metabolic encephalopathy--- mentation resolved Hypertension Diabetes mellitus Hypercholesteremia History of [place] History of thyroid cancer status post thyroidectomy and radiation Hypothyroidism Plan: The patient symptoms has classically improved and she denies any further dizziness or any focal deficit. She feels she is back at baseline. We'll defer modification of her blood pressure and the recent Lexapro to her primary care Defer the rest of the medical management to primary team The plan discussed with the patient and her nurse. There is no further neurological workup. Please notify neurology team if any further concerns. Time with Patient: Less than 30
[2023-01-06 16:25] VITALS: BP 112/70; PULSE 63
== END 2023-01-06 17:20 | disposition home or self-care (01) ==
LOC: EC 16:00 → 6NMEDSUR 20:26
PROVIDERS: ADMIT Family Medicine; ATTEND Family Medicine
DX: R42 Dizziness and giddiness (principal); G93.49 Other encephalopathy; E86.0 Dehydration; R79.89 Other specified abnormal findings of blood chemistry; J44.9 Chronic obstructive pulmonary disease, unspecified; K21.9 Gastro-esophageal reflux disease without esophagitis; E78.5 Hyperlipidemia, unspecified; E89.0 Postprocedural hypothyroidism; E11.40 Type 2 diabetes mellitus with diabetic neuropathy, unspecified; I12.9 Hypertensive chronic kidney disease with stage 1 through stage 4 chronic kidney disease, or unspecified chronic kidney disease; N18.30 Chronic kidney disease, stage 3 unspecified; E11.22 Type 2 diabetes mellitus with diabetic chronic kidney disease; F32.A Depression, unspecified; I25.10 Atherosclerotic heart disease of native coronary artery without angina pectoris; I25.2 Old myocardial infarction; Z85.850 Personal history of malignant neoplasm of thyroid; Z87.11 Personal history of peptic ulcer disease; Z87.891 Personal history of nicotine dependence; Z92.3 Personal history of irradiation; Z79.899 Other long term (current) drug therapy; Z79.890 Hormone replacement therapy; Z79.84 Long term (current) use of oral hypoglycemic drugs; Z88.0 Allergy status to penicillin; Z88.5 Allergy status to narcotic agent
CPT/HCPCS: 96361 ×4; 96375; 96376; 96374; 99285; 36415; 94760; 93005; 80053 ×3; 84443; 82607; 82140; 82746; 83605; 83735; 84484; 85025 ×2; 85610; 85730; 81001; 83036; 71046; 70450; 70553; G0378 ×4; J3360; J2405; A9585